=== PATIENT | female | born 1965 | race Caucasian/White ===

== ENCOUNTER → 2016-11-23 | Outpatient (CLI) | payer OTHER ==
[2016-11-23 08:32] LABS: AST 42 U/L (14-36); Cholesterol 133 mg/dL (<200); Creatine Kinase 621 U/L (30-135); HDL Cholesterol 54 mg/dL (40-60); Triglycerides 74 mg/dL (<150)
[2016-11-23 08:46] LABS: ALT 44 U/L (9-52)
== END | disposition home or self-care (01) ==
LOC: LABWHC1 07:36
PROVIDERS: ATTEND Internal Medicine Interventional Cardiology
DX: E78.2 Mixed hyperlipidemia (principal)
CPT/HCPCS: 36415; 80061; 82550; 84450; 84460

== ENCOUNTER 2016-12-15 07:16 | Observation (INO) | payer OTHER ==
[2016-12-15] MEDS ORDERED: ASPIRIN 81 MG CHEW PO STA ×2 (07:52→09:20)
[2016-12-15] MEDS ORDERED: ONDANSETRON 4 MG/2 ML VIAL IVP STA (07:52)
[2016-12-15] MEDS ORDERED: MORPHINE SULFATE 4 MG/ML SYRINGE IV STA (07:52)
[2016-12-15] MEDS ORDERED: SODIUM CHLORIDE 0.9% 1,000 ML IV STA (07:52)
[2016-12-15] MEDS ORDERED: NITROGLYCERIN OINT 1 INCH/GM PACKET TOPICAL STA (07:52)
[2016-12-15 08:08] LABS: Basophils # (A) 0.1 k/uL (0-0.2); Basophils % (A) 1 %; CH 30.9; CHCM 33.4; Eosinophils # (A) 0.2 k/uL (0-0.7); Eosinophils % (A) 2 %; HCT 36.8 % (34.0-46.0); HDW 2.48; HGB 12.5 gm/dL (11.4-16.0); Luc # (Auto) 0.15; Luc % (Auto) 2; Lymphocytes # (A) 1.5 k/uL (1.0-4.8); Lymphocytes % (A) 23 %; MCH 31.5 pg (25.0-35.0); MCHC 33.9 g/dL (31.0-37.0); Mean Platelet Volume 9.5; Monocytes # (A) 0.5 k/uL (0-1.0); Monocytes % (A) 7 %; Neutrophils # (A) 4.1 k/uL (1.3-7.7); Neutrophils % (A) 64 %; RBC 3.96 m/uL (3.80-5.40); RDW 14.1 % (11.5-15.5); WBC 6.4 k/uL (3.8-10.6); WBC (Perox) 6.75
[2016-12-15 08:17] LABS: ALT 40 U/L (9-52); AST 48 U/L (14-36); Alkaline Phosphatase 66 U/L (38-126); Anion Gap 11 mmol/L; Blood Urea Nitrogen 25 mg/dL (7-17); Calcium 9.2 mg/dL (8.4-10.2); Carbon Dioxide 21 mmol/L (22-30); Chloride 109 mmol/L (98-107); Glucose 110 mg/dL (74-99); Magnesium 1.7 mg/dL (1.6-2.3); Non-African American GFR(MDRD) 54 (>60 ml/min/1.73 sqM); Sodium 141 mmol/L (137-145); Total Bilirubin 0.7 mg/dL (0.2-1.3); Total Protein 7.3 g/dL (6.3-8.2)
[2016-12-15 08:24] LABS: Prothrombin Time 9.8 sec (9.0-12.0)
--- NOTE | 2016-12-15 08:38 | XR ---
EXAMINATION TYPE: XR chest 2V DATE OF EXAM: 12/15/2016 COMPARISON: 03/26/2016 TECHNIQUE: PA and lateral views submitted. HISTORY: Chest pain FINDINGS: The lungs are clear and there is no pneumothorax, pleural effusion, or focal pneumonia. Cardiac dev ice noted. IMPRESSION: 1. No acute process.
--- NOTE | 2016-12-15 08:44 | ED ---
Chest Pain HPI - General Chief Complaint: Chest Pain Stated Complaint: Chest Pain Time Seen by Provider: 12/15/16 07:41 Source: patient Mode of arrival: ambulatory Limitations: no limitations - History of Present Illness Initial Comments: 21 years old female has a history of coronary artery disease had AR and she had a pacemaker and defibrillator in place. Chest pain since 9 PM noticed some pressure like there was somebody sitting on her chest she was also short winded off-and-on since 9 PM yesterday been nauseous she ran out and ran out to 4 nitro no vomiting she had some cold sweats planing about chest pain gets worse when she takes deep breaths. Now is 8/10 and walking make is worse no fever no chills she does have family history of heart disease - Related Data Home Medications Medication Instructions Recorded Confirmed Clopidogrel [Plavix] 75 mg PO DAILY 12/09/15 12/15/16 Famotidine [Pepcid] 20 mg PO HS 05/20/16 12/15/16 Nitroglycerin Sl Tabs [Nitrostat] 0.4 mg SUBLINGUAL DIRECTED PRN 05/20/16 Spironolactone [Aldactone] 25 mg PO HS 05/20/16 12/15/16 Acetaminophen Tab [Tylenol] 500 - 1,000 mg PO Q6HR PRN 12/15/16 12/15/16 Penicillin V Potassium [Pen Vee K] 500 mg PO TID 12/15/16 12/15/16 Previous Rx's Medication Instructions Recorded Aspirin EC [Ecotrin] 325 mg PO DAILY #30 tablet. 07/03/15 Atorvastatin [Lipitor] 80 mg PO HS #30 tab 07/03/15 Lisinopril [Zestril] 5 mg PO DAILY #30 tab 07/03/15 Metoprolol Tartrate [Lopressor] 25 mg PO BID #60 tab 07/03/15 Allergies Allergy/AdvReac Type Severity Reaction Status Date / Time hydrocodone bitartrate AdvReac Nausea & Verified 12/15/16 08:03 [From Vicodin] Vomiting propoxyphene napsylate AdvReac Vomiting Verified 12/15/16 08:03 [From Darvocet-N] Review of Systems ROS Statement: Those systems with pertinent positive or pertinent negative responses have been documented in the HPI. ROS Other: All systems not noted in ROS Statement are negative. EKG Findings - EKG Comments: EKG Findings:: He has a normal sinus rhythm ventricular rate is 89 CT interval is 172 QRS duration is 178 QT/QTc is 454/452 review of this EKG in comparison of today's EKG with the old EKG of May [id number] show any significant difference does have a nonspecific interventricular block Past Medical History Past Medical History: Coronary Artery Disease (CAD), Heart Failure, GERD/Reflux , Hyperlipidemia, Hypertension, Myocardial Infarction (AR), Renal Disease Additional Past Medical History / Comment(s): See Dr Perez's H&P,kidney stone,MIGRAINES, CHEONIC BACK PAIN Last Myocardial Infarction Date:: 06-30-15 History of Any Multi-Drug Resistant Organisms: None Reported Past Surgical History: Hernia Repair, Hysterectomy Additional Past Surgical History / Comment(s): Bilateral oophorectomy, LT INGUINAL HERNIA REPAIR, CYSTOCOPY,LITHOTRIPSY,COLONOSCOPY.05-22-16 HEART CATH/ PTCA Past Anesthesia/Blood Transfusion Reactions: Postoperative Nausea & Vomiting ( PONV) Additional Past Anesthesia/Blood Transfusion Reaction / Comment(s): MILD CLAUSTERPHOBIA Past Psychological History: No Psychological Hx Reported Smoking Status: Former smoker Past Alcohol Use History: None Reported Additional Past Alcohol Use History / Comment(s): quit smoking ,smoked 15yrs 1/2-1ppd Past Drug Use History: None Reported - Past Family History Father Family Medical History: Cancer, Myocardial Infarction (AR) Additional Family Medical History / Comment(s): colon cancer, Sister(s) Family Medical History: Cancer, Hypertension Additional Family Medical History / Comment(s): breast General Exam - General Exam Comments Initial Comments: General: The patient is awake and alert, in no distress, and does not appear acutely ill. Skin: Skin is warm and dry and no rashes or lesions are noted. Eye: Pupils are equal, round and reactive to light, extra-ocular movements are intact; there is normal conjunctiva bilaterally. Ears, nose, mouth and throat: There are moist mucous membranes and no oral lesions. Neck: The neck is supple, there is no tenderness or JVD. Cardiovascular: There is a regular rate and rhythm. No murmur, rub or gallop is appreciated. Respiratory: To auscultation bilateral, no wheezing no rhonchi no distress respiratory elias noticed Gastrointestinal: Soft, non-distended, non-tender abdomen without masses or organomegaly noted. There is no rebound or guarding present. Bowel sounds are unremarkable. Back: There is no tenderness to palpation in the midline. There is no obvious deformity. Musculoskeletal: Normal ROM, no tenderness, There is no pedal edema. There is no calf tenderness or swelling. No cords were appreciated. Neurological: CN II-XII intact, Cranial nerves III through XII are intact. There are no obvious motor or sensory deficits. Coordination appears grossly intact. Speech is normal. Psychiatric: Cooperative, appropriate mood & affect, normal judgment. Limitations: no limitations Course Vital Signs 12/15/16 12/15/16 07:20 08:12 Temperature 97.2 F L Pulse Rate 101 H 97 Respiratory 20 20 Rate Blood Pressure 158/78 152/78 O2 Sat by Pulse 100 98 Oximetry Critical Care Time Total Critical Care Time: 30 Critical Care Time: The patient has a very high risk for ischemic heart disease she had coronary artery disease and had a rather young age and she has a pacemaker defibrillator in place as well today and her troponin is negative but CK is quite elevated at 944 by definition she has rhabdomyolysis she be admitted considering that but time will require and heparinize her at this point because her symptoms off-and- on chest pain worse with the exertion and diaphoresis she be heparinized she'll be admitted to Dr. Shore service and cardiology be consulted and she will also get some fluids keeping in consideration that she has rhabdomyolysis Disposition Clinical Impression: Chest pain, Pleuritic chest pain Disposition: ADMITTED IP TO THIS HOSP Condition: Poor Referrals: Tera Villanueva DO [Primary Care Provider] - 1-2 days
[2016-12-15 08:46] LABS: Creatine Kinase MB 6.7 ng/mL (0.0-2.4); Troponin I 0.014 ng/mL (0.000-0.034)
[2016-12-15] MEDS ORDERED: NITROGLYCERIN SL TABS 0.4 MG TAB SUBLINGUAL PRN ×2 (09:20→09:27)
[2016-12-15] MEDS ORDERED: HEPARIN SODIUM,PORCINE 5,000 UNIT/ML 1 ML VIAL IV ONE (09:20)
[2016-12-15] MEDS ORDERED: HYDROmorphone 1 MG/ML 1 ML SYRINGE IVP PRN (09:28)
[2016-12-15] MEDS: HEPARIN SODIUM,PORCINE/D5W PMX 25,000 UNIT in DEXTROSE/WATER 1 500ML.BAG IV SCH (10:00)
[2016-12-15] MEDS ORDERED: METOCLOPRAMIDE 5 MG/ML 2 ML VIAL IVP STA (10:21)
--- NOTE | 2016-12-15 12:24 | P.CRDCN ---
History of Present Illness Consult date: 12/15/16 Consult reason: chest pain Chief complaint: Chest pain History of present illness: This is a pleasant 51-year-old female who follows regularly with Dr. Osullivan in the office. She has known history of hypertension, hyperlipidemia, coronary artery disease with prior LAD stenting, most recently stenting of the diagonal in May 2016 ischemic cardiomyopathy with prior AICD.. She had actually just seen Dr. Osullivan in the office on Wednesday of last week. Patient states that yesterday she had developed a sharp pain in her chest while sleeping , lasted about 10-15 minutes in duration. While at work this morning, she states that she was moving outpatient and developed a sudden onset of pain which she describes as an elephant sitting on her chest, she states that she became short of breath, she was already sweating quite a bit because it was hot. These symptoms lasted approximately 15-20 minutes in duration. Patient did not have any sublingual nitroglycerin. She came to the emergency room for further evaluation. EKG on arrival here showed a normal sinus rhythm with a left bundle branch block pattern. CBC normal. Potassium 4.0, BUN 25, creatinine 1.0. Initial troponin 0.014. Chest x-ray did not reveal any acute process. At the time of my examination, patient is currently chest pain-free. She is on aspirin 325 mg daily, Lipitor 80 mg daily, Plavix 75 mg daily, lisinopril 5 mg daily, metoprolol tartrate 25 mg one tablet by mouth twice a day , Aldactone 25 mg at at bedtime, heparin IV and Nitropaste. Past Medical History Past Medical History: Coronary Artery Disease (CAD), Chest Pain / Angina, Heart Failure, GERD/Reflux, Hyperlipidemia, Hypertension, Myocardial Infarction (DC), Renal Disease Additional Past Medical History / Comment(s): Ischemic cardiomyopathy, nephrolithiasis, migraines, occasional back pain, hypothyroid. Last Myocardial Infarction Date:: 06-30-15 History of Any Multi-Drug Resistant Organisms: None Reported Past Surgical History: AICD, Heart Catheterization With Stent, Hernia Repair, Hysterectomy Additional Past Surgical History / Comment(s): 06/30/15 PCI with stent, PTCA, Bilateral oophorectomy, LT INGUINAL HERNIA REPAIR, CYSTOCOPY, LITHOTRIPSY,COLONOSCOPY Past Anesthesia/Blood Transfusion Reactions: Postoperative Nausea & Vomiting ( PONV) Additional Past Anesthesia/Blood Transfusion Reaction / Comment(s): MILD CLAUSTERPHOBIA Date of Last Stent Placement:: 06/30/15 Type of Cardiac Device: AICD Device Placement Date:: 12/12/15 Past Psychological History: No Psychological Hx Reported Additional Psychological History / Comment(s): Pt resides with her daughter, Blank. She is independent. She works at a nursing home. Smoking Status: Former smoker Past Alcohol Use History: None Reported Additional Past Alcohol Use History / Comment(s): Pt started smoking in 1963 and quit in 1991. She was about a 1/2 ppd smoker. She used to drink alcohol on occasion, but has not had any alcohol in a long time. Past Drug Use History: None Reported - Past Family History Father Family Medical History: Cancer, Myocardial Infarction (DC) Additional Family Medical History / Comment(s): Pt does not recall age that father had his DC. He also had a pacer and colon cancer, Sister(s) Family Medical History: Cancer, Hypertension Additional Family Medical History / Comment(s): breast Medications and Allergies Home Medications Medication Instructions Recorded Confirmed Type Clopidogrel [Plavix] 75 mg PO DAILY 12/09/15 12/15/16 History Famotidine [Pepcid] 20 mg PO HS 05/20/16 12/15/16 History Nitroglycerin Sl Tabs [Nitrostat] 0.4 mg SUBLINGUAL DIRECTED PRN 05/20/16 History Spironolactone [Aldactone] 25 mg PO HS 05/20/16 12/15/16 History Acetaminophen Tab [Tylenol] 500 - 1,000 mg PO Q6HR PRN 12/15/16 12/15/16 History Penicillin V Potassium [Pen Vee K] 500 mg PO TID 12/15/16 12/15/16 History Allergies Allergy/AdvReac Type Severity Reaction Status Date / Time hydrocodone bitartrate AdvReac Nausea & Verified 12/15/16 08:03 [From Vicodin] Vomiting propoxyphene napsylate AdvReac Vomiting Verified 12/15/16 08:03 [From Darvocet-N] Physical Exam Vitals: Vital Signs Temp Pulse Resp BP Pulse Ox 12/15/16 11:55 81 18 151/70 98 12/15/16 10:37 81 20 151/70 97 12/15/16 08:12 97 20 152/78 98 12/15/16 07:20 97.2 F L 101 H 20 158/78 100 Intake and Output 12/14/16 12/15/16 12/15/16 22:59 06:59 14:59 Other: Weight 95.254 kg Patient Weight 12/16/16 06:59 Weight 95.254 kg PHYSICAL EXAMINATION: HEENT: Head is atraumatic, normocephalic. Pupils equal, round. Neck is supple. There is no elevated jugular venous pressure. HEART EXAMINATION: Heart S1, S2 normal. No murmur or gallop heard. CHEST EXAMINATION: Lungs are clear to auscultation and precussion. No chest wall tenderness is noted on palpation or with deep breathing. ABDOMEN: Soft, nontender. Bowel sounds are heard. No organomegaly noted. EXTREMITIES: 2+ peripheral pulses with no evidence of peripheral edema and no calf tenderness noted. NEUROLOGIC patient is awake, alert and oriented -3. . Results 12/15/16 07:35 12/15/16 07:35 Cardiac Enzymes 12/15/16 12/15/16 Range/Units 07:35 07:35 AST 48 H (14-36) U/L CK-MB (CK-2) 6.7 H* (0.0-2.4) ng/mL Troponin I 0.014 (0.000-0.034) ng/mL Coagulation 12/15/16 Range/Units 07:35 PT 9.8 (9.0-12.0) sec APTT 25.0 (22.0-30.0) sec CBC 12/15/16 Range/Units 07:35 WBC 6.4 (3.8-10.6) k/uL RBC 3.96 (3.80-5.40) m/uL Hgb 12.5 (11.4-16.0) gm/dL Hct 36.8 (34.0-46.0) % Plt Count 190 (150-450) k/uL Comprehensive Metabolic Panel 12/15/16 Range/Units 07:35 Sodium 141 (137-145) mmol/L Potassium 4.0 (3.5-5.1) mmol/L Chloride 109 H (98-107) mmol/L Carbon Dioxide 21 L (22-30) mmol/L BUN 25 H (7-17) mg/dL Creatinine 1.06 H (0.52-1.04) mg/dL Glucose 110 H (74-99) mg/dL Calcium 9.2 (8.4-10.2) mg/dL AST 48 H (14-36) U/L ALT 40 (9-52) U/L Alkaline Phosphatase 66 (38-126) U/L Total Protein 7.3 (6.3-8.2) g/dL Albumin 4.2 (3.5-5.0) g/dL Current Medications Generic Name Dose Route Start Last Admin Trade Name Freq PRN Reason Stop Dose Admin Acetaminophen 1,000 mg 12/15/16 09:27 Tylenol Tab PO Q6HR PRN Fever and/ or Pain Aspirin 325 mg 12/16/16 09:00 Aspirin PO DAILY [facility] Atorvastatin Calcium 80 mg 12/15/16 21:00 Lipitor PO HS [facility] Clopidogrel Bisulfate 75 mg 12/16/16 09:00 Plavix PO DAILY [facility] Famotidine 20 mg 12/15/16 21:00 Pepcid PO HS [facility] Hydromorphone HCl 1 mg 12/15/16 09:28 Dilaudid IVP Q4HR PRN Pain Sodium Chloride 1,000 mls @ 100 mls/hr 12/15/16 07:52 12/15/16 08:02 Saline 0.9% IV 12/15/16 17:51 100 mls/hr .Q10H [facility] Administration Heparin Sodium/Dextrose 25,000 500 mls @ 20 mls/hr 12/15/16 09:30 12/15/16 10 :00 unit/ IV Solution IV 10.49 units/kg/hr .Q24H [facility] 20 mls/hr Protocol Administration Sodium Chloride 1,000 mls @ 125 mls/hr 12/15/16 09:30 Saline 0.9% IV .Q8H [facility] Lisinopril 5 mg 12/16/16 09:00 Zestril PO DAILY [facility] Metoprolol Tartrate 25 mg 12/15/16 21:00 Lopressor PO BID [facility] Nitroglycerin 0.4 mg 12/15/16 09:20 Nitrostat SUBLINGUAL Q5M PRN Chest Pain Nitroglycerin 0.4 mg 12/15/16 09:27 Nitrostat SUBLINGUAL DIRECTED PRN Chest Pain Penicillin V Potassium 500 mg 12/15/16 16:00 Pen Vee K PO TID [facility] Spironolactone 25 mg 12/15/16 21:00 Aldactone PO HS [facility] Intake and Output 12/14/16 12/15/16 12/15/16 22:59 06:59 14:59 Other: Weight 95.254 kg Patient Weight 12/16/16 06:59 Weight 95.254 kg 12/15/16 07:35 12/15/16 07:35 EKG Interpretations (text) EKG shows normal sinus rhythm with a left bundle-branch block and nonspecific ST -T wave changes. Assessment and Plan Plan: Assessment and plan #1 symptoms of midsternal chest pressure and heaviness with associated shortness of breath and diaphoresis. Initial troponin 0.014. EKG shows normal sinus rhythm with a left bundle-branch block pattern and nonspecific ST-T wave changes. #2 known history of coronary artery disease with prior LAD and diagonal stenting #3 ischemic cardio myopathy with prior AICD #4 hypertension #5 diabetes #6 hyperlipidemia Plan We will obtain an echocardiogram with Doppler study. We will also obtain 2 more troponin values and repeat the patient's EKG. Further recommendations will be based on these findings and the patient's clinical course. DNP note has been reviewed, I agree with a documented findings and plan of care. Patient was seen and examined.
[2016-12-15] MEDS ORDERED: AMINOPHYLLINE 500 MG/20 ML VIAL IV PRN (13:53)
[2016-12-15] MEDS ORDERED: REGADENOSON 0.4 MG/5 ML SYRINGE IV ONE (13:53)
--- NOTE | 2016-12-15 13:53 | P.PN ---
Progress Note - Text This is an addendum to the dictated cardiology consultation. The patient has a known history of CAD, status post stenting of the diagonal branch who presents with symptoms of chest discomfort. The discomfort is worse with breathing and different from her anginal pain that she had prior to the intervention done by Dr. North last year. Her breathing is been stable, she had mild nausea and dizziness today but not on a regular basis. Her EKG shows a chronic left bundle branch block with no troponin abnormalities on her initial sample. We will obtain serial enzymes and if there is no abnormalities I will proceed with a Lexiscan nuclear imaging to evaluate her status. If she has any further discomfort or abnormalities on her troponins then she would require repeat cardiac catheterization. Thank you for this consult we will follow with you.
[2016-12-15 15:04] LABS: Creatine Kinase 676 U/L (30-135)
[2016-12-15] MEDS: SODIUM CHLORIDE 0.9% 1,000 ML IV SCH ×2 (15:08→17:37)
[2016-12-15 15:15] LABS: Troponin I <0.012 ng/mL (0.000-0.034)
[2016-12-15] MEDS: PENICILLIN V POTASSIUM 250 MG TAB PO SCH ×2 (17:36→20:41)
--- NOTE | 2016-12-15 20:01 | HP ---
DATE OF ADMISSION: 12/15/2016 PRESENTING COMPLAINT: Chest pain. HISTORY OF PRESENTING COMPLAINT: This is a 51-year-old patient of Dr. Villanueva whose chronic stable medical conditions include GERD, hypertension, hyperlipidemia, osteoarthritis, chronic kidney stage II, congestive heart failure, ejection fraction 20%, left bundle branch block, hypothyroid, kidney stones, has an AICD. Patient had couple of stents, the last one being in December of [address] Isauro North. Patient presented with left chest pain yesterday, sharp in the anterior wall and again happened today. This was associated with shortness of breath, dizziness, felt tired. The patient does normally sweat at works so she was not sure, this was of variable duration; hence, admitted with unstable angina. REVIEW OF SYSTEMS: CONSTITUTIONAL: None. HEENT: None. RESPIRATORY: As above. CARDIOVASCULAR: As above. GASTROINTESTINAL: Heartburn. GENITOURINARY: None. MUSCULOSKELETAL: Arthritic pain in the joints. DERMATOLOGIC: None. HEMATOLOGIC: None. LYMPHATICS: None. PSYCHIATRY: None. NEUROLOGICAL: None. PAST HISTORY: Coronary disease with stent, GERD, hyperlipidemia, hypertension, osteoarthritis, chronic kidney stage II, congestive heart failure, ejection fraction 20%, left bundle branch block, kidney stones, hypothyroidism, AICD. PAST SURGICAL HISTORY: AICD, cardiac catheterization with stent, hysterectomy, bilateral oophorectomy, left inguinal hernia repair, lithotripsy. SOCIAL HISTORY: Patient lives with her daughter, Tawanna. Smokes 1/2 pack a day for 28 years; stopped in 1991. Works at a intermediate. FAMILY HISTORY: Myocardial infarction, cancer. HOME MEDICATIONS: 1. Penicillin V 500 mg p.o. t.i.d. 2. Sublingual Nitrostat 0.4 q.6 p.r.n. 3. Tylenol 500 to 1000 mg q.6 p.r.n. 4. Aldactone 25 mg q.h.s. 5. Lopressor 25 mg b.i.d. 6. Zestril 5 mg p.o. daily. 7. Pepcid 20 mg p.o. q.h.s. 8. Plavix 75 mg p.o. daily. 9. Lipitor 80 mg q.h.s. 10. Aspirin 325 p.o. daily. ALLERGIES TO VICODIN AND DARVOCET-N 100. On examination, temperature 97.6, pulse 83, respirations 18, blood pressure 104/65, pulse ox 92% on 2 liters. GENERAL APPEARANCE: Well built, BMI 38.4. Sitting up, not in distress. EYES: Pupils equal. Conjunctivae normal. HEENT: Oral cavity normal. NECK: JVD not raised. Mass not palpable. RESPIRATORY: Effort normal. LUNGS: Fair air entry. CARDIOVASCULAR: First and second sounds. No edema. ABDOMEN: Soft, nontender. Liver and spleen not palpable. LYMPHATIC: No lymph node palpable in neck or axillae. PSYCHIATRY: Alert and oriented x3. Mood and affect normal. NEUROLOGICAL: Pupils equal. Cranial nerves grossly intact. Power and sensation grossly intact. INVESTIGATIONS: White count 6.4, hemoglobin 12.5, potassium 4.0, BUN 25, creatinine 1.06. Troponin 0.014, less than 0.012. ASSESSMENT: 1. Atypical chest pain though could be possible unstable angina in patient with known coronary artery disease. 2. Coronary artery disease with prior stent in December of last year. 3. Gastroesophageal reflux disease. 4. Essential hypertension. 5. Hyperlipidemia. 6. Primary osteoarthritis in multiple joints bilaterally. 7. Obesity, body mass index of 38.4. 8. Chronic kidney disease stage II. 9. Chronic congestive heart failure from systolic dysfunction; ejection fraction 20%, from underlying coronary artery disease. 10. Left bundle branch block. 11. Kidney stones. 12. Hypothyroidism. 13. AICD. PLAN: Serial cardiac enzymes are in place. Home medications are resumed. Per Cardiology if that is negative, patient will have a nuclear stress test. Care was discussed with the patient. Questions were answered.
[2016-12-15 20:13] LABS: Creatine Kinase 546 U/L (30-135)
[2016-12-15 20:25] LABS: Troponin I <0.012 ng/mL (0.000-0.034)
[2016-12-15 20:30] LABS: Creatine Kinase MB 4.7 ng/mL (0.0-2.4)
[2016-12-15] MEDS: ATORVASTATIN 80 MG TAB PO SCH (20:41)
[2016-12-15] MEDS: FAMOTIDINE 20 MG TAB PO SCH (20:41)
[2016-12-15] MEDS: METOPROLOL TARTRATE 25 MG TAB PO SCH (20:41)
[2016-12-15] MEDS: SPIRONOLACTONE 25 MG TAB PO SCH (20:41)
[2016-12-15] MEDS: ACETAMINOPHEN TAB 500 MG TAB PO PRN (20:47)
[2016-12-16] MEDS: SODIUM CHLORIDE 0.9% 1,000 ML IV SCH ×2 (04:30→12:04)
[2016-12-16 06:27] LABS: Basophils # (A) 0.1 k/uL (0-0.2); Basophils % (A) 1 %; CH 30.2; CHCM 31.7; Eosinophils # (A) 0.1 k/uL (0-0.7); Eosinophils % (A) 2 %; HDW 2.52; HGB 11.5 gm/dL (11.4-16.0); Luc # (Auto) 0.16; Luc % (Auto) 3; Lymphocytes # (A) 1.7 k/uL (1.0-4.8); Lymphocytes % (A) 29 %; MCH 31.5 pg (25.0-35.0); MCHC 32.9 g/dL (31.0-37.0); Monocytes # (A) 0.4 k/uL (0-1.0); Monocytes % (A) 6 %; Neutrophils # (A) 3.4 k/uL (1.3-7.7); Neutrophils % (A) 58 %; RBC 3.65 m/uL (3.80-5.40); RDW 13.7 % (11.5-15.5); WBC 5.8 k/uL (3.8-10.6); WBC (Perox) 5.96
[2016-12-16] MEDS: HEPARIN SODIUM,PORCINE/D5W PMX 25,000 UNIT in DEXTROSE/WATER 1 500ML.BAG IV SCH (06:33)
[2016-12-16 06:45] LABS: Anion Gap 8 mmol/L; Blood Urea Nitrogen 18 mg/dL (7-17); Calcium 8.9 mg/dL (8.4-10.2); Carbon Dioxide 22 mmol/L (22-30); Chloride 112 mmol/L (98-107); Cholesterol 105 mg/dL (<200); Glucose 107 mg/dL (74-99); Non-African American GFR(MDRD) >60 (>60 ml/min/1.73 sqM); Potassium 4.4 mmol/L (3.5-5.1); Sodium 142 mmol/L (137-145); Triglycerides 91 mg/dL (<150)
[2016-12-16] MEDS: METOPROLOL TARTRATE 25 MG TAB PO SCH ×2 (08:46→19:57)
[2016-12-16] MEDS: CLOPIDOGREL 75 MG TAB PO SCH (08:47)
[2016-12-16] MEDS: LISINOPRIL 5 MG TAB PO SCH (08:47)
[2016-12-16] MEDS ORDERED: REGADENOSON 0.4 MG/5 ML SYRINGE IV ONE ×2 (09:00)
[2016-12-16] MEDS ORDERED: ASPIRIN 325 MG TAB PO SCH (09:00)
[2016-12-16] MEDS ORDERED: AMINOPHYLLINE 500 MG/20 ML VIAL IV PRN (09:00)
--- NOTE | 2016-12-16 09:02 | P.PN ---
Subjective Principal diagnosis: Chest pain Is a pleasant 51-year-old female who follows regularly with Dr. Osullivan in the office. She has a known history of hypertension, hyperlipidemia, coronary artery disease prior LAD and diagonal stenting, ischemic cardiomyopathy with prior AICD placement. Over the last month she has been complaining of increasing fatigue. Was in to see Dr. Osullivan in the office Wednesday of last week and medications were adjusted. 2 days ago, patient states that she developed a sharp pain in her chest while she was sleeping lasted about 10-15 minutes and then again yesterday while at work she noticed a sudden onset of pain which she described as something sitting on her chest as well as some shortness of breath. At that time she was sure if she was diaphoretic as it was quite warm and she was already sweating. Symptoms lasted approximately 15-20 minutes, did not have sublingual nitroglycerin available. She came to the emergency department for further evaluation. EKG on arrival here showed normal sinus rhythm with a left bundle branch block pattern which is chronic. Troponins were negative 3, chest x-ray did not reveal any acute process. She was originally scheduled to undergo Lexiscan Cardiolite. However she did develop some chest discomfort tonight that subsided prior to receiving nitro and again this morning which was quite intense, felt a heaviness on her chest like something was sitting on it, short of breath and diaphoretic. Pain did increase somewhat with deep inspiration. Blood pressure 160/100. EKG shows sinus tachycardia with left bundle branch block pattern unchanged from previous. Objective - Vital Signs Vital signs: Vital Signs Temp 97.3 F L 12/16/16 04:00 Pulse 71 12/16/16 04:00 Resp 16 12/16/16 04:00 BP 123/78 12/16/16 04:00 Pulse Ox 98 12/16/16 04:00 Intake & Output 12/15/16 12/16/16 12/16/16 18:59 06:59 18:59 Intake Total 750.606 Balance 750.606 Weight 95.254 kg 93.5 kg Intake: Intake, IV Titration 750.606 Amount Heparin Sodium,Porcine/ 450.606 D5w Pmx 25,000 unit In Dextrose/Water 1 500ml. bag @ 20 mls/hr IV .Q24H [facility] Rx#:[id number] Sodium Chloride 0.9% 1, 300 000 ml @ 100 mls/hr IV . Q10H [facility] Rx#:[id number] Other: # Voids 1 - Exam PHYSICAL EXAMINATION: HEENT: Head is atraumatic, normocephalic. Pupils equal, round. Neck is supple. There is no elevated jugular venous pressure. HEART EXAMINATION: Heart sounds regular, S1 and S2 normal. No murmur or gallop heard. CHEST EXAMINATION: Lungs are clear to auscultation and precussion. No chest wall tenderness is noted on palpation or with deep breathing. ABDOMEN: Soft, nontender. Bowel sounds are heard. No organomegaly noted. EXTREMITIES: 2+ peripheral pulses with no evidence of peripheral edema and no calf tenderness noted. NEUROLOGIC patient is awake, alert and oriented x3. . - Labs CBC & Chem 7: 12/16/16 06:02 12/16/16 06:02 Labs: Abnormal Lab Results - Last 24 Hours (Table) 12/15/16 12/15/16 12/15/16 Range/Units 14:05 18:03 19:28 RBC (3.80-5.40) m/uL APTT 43.1 H (22.0-30.0) sec Chloride (98-107) mmol/L BUN (7-17) mg/dL Glucose (74-99) mg/dL Total Creatine Kinase 676 H 546 H (30-135) U/L CK-MB (CK-2) 5.0 H* 4.7 H* (0.0-2.4) ng/mL 12/16/16 12/16/16 12/16/16 Range/Units 02:03 06:02 06:02 RBC 3.65 L (3.80-5.40) m/uL APTT 52.1 H (22.0-30.0) sec Chloride 112 H (98-107) mmol/L BUN 18 H (7-17) mg/dL Glucose 107 H (74-99) mg/dL Total Creatine Kinase (30-135) U/L CK-MB (CK-2) (0.0-2.4) ng/mL 12/16/16 Range/Units 06:09 RBC (3.80-5.40) m/uL APTT 57.0 H (22.0-30.0) sec Chloride (98-107) mmol/L BUN (7-17) mg/dL Glucose (74-99) mg/dL Total Creatine Kinase (30-135) U/L CK-MB (CK-2) (0.0-2.4) ng/mL Assessment and Plan Plan: Assessment and plan #1 symptoms of midsternal chest pressure and heaviness with associated shortness of breath and diaphoresis, recurrent #2 history of coronary artery disease with prior LAD and diagonal stenting #3 ischemic cardiomyopathy with prior AICD placement #4 hypertension #5 diabetes #6 hyperlipidemia From cardiology standpoint, we will cancel the stress test. We will discuss recurrent symptoms with Dr. Osullivan. Patient may require cardiac catheterization. Further recommendations to follow. IC ENGINEER note has been reviewed, I agree with a documented findings and plan of care. Patient was seen and examined.
[2016-12-16] MEDS ORDERED: ALPRAZolam 0.5 MG TAB PO PRN (09:15)
[2016-12-16] MEDS ORDERED: SODIUM CHLORIDE 0.9% 1,000 ML in EMPTY BAG 1 BAG IV ONE (09:15)
[2016-12-16] MEDS ORDERED: ALPRAZolam 0.25 MG TAB PO PRN (09:15)
[2016-12-16 10:51] LABS: HDL Cholesterol 49 mg/dL (40-60)
[2016-12-16] MEDS: PENICILLIN V POTASSIUM 250 MG TAB PO SCH ×3 (12:03→19:57)
--- NOTE | 2016-12-16 12:20 | ECHOF ---
Referral Reason:chest pain MEASUREMENTS -------- HEIGHT: 157.5 cm WEIGHT: 95.3 kg BP: 110/60 IVSd: 1.2 cm (0.6 - 1.1) LVIDd: 5.4 cm (3.9 - 5.3) LVPWd: 1.3 cm (0.6 - 1.1) IVSs: 1.4 cm LVIDs: 4.3 cm LVPWs: 1.6 cm LA Diam: 3.4 cm (2.7 - 3.8) LAESV Index (A-L): 39.74 ml/m Ao Diam: 3.1 cm (2.0 - 3.7) AV Cusp: 1.9 cm (1.5 - 2.6) LA Diam: 4.6 cm (2.7 - 3.8) MV EXCURSION: 20.174 mm (> 18.000) MV EF SLOPE: 101 mm/s (70 - 150) EPSS: 1.2 cm MV E Wale: 0.91 m/s MV DecT: 205 ms MV A Wale: 1.13 m/s MV E/A Ratio: 0.81 RAP: 5.00 mmHg RVSP: 42.89 mmHg FINDINGS -------- Paced rhythm. This was a technically excellent study. There is borderline concentric left ventricular hypertrophy. There is moderate global hypokinesis of LV . Overall left ventricular systolic function is mild-moderately impaired with, an EF between 40 - 45 %. Mitral Doppler inflow pattern suggests diastolic filling abnormality 14.80. Anterseptal Hypokinesis Septal Hypokinesis The right ventricle is normal in size. LA is severely dilated >40 ml/m2 The right atrial size is normal. There is mild aortic valve sclerosis. There is no evidence of aortic regurgitation. Mild mitral annular calcification present. Mild mitral regurgitation is present. Mild tricuspid regurgitation present. There is mild pulmonary hypertension. The right ventricular systolic pressure, as measured by Doppler, is 42.89mmHg. Trace/mild (physiologic) pulmonic regurgitation. The aortic root size is normal. There is no pericardial effusion. CONCLUSIONS -------- 1. There is borderline concentric left ventricular hypertrophy. 2. Mild mitral regurgitation is present. 3. Mild tricuspid regurgitation present. 4. There is mild pulmonary hypertension. 5. The right ventricular systolic pressure, as measured by Doppler, is 42.89mmHg. 6. Trace/mild (physiologic) pulmonic regurgitation. 7. The aortic root size is normal. 8. There is no pericardial effusion. 9. There is moderate global hypokinesis of LV . 10. Overall left ventricular systolic function is mild-moderately impaired with, an EF between 40 - 45 %. 11. Mitral Doppler inflow pattern suggest diastolic filling abnormality 14.80. 12. Anterseptal Hypokinesis 13. Septal Hypokinesis 14. LA is severely dilated >40 ml/m2 15. There is mild aortic valve sclerosis. 16. Mild mitral annular calcification present. CUSTOMER SERVICE ANALYST: Lizet Castillo RDCS
[2016-12-16] MEDS ORDERED: VERAPAMIL 2.5 MG/ML 2 ML AMP ONE (14:32)
[2016-12-16] MEDS ORDERED: LIDOCAINE 2% INJ 20 MG/ML (20 ML MDV) ONE (14:32)
[2016-12-16] MEDS ORDERED: fentaNYL (PF) 50 MCG/ML 2 ML AMP ONE (14:32)
[2016-12-16] MEDS ORDERED: fentaNYL (PF) 50 MCG/ML 2 ML AMP IV ONE (14:45)
[2016-12-16] MEDS ORDERED: HEPARIN SODIUM 1,000 UNIT/ML VIAL ONE (14:46)
[2016-12-16] MEDS ORDERED: VERAPAMIL SYRINGE (5 MG/10 ML) INTRAARTER ONE (14:52)
[2016-12-16] MEDS ORDERED: MIDAZOLAM 2 MG/2 ML VIAL ONE (14:54)
[2016-12-16] MEDS ORDERED: MIDAZOLAM 2 MG/2 ML VIAL IV ONE (14:55)
[2016-12-16] MEDS ORDERED: HEPARIN SODIUM 1,000 UNIT/ML VIAL IV ONE (14:58)
[2016-12-16] MEDS ORDERED: IOHEXOL 350 MG/ML 125ML BOTTLE INTRATHECA ONE (15:02)
[2016-12-16] MEDS ORDERED: SODIUM CHLORIDE 0.9% 1,000 ML IV ONE (15:03)
[2016-12-16] MEDS ORDERED: RX INFO: IV CONTRAST WAS GIVEN 1 EACH MISC MISCELLANE PRN (15:10)
[2016-12-16] MEDS ORDERED: SODIUM CHLORIDE 0.9% 1,000 ML IV SCH (15:15)
[2016-12-16] MEDS: SPIRONOLACTONE 25 MG TAB PO SCH (19:57)
[2016-12-16] MEDS: FAMOTIDINE 20 MG TAB PO SCH (19:57)
[2016-12-16] MEDS: ATORVASTATIN 80 MG TAB PO SCH (19:57)
[2016-12-16 20:58] VITALS: RESP 16
--- NOTE | 2016-12-16 21:56 | CC ---
Mrs. Coley is a 51-year-old female with a known history of coronary artery disease, history of cardiomyopathy who presented with symptoms of chest discomfort. Her enzymes were negative. The plan was to proceed with a myocardial perfusion imaging, but the patient persisted in having chest discomfort and in view of that, recommendation was made regarding cardiac catheterization. The procedure as well as risks and complications were discussed with the patient, who is in full understanding and agreement. PROCEDURE: Patient was brought to the quality assurance qa lab technician in a fasting semi-sedated state after receiving fentanyl and Benadryl and achieving moderate conscious sedated state. Using Xylocaine anesthesia and Seldinger technique, a 6 Macedonian sheath was introduced in the right radial artery. Selective right and left coronary angiography was performed using 5 Macedonian 3-1/2 Bend right and left Abhishek catheter. Multiple views of the coronary arteries, including hemiaxial views, were obtained. Following that, a 5 Macedonian tight pigtail catheter was introduced in the left ventricle and a 30 degree SIMMONS view of the left ventricle was obtained. Following that, catheter and sheaths were removed. Hemostasis was obtained with deployment of a TR band. There were no immediate complications. Patient was returned her room in stable condition. Of note, the patient received 5000 units of intravenous heparin as well as intra-arterial verapamil. FINDINGS: Left main: This is a large-size vessel bifurcating into left circumflex, left anterior descending artery. The left main coronary artery has no evidence of obstructive coronary artery disease. Left anterior descending artery: This is a large-size vessel reaching toward the apex with a wraparound apex segment. The stented segment at the bifurcation of the diagonal branch in the LAD is patent. There is 30% plaque in the LAD following the bifurcation. The rest of the vessel has no high-grade stenosis. Left circumflex: This is a nondominant vessel, giving rise to a large obtuse marginal branch of the left circumflex as well as its branches, has no evidence of obstructive coronary artery disease. Right coronary artery: This is a large dominant vessel bifurcating distally into PDA and posterolateral segment and branches. The right coronary artery has no evidence of high-grade stenosis. Left ventriculogram: Left ventriculogram was performed in 30 degree SIMMONS view and revealed global hypokinesis. Ejection fraction of 30%. There was no significant mitral regurgitation. HEMODYNAMICS: There was no gradient across the aortic valve. The left ventricular end-diastolic pressure was 16 mmHg to 20 mmHg. CONCLUSION: 1. Mild re-stenosis at the site of the stenting of the left anterior descending. 2. Severely impaired left ventricular systolic function. RECOMMENDATIONS: In view of finding anatomy, I have recommended continued medical therapy with aggressive risk factor modification has been initiated. Those findings and recommendations were discussed with the patient and her family, who are in full understanding and agreement. DURATION OF THE PROCEDURE: 18 minutes.
--- NOTE | 2016-12-16 21:59 | LTR ---
December 16, 2016 RE: ViancaSarita Dear Dr. Villanueva: I had the pleasure to perform cardiac catheterization on Mrs. Coley at [facility] on 16 of December. A full copy of the procedure will be forwarded to you. In brief, she was found to have mild re-stenosis at the LAD stent, but no evidence of high-grade stenosis. In view of that, I have recommended continued medical therapy with aggressive risk modification being initiated. Thank you again for allowing me to participate in this pleasant patient's care. Please feel free to call for any questions. Sincerely yours, SUGAR PAULINO MD
[2016-12-17] MEDS: ACETAMINOPHEN TAB 500 MG TAB PO PRN (00:17)
[2016-12-17] MEDS: SODIUM CHLORIDE 0.9% 1,000 ML IV SCH ×3 (00:17→08:31)
[2016-12-17 07:31] LABS: Anion Gap 6 mmol/L; Blood Urea Nitrogen 21 mg/dL (7-17); Calcium 9.3 mg/dL (8.4-10.2); Carbon Dioxide 27 mmol/L (22-30); Chloride 110 mmol/L (98-107); Glucose 112 mg/dL (74-99); Non-African American GFR(MDRD) 52 (>60 ml/min/1.73 sqM); Potassium 4.2 mmol/L (3.5-5.1); Sodium 143 mmol/L (137-145)
[2016-12-17] MEDS: PENICILLIN V POTASSIUM 250 MG TAB PO SCH ×2 (08:12→14:47)
[2016-12-17] MEDS: CLOPIDOGREL 75 MG TAB PO SCH (08:13)
[2016-12-17] MEDS: METOPROLOL TARTRATE 25 MG TAB PO SCH (08:13)
[2016-12-17] MEDS: LISINOPRIL 5 MG TAB PO SCH (08:31)
[2016-12-17] MEDS ORDERED: ASPIRIN 81 MG CHEW PO SCH (09:00)
[2016-12-17 12:19] VITALS: TEMP 97.2
--- NOTE | 2016-12-17 13:00 | PN ---
DATE OF SERVICE: 12/16/2016. PRESENTING COMPLAINT: Chest pain. INTERVAL HISTORY: I saw this patient yesterday evening on 12/16/16. Patient is status post cardiac cath shows mild restenosis in the stent to the LAD. LV function is severely impaired, lying in bed, comfortable. No chest pain or shortness of breath. Review of systems done for constitutional, cardiovascular, GI, pulmonary; relevant findings as above. Current medications are reviewed. On examination, temperature 97.1, pulse 77, respirations 16, blood pressure 120/55, pulse ox 96% on room air. GENERAL APPEARANCE: Lying in bed, comfortable. EYES: Pupils equal. Conjunctivae normal. NECK: JVD not raised. Mass not palpable. RESPIRATORY: Effort normal. L Lungs are clear. CARDIOVASCULAR: First and second sounds normal. No edema. ABDOMEN: Soft, nontender. Liver and spleen not palpable. PSYCHIATRY: Alert and oriented x3. Mood and affect normal. INVESTIGATIONS: Potassium 4.4. BUN 18, creatinine 0.94. ASSESSMENT: 1. Atypical chest pain presentation in a patient with known coronary artery disease, status post cardiac catheterization showing minimal disease with in-stent stenosis. 2. Coronary artery disease with prior stent in December of last year. 3. Gastroesophageal reflux disease. 4. Essential hypertension. 5. Hyperlipidemia. 6. Primary osteoarthritis of multiple joints, bilaterally. 7. Obesity; body mass index 38.4. 8. Chronic kidney disease stage II, probably from nephrosclerosis. 9. Chronic congestive heart failure from systolic dysfunction; ejection fraction 20% from underlying coronary artery disease. 10. Left bundle branch block. 11. Kidney stones. 12. Hypothyroidism. 13. AICD. PLAN: Care was discussed with the patient. Continue current medication and treatment plan. Hopefully, patient can be discharged tomorrow.
--- NOTE | 2016-12-17 14:56 | P.PN ---
Subjective Principal diagnosis: Chest pain This is a pleasant 51-year-old female who follows regularly with Dr. Osullivan in the office. She has known history of hypertension, hyperlipidemia, coronary artery disease with prior LAD stenting, most recently stenting of the diagonal in May 2016 ischemic cardiomyopathy with prior AICD.. She had actually just seen Dr. Osullivan in the office on Wednesday of last week. She was admitted to the hospital with symptoms of chest discomfort. Originally the patient was going to be scheduled to undergo a Lexiscan stress test, however she had subsequent bout of chest discomfort and for this reason was taken to the cardiac catheterization lab by Dr. Aguila. Medical therapy was advised. Patient denies any further chest pain, hemodynamically stable. Objective - Vital Signs Vital signs: Vital Signs Temp 97.2 F L 12/17/16 12:00 Pulse 70 12/17/16 12:00 Resp 16 12/17/16 12:00 BP 131/68 12/17/16 12:00 Pulse Ox 99 12/17/16 12:00 Intake & Output 12/16/16 12/17/16 12/17/16 18:59 06:59 18:59 Intake Total 170 1100 118 Balance 170 1100 118 Weight 92.3 kg Intake: IV 50 Intake, IV Titration 800 Amount Sodium Chloride 0.9% 1, 800 000 ml @ 100 mls/hr IV . Q10H LEO Rx#:[id number] Oral 120 300 118 Other: # Voids 0 2 1 # Bowel Movements 0 - Exam PHYSICAL EXAMINATION: HEENT: Head is atraumatic, normocephalic. Pupils equal, round. Neck is supple. There is no elevated jugular venous pressure. HEART EXAMINATION: Heart S1, S2 normal. No murmur or gallop heard. CHEST EXAMINATION: Lungs are clear to auscultation and precussion. No chest wall tenderness is noted on palpation or with deep breathing. ABDOMEN: Soft, nontender. Bowel sounds are heard. No organomegaly noted. Right radial site clean and dry, good distal pulse. EXTREMITIES: 2+ peripheral pulses with no evidence of peripheral edema and no calf tenderness noted. NEUROLOGIC patient is awake, alert and oriented -3. . - Labs CBC & Chem 7: 12/16/16 06:02 12/17/16 06:47 Labs: Abnormal Lab Results - Last 24 Hours (Table) 06/15/17 Range/Units 06:47 Chloride 110 H (98-107) mmol/L BUN 21 H (7-17) mg/dL Creatinine 1.11 H (0.52-1.04) mg/dL Glucose 112 H (74-99) mg/dL Assessment and Plan Plan: Assessment and plan #1 symptoms of midsternal chest pressure and heaviness with associated shortness of breath and diaphoresis. Status post cardiac catheterization, medical therapy advised. #2 known history of coronary artery disease with prior LAD and diagonal stenting #3 ischemic cardio myopathy with prior AICD #4 hypertension #5 diabetes #6 hyperlipidemia Plan Patient may be able to be discharged home from cardiology's perspective, we'll make her a follow-up appointment to see Dr. Osullivan in the office post discharge. DNP note has been reviewed, I agree with a documented findings and plan of care. Patient was seen and examined.
[2016-12-17 15:00] VITALS: BP 157/54; PULSE 71
--- NOTE | 2016-12-18 19:09 | DS ---
DATE OF ADMISSION: 12/15/2016 DATE OF DISCHARGE: 12/17/2016 FINAL DIAGNOSES: 1. Anterior chest wall pain could be musculoskeletal. 2. Coronary artery disease with prior history of stent in December of last year. 3. Gastroesophageal reflux disease. 4. Essential hypertension. 5. Hyperlipidemia. 6. Primary osteoarthritis of multiple joints, bilaterally. 7. Obesity, body mass index of 38.4. 8. Chronic kidney disease stage II from nephrosclerosis. 9. Chronic congestive heart failure from systolic dysfunction; ejection fraction 20%, underlying coronary artery disease. 10. Left bundle block. 11. Kidney stones, asymptomatic. 12. Hypothyroidism. 13. AICD. HOSPITAL COURSE: This patient presented with some chest pain. Troponin was negative. Taken to the cardiac catheterization by Dr. Aguila for very minimal in stenosis in the LAD stent. EF is low. The patient asymptomatic. Doing much better at the time of discharge. Care was discussed with the patient. On exam, lungs are clear. CARDIOVASCULAR: First and second sounds normal. DISCHARGE MEDICATIONS: 1. Lipitor 80 mg q.h.s. 2. Zestril 5 mg p.o. daily. 3. Lopressor 25 mg p.o. b.i.d. 4. Plavix 75 mg p.o. daily. 5. Pepcid 20 mg q.h.s. 6. Nitrostat 0.4 sublingual q.5 p.r.n. 7. Aldactone 25 mg q.h.s. 8. Tylenol p.r.n. 9. ( ) complete course of ( ). 10. Aspirin 81 mg a day. Follow up with Dr. Osullivan in one week, Dr. Tera Villanueva in 2 days. Cardiac catheterization postop orders per Dr. Aguila.
== END 2016-12-17 16:05 | disposition home or self-care (01) ==
LOC: EC 07:16 → 6SEL 09:27 → INTOOBSV 09:27 → 6SEL 14:42
PROVIDERS: ADMIT Hospitalist; ATTEND Hospitalist
DX: I25.10 Atherosclerotic heart disease of native coronary artery without angina pectoris (principal); K21.9 Gastro-esophageal reflux disease without esophagitis; E78.5 Hyperlipidemia, unspecified; E66.9 Obesity, unspecified; E03.9 Hypothyroidism, unspecified; I50.22 Chronic systolic (congestive) heart failure; I25.2 Old myocardial infarction; G89.29 Other chronic pain; Z95.810 Presence of automatic (implantable) cardiac defibrillator; Z79.899 Other long term (current) drug therapy; Z79.02 Long term (current) use of antithrombotics/antiplatelets; Z79.82 Long term (current) use of aspirin; Z88.5 Allergy status to narcotic agent; Z68.38 Body mass index [BMI] 38.0-38.9, adult; Z87.891 Personal history of nicotine dependence; Z95.5 Presence of coronary angioplasty implant and graft; E11.22 Type 2 diabetes mellitus with diabetic chronic kidney disease; I13.0 Hypertensive heart and chronic kidney disease with heart failure and stage 1 through stage 4 chronic kidney disease, or unspecified chronic kidney disease; N18.2 Chronic kidney disease, stage 2 (mild); M19.91 Primary osteoarthritis, unspecified site; I44.7 Left bundle-branch block, unspecified; N20.0 Calculus of kidney
CPT/HCPCS: 96366 ×3; 96376; 96365; 96375; 99291; 36415; 93005; 93306; 93458; 85379; 80061; 80053; 80048 ×2; 82550; 82553; 83735; 84484; 85025 ×2; 85610; 85730 ×2; 71020; G0378 ×3; C1894; C1769; J2250; J2270; J1644 ×4; J2765; J2405; J3010; J2785; Q9967

== ENCOUNTER → 2017-02-10 | Outpatient (CLI) | payer OTHER ==
--- NOTE | 2017-02-11 10:17 | MM ---
Reason for exam: screening (asymptomatic). Last mammogram was performed 1 year and 6 months ago. History: Patient is postmenopausal. Family history of premenopausal breast cancer in sister at age 45. Physical Findings: A clinical breast exam by your physician is recommended on an annual basis and results should be correlated with mammographic findings. MG 3D Screening Mammo W/Cad Bilateral CC and MLO view(s) were taken. Prior study comparison: August 22, 2015, bilateral MG screening mammo w CAD. August 04, 2013, bilateral digital screening mammo w/CAD. There are scattered fibroglandular densities. No significant changes when compared with prior studies. ASSESSMENT: Benign, BI-RAD 2 RECOMMENDATION: Routine screening mammogram of both breasts in 1 year.
== END | disposition home or self-care (01) ==
LOC: RADMAMWWP 15:53
PROVIDERS: ATTEND Family Medicine
DX: Z12.31 Encounter for screening mammogram for malignant neoplasm of breast (principal)
CPT/HCPCS: 77063; G0202

== ENCOUNTER 2017-04-14 11:56 | Emergency (ER) | payer OTHER, BC ==
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
[2017-04-14] MEDS ORDERED: IBUPROFEN 600 MG TAB PO STA (13:50)
[2017-04-14 13:52] VITALS: BP 145/79; PULSE 90; RESP 16; TEMP 97.5
== END 2017-04-14 13:54 | disposition home or self-care (01) ==
LOC: EC 11:56
DX: S13.4XXA Sprain of ligaments of cervical spine, initial encounter (principal); R51 Headache; I11.0 Hypertensive heart disease with heart failure; I50.9 Heart failure, unspecified; K21.9 Gastro-esophageal reflux disease without esophagitis; I25.2 Old myocardial infarction; Z87.891 Personal history of nicotine dependence; Z79.02 Long term (current) use of antithrombotics/antiplatelets; Z79.899 Other long term (current) drug therapy; Z88.5 Allergy status to narcotic agent; V29.40XA Motorcycle driver injured in collision with unspecified motor vehicles in traffic accident, initial encounter; Y92.410 Unspecified street and highway as the place of occurrence of the external cause
CPT/HCPCS: 70450; 71010; 72125; 99284

== ENCOUNTER 2017-07-08 10:46 | Inpatient (IN) | payer BC, OTHER ==
[2017-07-08 11:39] LABS: Basophils # (A) 0.1 k/uL (0-0.2); Basophils % (A) 2 %; Eosinophils # (A) 0.1 k/uL (0-0.7); Eosinophils % (A) 2 %; HCT 41.6 % (34.0-46.0); HGB 13.4 gm/dL (11.4-16.0); Lymphocytes # (A) 2.2 k/uL (1.0-4.8); Lymphocytes % (A) 25 %; MCH 29.6 pg (25.0-35.0); MCHC 32.2 g/dL (31.0-37.0); Mean Platelet Volume 10.1; Monocytes # (A) 0.5 k/uL (0-1.0); Monocytes % (A) 6 %; Neutrophils # (A) 5.7 k/uL (1.3-7.7); Neutrophils % (A) 64 %; Platelet Count 212 k/uL (150-450); RBC 4.52 m/uL (3.80-5.40); RDW 15.9 % (11.5-15.5); WBC 8.9 k/uL (3.8-10.6)
--- NOTE | 2017-07-08 11:45 | ED ---
General Adult HPI - General Chief complaint: Chest Pain Stated complaint: Chest pain Time Seen by Provider: 07/08/17 10:54 Source: patient, RN notes reviewed, old records reviewed Mode of arrival: wheelchair Limitations: no limitations - History of Present Illness Initial comments: 52-year-old female history of hypertension, and CAD presents for evaluation of chest pain. Patient has had ongoing chest pain for over 2 weeks. Describes this as substernal, chest pressure. She attributes this to anxiety over the past 2 weeks, yesterday evening this pain significantly worsened and was associated with shortness of breath. She reports that she had cough cold symptoms approximately 10 days ago these are improving. She still has a mild cough. No fever. Patient also reports an episode of nausea with severe pain as well as lightheadedness. Her pain is significantly improved today she still has mild chest pain. Patient also reports an episode of visual loss and change in vision in her left eye only. She reports seeing lights as her vision improved. She has never had an episode like this before. Denies any visual complaints time my evaluation. She does report a mild headache which is frontal in nature. - Related Data Home Medications Medication Instructions Recorded Confirmed Clopidogrel [Plavix] 75 mg PO DAILY 12/09/15 07/08/17 Famotidine [Pepcid] 20 mg PO HS 05/20/16 07/08/17 Nitroglycerin Sl Tabs [Nitrostat] 0.4 mg SUBLINGUAL Q5M PRN 05/20/16 07/08/17 Spironolactone [Aldactone] 25 mg PO HS 05/20/16 07/08/17 Atorvastatin Calcium [Lipitor] 20 mg PO HS 07/08/17 07/08/17 Previous Rx's Medication Instructions Recorded Lisinopril [Zestril] 5 mg PO DAILY #30 tab 07/03/15 Metoprolol Tartrate [Lopressor] 25 mg PO BID #60 tab 07/03/15 Aspirin 81 mg PO DAILY 12/17/16 Allergies Allergy/AdvReac Type Severity Reaction Status Date / Time hydrocodone bitartrate AdvReac Nausea & Verified 07/08/17 11:56 [From Vicodin] Vomiting propoxyphene napsylate AdvReac Vomiting Verified 07/08/17 11:56 [From Darvocet-N] Review of Systems ROS Statement: Those systems with pertinent positive or pertinent negative responses have been documented in the HPI. ROS Other: All systems not noted in ROS Statement are negative. Past Medical History Past Medical History: Coronary Artery Disease (CAD), Chest Pain / Angina, Heart Failure, GERD/Reflux, Hyperlipidemia, Hypertension, Myocardial Infarction (ND), Renal Disease Additional Past Medical History / Comment(s): Ischemic cardiomyopathy, nephrolithiasis, migraines, occasional back pain, hypothyroid. Last Myocardial Infarction Date:: 06-30-15 History of Any Multi-Drug Resistant Organisms: None Reported Past Surgical History: AICD, Heart Catheterization With Stent, Hernia Repair, Hysterectomy Additional Past Surgical History / Comment(s): 06/30/15 PCI with stent, PTCA, Bilateral oophorectomy, LT INGUINAL HERNIA REPAIR, CYSTOCOPY, LITHOTRIPSY,COLONOSCOPY Past Anesthesia/Blood Transfusion Reactions: Postoperative Nausea & Vomiting ( PONV) Additional Past Anesthesia/Blood Transfusion Reaction / Comment(s): MILD CLAUSTERPHOBIA Date of Last Stent Placement:: 06/30/15 Type of Cardiac Device: AICD Device Placement Date:: 12/12/15 Past Psychological History: No Psychological Hx Reported Smoking Status: Former smoker Past Alcohol Use History: None Reported Past Drug Use History: None Reported - Past Family History Father Family Medical History: Cancer, Myocardial Infarction (ND) Additional Family Medical History / Comment(s): Pt does not recall age that father had his ND. He also had a pacer and colon cancer, Sister(s) Family Medical History: Cancer, Hypertension Additional Family Medical History / Comment(s): breast General Exam Limitations: no limitations General appearance: alert, in no apparent distress Head exam: Present: atraumatic, normocephalic Eye exam: Present: normal appearance, PERRL, EOMI, other (Globes are soft bilaterally, funduscopic examination of the left eye reveals normal vasculature , although this is in nondilated exam.) ENT exam: Present: normal exam Neck exam: Present: normal inspection. Absent: tenderness, meningismus Respiratory exam: Present: normal lung sounds bilaterally. Absent: respiratory distress, wheezes, rales Cardiovascular Exam: Present: regular rate, normal rhythm GI/Abdominal exam: Present: soft. Absent: distended, tenderness, guarding Extremities exam: Present: normal inspection, normal capillary refill. Absent: pedal edema Back exam: Present: normal inspection, full ROM. Absent: tenderness Neurological exam: Present: alert, oriented X3, CN II-XII intact. Absent: motor sensory deficit Psychiatric exam: Present: normal affect, normal mood Skin exam: Present: warm, dry, intact. Absent: cyanosis, diaphoretic Course Vital Signs 07/08/17 07/08/17 07/08/17 10:47 13:26 14:33 Temperature 97.1 F L 97.4 F L Pulse Rate 90 75 62 Respiratory 18 20 18 Rate Blood Pressure 162/73 136/61 140/67 O2 Sat by Pulse 99 99 95 Oximetry EKG Findings - EKG Comments: EKG Findings:: EKG shows normal sinus rhythm, left bundle branch block, rate of 75, [place] interval 172, QRS duration 182, QTC 540 no significant change compared to previous EKG Medical Decision Making - Medical Decision Making 52-year-old female with history of CAD presenting for evaluation of chest pain and dyspnea. Patient's pain has been ongoing for weeks, worse over the past 24 hours. She also had an episode of vision loss in her left eye which is completely resolved. On further history, patient does admit to missing doses of her medication including Plavix. She states she missed approximately 2 doses over the past one week. She is currently on Plavix, metoprolol, lisinopril, aspirin and Lipitor. EKG is unchanged from previous in December 2016. At that time patient had a heart catheterization which showed an ejection fraction of 30%, and mild restenosis of her LAD which was previously stented. Laboratory studies reveal white blood cell count 8.9, hemoglobin 13.4, creatinine 1.1, CK-MB 4.3 and troponin 0.016. Chest x-ray shows no acute findings. Some head CT negative for any acute intracranial process. Patient's vision loss is suggestive of amaurosis fugax. Patient does not have ongoing pain while emergency department. She will be admitted for evaluation of chest pain. Visual acuity 20/30 on the left, 20/40 on the right. Case discussed with Dr. Squires, regarding patient's painless vision loss which is resolved. He will be placed on consult. - Lab Data Result diagrams: 07/08/17 11:15 07/08/17 11:15 Lab Results 07/08/17 07/08/17 07/08/17 Range/Units 11:15 11:15 11:15 WBC 8.9 (3.8-10.6) k/uL RBC 4.52 (3.80-5.40) m/uL Hgb 13.4 (11.4-16.0) gm/dL Hct 41.6 (34.0-46.0) % MCV 92.0 (80.0-100.0) fL MCH 29.6 (25.0-35.0) pg MCHC 32.2 (31.0-37.0) g/dL RDW 15.9 H (11.5-15.5) % Plt Count 212 (150-450) k/uL Neutrophils % 64 % Lymphocytes % 25 % Monocytes % 6 % Eosinophils % 2 % Basophils % 2 % Neutrophils # 5.7 (1.3-7.7) k/uL Lymphocytes # 2.2 (1.0-4.8) k/uL Monocytes # 0.5 (0-1.0) k/uL Eosinophils # 0.1 (0-0.7) k/uL Basophils # 0.1 (0-0.2) k/uL PT (9.0-12.0) sec INR (<1.2) APTT (22.0-30.0) sec Sodium 140 (137-145) mmol/L Potassium 5.0 (3.5-5.1) mmol/L Chloride 106 (98-107) mmol/L Carbon Dioxide 22 (22-30) mmol/L Anion Gap 12 mmol/L BUN 22 H (7-17) mg/dL Creatinine 1.10 H (0.52-1.04) mg/dL Est GFR (MDRD) Af Amer >60 (>60 ml/min/1.73 sqM) Est GFR (MDRD) Non-Af 52 (>60 ml/min/1.73 sqM) Glucose 112 H (74-99) mg/dL Calcium 10.1 (8.4-10.2) mg/dL Magnesium 1.7 (1.6-2.3) mg/dL Total Bilirubin 0.9 (0.2-1.3) mg/dL AST 55 H (14-36) U/L ALT 99 H (9-52) U/L Alkaline Phosphatase 118 (38-126) U/L Total Creatine Kinase 463 H (30-135) U/L CK-MB (CK-2) 4.3 H* (0.0-2.4) ng/mL CK-MB (CK-2) Rel Index 0.9 Troponin I 0.016 (0.000-0.034) ng/mL NT-Pro-B Natriuret Pep pg/mL Total Protein 7.7 (6.3-8.2) g/dL Albumin 4.5 (3.5-5.0) g/dL 07/08/17 07/08/17 Range/Units 11:15 11:15 WBC (3.8-10.6) k/uL RBC (3.80-5.40) m/uL Hgb (11.4-16.0) gm/dL Hct (34.0-46.0) % MCV (80.0-100.0) fL MCH (25.0-35.0) pg MCHC (31.0-37.0) g/dL RDW (11.5-15.5) % Plt Count (150-450) k/uL Neutrophils % % Lymphocytes % % Monocytes % % Eosinophils % % Basophils % % Neutrophils # (1.3-7.7) k/uL Lymphocytes # (1.0-4.8) k/uL Monocytes # (0-1.0) k/uL Eosinophils # (0-0.7) k/uL Basophils # (0-0.2) k/uL PT 9.6 (9.0-12.0) sec INR 1.0 (<1.2) APTT 24.1 (22.0-30.0) sec Sodium (137-145) mmol/L Potassium (3.5-5.1) mmol/L Chloride (98-107) mmol/L Carbon Dioxide (22-30) mmol/L Anion Gap mmol/L BUN (7-17) mg/dL Creatinine (0.52-1.04) mg/dL Est GFR (MDRD) Af Amer (>60 ml/min/1.73 sqM) Est GFR (MDRD) Non-Af (>60 ml/min/1.73 sqM) Glucose (74-99) mg/dL Calcium (8.4-10.2) mg/dL Magnesium (1.6-2.3) mg/dL Total Bilirubin (0.2-1.3) mg/dL AST (14-36) U/L ALT (9-52) U/L Alkaline Phosphatase (38-126) U/L Total Creatine Kinase (30-135) U/L CK-MB (CK-2) (0.0-2.4) ng/mL CK-MB (CK-2) Rel Index Troponin I (0.000-0.034) ng/mL NT-Pro-B Natriuret Pep 160 pg/mL Total Protein (6.3-8.2) g/dL Albumin (3.5-5.0) g/dL Disposition Clinical Impression: Unstable angina pectoris, Chest pain, Amaurosis fugax of left eye Disposition: ADMITTED IP TO THIS [facility] Condition: Stable Referrals: Tera Villanueva DO [Primary Care Provider] - 1-2 days Decision to Admit Reason: Admit from EC Decision Date: 07/08/17 Decision Time: 14:28
[2017-07-08 11:52] LABS: Partial Thromboplastin Time 24.1 sec (22.0-30.0); Prothrombin Time 9.6 sec (9.0-12.0)
--- NOTE | 2017-07-08 11:57 | XR ---
EXAMINATION TYPE: XR chest 2V DATE OF EXAM: 07/08/2017 COMPARISON: 04/14/2017 TECHNIQUE: PA and lateral views submitted. HISTORY: Chest pain FINDINGS: The lungs are clear and there is no pneumothorax, pleural effusion, or focal pneumonia. The heart i s mildly prominent there is a cardiac device. No overt failure or pleural effusion. No pneumothorax. IMPRESSION: 1. No acute process.
[2017-07-08 12:02] LABS: Albumin 4.5 g/dL (3.5-5.0); Anion Gap 12 mmol/L; Calcium 10.1 mg/dL (8.4-10.2); Carbon Dioxide 22 mmol/L (22-30); Chloride 106 mmol/L (98-107); Glucose 112 mg/dL (74-99); Sodium 140 mmol/L (137-145); Total Bilirubin 0.9 mg/dL (0.2-1.3); Total Protein 7.7 g/dL (6.3-8.2)
[2017-07-08 12:13] LABS: ALT 99 U/L (9-52); AST 55 U/L (14-36); Blood Urea Nitrogen 22 mg/dL (7-17); Magnesium 1.7 mg/dL (1.6-2.3)
[2017-07-08 12:14] LABS: Alkaline Phosphatase 118 U/L (38-126)
[2017-07-08 12:26] LABS: Creatine Kinase MB 4.3 ng/mL (0.0-2.4)
--- NOTE | 2017-07-08 12:26 | CT ---
EXAMINATION TYPE: CT brain wo con DATE OF EXAM: 07/08/2017 COMPARISON: 04/14/2017 HISTORY: Chest pain with an episode of blurred vision CT DLP: 1121 mGycm. Automated Exposure Control for Dose Reduction was Utilized. TECHNIQUE: CT scan of the head is performed without contrast. FINDINGS: There is no acute intracranial hemorrhage, mass effect, or midline shift identified. The ventricles and sulci are within normal limits in size. The globes are intact and the visualized sin uses are clear other than a 5 mm right maxillary mucosal retention cyst. Small left ale bullosa is identified. IMPRESSION: No acute intracranial hemorrhage, mass effect, or midline shift is seen. MRI could be pe rformed for further clinical indication or continued blurred vision.
[2017-07-08 12:27] LABS: Troponin I 0.016 ng/mL (0.000-0.034)
[2017-07-08] MEDS ORDERED: HEPARIN SODIUM,PORCINE 5,000 UNIT/ML 1 ML VIAL IV ONE (14:54)
[2017-07-08] MEDS ORDERED: HEPARIN SODIUM,PORCINE 5,000 UNIT/ML 1 ML VIAL IV PRN (14:54)
[2017-07-08] MEDS ORDERED: ACETAMINOPHEN TAB 325 MG TAB PO PRN (14:59)
[2017-07-08] MEDS ORDERED: NALOXONE 0.4 MG/ML 1 ML VIAL IV PRN (14:59)
[2017-07-08] MEDS ORDERED: SODIUM CHLORIDE 0.9% 1,000 ML IV SCH (15:00)
[2017-07-08] MEDS ORDERED: NITROGLYCERIN SL TABS 0.4 MG TAB SUBLINGUAL PRN (15:03)
[2017-07-08] MEDS: HEPARIN SOD,PORK IN 0.45% NACL 25,000 UNIT in 0.45% NACL 1 500ML.BAG IV SCH (15:14)
[2017-07-08] MEDS ORDERED: TROPICAMIDE 1% OPHTH DROPS 2 ML BTL LEFT EYE STA (16:20)
--- NOTE | 2017-07-08 16:48 | CONS ---
CONSULTATION CHIEF COMPLAINT: The patient noticed like a zigzag line with crystals during the vision. The left eye lasted 10 minutes. This happened a few hours ago. This was followed with a headache on the left side of her head. This is the first time she had the same ocular phenomenon. The patient is admitted for chest pain. PAST OCULAR HISTORY: Patient denies any history of injury or eye surgery or previous blurry vision. Eye examination: Vision 20/20 right eye, 20/25 left eye reading chart. Extraocular motility is full. Pupils equal and reactive in both eyes. Lids normal. Confrontation was normal. The lens is 1+ nuclear sclerosis of both eyes. Vitreous normal. Retina shows no cupping and no detachment and no hemorrhages. Tension applanation 90 mmHg right eye and 20 mmHg left eye. ASSESSMENT: 1. Left ocular migraine. 2. Chest pain. PLAN: I explained to the patient that if she develops any flashes of light or bad vision to call us and to be re-evaluated. I will examine the patient in 10 days in the office. The patient has to call to schedule appointment at [phone] Squires. MMODL / IJN: [id number] /
[2017-07-08 19:36] LABS: Creatine Kinase 353 U/L (30-135)
[2017-07-08 19:49] LABS: Troponin I <0.012 ng/mL (0.000-0.034)
[2017-07-08 20:00] LABS: Creatine Kinase MB 3.2 ng/mL (0.0-2.4)
[2017-07-08] MEDS: METOPROLOL TARTRATE 25 MG TAB PO SCH (20:10)
[2017-07-08] MEDS: SPIRONOLACTONE 25 MG TAB PO SCH (20:11)
[2017-07-08] MEDS: FAMOTIDINE 20 MG TAB PO SCH (20:20)
[2017-07-08] MEDS ORDERED: ATORVASTATIN 20 MG TAB PO SCH (21:00)
--- NOTE | 2017-07-08 23:06 | HP ---
HISTORY AND PHYSICAL DATE OF ADMISSION: July 08, 2017. PRESENT COMPLAINT: Chest pain. HISTORY OF PRESENTING COMPLAINT: This is a 52-year-old patient of Dr. Villanueva whose chronic stable medical conditions include GERD, hypertension, hyperlipidemia osteoarthritis, CHF with EF of 20%. Left bundle branch block, AICD, kidney stones, hypothyroid. The patient had a stent placed in May of 2016. Follows with Dr. Perez. The patient has been having some chest pain on and off for some time, but yesterday she felt as if something was sitting on the chest all day. The patient was short of breath, lightheaded, nausea, did break out in a sweat. At the same time, patient had an episode where she has some loss of vision to the left eye and then she felt as peter she is looking through snow flakes. Also some headaches. 1st on the left side and then on the right side and then resolved. Earlier today patient was seen by information technology associate, Dr. Hamilton and thought the patient probably had a migraine attack too. The patient is admitted further workup of her cardiac problem. REVIEW OF SYSTEMS: Constitutional: Tired. HEENT as above. Respiratory as above. Cardiovascular as above. Gastrointestinal: Heartburn. Genitourinary none. Musculoskeletal: Some pain in different joints. Dermatological and hematologic, lymphatic none. Psychiatry none. Neurological none. PAST HISTORY: Coronary artery with stent in May 2016. GERD, hypertension hyperlipidemia, osteoarthritis, CHF EF 20%. Left bundle branch block, kidney stones, hypothyroid, AICD. PAST SURGICAL HISTORY: AICD cardiac cath with stent, hernia repair, hysterectomy, stent to the LAD, diagonal and bilateral oophorectomy, left inguinal hernia repair, cystoscopy. SOCIAL HISTORY: Patient lives with daughter Blank. Works at a [employer]. The patient smoked half a pack a day for 28 years, stopped in 1991. Alcohol occasionally. Has not drank for a long time. FAMILY HISTORY: Father had pacemaker and colon cancer. Also family history of heart attack. HOME MEDICATIONS: 1. Aldactone 25 mg q.h.s. 2. Nitrostat 0.4 sublingual q.5 p.r.n. 3. Lopressor 25 p.o. b.i.d. 4. Zestril 5 mg p.o. daily. 5. Pepcid 10 mg p.o. q.h.s. 6. Plavix 75 mg p.o. daily. 7. Lipitor 20 mg q.h.s. 8. Aspirin 81 mg p.o. daily. ALLERGIES: VICODIN causing nausea and vomiting. PHYSICAL EXAMINATION: Temperature vital signs on presentation: Temp 97.1, pulse 90, respirations 16, blood pressure 152/73, pulse ox 99% on room air. GENERAL APPEARANCE: Is well built BMI 36.6, sitting up, not in distress. HEENT: Conjunctivae normal HEENT: Oral cavity moist. Neck: JVD not raised. Mass not palpable. Respiratory effort normal. Lungs are clear. Cardiovascular: 1st 2nd sounds normal. No edema. ABDOMEN: Soft, nontender. Liver and spleen not palpable. Lymphatics: No lymph nodes palpable in the neck and axillae. PSYCHIATRY: Alert and oriented times three. Mood and affect normal. Neurological: Pupils equal. Cranial nerves grossly intact. Pulses intact. Vision to the left eye is looking good. INVESTIGATIONS: White count 8.9, hemoglobin 13.4, potassium 5.0, BUN 22, creatinine 1.0, troponin 0.016, less than 0.012. EKG left bundle branch block pattern. ASSESSMENT: 1. Cardiac sounding presentation with known coronary artery disease with stent in May of 2016. 2. Coronary artery disease prior history of stent in May 2016. 3. Gastroesophageal reflux disease. 4. Essential hypertension. 5. Hyperlipidemia. 6. Primary osteoarthritis. 7. Chronic congestive heart failure from systolic dysfunction, ejection fraction 20% from underlying coronary artery disease. 8. Chronic left bundle branch block. 9. Hypothyroidism. 10.AICD in place. The patient is already on aspirin, Lipitor, Plavix, IV heparin. Home medications resumed. Care was discussed with the patient. Currently, the troponins are negative. The patient will probably need a stress test or cardiac catheterization. Care was discussed with the patient. Copy to Dr. Villanueva. MMODL / IJN: [id number] /
[2017-07-08 23:22] LABS: Creatine Kinase 321 U/L (30-135)
[2017-07-08 23:36] LABS: Troponin I <0.012 ng/mL (0.000-0.034)
[2017-07-08 23:45] LABS: Creatine Kinase MB 3.3 ng/mL (0.0-2.4)
[2017-07-09 04:27] LABS: Basophils # (A) 0.1 k/uL (0-0.2); Basophils % (A) 1 %; Eosinophils # (A) 0.2 k/uL (0-0.7); Eosinophils % (A) 3 %; HCT 40.9 % (34.0-46.0); Lymphocytes # (A) 2.3 k/uL (1.0-4.8); Lymphocytes % (A) 33 %; MCH 29.7 pg (25.0-35.0); MCHC 31.6 g/dL (31.0-37.0); MCV 93.8 fL (80.0-100.0); Monocytes # (A) 0.6 k/uL (0-1.0); Monocytes % (A) 8 %; Neutrophils # (A) 3.6 k/uL (1.3-7.7); Neutrophils % (A) 52 %; Platelet Count 196 k/uL (150-450); RBC 4.36 m/uL (3.80-5.40); RDW 15.7 % (11.5-15.5)
[2017-07-09 04:33] LABS: Partial Thromboplastin Time 68.1 sec (22.0-30.0)
[2017-07-09 04:52] LABS: Albumin 3.8 g/dL (3.5-5.0); Calcium 9.9 mg/dL (8.4-10.2); Potassium 4.4 mmol/L (3.5-5.1); Total Bilirubin 0.6 mg/dL (0.2-1.3); Total Protein 6.9 g/dL (6.3-8.2)
--- NOTE | 2017-07-09 08:26 | P.CRDCN ---
History of Present Illness Consult date: 07/09/17 Requesting physician: Rasheed Nayak Consult reason: chest pain Chief complaint: Chest pain, left eye visual disturbance History of present illness: This is a pleasant 52-year-old female who follows with Dr. Perez in the office, she was a prior patient of Dr. Osullivan. She has a known history of coronary artery disease with prior LAD stenting, in May 2016 she also underwent stenting of the diagonal. Ischemic cardiomyopathy with prior AICD, hypertension, hyperlipidemia, most recently patient underwent a cardiac catheterization in December [address] Aguila which revealed mild restenosis at the site of prior stenting of the LAD with severely impaired left ventricular systolic function, medical therapy was advised at that time. Patient presents to the hospital on this occasion with symptoms of chest pressure, as well as visual disturbance in her left eye with associated headache. She states that she went over to cardiology's office hoping to see Dr. Perez, she was told that he was away until Wednesday and was recommended to come to the emergency room for further evaluation. Patient also states that over the past week or so she has had intermittent chest pressure, lasting a few minutes at a time and subsiding. She has been attributing this to excessive stress at work recently. states that when the left thigh visual disturbance and headache subsided she continued to have chest pressure. At the time of my examination this morning she is currently chest pain-free. EKG on arrival here showed a normal sinus rhythm with left bundle branch block pattern , nonspecific ST-T wave changes are chest x-ray did not reveal any acute process. CAT scan of the brain did not reveal any acute intracranial hemorrhage , mass effect, or midline shift. At pressure on arrival 162/72, heart rate 90, 99% on room air, temperature 97.1. Pressure this morning 140/70 heart rate 80, 100% on room air, afebrile. Laboratory data reviewed, CBC normal, sodium 140, potassium 4.4, BUN 24, creatinine 1.3,On admission 1.1. AST 37, ALT 86. Troponin 0.016, 0.012, 0.012. Patient is currently on aspirin 81 mg, Lipitor 20 mg, Plavix 75 mg, IV heparin drip, lisinopril 5 mg daily, metoprolol 25 mg twice a day, Aldactone 25 mg daily. Past Medical History Past Medical History: Coronary Artery Disease (CAD), Chest Pain / Angina, Heart Failure, GERD/Reflux, Hyperlipidemia, Hypertension, Myocardial Infarction (UT), Renal Disease Additional Past Medical History / Comment(s): Ischemic cardiomyopathy, nephrolithiasis, migraines, occasional back pain, hypothyroid. Last Myocardial Infarction Date:: 06-30-15 History of Any Multi-Drug Resistant Organisms: None Reported Past Surgical History: AICD, Heart Catheterization With Stent, Hernia Repair, Hysterectomy Additional Past Surgical History / Comment(s): stents to lad,diag, 05/22/16 PTCA , Bilateral oophorectomy, LT INGUINAL HERNIA REPAIR, CYSTOCOPY, LITHOTRIPSY, COLONOSCOPY Past Anesthesia/Blood Transfusion Reactions: Postoperative Nausea & Vomiting ( PONV) Additional Past Anesthesia/Blood Transfusion Reaction / Comment(s): MILD CLAUSTERPHOBIA Date of Last Stent Placement:: 06/30/15 Type of Cardiac Device: AICD Device Placement Date:: 12/12/15 Smoking Status: Former smoker - Past Family History Father Family Medical History: Cancer, Myocardial Infarction (UT) Additional Family Medical History / Comment(s): Pt does not recall age that father had his UT. He also had a pacer and colon cancer, Sister(s) Family Medical History: Cancer, Hypertension Additional Family Medical History / Comment(s): breast Medications and Allergies Home Medications Medication Instructions Recorded Confirmed Type Lisinopril [Zestril] 5 mg PO DAILY #30 tab 07/03/15 07/08/17 Rx Metoprolol Tartrate [Lopressor] 25 mg PO BID #60 tab 07/03/15 07/08/17 Rx Clopidogrel [Plavix] 75 mg PO DAILY 12/09/15 07/08/17 History Famotidine [Pepcid] 20 mg PO HS 05/20/16 07/08/17 History Nitroglycerin Sl Tabs [Nitrostat] 0.4 mg SUBLINGUAL Q5M PRN 05/20/16 07/08/17 History Spironolactone [Aldactone] 25 mg PO HS 05/20/16 07/08/17 History Aspirin 81 mg PO DAILY 12/17/16 07/08/17 Rx Atorvastatin Calcium [Lipitor] 20 mg PO HS 07/08/17 07/08/17 History Allergies Allergy/AdvReac Type Severity Reaction Status Date / Time hydrocodone bitartrate AdvReac Nausea & Verified 07/08/17 11:56 [From Vicodin] Vomiting propoxyphene napsylate AdvReac Vomiting Verified 07/08/17 11:56 [From Darvocet-N] Physical Exam Vitals: Vital Signs Temp Pulse Pulse Resp BP BP Pulse Ox 07/09/17 03:41 96.9 F L 80 18 140/72 100 07/09/17 00:00 96.2 F L 79 18 119/74 97 07/08/17 20:00 96.0 F L 81 18 131/69 100 07/08/17 18:29 98.1 F 95 18 118/73 96 07/08/17 17:00 81 18 120/74 98 07/08/17 15:36 79 18 135/85 98 07/08/17 15:20 81 18 138/75 96 07/08/17 14:33 62 18 140/67 95 07/08/17 13:26 97.4 F L 75 20 136/61 99 07/08/17 10:47 97.1 F L 90 18 162/73 99 Intake and Output 07/08/17 07/09/17 07/09/17 22:59 06:59 14:59 Intake Total 142 0 Output Total 0 Balance 142 0 Intake: Intake, IV Titration 142 Amount Heparin Sod,Pork in 0.45% 142 NaCl 25,000 unit In 0.45 % NaCl 1 500ml.bag @ 11. 024 UNITS/KG/HR 20 mls/hr IV .Q24H [facility] Rx#: [id number] Oral 0 Output: Urine 0 Other: # Voids 1 2 Weight 93.6 kg PHYSICAL EXAMINATION: HEENT: Head is atraumatic, normocephalic. Pupils equal, round. Neck is supple. There is no elevated jugular venous pressure. HEART EXAMINATION: Heart S1, S2 normal. No murmur or gallop heard. CHEST EXAMINATION: Lungs are clear to auscultation and precussion. No chest wall tenderness is noted on palpation or with deep breathing. ABDOMEN: Soft, nontender. Bowel sounds are heard. No organomegaly noted. EXTREMITIES: 2+ peripheral pulses with no evidence of peripheral edema and no calf tenderness noted. NEUROLOGIC patient is awake, alert and oriented -3. . Results 07/09/17 04:12 07/09/17 04:12 Cardiac Enzymes 07/08/17 07/08/17 07/08/17 Range/Units 11:15 11:15 18:47 AST 55 H (14-36) U/L CK-MB (CK-2) 4.3 H* 3.2 H* (0.0-2.4) ng/mL Troponin I 0.016 <0.012 (0.000-0.034) ng/mL 07/08/17 07/09/17 Range/Units 22:33 04:12 AST 37 H (14-36) U/L CK-MB (CK-2) 3.3 H* (0.0-2.4) ng/mL Troponin I <0.012 (0.000-0.034) ng/mL Coagulation 07/08/17 07/08/17 07/09/17 Range/Units 11:15 20:58 04:12 PT 9.6 10.0 (9.0-12.0) sec APTT 24.1 43.0 H 68.1 H (22.0-30.0) sec CBC 07/08/17 07/09/17 Range/Units 11:15 04:12 WBC 8.9 7.0 (3.8-10.6) k/uL RBC 4.52 4.36 (3.80-5.40) m/uL Hgb 13.4 13.0 (11.4-16.0) gm/dL Hct 41.6 40.9 (34.0-46.0) % Plt Count 212 196 (150-450) k/uL Comprehensive Metabolic Panel 07/08/17 07/09/17 Range/Units 11:15 04:12 Sodium 140 140 (137-145) mmol/L Potassium 5.0 4.4 (3.5-5.1) mmol/L Chloride 106 103 (98-107) mmol/L Carbon Dioxide 22 30 (22-30) mmol/L BUN 22 H 24 H (7-17) mg/dL Creatinine 1.10 H 1.30 H (0.52-1.04) mg/dL Glucose 112 H 134 H (74-99) mg/dL Calcium 10.1 9.9 (8.4-10.2) mg/dL AST 55 H 37 H (14-36) U/L ALT 99 H 86 H (9-52) U/L Alkaline Phosphatase 118 103 (38-126) U/L Total Protein 7.7 6.9 (6.3-8.2) g/dL Albumin 4.5 3.8 (3.5-5.0) g/dL Current Medications Generic Name Dose Route Start Last Admin Trade Name Freq PRN Reason Stop Dose Admin Acetaminophen 650 mg 07/08/17 14:59 Tylenol Tab PO Q6HR PRN Mild Pain or Fever > 100.5 Aspirin 81 mg 07/09/17 09:00 Aspirin PO DAILY [facility] Atorvastatin Calcium 20 mg 07/08/17 21:00 07/08/17 20:11 Lipitor PO 20 mg HS [facility] Administration Clopidogrel Bisulfate 75 mg 07/09/17 09:00 Plavix PO DAILY [facility] Famotidine 20 mg 07/08/17 21:00 07/08/17 20:20 Pepcid PO 20 mg HS [facility] Administration Heparin Sodium (Porcine) 0 unit 07/08/17 14:54 07/08/17 22:19 Heparin IV 2,270 unit PER PROTOCOL PRN Administration Low PTT Protocol Heparin Sodium/Sodium Chloride 500 mls @ 20 mls/hr 07/08/17 15:00 07/08/17 22 :20 25,000 unit/ Sodium Chloride IV 13 units/kg/hr .Q24H [facility] 23.58 mls/hr Protocol Titration 11.024 UNITS/KG/HR Lisinopril 5 mg 07/09/17 09:00 Zestril PO DAILY [facility] Metoprolol Tartrate 25 mg 07/08/17 21:00 07/08/17 20:10 Lopressor PO 25 mg BID [facility] Administration Naloxone HCl 0.2 mg 07/08/17 14:59 Narcan IV Q2M PRN Opioid Reversal Nitroglycerin 0.4 mg 07/08/17 15:03 Nitrostat SUBLINGUAL Q5M PRN Chest Pain Sodium Chloride 10 ml 07/08/17 21:00 07/08/17 20:21 Saline Flush IV Not Given Q12HR [facility] Spironolactone 25 mg 07/08/17 21:00 07/08/17 20:11 Aldactone PO 25 mg HS [facility] Administration Intake and Output 07/08/17 07/09/17 07/09/17 22:59 06:59 14:59 Intake Total 142 0 Output Total 0 Balance 142 0 Intake: Intake, IV Titration 142 Amount Heparin Sod,Pork in 0.45% 142 NaCl 25,000 unit In 0.45 % NaCl 1 500ml.bag @ 11. 024 UNITS/KG/HR 20 mls/hr IV .Q24H [facility] Rx#: [id number] Oral 0 Output: Urine 0 Other: # Voids 1 2 Weight 93.6 kg 07/09/17 04:12 07/09/17 04:12 EKG Interpretations (text) EKG shows normal sinus rhythm with left bundle branch block pattern and nonspecific ST-T wave changes Assessment and Plan Plan: Assessment and plan #1 symptoms of intermittent chest heaviness in a patient with known coronary artery disease. Initial troponin 0.016, subsequent troponin 0.012, 0.012. Ekg shows normal sinus rhythm with left bundle branch block pattern and nonspecific ST-T wave changes. #2 left eye visual disturbance with associated headache, Neurology was consulted , felt that the patient had possible left ocular migraine, symptoms resolved. #3 known history of coronary artery disease with prior LAD stenting, in May 2016 patient underwent stenting of the diagonal, most recently patient underwent a cardiac catheterization in December of last year which revealed mild restenosis at the site of stenting of the LAD medical therapy was advised. #4 hypertension #5 hyperlipidemia #6 ischemic cardiomyopathy with prior AICD #7 hypothyroidism Plan Continue IV heparin, obtain echocardiogram with Doppler study. Patient has been advised to undergo further cardiac testing in the form of nuclear stress test. Further recommendations will be based on these results. DNP note has been reviewed, I agree with a documented findings and plan of care. Patient was seen and examined.
[2017-07-09] MEDS ORDERED: ASPIRIN 81 MG PO SCH (09:00)
[2017-07-09] MEDS ORDERED: AMINOPHYLLINE 500 MG/20 ML VIAL IV PRN (09:12)
[2017-07-09] MEDS ORDERED: REGADENOSON 0.4 MG/5 ML SYRINGE IV ONE (09:12)
--- NOTE | 2017-07-09 11:43 | NM ---
EXAMINATION TYPE: NM stress lexiscan cardiolite DATE OF EXAM: 07/09/2017 COMPARISON: NONE HISTORY: Chest pain TECHNIQUE: After the intravenous administration of 9.74 mCi Tc 99m Sestamibi - Cardiolite resting SP ECT images acquired 45 minutes post injection. The patient received 0.4mg Lexiscan, 24.7 mCi Tc 99m Sestamibi - Stress images obtained [address] injection FINDINGS: Review of stress and rest SPECT images demonstrates there is a area of stress-induced reversible isch emia involving the anterior wall the myocardium. Fixed area of defect involving the apex noted.. Gat ed analysis shows reduced wall motion with an estimated left ventricular ejection fraction of 30 %. IMPRESSION: 1. Abnormal ejection fraction of only 30% with abnormal wall motion activity. 2. Findings are suggestive of a area of stress-induced reversible ischemia involving the anterior wal l the myocardium.
--- NOTE | 2017-07-09 12:21 | ECHOF ---
Referral Reason:chest pain MEASUREMENTS -------- HEIGHT: 157.5 cm WEIGHT: 93.4 kg BP: RVIDd: 2.3 cm (< 3.3) IVSd: 1.2 cm (0.6 - 1.1) LVIDd: 5.7 cm (3.9 - 5.3) LVPWd: 1.2 cm (0.6 - 1.1) IVSs: 1.5 cm LVIDs: 4.6 cm LVPWs: 1.6 cm LA Diam: 3.1 cm (2.7 - 3.8) LAESV Index (A-L): 25.13 ml/m Ao Diam: 3.0 cm (2.0 - 3.7) AV Cusp: 1.8 cm (1.5 - 2.6) LA Diam: 3.3 cm (2.7 - 3.8) MV EXCURSION: 17.245 mm (> 18.000) MV EF SLOPE: 93 mm/s (70 - 150) EPSS: 0.8 cm MV E Wale: 0.54 m/s MV DecT: 236 ms MV A Wale: 0.75 m/s MV E/A Ratio: 0.72 RAP: 5.00 mmHg RVSP: 33.06 mmHg FINDINGS -------- Paced rhythm. This was a technically adequate study. The left ventricular size is normal. There is mild concentric left ventricular hypertrophy. Overa ll left ventricular systolic function is moderate-severely impaired with, an EF between 30 - 35 %. Anterseptal Hypokinesis Septal Hypokinesis [place] Hypokinesis. Septal is Dyskinetic. The aortic root size is normal. There is no pericardial effusion. CONCLUSIONS -------- 1. Paced rhythm. 2. The left ventricular size is normal. 3. There is mild concentric left ventricular hypertrophy. 4. Overall left ventricular systolic function is moderate-severely impaired with, an EF between 30 - 35 %. 5. Anterseptal Hypokinesis 6. Septal Hypokinesis 7. [place] Hypokinesis. 8. Septal is Dyskinetic. 9. The aortic root size is normal. 10. There is no pericardial effusion. FINAL FINISHER FORGING DIES: Lizet Castillo RDCS
[2017-07-09] MEDS: LISINOPRIL 5 MG TAB PO SCH (12:23)
[2017-07-09] MEDS: METOPROLOL TARTRATE 25 MG TAB PO SCH ×2 (12:23→22:05)
[2017-07-09] MEDS: CLOPIDOGREL 75 MG TAB PO SCH (12:23)
[2017-07-09] MEDS: HEPARIN SOD,PORK IN 0.45% NACL 25,000 UNIT in 0.45% NACL 1 500ML.BAG IV SCH (12:38)
--- NOTE | 2017-07-09 13:51 | EST ---
EXERCISE STRESS AGE: 52 SEX: F HT: 62" WT: 206 PROTOCOL: Lexiscan Cardiolite Stress Test HEART RATE REST: 86 BLOOD PRESSURE REST: 131/74 MAXIMUM HEART RATE ACHIEVED: 119 MAXIMUM BLOOD PRESSURE: 156/101 85% MPHR: 142 100% MPHR: 167 INDICATIONS: Chest pain. CLINICAL INFORMATION: Sarita Coley is a 52-year-old female referred for a Lexiscan Cardiolite stress test. This is the ECG portion of the report. Baseline heart rate 86 beats per minute. Baseline blood pressure 131/74 mmHg. Baseline 12-lead ECG shows sinus mechanism with a left bundle branch block pattern. Patient received Lexiscan infusion per protocol. There was no ECG evidence for ischemia. No arrhythmias were noted. No ST-segment abnormalities noted. Patient complained of nausea. Nuclear portion of stress test will be reported separately. MMODL / IJN: [id number] /
--- NOTE | 2017-07-09 14:18 | P.PN ---
Progress Note - Text Progress Note Date: 07/09/17 DATE OF SERVICE: 07/09/2017 PRESENTING COMPLAINT: Chest pain HISTORY OF PRESENT ILLNESS: 51-year-old female with a known cardiac history with stents placed back in May 2016 presented to the emergency department with complaints of chest pain as well as left visual field difficulties, which have resolved. Patient admitted for evaluation of chest pain INTERVAL HISTORY: 07/09/2017: Patient lying in bed this had no further episodes of chest pain, cardiology has seen the patient patient will receive a Lexiscan stress test later today. Currently nothing by mouth, ambulatory to and from the bathroom without difficulty. Last BM this morning. REVIEW OF SYSTEMS: Done for constitutional ,cardiovascular, GI, pulmonary with relevant findings as above. CURRENT MEDICATIONS Tylenol, Aminophyllin, aspirin, Lipitor, Plavix, Pepcid, heparin, Lopressor, Aldactone. PHYSICAL EXAM VITAL SIGNS: Temperature 97.4, pulse 84, respiratory rate 18, blood pressure 126/75, oxygen saturation 99% on room air. GENERAL APPEARANCE: Lying in bed, not in distress. EYES: Pupils equal. Conjunctiva normal. NECK: JVD not raised. Mass not palpable. RESPIRATORY: Respiratory effort normal. Lungs diminished to auscultation. CARDIOVASCULAR: First and second sounds normal. No edema. ABDOMEN: Soft. Liver and spleen not palpable. No tenderness. No mass palpable. PSYCHIATRY: Alert and oriented x3. Mood and affect normal. INVESTIGATIONS: CBC unremarkable, BUN 24, creatinine 1.30, Lexiscan stress test: Abnormal ejection fraction of only 30% with abnormal wall motion activity., Findings are suggestive of an area stress induced reversible ischemia involving the anterior wall of the myocardium. ASSESSMENT: -Unstable angina with known coronary artery disease in with stent in May 2016 -Coronary artery disease prior history of stent May 2016. -Gastroesophageal reflux disease. -Essential hypertension. -Hyperlipidemia. -Primary osteoarthritis. -Chronic congestive heart failure from systolic dysfunction ejection fraction 30 % from underlying coronary artery disease. -Chronic left bundle branch block. -Hypothyroidism. -AICD in place. PLAN: Stress test positive for reversible ischemia, will Await additional input from cardiology, continue current medication and treatment plan, plan of care discussed with the patient the bedside she is in agreement. We will follow closely. CARDIOVASCULAR PHYSICIAN ASSISTANT statement: Patient was seen and examined by nurse practitioner Veronica Vaughan and all elements of the case discussed with attending Dr. Nayak
--- NOTE | 2017-07-09 16:11 | PN ---
PROGRESS NOTE DATE OF SERVICE: 07/09/17 ATTENDING NOTE: Patient seen and examined by me. I discussed with nurse practitioner, Isabel Clement. This patient admitted by me with unstable angina with rather cardiac sounding, had some more evidence of chest pain. When I saw the patient earlier today patient was just coming back from a stress test. PHYSICAL EXAMINATION: Temperature 97.4, pulse 74, respiratory 18, blood pressure 120/75 pulse ox 99% on room air. GENERAL APPEARANCE: Sitting up on bed, comfortable. HEENT: Eyes are equal pupils. Conjunctivae normal. NECK: JVD not raised. Mass not palpable. RESPIRATORY: Effort normal, lungs fair entry. CARDIOVASCULAR: First and second sounds, no edema. ABDOMEN: Soft, nontender. Liver and spleen not palpable. PSYCHIATRY: Alert and oriented x3. Mood and affect normal. INVESTIGATIONS: Troponins are negative. The patient's stress test has come back in the meantime showing anterior wall motion abnormality with EF of 35%. ASSESSMENT: 1. Unstable angina in a patient known coronary artery disease with positive stress test. 2. Chronic congestive heart failure, ejection fraction 30%, underlying coronary artery disease. PLAN: The patient will rule out of getting an cardiac catheterization. Patient is on IV heparin. Follow with Cardiology. MMODL / IJN: [id number] /
[2017-07-09] MEDS ORDERED: ALPRAZolam 0.25 MG TAB PO PRN (19:45)
[2017-07-09] MEDS ORDERED: ATORVASTATIN 80 MG TAB PO STA (19:45)
[2017-07-09] MEDS ORDERED: SODIUM CHLORIDE 0.9% 1,000 ML in EMPTY BAG 1 BAG IV ONE (19:45)
[2017-07-09] MEDS ORDERED: NITROGLYCERIN SL TABS 0.4 MG TAB SUBLINGUAL PRN (19:45)
[2017-07-09] MEDS ORDERED: ALPRAZolam 0.5 MG TAB PO PRN (19:45)
[2017-07-09] MEDS ORDERED: ASPIRIN 325 MG TAB PO STA (19:45)
[2017-07-09] MEDS: FAMOTIDINE 20 MG TAB PO SCH (22:05)
[2017-07-09] MEDS: SPIRONOLACTONE 25 MG TAB PO SCH (22:06)
[2017-07-10 05:26] LABS: Basophils # (A) 0.1 k/uL (0-0.2); Basophils % (A) 2 %; Eosinophils # (A) 0.2 k/uL (0-0.7); Eosinophils % (A) 3 %; HCT 43.1 % (34.0-46.0); HGB 13.6 gm/dL (11.4-16.0); Lymphocytes # (A) 2.2 k/uL (1.0-4.8); Lymphocytes % (A) 30 %; MCH 29.6 pg (25.0-35.0); MCHC 31.5 g/dL (31.0-37.0); MCV 93.9 fL (80.0-100.0); Monocytes # (A) 0.6 k/uL (0-1.0); Monocytes % (A) 8 %; Neutrophils % (A) 55 %; Platelet Count 221 k/uL (150-450); RBC 4.59 m/uL (3.80-5.40); RDW 15.8 % (11.5-15.5); WBC 7.3 k/uL (3.8-10.6)
[2017-07-10] MEDS: METOPROLOL TARTRATE 25 MG TAB PO SCH ×2 (06:50→21:44)
[2017-07-10] MEDS: LISINOPRIL 5 MG TAB PO SCH (06:50)
[2017-07-10] MEDS: CLOPIDOGREL 75 MG TAB PO SCH (06:50)
[2017-07-10] MEDS ORDERED: IV FLUID CONTINUATION 1,000 ML IV ONE (07:18)
[2017-07-10] MEDS ORDERED: VERAPAMIL 2.5 MG/ML 2 ML AMP ONE (07:24)
[2017-07-10] MEDS ORDERED: LIDOCAINE 2% INJ 20 MG/ML (20 ML MDV) ONE (07:24)
[2017-07-10] MEDS ORDERED: MIDAZOLAM 2 MG/2 ML VIAL ONE ×3 (07:24→17:34)
[2017-07-10] MEDS ORDERED: MIDAZOLAM 2 MG/2 ML VIAL IV ONE (07:41)
[2017-07-10] MEDS ORDERED: LIDOCAINE 2% INJ 20 MG/ML SQ ONE (07:43)
[2017-07-10] MEDS: VERAPAMIL SYRINGE (5 MG/10 ML) INTRAARTER ONE ×2 (07:45→07:55)
[2017-07-10] MEDS ORDERED: HYDROmorphone 2 MG/ML 1 ML SYRINGE ONE (07:45)
[2017-07-10] MEDS ORDERED: HYDROmorphone 2 MG/ML 1 ML SYRINGE IV ONE (07:46)
[2017-07-10] MEDS ORDERED: fentaNYL (PF) 50 MCG/ML 2 ML AMP ONE (07:49)
[2017-07-10] MEDS ORDERED: fentaNYL (PF) 50 MCG/ML 2 ML AMP IV ONE (07:50)
[2017-07-10] MEDS ORDERED: HEPARIN SODIUM 1,000 UN/ML (10ML VL) ONE (07:52)
[2017-07-10] MEDS ORDERED: HEPARIN SODIUM 1,000 UN/ML (10ML VL) IV ONE (07:54)
[2017-07-10] MEDS ORDERED: IODIXANOL 320 MG/ML 100 ML INTRAARTER ONE (07:56)
[2017-07-10] MEDS ORDERED: ONDANSETRON 4 MG/2 ML VIAL ONE ×2 (08:01→08:14)
[2017-07-10] MEDS ORDERED: RX INFO: IV CONTRAST WAS GIVEN 1 EACH MISC MISCELLANE PRN (08:01)
[2017-07-10] MEDS ORDERED: ONDANSETRON 4 MG/2 ML VIAL IVP ONE ×2 (08:04→08:08)
[2017-07-10] MEDS ORDERED: SODIUM CHLORIDE 0.9% 1,000 ML IV SCH (08:15)
[2017-07-10 08:50] LABS: Anion Gap 10 mmol/L; Blood Urea Nitrogen 23 mg/dL (7-17); Calcium 10.2 mg/dL (8.4-10.2); Carbon Dioxide 26 mmol/L (22-30); Chloride 103 mmol/L (98-107); Glucose 156 mg/dL (74-99); Potassium 4.5 mmol/L (3.5-5.1); Sodium 139 mmol/L (137-145)
[2017-07-10] MEDS: METOCLOPRAMIDE 5 MG/ML 2 ML VIAL IVP SCH ×4 (09:34→21:44)
--- NOTE | 2017-07-10 09:59 | LTR ---
July 10, [address] Villanueva: Ms. Sarita Coley presented to [facility] with chest discomfort and underwent myocardial perfusion imaging stress test and that revealed anterior ischemia. As you know, she does have history of coronary artery disease and she underwent stenting of the LAD and a diagonal branch back in 2016. This time, she underwent a heart catheterization and that revealed patent stents in both the LAD and the diagonal. Maximize medical treatment is recommended at this point of time. I want to thank you for allowing me to participate in her care. MMODL / IJN: [id number] /
--- NOTE | 2017-07-10 09:59 | CC ---
CARDIAC CATHETERIZATION REPORT DATE OF SERVICE: July 10, 2017. PERFORMING PHYSICIAN: Jermain Mooney MD, shade cloth finisher. PROCEDURE PERFORMED: 1. Selective right and left coronary angiogram. 2. Left heart catheterization. INDICATION: This is a pleasant 52-year-old female patient who is known to have coronary artery disease and prior stenting of the LAD and diagonal in 2016, presented to the hospital with chest discomfort and she underwent a myocardial perfusion imaging stress test and that revealed anterior ischemia. In view of that, heart catheterization was recommended. The patient follows normally with Dr. Perez but he was unavailable yesterday. APPROACH: Right radial artery. COMPLICATION: None. LEVEL OF SEDATION: Moderate with sedation length of 15 minutes. PROCEDURE DESCRIPTION: After obtaining informed consent, the patient was brought to cardiac public works laborer. The right radial artery was cannulated using micropuncture technique, the micropuncture wire passed easily then I placed a 6-[place] sheath in the right radial artery. Then I did give the patient 2 mg of verapamil IA and 10,000 units of heparin IV. After that, I did selective right and left coronary angiogram using JR4 and JL3.5 catheters. After that, I did the left heart catheterization using 6-[place] pigtail catheter. The procedure was completed without any complication. SELECTIVE CORONARY ANGIOGRAM: 1. The right coronary artery is a large caliber vessel and it is a dominant vessel. The proximal and mid RCA are angiographically normal. The distal RCA is angiographically normal and bifurcates into PDA and PLV branches both are angiographically normal. 2. The left main is angiographically normal it bifurcates into the left circumflex and left anterior descending artery. 3. The left circumflex is a large caliber vessel and it is a nondominant vessel. The proximal left circumflex is angiographically normal and gives rise into 2 obtuse marginal branches both are angiographically normal. The mid left circumflex is normal and the circumflex distally is normal and gives rise into a large OM branch which works as a PDA branch and seems to be angiographically normal as well. 4. The LAD: The proximal LAD is angiographically normal and gives rise into the first diagonal branch which seems to be angiographically normal. The mid LAD is stented and the stent is patent. The mid LAD gives rise into a second large diagonal branch which seems to be stented and the stent is patent as well. The LAD distally is angiographically normal. CONCLUSION: 1. Patent stent in both the mid LAD and proximal second diagonal branch. 2. Elevated left ventricular end-diastolic pressure. POSTPROCEDURE MANAGEMENT: 1. Maximize medical treatment. 2. Follow up with the patient. MMGAMA / IJN: [id number] /
[2017-07-10 10:41] VITALS: RESP 18
--- NOTE | 2017-07-10 12:21 | P.PN ---
Progress Note - Text Progress Note Date: 07/10/17 DATE OF SERVICE: 07/10/2017 PRESENTING COMPLAINT: Chest pain HISTORY OF PRESENT ILLNESS: 51-year-old female with a known cardiac history with stents placed back in May 2016 presented to the emergency department with complaints of chest pain as well as left visual field difficulties, which have resolved. Patient admitted for evaluation of chest pain INTERVAL HISTORY: 07/10/2017: Patient lying in bed appears uncomfortable. Has had an episode of nausea, Zofran and Reglan provided. had her cardiac catheterization this morning with a right radial approach.no intervention. Ambulatory in the room with assistance. currently not able to tolerate any food. Last BM 07/10/2017. 07/09/2017: Patient lying in bed this had no further episodes of chest pain, cardiology has seen the patient patient will receive a Lexiscan stress test later today. Currently nothing by mouth, ambulatory to and from the bathroom without difficulty. Last BM this morning. REVIEW OF SYSTEMS: Done for constitutional ,cardiovascular, GI, pulmonary with relevant findings as above. CURRENT MEDICATIONS Tylenol, Aminophyllin, aspirin, Lipitor, Plavix, Pepcid, heparin, Lopressor, Aldactone. PHYSICAL EXAM VITAL SIGNS: Temperature 97.4, pulse 84, respiratory rate 18, blood pressure 126/75, oxygen saturation 99% on room air. GENERAL APPEARANCE: Lying in bed, ill-appearing. EYES: Pupils equal. Conjunctiva normal. NECK: JVD not raised. Mass not palpable. RESPIRATORY: Respiratory effort normal. Lungs diminished to auscultation. CARDIOVASCULAR: First and second sounds normal. No edema. ABDOMEN: Soft. Liver and spleen not palpable. No tenderness. No mass palpable. PSYCHIATRY: Alert and oriented x3. Mood and affect normal. MUSCULOSKELETAL: Right wrist with compression device in place, no bleeding or hematoma noted INVESTIGATIONS: LABS: CBC unremarkable, BUN 23, creatinine 1.12, cardiac catheterization: Patent stents in both the mid LAD and proximal second diagonal branch, elevated left ventricular end-diastolic pressure. ASSESSMENT: -Unstable angina with known coronary artery disease in with stent placed May 2016, which are patent. -Coronary artery disease prior history of stent May 2016. -Gastroesophageal reflux disease. -Essential hypertension. -Hyperlipidemia. -Primary osteoarthritis. -Chronic congestive heart failure from systolic dysfunction ejection fraction 30 % from underlying coronary artery disease. -Chronic left bundle branch block. -Hypothyroidism. -AICD in place. PLAN: patent stents to both the mid LAD and proximal second diagonal branch, maximal medical management per cardiology. Discharge planning for the next 24-48 hours. Plan of care discussed with patient at bedside she is in agreement. We will follow closely. CONSTRUCTION SUPERVISOR/CARPENTER statement: Patient was seen and examined by nurse practitioner Veronica Vaughan and all elements of the case discussed with attending Dr. Nayak
[2017-07-10] MEDS ORDERED: ONDANSETRON 4 MG/2 ML VIAL IVP PRN (13:14)
[2017-07-10] MEDS ORDERED: PRASUGREL 10 MG TAB ONE (16:31)
[2017-07-10] MEDS ORDERED: FUROSEMIDE 10 MG/ML 4 ML VIAL ONE (17:42)
[2017-07-10] MEDS: SPIRONOLACTONE 25 MG TAB PO SCH (21:44)
[2017-07-10] MEDS: FAMOTIDINE 20 MG TAB PO SCH (21:44)
--- NOTE | 2017-07-10 21:56 | PN ---
PROGRESS NOTE DATE OF SERVICE: 07/10/2017. ATTENDING NOTE: Patient was seen and examined by me. I discussed with my nurse practitioner, Ms. Vaughan. Patient admitted with cardiac-sounding chest pain, has a positive stress test. Cardiac cath showed did not show any new blockages. Patient having some nausea, vomiting; hence, discharge being held. EXAMINATION: Lungs are clear. CARDIOVASCULAR: First and second heart sounds normal. ABDOMEN: Soft, nontender. Potassium 4.5. MEDICATIONS: Include: 1. Pepcid. 2. Plavix. 3. Lopressor. ASSESSMENT: 1. Persistent nausea, could be medication-induced. Keep a close eye. 2. Coronary artery disease, stable. Will watch the patient, see how she does today. No other intervention. MMODL / IJN: [id number] /
[2017-07-11] MEDS: METOCLOPRAMIDE 5 MG/ML 2 ML VIAL IVP SCH ×2 (04:31→11:28)
[2017-07-11 07:15] LABS: Basophils # (A) 0.1 k/uL (0-0.2); Basophils % (A) 1 %; Eosinophils # (A) 0.1 k/uL (0-0.7); Eosinophils % (A) 1 %; HCT 39.5 % (34.0-46.0); HGB 12.3 gm/dL (11.4-16.0); Lymphocytes # (A) 1.8 k/uL (1.0-4.8); Lymphocytes % (A) 20 %; MCH 29.7 pg (25.0-35.0); MCHC 31.2 g/dL (31.0-37.0); MCV 95.2 fL (80.0-100.0); Mean Platelet Volume 10.2; Monocytes # (A) 0.6 k/uL (0-1.0); Monocytes % (A) 7 %; Neutrophils # (A) 6.2 k/uL (1.3-7.7); Neutrophils % (A) 69 %; Platelet Count 186 k/uL (150-450); RBC 4.16 m/uL (3.80-5.40); RDW 15.4 % (11.5-15.5)
[2017-07-11 07:23] LABS: Anion Gap 9 mmol/L; Blood Urea Nitrogen 21 mg/dL (7-17); Calcium 9.9 mg/dL (8.4-10.2); Carbon Dioxide 27 mmol/L (22-30); Chloride 105 mmol/L (98-107); Glucose 112 mg/dL (74-99); Potassium 4.7 mmol/L (3.5-5.1); Sodium 141 mmol/L (137-145)
[2017-07-11] MEDS: METOPROLOL TARTRATE 25 MG TAB PO SCH (09:16)
[2017-07-11] MEDS: CLOPIDOGREL 75 MG TAB PO SCH (09:16)
[2017-07-11] MEDS: LISINOPRIL 5 MG TAB PO SCH (09:16)
[2017-07-11 11:06] VITALS: PULSE 76; TEMP 98.2
[2017-07-11 11:07] VITALS: BP 118/60
--- NOTE | 2017-07-11 13:21 | PN ---
PROGRESS NOTE Mrs. Coley is a 52-year-old female with a known history of heart disease, who presented with symptoms of chest discomfort, underwent cardiac catheterization yesterday by Dr. Mooney and found to have no evidence of progression of disease. She is feeling well this morning. Denies any chest pain. No palpitation. No dizziness. She has no nausea. She continues to be on Plavix 75 mg daily, lisinopril 5 mg daily, metoprolol tartrate 25 mg twice a day, spironolactone 25 mg daily. PHYSICAL EXAMINATION: Blood pressure 118/60 with a heart in the 70s. LUNGS: Clear. HEART: Regular rhythm S1, S2. No S3. No rub. ABDOMEN: Soft, nontender. EXTREMITIES: No edema. IMPRESSION: 1. Symptoms of chest pain with no evidence of significant progression of disease. 2. Hypertension. 3. Hyperlipidemia. RECOMMENDATION: Patient should be able to be discharged home today and followed as an outpatient with Dr. Perez. MMODL / IJN: [id number] /
--- NOTE | 2017-07-11 13:51 | P.DS ---
Providers Date of admission: 07/09/17 14:54 Expected date of discharge: 07/11/17 Attending physician: Rasheed Nayak Consults: 07/08/17 15:00 Consult Physician Urgent Consulting Provider: Jermain Mooney Consult Reason/Comments: Chest pain Do you want consulting provider notified?: Yes 07/08/17 15:04 Consult Physician Routine Consulting Provider: Joy Squires Consult Reason/Comments: Left thigh painless vision loss, resolved Do you want consulting provider notified?: Yes Primary care physician: [facility] Course: FINAL DIAGNOSES: -Unstable angina with known coronary artery disease in with stent placed May 2016, which are patent. -Coronary artery disease prior history of stent May 2016. -Gastroesophageal reflux disease. -Essential hypertension. -Hyperlipidemia. -Primary osteoarthritis. -Chronic congestive heart failure from systolic dysfunction ejection fraction 30 % from underlying coronary artery disease. -Chronic left bundle branch block. -Hypothyroidism. -AICD in place. HOSPTIAL COURSE: 51-year-old female with known cardiac history and stents in place back in May 2016 presented to the emergency department with complaints of chest pain and was admitted with unstable angina. Home medications reordered, Cardiology was consulted, labs drawn, troponin negative, EKG performed. Lexiscan stress test revealed areas of reversible ischemia, patient placed on the schedule for cardiac catheterization. Cardiac catheterization completed both prior stents placed back in May or patent no new lesions found. No intervention required. Postprocedure patient had an extensive episode of nausea and vomiting likely related to pain medications/anesthetic agents used during catheterization. IV fluids provided anti-emetics provided. Nausea and vomiting improved. Today patient is up ambulating about the room, has taken a shower, no further episodes of chest pain, tolerating her diet with no nausea or vomiting, moved her bowels yesterday, anxious to go home. Consultants agree patient's condition overall is stable and patient is appropriate for discharge to home. PHYSICAL EXAM: CARDIOVASCULAR: First and second sounds noted no edema no chest pain RESPIRATORY: Respiratory effort normal lung sounds clear to auscultation bilaterally GI: Abdomen soft nontender liver and spleen not palpable no further episodes of nausea PSYCHIATRY: Alert and oriented 3 and affect normal: Patient was seen and examined by nurse practitioner Veronica Vaughan in all elements of the case discussed with attending Dr. Nayak DISPOSITION: Home to the care of her family Plan - Discharge Summary Discharge Rx Participant: No New Discharge Prescriptions: New Isosorbide Mononitrate ER [Imdur] 30 mg PO DAILY #30 tab Continue Metoprolol Tartrate [Lopressor] 25 mg PO BID #60 tab Clopidogrel [Plavix] 75 mg PO DAILY Nitroglycerin Sl Tabs [Nitrostat] 0.4 mg SUBLINGUAL Q5M PRN PRN Reason: Chest Pain Famotidine [Pepcid] 20 mg PO HS Aspirin 81 mg PO DAILY Atorvastatin Calcium [Lipitor] 20 mg PO HS Changed Lisinopril [Zestril] 5 mg PO HS #30 tab Spironolactone [Aldactone] 25 mg PO DAILY #0 Discharge Medication List Metoprolol Tartrate [Lopressor] 25 mg PO BID #60 tab 07/03/15 [Rx] Clopidogrel [Plavix] 75 mg PO DAILY 12/09/15 [History] Famotidine [Pepcid] 20 mg PO HS 05/20/16 [History] Nitroglycerin Sl Tabs [Nitrostat] 0.4 mg SUBLINGUAL Q5M PRN 05/20/16 [History] Aspirin 81 mg PO DAILY 12/17/16 [Rx] Atorvastatin Calcium [Lipitor] 20 mg PO HS 07/08/17 [History] Isosorbide Mononitrate ER [Imdur] 30 mg PO DAILY #30 tab 07/11/17 [Rx] Lisinopril [Zestril] 5 mg PO HS #30 tab 07/11/17 [Rx] Spironolactone [Aldactone] 25 mg PO DAILY #0 07/11/17 [Rx] Follow up Appointment(s)/Referral(s): Tera Villanueva DO [Primary Care Provider] - 3 Days Mary Perez MD [STAFF PHYSICIAN] - 1 Week Ambulatory/Diagnostic Orders: Basic Metabolic Panel [LAB.AMB] Location: Determined By Patient Activity/Diet/Wound Care/Special Instructions: Heart healthy diet Discharge Disposition: HOME SELF-CARE
[2017-07-12] MEDS ORDERED: ATORVASTATIN 40 MG TAB PO SCH (09:00)
[2017-07-12] MEDS ORDERED: ASPIRIN 81 MG PO SCH (09:00)
--- NOTE | 2017-07-12 12:25 | DS ---
DISCHARGE SUMMARY DATE OF SERVICE: 07/11/2017. ATTENDING NOTE: The patient was seen and examined by me. Discussed with nurse practitioner, Ms. Vaughan. The patient is status post cardiac cath, did not show any critical stenosis. The patient did present with cardiac sounding presentation, also had a positive stress test. Cardiac catheterization was carried out by Dr. Mooney, that showed a patent stent in both the mid LAD and the proximal second diagonal branch. The patient was doing much better by the time of discharge. Imdur is being added. Follow up with Dr. Perez and Dr. Villanueva. Care was discussed with the patient. EXAM: Lungs are clear. Cardiovascular, 1st and 2nd sounds normal. Normal BUN of 21 and creatinine of 1.03. MMODL / IJN: [id number] /
== END 2017-07-11 14:50 | disposition home or self-care (01) | DRG 287 ==
LOC: EC 10:46 → UNDOADMOB 15:03 → 6SEL 15:03 → INTOOBSV 07-09 14:54 → OBSVTOIN 07-09 14:54 → UNDODISIN 07-11 14:50
PROVIDERS: ADMIT Hospitalist; ATTEND Hospitalist
PROC: B2111ZZ Fluoroscopy of Multiple Coronary Arteries using Low Osmolar Contrast (ICD-10-PCS; 2017-07-10)
PROC: 4A023N7 Measurement of Cardiac Sampling and Pressure, Left Heart, Percutaneous Approach (ICD-10-PCS; principal; 2017-07-10 07:18)
DX: I25.110 Atherosclerotic heart disease of native coronary artery with unstable angina pectoris (principal); I11.0 Hypertensive heart disease with heart failure; I50.22 Chronic systolic (congestive) heart failure; K21.9 Gastro-esophageal reflux disease without esophagitis; E78.5 Hyperlipidemia, unspecified; M19.91 Primary osteoarthritis, unspecified site; I44.7 Left bundle-branch block, unspecified; G43.109 Migraine with aura, not intractable, without status migrainosus; H54.62 Unqualified visual loss, left eye, normal vision right eye; H53.9 Unspecified visual disturbance; I25.5 Ischemic cardiomyopathy; E03.9 Hypothyroidism, unspecified; Z95.810 Presence of automatic (implantable) cardiac defibrillator; Z79.899 Other long term (current) drug therapy; Z79.82 Long term (current) use of aspirin; Z79.02 Long term (current) use of antithrombotics/antiplatelets; Z88.6 Allergy status to analgesic agent; Z80.0 Family history of malignant neoplasm of digestive organs; Z82.49 Family history of ischemic heart disease and other diseases of the circulatory system; Z87.891 Personal history of nicotine dependence; Z87.19 Personal history of other diseases of the digestive system; Z90.710 Acquired absence of both cervix and uterus; Z95.5 Presence of coronary angioplasty implant and graft; Z87.442 Personal history of urinary calculi; I25.2 Old myocardial infarction; Z80.3 Family history of malignant neoplasm of breast
CPT/HCPCS: 36415; 70450; 71046; 78452; 80048; 80053; 82550; 82553; 83735; 83880; 84484; 85025; 85610; 85730; 93005; 93017; 93306; 93458; 96365; 96366; 96376; 99285

== ENCOUNTER 2017-09-19 07:19 | Emergency (ER) | payer BC ==
[2017-09-19 08:03] LABS: Basophils # (A) 0.1 k/uL (0-0.2); Basophils % (A) 1 %; Eosinophils % (A) 0 %; HCT 41.9 % (34.0-46.0); HGB 13.8 gm/dL (11.4-16.0); Lymphocytes # (A) 0.8 k/uL (1.0-4.8); Lymphocytes % (A) 12 %; MCH 29.5 pg (25.0-35.0); MCV 89.5 fL (80.0-100.0); Mean Platelet Volume 9.6; Monocytes # (A) 0.6 k/uL (0-1.0); Monocytes % (A) 9 %; Neutrophils % (A) 75 %; Platelet Count 190 k/uL (150-450); RBC 4.69 m/uL (3.80-5.40); RDW 13.6 % (11.5-15.5); WBC 6.7 k/uL (3.8-10.6)
[2017-09-19 08:11] LABS: Albumin 4.4 g/dL (3.5-5.0); Calcium 9.9 mg/dL (8.4-10.2); Potassium 4.2 mmol/L (3.5-5.1); Total Bilirubin 0.6 mg/dL (0.2-1.3); Total Protein 7.7 g/dL (6.3-8.2)
[2017-09-19 08:14] LABS: Appearance,Urine Cloudy (Clear); Bacteria,Urine Rare /hpf; Bilirubin,Urine Negative (Negative); Blood,Urine Moderate (Negative); Color,Urine Yellow; Glucose,Urine (UA) Negative (Negative); Ketones,Urine Trace (Negative); Leukocyte Esterase,Urine Negative (Negative); Mucus,Urine Occasional /hpf; Nitrite,Urine Negative (Negative); PH, Urine 5.5 (5.0-8.0); Protein,Urine 2+ (Negative); RBC,Urine 4 /hpf (0-5); Specific Gravity,Urine 1.024 (1.001-1.035); Squamous Epithelial Cell,Urine 6 /hpf (0-4); Urobilinogen,Urine <2.0 mg/dL (<2.0); WBC,Urine 9 /hpf (0-5)
--- NOTE | 2017-09-19 08:16 | XR ---
EXAMINATION TYPE: XR KUB , 2 VIEWS DATE OF EXAM ORDERED: 09/19/2017 HISTORY: pain. COMPARISON: Previous study dated 01/11/2014. FINDINGS: The lung bases are clear. There is been a previous cholecystectomy. The abdominal gas pattern is normal. There is no evidence o f obstruction or free air. No unusual calcifications are seen. IMPRESSION: NO ACUTE ABDOMINAL ABNORMALITY.
[2017-09-19] MEDS ORDERED: ONDANSETRON 4 MG/2 ML VIAL IVP STA (08:26)
[2017-09-19] MEDS ORDERED: SODIUM CHLORIDE 0.9% 1,000 ML IV STA (08:26)
--- NOTE | 2017-09-19 08:50 | ED ---
General Adult HPI - General Chief complaint: Nausea/Vomiting/Diarrhea Stated complaint: poss flu Time Seen by Provider: 09/19/17 08:17 Source: patient, RN notes reviewed Mode of arrival: ambulatory Limitations: no limitations - History of Present Illness Initial comments: Patient 52-year-old female who presents emergency room today with multiple complaints. She does not that she's had some symptoms of nausea vomiting diarrhea over the last 10 days. States that symptoms seem to be improving and then she caught a upper respiratory infection. States that she's had some cough congestion. She states that the symptoms seem to be improving but the symptoms of nausea vomiting diarrhea have returned. Patient denies any specific abdominal pain. She denies any other associated symptoms. Denies any limited better or worse. Patient denies any recent fever, chills, shortness of breath, chest pain, back pain, numbness or tingling, dysuria or hematuria, constipation, headaches or visual changes, or any other complaints. - Related Data Home Medications Medication Instructions Recorded Confirmed Clopidogrel [Plavix] 75 mg PO DAILY 12/09/15 09/19/17 Famotidine [Pepcid] 20 mg PO HS 05/20/16 09/19/17 Nitroglycerin Sl Tabs [Nitrostat] 0.4 mg SUBLINGUAL Q5M PRN 05/20/16 09/19/17 Atorvastatin Calcium [Lipitor] 20 mg PO HS 07/08/17 09/19/17 Previous Rx's Medication Instructions Recorded Metoprolol Tartrate [Lopressor] 25 mg PO BID #60 tab 07/03/15 Aspirin 81 mg PO DAILY 12/17/16 Isosorbide Mononitrate ER [Imdur] 30 mg PO DAILY #30 tab 07/11/17 Lisinopril [Zestril] 5 mg PO HS #30 tab 07/11/17 Spironolactone [Aldactone] 25 mg PO DAILY #0 07/11/17 Ondansetron Odt [Zofran ODT] 4 mg PO Q8HR PRN #20 tab 09/19/17 Allergies Allergy/AdvReac Type Severity Reaction Status Date / Time hydrocodone bitartrate AdvReac Nausea & Verified 09/19/17 08:40 [From Vicodin] Vomiting propoxyphene napsylate AdvReac Vomiting Verified 09/19/17 08:40 [From Darvocet-N] Review of Systems ROS Statement: Those systems with pertinent positive or pertinent negative responses have been documented in the HPI. ROS Other: All systems not noted in ROS Statement are negative. Past Medical History Past Medical History: Coronary Artery Disease (CAD), Chest Pain / Angina, Heart Failure, GERD/Reflux, Hyperlipidemia, Hypertension, Myocardial Infarction (MT), Renal Disease, Thyroid Disorder Additional Past Medical History / Comment(s): Ischemic cardiomyopathy, nephrolithiasis, migraines, occasional back pain, hypothyroid. Last Myocardial Infarction Date:: 06-30-15 History of Any Multi-Drug Resistant Organisms: None Reported Past Surgical History: AICD, Heart Catheterization With Stent, Hernia Repair, Hysterectomy Additional Past Surgical History / Comment(s): stents to lad,diag, 05/22/16 PTCA , Bilateral oophorectomy, LT INGUINAL HERNIA REPAIR, CYSTOCOPY, LITHOTRIPSY, COLONOSCOPY Past Anesthesia/Blood Transfusion Reactions: Postoperative Nausea & Vomiting ( PONV) Additional Past Anesthesia/Blood Transfusion Reaction / Comment(s): MILD CLAUSTERPHOBIA Date of Last Stent Placement:: 06/30/15 Type of Cardiac Device: AICD Device Placement Date:: 12/12/15 Past Psychological History: No Psychological Hx Reported Smoking Status: Former smoker Past Alcohol Use History: None Reported Past Drug Use History: None Reported - Past Family History Father Family Medical History: Cancer, Myocardial Infarction (MT) Additional Family Medical History / Comment(s): Pt does not recall age that father had his MT. He also had a pacer and colon cancer, Sister(s) Family Medical History: Cancer, Hypertension Additional Family Medical History / Comment(s): breast General Exam - General Exam Comments Initial Comments: General: The patient is awake and alert, in no distress, and does not appear acutely ill. Eye: Pupils are equal, round and reactive to light, extra-ocular movements are intact. No nystagmus. There is normal conjunctiva bilaterally. No signs of icterus. Ears, nose, mouth and throat: There are moist mucous membranes and no oral lesions. Neck: The neck is supple, there is no tenderness or JVD. Cardiovascular: There is a regular rate and rhythm. No murmur, rub or gallop is appreciated. Respiratory: Lungs are clear to auscultation, respirations are non-labored, breath sounds are equal. No wheezes, stridor, rales, or rhonchi. Gastrointestinal: Soft, non-distended, non-tender abdomen without masses or organomegaly noted. There is no rebound or guarding present. No CVA tenderness. Bowel sounds are unremarkable. Musculoskeletal: Normal ROM, no tenderness. Strength 5/5. Sensation intact. Pulses equal bilaterally 2+. Neurological: A&O x 3. CN II-XII intact, There are no obvious motor or sensory deficits. Coordination appears grossly intact. Speech is normal. Skin: Skin is warm and dry and no rashes or lesions are noted. Psychiatric: Cooperative, appropriate mood & affect, normal judgment. Limitations: no limitations Course Vital Signs 09/19/17 09/19/17 07:21 09:26 Temperature 97.1 F L Pulse Rate 100 83 Respiratory 18 17 Rate Blood Pressure 157/85 147/78 O2 Sat by Pulse 98 98 Oximetry Medical Decision Making - Medical Decision Making Patient reexamined at this time shows no signs of distress. She is resting comfortable. Does not that she's feeling better. Patient's influenza negative. Chest x-ray is negative for any sign of pneumonia. No other abnormality. Patient's labs been reviewed mildly elevated BUN/creatinine showing similar on previous labs. Patient does feel better after nausea medication. Abdomen soft nontender. Will be discharged home to continue oral hydration after liter bolus here in the emergency room. Will be given nausea medication to go home with. Advised following up with family doctor the next 2 days return here to the emergency room if any symptoms increase worsen. - Lab Data Result diagrams: 09/19/17 07:40 09/19/17 07:40 Lab Results 09/19/17 09/19/17 09/19/17 Range/Units 07:40 07:40 07:54 WBC 6.7 (3.8-10.6) k/uL RBC 4.69 (3.80-5.40) m/uL Hgb 13.8 (11.4-16.0) gm/dL Hct 41.9 (34.0-46.0) % MCV 89.5 (80.0-100.0) fL MCH 29.5 (25.0-35.0) pg MCHC 33.0 (31.0-37.0) g/dL RDW 13.6 (11.5-15.5) % Plt Count 190 (150-450) k/uL Neutrophils % 75 % Lymphocytes % 12 % Monocytes % 9 % Eosinophils % 0 % Basophils % 1 % Neutrophils # 5.0 (1.3-7.7) k/uL Lymphocytes # 0.8 L (1.0-4.8) k/uL Monocytes # 0.6 (0-1.0) k/uL Eosinophils # 0.0 (0-0.7) k/uL Basophils # 0.1 (0-0.2) k/uL Sodium 141 (137-145) mmol/L Potassium 4.2 (3.5-5.1) mmol/L Chloride 105 (98-107) mmol/L Carbon Dioxide 22 (22-30) mmol/L Anion Gap 14 mmol/L BUN 28 H (7-17) mg/dL Creatinine 1.35 H (0.52-1.04) mg/dL Est GFR (CKD-EPI)AfAm 52 (>60 ml/min/1.73 sqM) Est GFR (CKD-EPI)NonAf 45 (>60 ml/min/1.73 sqM) Glucose 133 H (74-99) mg/dL Calcium 9.9 (8.4-10.2) mg/dL Total Bilirubin 0.6 (0.2-1.3) mg/dL AST 54 H (14-36) U/L ALT 46 (9-52) U/L Alkaline Phosphatase 79 (38-126) U/L Total Protein 7.7 (6.3-8.2) g/dL Albumin 4.4 (3.5-5.0) g/dL Amylase 43 (30-110) U/L Lipase 126 (23-300) U/L Urine Color Urine Appearance (Clear) Urine pH (5.0-8.0) Ur Specific [place] (1.001-1.035) Urine Protein (Negative) Urine Glucose (UA) (Negative) Urine Ketones (Negative) Urine Blood (Negative) Urine Nitrite (Negative) Urine Bilirubin (Negative) Urine Urobilinogen (<2.0) mg/dL Ur Leukocyte Esterase (Negative) Urine RBC (0-5) /hpf Urine WBC (0-5) /hpf Ur Squamous Epith Cells (0-4) /hpf Urine Bacteria (None) /hpf Urine Mucus (None) /hpf Influenza Type A RNA Not Detected (Not Detectd) Influenza Type B (PCR) Not Detected (Not Detectd) 09/19/17 Range/Units 07:54 WBC (3.8-10.6) k/uL RBC (3.80-5.40) m/uL Hgb (11.4-16.0) gm/dL Hct (34.0-46.0) % MCV (80.0-100.0) fL MCH (25.0-35.0) pg MCHC (31.0-37.0) g/dL RDW (11.5-15.5) % Plt Count (150-450) k/uL Neutrophils % % Lymphocytes % % Monocytes % % Eosinophils % % Basophils % % Neutrophils # (1.3-7.7) k/uL Lymphocytes # (1.0-4.8) k/uL Monocytes # (0-1.0) k/uL Eosinophils # (0-0.7) k/uL Basophils # (0-0.2) k/uL Sodium (137-145) mmol/L Potassium (3.5-5.1) mmol/L Chloride (98-107) mmol/L Carbon Dioxide (22-30) mmol/L Anion Gap mmol/L BUN (7-17) mg/dL Creatinine (0.52-1.04) mg/dL Est GFR (CKD-EPI)AfAm (>60 ml/min/1.73 sqM) Est GFR (CKD-EPI)NonAf (>60 ml/min/1.73 sqM) Glucose (74-99) mg/dL Calcium (8.4-10.2) mg/dL Total Bilirubin (0.2-1.3) mg/dL AST (14-36) U/L ALT (9-52) U/L Alkaline Phosphatase (38-126) U/L Total Protein (6.3-8.2) g/dL Albumin (3.5-5.0) g/dL Amylase (30-110) U/L Lipase (23-300) U/L Urine Color Yellow Urine Appearance Cloudy H (Clear) Urine pH 5.5 (5.0-8.0) Ur Specific [place] 1.024 (1.001-1.035) Urine Protein 2+ H (Negative) Urine Glucose (UA) Negative (Negative) Urine Ketones Trace H (Negative) Urine Blood Moderate H (Negative) Urine Nitrite Negative (Negative) Urine Bilirubin Negative (Negative) Urine Urobilinogen <2.0 (<2.0) mg/dL Ur Leukocyte Esterase Negative (Negative) Urine RBC 4 (0-5) /hpf Urine WBC 9 H (0-5) /hpf Ur Squamous Epith Cells 6 H (0-4) /hpf Urine Bacteria Rare H (None) /hpf Urine Mucus Occasional H (None) /hpf Influenza Type A RNA (Not Detectd) Influenza Type B (PCR) (Not Detectd) Disposition Clinical Impression: Nausea vomiting and diarrhea, Upper respiratory infection Disposition: HOME SELF-CARE Condition: Good Instructions: Acute Nausea and Vomiting (ED) Additional Instructions: Please use medication as discussed. Please follow-up with family doctor in the next 2 days of symptoms have not improved. Please return to emergency room if the symptoms increase or worsen or for any other concerns. Prescriptions: Ondansetron Odt [Zofran ODT] 4 mg PO Q8HR PRN #20 tab PRN Reason: Nausea Referrals: Tera Villanueva DO [Primary Care Provider] - 1-2 days Time of Disposition: 11:27
[2017-09-19 09:27] VITALS: PULSE 83
--- NOTE | 2017-09-19 09:39 | XR ---
EXAMINATION TYPE: XR chest 2V DATE OF EXAM: 09/19/2017 HISTORY: cough. REFERENCE: Previous study dated 07/08/2017. FINDINGS: There is a unipolar pacemaker place on the left. Heart size upper limits of normal. The lungs are clear. Pleural spaces are clear. IMPRESSION: BORDERLINE CARDIOMEGALY.
[2017-09-19 11:42] VITALS: BP 115/78; RESP 18; TEMP 97.2
== END 2017-09-19 11:42 | disposition home or self-care (01) ==
LOC: EC 07:19
DX: J06.9 Acute upper respiratory infection, unspecified (principal); R11.2 Nausea with vomiting, unspecified; R19.7 Diarrhea, unspecified; R79.89 Other specified abnormal findings of blood chemistry; E78.5 Hyperlipidemia, unspecified; I11.0 Hypertensive heart disease with heart failure; I50.9 Heart failure, unspecified; I25.10 Atherosclerotic heart disease of native coronary artery without angina pectoris; K21.9 Gastro-esophageal reflux disease without esophagitis; I25.2 Old myocardial infarction; Z87.891 Personal history of nicotine dependence; Z79.02 Long term (current) use of antithrombotics/antiplatelets; Z79.899 Other long term (current) drug therapy; Z88.5 Allergy status to narcotic agent
CPT/HCPCS: 36415; 80053; 82150; 83690; 85025; 81001; 87502; 71046; 74018; 99284; 96374; 96361 ×3; J2405

== ENCOUNTER 2018-02-05 20:48 | Inpatient (IN) | payer BC, OTHER ==
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
--- NOTE | 2018-02-05 23:13 | CT ---
EXAMINATION TYPE: CT brain florian wo con DATE OF EXAM: 02/05/2018 COMPARISON: 04/14/2017 HISTORY: fall headache. Neck pain. CT DLP: 1578.90 mGycm Automated exposure control for dose reduction was used. TECHNIQUE: CT scan of the head and cervical spine are performed without contrast. FINDINGS: Ventricles and sulci appear normal. There is no mass effect nor midline shift. There is n o sign of intracranial hemorrhage. The calvarium is intact. The cervical vertebra show some straightening. There is mild disc space narrowing at C5-6 C6-7 with s purring of the endplates. There is mild hypertrophic multilevel facet arthropathy. The skull base is intact. IMPRESSION: Negative CT scan of the brain. Negative CT scan of the cervical spine. Mild spondylotic changes. No significant change compared to old exam.
[2018-02-06 00:02] LABS: Basophils # (A) 0.1 k/uL (0-0.2); Basophils % (A) 1 %; Eosinophils # (A) 0.1 k/uL (0-0.7); Eosinophils % (A) 1 %; HCT 41.3 % (34.0-46.0); HGB 13.1 gm/dL (11.4-16.0); Lymphocytes % (A) 19 %; MCHC 31.8 g/dL (31.0-37.0); MCV 91.2 fL (80.0-100.0); Mean Platelet Volume 9.8; Monocytes # (A) 0.6 k/uL (0-1.0); Monocytes % (A) 5 %; Neutrophils % (A) 73 %; Platelet Count 195 k/uL (150-450); RBC 4.53 m/uL (3.80-5.40); RDW 13.7 % (11.5-15.5); WBC 10.9 k/uL (3.8-10.6)
[2018-02-06 00:12] LABS: Albumin 4.4 g/dL (3.5-5.0); Calcium 9.9 mg/dL (8.4-10.2); Potassium 4.2 mmol/L (3.5-5.1); Total Bilirubin 0.4 mg/dL (0.2-1.3); Total Protein 7.2 g/dL (6.3-8.2)
[2018-02-06 00:36] LABS: Creatine Kinase MB 2.9 ng/mL (0.0-2.4); Troponin I 0.101 ng/mL (0.000-0.034)
[2018-02-06] MEDS ORDERED: HEPARIN SODIUM,PORCINE 5,000 UNIT/ML 1 ML VIAL IV ONE (01:16)
[2018-02-06] MEDS ORDERED: NALOXONE 0.4 MG/ML 1 ML VIAL IV PRN (01:19)
[2018-02-06] MEDS ORDERED: NITROGLYCERIN SL TABS 0.4 MG TAB SUBLINGUAL PRN (01:24)
[2018-02-06] MEDS: SODIUM CHLORIDE 0.9% 1,000 ML IV SCH ×2 (01:44→17:58)
[2018-02-06] MEDS: HEPARIN SOD,PORK IN 0.45% NACL 25,000 UNIT in 0.45% NACL 1 500ML.BAG IV SCH (01:45)
[2018-02-06 02:37] VITALS: BMI 37.2
[2018-02-06] MEDS: ACETAMINOPHEN TAB 325 MG TAB PO PRN (02:45)
[2018-02-06 08:12] LABS: Creatine Kinase MB 2.8 ng/mL (0.0-2.4)
[2018-02-06 08:13] LABS: Troponin I 0.073 ng/mL (0.000-0.034)
[2018-02-06] MEDS ORDERED: METOPROLOL TARTRATE 25 MG TAB PO SCH (09:00)
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
[2018-02-06 12:25] LABS: Creatine Kinase MB 2.8 ng/mL (0.0-2.4); Troponin I 0.045 ng/mL (0.000-0.034)
[2018-02-06] MEDS: ISOSORBIDE MONONITRATE ER 30 MG TAB.ER.24H PO SCH (12:27)
[2018-02-06] MEDS: CLOPIDOGREL 75 MG TAB PO SCH (12:27)
[2018-02-06] MEDS: ASPIRIN 81 MG PO SCH (12:27)
[2018-02-06] MEDS: PANTOPRAZOLE 40 MG/10 ML VIAL IV SCH (12:28)
[2018-02-06] MEDS: SPIRONOLACTONE 25 MG TAB PO SCH (12:28)
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
[2018-02-06] MEDS: METOPROLOL TARTRATE 50 MG TAB PO SCH (20:50)
[2018-02-06] MEDS: ATORVASTATIN 80 MG TAB PO SCH (20:51)
[2018-02-06] MEDS ORDERED: LISINOPRIL 5 MG TAB PO SCH (21:00)
[2018-02-06] MEDS ORDERED: ATORVASTATIN 20 MG TAB PO SCH (21:00)
[2018-02-06] MEDS ORDERED: FAMOTIDINE 20 MG TAB PO SCH (21:00)
[2018-02-07] MEDS: SODIUM CHLORIDE 0.9% 1,000 ML IV SCH ×2 (01:00→16:19)
[2018-02-07] MEDS: HEPARIN SOD,PORK IN 0.45% NACL 25,000 UNIT in 0.45% NACL 1 500ML.BAG IV SCH ×2 (01:00→10:41)
[2018-02-07] MEDS ORDERED: AMINOPHYLLINE 500 MG/20 ML VIAL IV PRN (06:00)
[2018-02-07] MEDS ORDERED: REGADENOSON 0.4 MG/5 ML SYRINGE IV ONE (06:00)
[2018-02-07] MEDS: ASPIRIN 81 MG PO SCH (10:44)
[2018-02-07] MEDS: ISOSORBIDE MONONITRATE ER 30 MG TAB.ER.24H PO SCH (10:45)
[2018-02-07] MEDS: PANTOPRAZOLE 40 MG/10 ML VIAL IV SCH (10:45)
[2018-02-07] MEDS: METOPROLOL TARTRATE 50 MG TAB PO SCH ×2 (10:45→20:16)
[2018-02-07] MEDS: CLOPIDOGREL 75 MG TAB PO SCH (10:45)
[2018-02-07] MEDS: SPIRONOLACTONE 25 MG TAB PO SCH (10:45)
--- NOTE | 2018-02-07 11:14 | NM ---
EXAMINATION TYPE: NM stress lexiscan cardiolite DATE OF EXAM: 02/07/2018 COMPARISON: Prior exam 07/09/2017 HISTORY: Chest pain TECHNIQUE: After the intravenous administration of 9.9 mCi Tc 99m Sestamibi - Cardiolite resting SPE CT images acquired 45 minutes post injection. The patient received 0.4mg Lexiscan, 25.1 mCi Tc 99m Sestamibi - Stress images obtained [address] injection FINDINGS: Review of stress and rest SPECT images demonstrates decreased apical uptake on stress and rest images . Some decreased uptake along the inferoapical left ventricle on stress images as compared to rest im ages is noted. IMPRESSION: Findings suggest prior infarct, pharmacologically induced wero-infarct left ventricular myocardial is chemia.
[2018-02-07] MEDS: ACETAMINOPHEN TAB 325 MG TAB PO PRN (12:05)
--- NOTE | 2018-02-07 12:44 | ECHOF ---
Referral Reason:syncope MEASUREMENTS -------- HEIGHT: 157.5 cm WEIGHT: 93.4 kg BP: 147/70 RVIDd: 2.5 cm (< 3.3) IVSd: 1.1 cm (0.6 - 1.1) LVIDd: 5.5 cm (3.9 - 5.3) LVPWd: 1.2 cm (0.6 - 1.1) IVSs: 1.6 cm LVIDs: 4.3 cm LVPWs: 1.3 cm LA Diam: 3.2 cm (2.7 - 3.8) LAESV Index (A-L): 22.85 ml/m Ao Diam: 3.0 cm (2.0 - 3.7) AV Cusp: 1.9 cm (1.5 - 2.6) MV EXCURSION: 18.221 mm (> 18.000) MV EF SLOPE: 94 mm/s (70 - 150) EPSS: 1.2 cm MV E Wale: 0.65 m/s MV DecT: 176 ms MV A Wale: 0.73 m/s MV E/A Ratio: 0.88 RAP: 5.00 mmHg RVSP: 25.62 mmHg FINDINGS -------- Sinus rhythm. This was a technically adequate study. The left ventricular size is normal. There is borderline concentric left ventricular hypertrophy. Overall left ventricular systolic function is moderate-severely impaired with, an EF between 30 - 35 %. The right ventricle is normal in size. Normal LA size by volume 22+/-6 ml/m2. The right atrium is normal in size. There is mild aortic valve sclerosis. The mitral valve leaflets are mildly thickened. Mild mitral annular calcification present. Mild m itral regurgitation is present. Mild tricuspid regurgitation present. Right ventricular systolic pressure is normal at < 35 mmHg. Trace/mild (physiologic) pulmonic regurgitation. The aortic root size is normal. Normal inferior vena cava with normal inspiratory collapse consistent with estimated right atrial pre ssure of 5 mmHg. There is no pericardial effusion. CONCLUSIONS -------- 1. Sinus rhythm. 2. This was a technically adequate study. 3. The left ventricular size is normal. 4. There is borderline concentric left ventricular hypertrophy. 5. Overall left ventricular systolic function is moderate-severely impaired with, an EF between 30 - 35 %. 6. The right ventricle is normal in size. 7. Normal LA size by volume 22+/-6 ml/m2. 8. The right atrium is normal in size. 9. There is mild aortic valve sclerosis. 10. The mitral valve leaflets are mildly thickened. 11. Mild mitral annular calcification present. 12. Mild mitral regurgitation is present. 13. Mild tricuspid regurgitation present. 14. Right ventricular systolic pressure is normal at < 35 mmHg. 15. Trace/mild (physiologic) pulmonic regurgitation. 16. The aortic root size is normal. 17. Normal inferior vena cava with normal inspiratory collapse consistent with estimated right atrial pressure of 5 mmHg. 18. There is no pericardial effusion. FUR NAILER: Jessi Marinelli RDCS
--- NOTE | 2018-02-07 13:35 | EST ---
EXERCISE STRESS DATE OF SERVICE: February 07, 2018. INDICATION: Chest pain. AGE: 52 SEX: F HT: 62 WT: 203 PROTOCOL: Lexiscan HEART RATE REST: 69 BLOOD PRESSURE REST: 136/81 MAXIMUM HEART RATE ACHIEVED: 97 MAXIMUM BLOOD PRESSURE: 169/77 85% MPHR: 147 100% MPHR: 167 CLINICAL INFORMATION: STRESS DATA: Pretesting physical examination showed a heart rate of 69, pressure is 136/81 mmHg. Baseline EKG showed sinus mechanism with LBBB. 0.4 mg of Lexiscan was given to the patient over 15 seconds per protocol with max heart rate was 88 beats per minute and maximum pressure was 169/77 mmHg. Clinically the patient did not have any symptoms and the EKG did not show any significant ST or T-wave abnormalities concerning for ischemia. CONCLUSION: 1. Nondiagnostic electrocardiogram stress testing in response to Lexiscan. 2. Please follow up on the Cardiolite portion on separate report from the Radiology Department. MMODL / IJN: [id number] /
[2018-02-07] MEDS ORDERED: ALPRAZolam 0.25 MG TAB PO PRN (14:58)
[2018-02-07] MEDS ORDERED: ASPIRIN 325 MG TAB PO STA (14:58)
[2018-02-07] MEDS ORDERED: NITROGLYCERIN SL TABS 0.4 MG TAB SUBLINGUAL PRN (14:58)
[2018-02-07] MEDS ORDERED: ALPRAZolam 0.5 MG TAB PO PRN (14:58)
[2018-02-07] MEDS ORDERED: ATORVASTATIN 80 MG TAB PO STA (14:58)
[2018-02-07] MEDS ORDERED: SODIUM CHLORIDE 0.9% 1,000 ML in EMPTY BAG 1 BAG IV ONE (14:58)
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
[2018-02-07] MEDS: ATORVASTATIN 80 MG TAB PO SCH (20:16)
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
[2018-02-08] MEDS: SODIUM CHLORIDE 0.9% 1,000 ML IV SCH ×3 (03:07→23:03)
[2018-02-08] MEDS: METOPROLOL TARTRATE 50 MG TAB PO SCH ×2 (06:04→20:19)
[2018-02-08] MEDS: ISOSORBIDE MONONITRATE ER 30 MG TAB.ER.24H PO SCH (06:04)
[2018-02-08] MEDS: CLOPIDOGREL 75 MG TAB PO SCH (06:05)
[2018-02-08] MEDS: PANTOPRAZOLE 40 MG TABLET PO SCH (06:05)
[2018-02-08] MEDS: ASPIRIN 81 MG PO SCH (06:06)
[2018-02-08 06:37] LABS: Calcium 9.7 mg/dL (8.4-10.2); Potassium 4.5 mmol/L (3.5-5.1)
[2018-02-08] MEDS ORDERED: MIDAZOLAM 2 MG/2 ML VIAL ONE (10:38)
[2018-02-08] MEDS ORDERED: fentaNYL (PF) 50 MCG/ML 2 ML AMP ONE (10:38)
[2018-02-08] MEDS ORDERED: IV FLUID CONTINUATION 350 ML IV ONE (10:49)
[2018-02-08] MEDS ORDERED: MIDAZOLAM 2 MG/2 ML VIAL IVP ONE (10:50)
[2018-02-08] MEDS ORDERED: fentaNYL (PF) 50 MCG/ML 2 ML AMP IVP ONE (10:50)
[2018-02-08] MEDS ORDERED: LIDOCAINE 1% (PF) 10MG/ML VIAL SQ ONE (10:54)
[2018-02-08] MEDS ORDERED: LIDOCAINE 1% INJ 10MG/ML (20 ML MDV) SQ ONE (10:54)
[2018-02-08] MEDS ORDERED: IOPAMIDOL-370 100ML BTL INJ ONE (11:10)
[2018-02-08] MEDS ORDERED: RX INFO: IV CONTRAST WAS GIVEN 1 EACH MISC MISCELLANE PRN (11:17)
--- NOTE | 2018-02-08 11:23 | P.CARDCATH ---
Date of Procedure: 02/08/18 Preoperative Diagnosis: Positive troponin and positive stress test, syncope with ventricular fibrillation Postoperative Diagnosis: No evidence of obstructive disease with patent stents in LAD and diagonal Description of Procedure: HISTORY: This is a 52-year-old female with history of ischemic heart disease with a previous stent placement the left anterior descending and the diagonal. Patient also had previous AICD. Patient is admitted to the hospital following a syncopal episode and evidence of a ventricular fibrillation. Troponins were borderline positive and stress test showed possible ischemia with apical region. CONSENT:I have discussed the risks, benefits and alternative therapies for the above-mentioned procedure and for both sedation/analgesia as well as necessary blood product administration, if indicated, as they pertain to this patient. The patient has indicated understanding and acceptance of the risks and procedures discussed. PROCEDURE: Patient was brought to the lab in a fasting state. Patient was given some IV sedation. The right groin is infiltrated with lidocaine and right femoral artery was entered using Seldinger technique. A 6-[place] catheter was left in place and selective coronary arteriography was performed. Patient tolerated the procedure well. Manual compression was applied for hemostasis. No immediate complications were noted and patient was transferred to acute care in a stable condition Conscious Sedation: Versed 1mg Fentanyl 50 g Duration 23minutes HEMODYNAMICS: The aortic pressure is about 124/65. Left ankle end-diastolic pressure is about 8-10. There was no gradient across the aortic valve SELECTIVE CORONARY ARTERIOGRAPHY: LEFT MAIN: Long and patent without any obstructive disease THE LEFT ANTERIOR DESCENDING CORONARY ARTERY:. This is a good caliber vessel giving rise good-sized diagonal branch. The stents in the LAD and diagonal are patent. No other obstructive disease noted THE LEFT CIRCUMFLEX AND IS CORONARY ARTERY:. This is a good caliber vessel, probably nondominant in distribution. No obstructive disease noted THE RIGHT CORONARY ARTERY:. This is a dominant vessel and good in caliber. No evidence of obstructive disease LEFT VENTRICULOGRAPHY:. Not performed FINAL IMPRESSION:. Patient stents in the LAD and the diagonal. No other obstructive disease of significance PLAN: Medical therapy and this factor modification PROGNOSIS: Fair
[2018-02-08] MEDS: SACUBITRIL/VALSARTAN 24 MG-26 MG TABLET PO SCH ×2 (17:14→20:19)
[2018-02-08] MEDS: ACETAMINOPHEN TAB 325 MG TAB PO PRN (17:15)
[2018-02-08] MEDS: SPIRONOLACTONE 25 MG TAB PO SCH (17:15)
[2018-02-08] MEDS: ATORVASTATIN 80 MG TAB PO SCH (20:18)
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
[2018-02-09] MEDS: PANTOPRAZOLE 40 MG TABLET PO SCH (06:11)
[2018-02-09 07:03] LABS: Potassium 4.5 mmol/L (3.5-5.1)
[2018-02-09] MEDS: ASPIRIN 81 MG PO SCH (08:01)
[2018-02-09] MEDS: CLOPIDOGREL 75 MG TAB PO SCH (08:01)
[2018-02-09] MEDS: SACUBITRIL/VALSARTAN 24 MG-26 MG TABLET PO SCH (08:01)
[2018-02-09] MEDS: ISOSORBIDE MONONITRATE ER 30 MG TAB.ER.24H PO SCH (08:02)
[2018-02-09] MEDS: SPIRONOLACTONE 25 MG TAB PO SCH (08:02)
[2018-02-09] MEDS: METOPROLOL TARTRATE 50 MG TAB PO SCH (08:02)
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
[2018-02-09 15:56] VITALS: BP 116/74; RESP 16; TEMP 97.6
[2018-02-09 15:59] VITALS: PULSE 77
[2018-02-09] MEDS: SODIUM CHLORIDE 0.9% 1,000 ML IV SCH (16:49)
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
== END 2018-02-09 17:25 | disposition home or self-care (01) | DRG 287 ==
LOC: EC 20:48 → 6SEL 02-06 01:24
PROVIDERS: ADMIT Hospitalist; ATTEND Hospitalist
PROC: 4B02XTZ Measurement of Cardiac Defibrillator, External Approach (ICD-10-PCS; 2018-02-06)
PROC: B211YZZ Fluoroscopy of Multiple Coronary Arteries using Other Contrast (ICD-10-PCS; 2018-02-08)
PROC: 4A023N7 Measurement of Cardiac Sampling and Pressure, Left Heart, Percutaneous Approach (ICD-10-PCS; principal; 2018-02-08 10:22)
DX: I49.01 Ventricular fibrillation (principal); S06.0X9A Concussion with loss of consciousness of unspecified duration, initial encounter; I13.0 Hypertensive heart and chronic kidney disease with heart failure and stage 1 through stage 4 chronic kidney disease, or unspecified chronic kidney disease; I50.22 Chronic systolic (congestive) heart failure; N18.3 Chronic kidney disease, stage 3 (moderate); I44.7 Left bundle-branch block, unspecified; E03.9 Hypothyroidism, unspecified; I25.5 Ischemic cardiomyopathy; I25.2 Old myocardial infarction; K21.9 Gastro-esophageal reflux disease without esophagitis; I25.10 Atherosclerotic heart disease of native coronary artery without angina pectoris; E78.5 Hyperlipidemia, unspecified; M19.042 Primary osteoarthritis, left hand; M19.041 Primary osteoarthritis, right hand; F41.9 Anxiety disorder, unspecified; G43.909 Migraine, unspecified, not intractable, without status migrainosus; M54.9 Dorsalgia, unspecified; F40.240 Claustrophobia; Z90.49 Acquired absence of other specified parts of digestive tract; Z95.810 Presence of automatic (implantable) cardiac defibrillator; Z95.5 Presence of coronary angioplasty implant and graft; Z87.442 Personal history of urinary calculi; Z79.82 Long term (current) use of aspirin; Z79.02 Long term (current) use of antithrombotics/antiplatelets; Z79.899 Other long term (current) drug therapy; Z87.891 Personal history of nicotine dependence; Z90.710 Acquired absence of both cervix and uterus; Z88.5 Allergy status to narcotic agent; Z80.42 Family history of malignant neoplasm of prostate; Z80.3 Family history of malignant neoplasm of breast; Z82.49 Family history of ischemic heart disease and other diseases of the circulatory system; Z80.0 Family history of malignant neoplasm of digestive organs; W03.XXXA Other fall on same level due to collision with another person, initial encounter; Y99.0 Civilian activity done for income or pay
CPT/HCPCS: 36415; 70450; 72125; 78452; 80048; 80053; 82550; 82553; 84484; 85025; 85730; 93005; 93017; 93306; 93458; 94760; 96365; 96376; 99285

== ENCOUNTER → 2018-04-15 | Outpatient (CLI) | payer OTHER ==
--- NOTE | 2018-04-15 15:46 | XR ---
EXAMINATION TYPE: XR hand complete LT DATE OF EXAM: 04/15/2018 CLINICAL HISTORY: Left hand pain after fall injury one month ago. TECHNIQUE: Frontal, lateral and oblique images of the left hand are obtained. COMPARISON: None. FINDINGS: There is no acute fracture/dislocation evident in the left hand. There is mild spurring at first metacarpal phalangeal joint. There is mild narrowing first interphalangeal and mild to moderat e narrowing fifth PIP joint. The overlying soft tissue appears unremarkable. IMPRESSION: There is no acute fracture or dislocation in the left hand.
--- NOTE | 2018-04-15 15:47 | XR ---
EXAMINATION TYPE: XR knee complete RT DATE OF EXAM: 04/15/2018 CLINICAL HISTORY: Pain after fall injury. TECHNIQUE: Three views of the right knee are obtained. COMPARISON: None. FINDINGS: There is no acute fracture/dislocation evident in right knee. There is moderate joint spac e loss with mild spurring medial tibiofemoral compartment. There is prominent spurring from anterior superior patellar distal quadriceps tendon attachment. The overlying soft tissue appears unremarkable . IMPRESSION: There is no acute fracture or dislocation in the right knee.
== END ==
LOC: RADXRMAIN 14:47
PROVIDERS: ATTEND Emergency Medicine
DX: S80.01XA Contusion of right knee, initial encounter (principal); S60.222A Contusion of left hand, initial encounter

== ENCOUNTER 2018-07-02 20:07 | Observation (INO) | payer BC, OTHER ==
[2018-07-02] MEDS ORDERED: ASPIRIN 81 MG PO STA (20:39)
[2018-07-02] MEDS ORDERED: NITROGLYCERIN SL TABS 0.4 MG TAB SUBLINGUAL STA (20:39)
--- NOTE | 2018-07-02 20:42 | ED ---
General Adult HPI - General Chief complaint: Chest Pain Stated complaint: Chest pain Time Seen by Provider: 07/02/18 20:27 Source: patient, RN notes reviewed Mode of arrival: wheelchair Limitations: no limitations - History of Present Illness Initial comments: Patient is a pleasant 53-year-old female presenting to emergency Department with complaints of chest discomfort. Symptoms have been waxing and waning over the past couple of days. Discomfort is somewhat severe at this point. Discomfort feels like pressure in the upper chest with some radiation towards the neck. No associated dyspnea. No diaphoresis. Patient does have some mild nausea. Patient does have a history of similar symptoms previously associated with previous heart problems. Patient believes she may have had a heart attack. Patient knows she has had previous stent placement. No leg pain or leg swelling. No cough or fever. - Related Data Home Medications Medication Instructions Recorded Confirmed Clopidogrel [Plavix] 75 mg PO DAILY 12/09/15 07/02/18 Famotidine [Pepcid] 20 mg PO HS 05/20/16 07/02/18 Nitroglycerin Sl Tabs [Nitrostat] 0.4 mg SUBLINGUAL Q5M PRN 05/20/16 07/02/18 Metoprolol Tartrate [Lopressor] 25 mg PO BID 07/02/18 07/02/18 Previous Rx's Medication Instructions Recorded Aspirin 81 mg PO DAILY 12/17/16 Isosorbide Mononitrate ER [Imdur] 30 mg PO DAILY #30 tab 07/11/17 Spironolactone [Aldactone] 25 mg PO DAILY #0 07/11/17 Atorvastatin [Lipitor] 80 mg PO HS #30 tab 02/09/18 Sacubitril/Valsartan [Entresto 24 1 each PO BID #60 tablet 02/09/18 mg-26 mg Tablet] Allergies Allergy/AdvReac Type Severity Reaction Status Date / Time hydrocodone bitartrate AdvReac Nausea & Verified 07/02/18 20:57 [From Vicodin] Vomiting propoxyphene napsylate AdvReac Vomiting Verified 07/02/18 20:57 [From Darvocet-N] Review of Systems ROS Statement: Those systems with pertinent positive or pertinent negative responses have been documented in the HPI. ROS Other: All systems not noted in ROS Statement are negative. Constitutional: Denies: fever Eyes: Denies: eye pain ENT: Denies: ear pain Respiratory: Denies: cough, dyspnea Cardiovascular: Reports: as per HPI, chest pain Endocrine: Denies: fatigue Gastrointestinal: Reports: nausea. Denies: abdominal pain, vomiting Genitourinary: Denies: dysuria Musculoskeletal: Denies: back pain Skin: Denies: rash Neurological: Denies: weakness Past Medical History Past Medical History: Coronary Artery Disease (CAD), Chest Pain / Angina, Heart Failure, GERD/Reflux, Hyperlipidemia, Hypertension, Myocardial Infarction ([place]), Renal Disease, Thyroid Disorder Additional Past Medical History / Comment(s): Ischemic cardiomyopathy, nephrolithiasis, migraines, occasional back pain, hypothyroid. Last Myocardial Infarction Date:: 06-30-15 History of Any Multi-Drug Resistant Organisms: None Reported Past Surgical History: AICD, Heart Catheterization With Stent, Hernia Repair, Hysterectomy Additional Past Surgical History / Comment(s): stents to lad,diag, 05/22/16 PTCA , Bilateral oophorectomy, LT INGUINAL HERNIA REPAIR, CYSTOCOPY, LITHOTRIPSY, COLONOSCOPY, internal defib Past Anesthesia/Blood Transfusion Reactions: Postoperative Nausea & Vomiting ( PONV) Additional Past Anesthesia/Blood Transfusion Reaction / Comment(s): MILD CLAUSTERPHOBIA Date of Last Stent Placement:: 06/30/15 Type of Cardiac Device: AICD Device Placement Date:: 12/12/15 Past Psychological History: Anxiety Smoking Status: Former smoker Past Alcohol Use History: Rare Past Drug Use History: None Reported - Past Family History Father Family Medical History: Cancer, Myocardial Infarction ([place]) Additional Family Medical History / Comment(s): Pt does not recall age that father had his [place]. He also had a pacer and colon cancer, Sister(s) Family Medical History: Cancer, Hypertension Additional Family Medical History / Comment(s): breast/ colon cancer General Exam Limitations: no limitations General appearance: alert, in no apparent distress Head exam: Present: atraumatic Eye exam: Present: normal appearance, PERRL ENT exam: Present: normal oropharynx Neck exam: Present: normal inspection Respiratory exam: Present: normal lung sounds bilaterally. Absent: chest wall tenderness Cardiovascular Exam: Present: normal rhythm, tachycardia GI/Abdominal exam: Present: soft. Absent: tenderness Extremities exam: Present: normal inspection. Absent: pedal edema Neurological exam: Present: alert Psychiatric exam: Present: normal affect, normal mood Skin exam: Present: normal color Course Vital Signs 07/02/18 07/02/18 20:10 20:49 Temperature 98.1 F Pulse Rate 122 H 107 H Respiratory 19 18 Rate Blood Pressure 130/73 129/74 O2 Sat by Pulse 98 100 Oximetry EKG Findings - EKG Comments: EKG Findings:: Sinus tachycardia 114. MS 176. QRS 178. QT 375. QTC 515. Left axis. Left bundle branch block. Nonspecific ST-T. Medical Decision Making - Medical Decision Making Patient reevaluated and resting comfortably in bed. Patient states symptoms have significantly improved following nitroglycerin. Heart rate 102. Patient is updated on results and plan. Case discussed in detail with practitioner Lynne, covering for Dr. Jarrett, covering for Dr. Nayak, who admits for Dr. Villanueva. - Lab Data Result diagrams: 07/02/18 20:23 07/02/18 20:23 Lab Results 07/02/18 07/02/18 07/02/18 Range/Units 20:23 20:23 20:23 WBC 7.8 (3.8-10.6) k/uL RBC 4.37 (3.80-5.40) m/uL Hgb 13.5 (11.4-16.0) gm/dL Hct 40.2 (34.0-46.0) % MCV 91.9 (80.0-100.0) fL MCH 30.9 (25.0-35.0) pg MCHC 33.6 (31.0-37.0) g/dL RDW 13.5 (11.5-15.5) % Plt Count 164 (150-450) k/uL Neutrophils % 69 % Lymphocytes % 20 % Monocytes % 8 % Eosinophils % 1 % Basophils % 1 % Neutrophils # 5.4 (1.3-7.7) k/uL Lymphocytes # 1.6 (1.0-4.8) k/uL Monocytes # 0.6 (0-1.0) k/uL Eosinophils # 0.1 (0-0.7) k/uL Basophils # 0.1 (0-0.2) k/uL PT (9.0-12.0) sec INR (<1.2) APTT (22.0-30.0) sec D-Dimer (<0.60) mg/L FEU Sodium 138 (137-145) mmol/L Potassium 4.3 (3.5-5.1) mmol/L Chloride 107 (98-107) mmol/L Carbon Dioxide 23 (22-30) mmol/L Anion Gap 8 mmol/L BUN 18 H (7-17) mg/dL Creatinine 1.10 H (0.52-1.04) mg/dL Est GFR (CKD-EPI)AfAm 66 (>60 ml/min/1.73 sqM) Est GFR (CKD-EPI)NonAf 57 (>60 ml/min/1.73 sqM) Glucose 152 H (74-99) mg/dL Calcium 9.6 (8.4-10.2) mg/dL Magnesium 1.7 (1.6-2.3) mg/dL Total Bilirubin 1.0 (0.2-1.3) mg/dL AST 35 (14-36) U/L ALT 30 (9-52) U/L Alkaline Phosphatase 73 (38-126) U/L Total Creatine Kinase 340 H (30-135) U/L CK-MB (CK-2) 1.2 (0.0-2.4) ng/mL CK-MB (CK-2) Rel Index 0.4 Troponin I <0.012 (0.000-0.034) ng/mL NT-Pro-B Natriuret Pep pg/mL Total Protein 7.5 (6.3-8.2) g/dL Albumin 4.2 (3.5-5.0) g/dL 07/02/18 07/02/18 Range/Units 20:23 20:23 WBC (3.8-10.6) k/uL RBC (3.80-5.40) m/uL Hgb (11.4-16.0) gm/dL Hct (34.0-46.0) % MCV (80.0-100.0) fL MCH (25.0-35.0) pg MCHC (31.0-37.0) g/dL RDW (11.5-15.5) % Plt Count (150-450) k/uL Neutrophils % % Lymphocytes % % Monocytes % % Eosinophils % % Basophils % % Neutrophils # (1.3-7.7) k/uL Lymphocytes # (1.0-4.8) k/uL Monocytes # (0-1.0) k/uL Eosinophils # (0-0.7) k/uL Basophils # (0-0.2) k/uL PT 10.4 (9.0-12.0) sec INR 1.0 (<1.2) APTT 26.4 (22.0-30.0) sec D-Dimer 0.59 (<0.60) mg/L FEU Sodium (137-145) mmol/L Potassium (3.5-5.1) mmol/L Chloride (98-107) mmol/L Carbon Dioxide (22-30) mmol/L Anion Gap mmol/L BUN (7-17) mg/dL Creatinine (0.52-1.04) mg/dL Est GFR (CKD-EPI)AfAm (>60 ml/min/1.73 sqM) Est GFR (CKD-EPI)NonAf (>60 ml/min/1.73 sqM) Glucose (74-99) mg/dL Calcium (8.4-10.2) mg/dL Magnesium (1.6-2.3) mg/dL Total Bilirubin (0.2-1.3) mg/dL AST (14-36) U/L ALT (9-52) U/L Alkaline Phosphatase (38-126) U/L Total Creatine Kinase (30-135) U/L CK-MB (CK-2) (0.0-2.4) ng/mL CK-MB (CK-2) Rel Index Troponin I (0.000-0.034) ng/mL NT-Pro-B Natriuret Pep 169 pg/mL Total Protein (6.3-8.2) g/dL Albumin (3.5-5.0) g/dL - Radiology Data Radiology results: image reviewed (Chest x-ray shows no acute process) Disposition Clinical Impression: Chest pain Disposition: ADMITTED IP TO THIS HOSP Is patient prescribed a controlled substance at d/c from ED?: No Referrals: Tera Villanueva DO [Primary Care Provider] - 1-2 days Decision Time: 21:51
[2018-07-02 20:44] LABS: Basophils # (A) 0.1 k/uL (0-0.2); Basophils % (A) 1 %; Eosinophils # (A) 0.1 k/uL (0-0.7); Eosinophils % (A) 1 %; HCT 40.2 % (34.0-46.0); HGB 13.5 gm/dL (11.4-16.0); Lymphocytes # (A) 1.6 k/uL (1.0-4.8); Lymphocytes % (A) 20 %; MCH 30.9 pg (25.0-35.0); MCHC 33.6 g/dL (31.0-37.0); MCV 91.9 fL (80.0-100.0); Mean Platelet Volume 9.3; Monocytes # (A) 0.6 k/uL (0-1.0); Monocytes % (A) 8 %; Neutrophils # (A) 5.4 k/uL (1.3-7.7); Neutrophils % (A) 69 %; Platelet Count 164 k/uL (150-450); RBC 4.37 m/uL (3.80-5.40); RDW 13.5 % (11.5-15.5); WBC 7.8 k/uL (3.8-10.6)
--- NOTE | 2018-07-02 20:44 | XR ---
EXAMINATION TYPE: XR chest 2V DATE OF EXAM: 07/02/2018 COMPARISON: 09/19/2017 HISTORY: Cough TECHNIQUE: Frontal and lateral views of the chest are obtained. FINDINGS: Heart and mediastinum are normal. Lungs are clear. Diaphragm is normal. There is left axil brent pacemaker with the lead tip in the right ventricle. There are chest leads. Bony thorax is intact . IMPRESSION: No active cardiopulmonary disease. Normal heart.
[2018-07-02 21:04] LABS: Albumin 4.2 g/dL (3.5-5.0); Calcium 9.6 mg/dL (8.4-10.2); Magnesium 1.7 mg/dL (1.6-2.3); Total Protein 7.5 g/dL (6.3-8.2)
[2018-07-02 21:09] LABS: D-Dimer 0.59 mg/L FEU (<0.60); Partial Thromboplastin Time 26.4 sec (22.0-30.0); Prothrombin Time 10.4 sec (9.0-12.0)
[2018-07-02 21:14] LABS: Creatine Kinase 340 U/L (30-135)
[2018-07-02 21:24] LABS: Potassium 4.3 mmol/L (3.5-5.1)
[2018-07-02 21:25] LABS: Creatine Kinase MB 1.2 ng/mL (0.0-2.4); Troponin I <0.012 ng/mL (0.000-0.034)
[2018-07-02] MEDS ORDERED: NITROGLYCERIN SL TABS 0.4 MG TAB SUBLINGUAL PRN (22:04)
[2018-07-02 23:42] VITALS: BMI 39.3
[2018-07-03] MEDS: NITROGLYCERIN OINT 1 INCH/GM PACKET TOPICAL SCH ×2 (00:16→04:52)
[2018-07-03] MEDS ORDERED: ACETAMINOPHEN TAB 500 MG TAB PO PRN (01:47)
[2018-07-03] MEDS ORDERED: ALPRAZolam 0.25 MG TAB PO PRN (02:30)
[2018-07-03] MEDS ORDERED: TEMAZEPAM 15 MG CAP PO PRN (02:30)
[2018-07-03 03:14] LABS: Cholesterol 126 mg/dL (<200); HDL Cholesterol 46 mg/dL (40-60); LDL Cholesterol,Calculated 57 mg/dL (0-99); Triglycerides 117 mg/dL (<150)
[2018-07-03 03:42] LABS: Creatine Kinase 317 U/L (30-135)
[2018-07-03 03:54] LABS: Creatine Kinase MB 1.4 ng/mL (0.0-2.4); Troponin I <0.012 ng/mL (0.000-0.034)
[2018-07-03 07:39] VITALS: RESP 18
[2018-07-03 07:48] LABS: Creatine Kinase 283 U/L (30-135)
[2018-07-03 08:02] LABS: Creatine Kinase MB 1.3 ng/mL (0.0-2.4); Troponin I <0.012 ng/mL (0.000-0.034)
[2018-07-03] MEDS ORDERED: SACUBITRIL/VALSARTAN 24 MG-26 MG TABLET PO SCH (09:00)
[2018-07-03] MEDS ORDERED: SPIRONOLACTONE 25 MG TAB PO SCH (09:00)
[2018-07-03] MEDS ORDERED: ASPIRIN 325 MG TAB PO SCH (09:00)
[2018-07-03] MEDS ORDERED: METOPROLOL TARTRATE 25 MG TAB PO SCH (09:00)
[2018-07-03] MEDS ORDERED: CLOPIDOGREL 75 MG TAB PO SCH (09:00)
--- NOTE | 2018-07-03 09:36 | HP ---
HISTORY AND PHYSICAL DATE OF SERVICE: 07/02/2018. CHIEF COMPLAINT: Chest pain. HISTORY OF PRESENT ILLNESS: This 53-year-old woman with a past medical history of multiple medical problems including history of CAD, history of CHF, GERD, hypertension, history of myocardial infarction being followed by Dr. Luiza Villanueva in the outpatient setting, was complaining of chest pain. The pain is reported in the anterior part of the chest which is waxing and waning for the last couple of days and the patient came to [facility] and admitted for further evaluation and treatment. There is no history of fever, rigors. No history of headache, loss of consciousness, seizures. PAST MEDICAL HISTORY: History of CAD, history of CHF, GERD, history of hypertension, history of myocardial infarction, ischemic cardiomyopathy, nephrolithiasis, CAD and stent. MEDICATIONS: Prior to admission include home medications are: 1. Aldactone 25 mg daily. 2. Entresto 24/26 p.o. b.i.d. 3. Nitrostat 0.4 sublingual p.r.n. 4. Lopressor 25 mg b.i.d. 5. Imdur 30 mg daily. 6. Pepcid 20 mg q.h.s. 7. Plavix 75 mg p.o. daily. 8. Lipitor 80 mg q.h.s. 9. Aspirin 81 mg p.o. daily. ALLERGIES: VICODIN, DARVOCET-N 100. FAMILY HISTORY: History of cancer and myocardial infarction in the family. SOCIAL HISTORY: Remote history of smoking. No history of alcohol intake. REVIEW OF SYSTEMS: ENT: No diminished hearing or vision. CARDIOVASCULAR: As mentioned. RESPIRATORY: As mentioned earlier. GI: No nausea. : No dysuria. NERVOUS SYSTEM: No numbness or weakness. ALLERGY/IMMUNOLOGY: No history of asthma. MUSCULOSKELETAL: As mentioned earlier. HEMATOLOGY: No history of anemia. ENDOCRINE: No history of diabetes or hypothyroid. CONSTITUTIONAL: As mentioned earlier. DERMATOLOGY: Negative. RHEUMATOLOGY: Negative. PSYCHIATRY: As mentioned earlier. PHYSICAL EXAMINATION: Alert and oriented x3. Pulse 103, blood pressure 114/78, respiration 16, temperature 98.8, pulse ox 98% on room air. HEENT: Conjunctivae normal. Oral mucosa moist. Neck is no jugular venous distention. No carotid bruit. No lymph node enlargement. CARDIOVASCULAR: S1, S2. RESPIRATORY: Breath sounds diminished in the bases. No rhonchi, no crackles. ABDOMEN: Soft, nontender. No mass palpable. LEGS: No edema, no swelling. NERVOUS SYSTEM: Higher functions as mentioned earlier. Moves all 4 limbs. No focal motor or sensory deficits. LYMPHATICS: No lymphadenopathy in the neck, axillae, groin. SKIN: No ulcer, rash, bleeding. LAB INVESTIGATIONS: Lab investigations at this time shows CBC within normal seconds. Creatinine is 1.10. Troponin is less than 0.012. Creatine kinase noted. EKG reviewed and showed wide- complex QRS complexes. ASSESSMENT: 1. Chest pain, possible unstable angina. 2. History of coronary artery disease. 3. History of congestive heart failure. 4. History of hypertension. 5. Hyperlipidemia. 6. Gastroesophageal reflux disease. 7. History of ischemic cardiomyopathy. 8. History of nephrolithiasis. 9. History of AICD. 10.History of coronary artery disease, stent. 11.History of anxiety. RECOMMENDATIONS AND DISCUSSION: This 53-year-old woman who presented with multiple complex medical issues, we will monitor the patient closely. Continue the current management and symptomatic treatment. Otherwise resume the home medication. Unstable angina protocol. Otherwise guarded prognosis because of multiple complex medical issues. Further recommendations to follow. Copy of dictation forwarded to Dr. Tera Villanueva who is the primary physician. YAMEL / STEVEN: [id number] /
--- NOTE | 2018-07-03 10:08 | P.HPIM ---
History of Present Illness This is a pleasant 53 years old female with past medical history of coronary artery disease, congestive heart failure with ischemic cardiomyopathy and ejection fraction 30-35%, GERD, hyperlipidemia, hypertension, hypothyroidism, history of cardiac cath showing patent stents. Chronic kidney disease stage III , She follows up with Dr. Villanueva in the outpatient setting. Patient presents because of chest pain, patient states that she has chest pain now uneventful last few days was really severe, central nonradiating 10/10 in severity, felt like something sitting on her chest, associated with some difficulty breathing but no nausea vomiting or sweating. However this morning her chest pain is completely resolved at is 0/10 as per patient. Also she developed some nonspecific symptoms that get her words and decided to come to emergency room like she felt numbness disease and post extremity equally the same, with no blurred vision and difficulty talking or weakness in extremities. No headache. Also patient says she has some coughing with yellow phlegm Vitas looks stable. Labs reviewed which show an unremarkable CBC, INR, BMP. Serial troponins are negative. EKG showing sinus tachycardia at 114 with left bundle branch block. Chest x-ray: No active cardiopulmonary disease Review of Systems CONSTITUTIONAL: No fever, no malaise, no fatigue. HEENT: No recent visual problems or hearing problems. Denied any sore throat. CARDIOVASCULAR: No orthopnea, PND, no palpitations, no syncope. PULMONARY: No shortness of breath, no cough, no hemoptysis. GASTROINTESTINAL: No diarrhea, no nausea, no vomiting, no abdominal pain. Normoactive bowel sounds. NEUROLOGICAL: No headaches, no weakness, no numbness. HEMATOLOGICAL: Denies any bleeding or petechiae. GENITOURINARY: Denies any burning micturition, frequency, or urgency. MUSCULOSKELETAL/RHEUMATOLOGICAL: Denies any joint pain, swelling, or any muscle pain. ENDOCRINE: Denies any polyuria or polydipsia. Past Medical History Past Medical History: Coronary Artery Disease (CAD), Chest Pain / Angina, Heart Failure, GERD/Reflux, Hyperlipidemia, Hypertension, Myocardial Infarction ([place]), Renal Disease, Thyroid Disorder Additional Past Medical History / Comment(s): Ischemic cardiomyopathy, nephrolithiasis, migraines, occasional back pain, hypothyroid. Last Myocardial Infarction Date:: 06-30-15 History of Any Multi-Drug Resistant Organisms: None Reported Past Surgical History: AICD, Heart Catheterization With Stent, Hernia Repair, Hysterectomy Additional Past Surgical History / Comment(s): stents to lad,diag, 05/22/16 PTCA , Bilateral oophorectomy, LT INGUINAL HERNIA REPAIR, CYSTOCOPY, LITHOTRIPSY, COLONOSCOPY, internal defib Past Anesthesia/Blood Transfusion Reactions: Postoperative Nausea & Vomiting ( PONV) Additional Past Anesthesia/Blood Transfusion Reaction / Comment(s): MILD CLAUSTERPHOBIA Date of Last Stent Placement:: 06/30/15 Type of Cardiac Device: AICD Device Placement Date:: 12/12/15 Past Psychological History: Anxiety Additional Psychological History / Comment(s): Pt resides with her daughter, Blank. She is independent. She works at a senior living. Smoking Status: Former smoker Past Alcohol Use History: Rare Additional Past Alcohol Use History / Comment(s): Pt started smoking in 1976 and quit in 1991. She was about a 1/2 ppd smoker. She used to drink alcohol on occasion, but has not had any alcohol in a long time. Past Drug Use History: None Reported - Past Family History Father Family Medical History: Cancer, Myocardial Infarction ([place]) Additional Family Medical History / Comment(s): Pt does not recall age that father had his [place]. He also had a pacer and colon cancer, Sister(s) Family Medical History: Cancer, Hypertension Additional Family Medical History / Comment(s): breast/ colon cancer Medications and Allergies Home Medications Medication Instructions Recorded Confirmed Type Clopidogrel [Plavix] 75 mg PO DAILY 12/09/15 07/02/18 History Famotidine [Pepcid] 20 mg PO HS 05/20/16 07/02/18 History Nitroglycerin Sl Tabs [Nitrostat] 0.4 mg SUBLINGUAL Q5M PRN 05/20/16 07/02/18 History Aspirin 81 mg PO DAILY 12/17/16 07/02/18 Rx Isosorbide Mononitrate ER [Imdur] 30 mg PO DAILY #30 tab 07/11/17 07/02/18 Rx Spironolactone [Aldactone] 25 mg PO DAILY #0 07/11/17 07/02/18 Rx Atorvastatin [Lipitor] 80 mg PO HS #30 tab 02/09/18 07/02/18 Rx Sacubitril/Valsartan [Entresto 24 1 each PO BID #60 tablet 02/09/18 07/02/18 Rx mg-26 mg Tablet] Metoprolol Tartrate [Lopressor] 25 mg PO BID 07/02/18 07/02/18 History Allergies Allergy/AdvReac Type Severity Reaction Status Date / Time hydrocodone bitartrate AdvReac Nausea & Verified 07/02/18 20:57 [From Vicodin] Vomiting propoxyphene napsylate AdvReac Vomiting Verified 07/02/18 20:57 [From Darvocet-N] Physical Exam Vitals: Vital Signs Temp Pulse Pulse Pulse Resp BP BP 07/03/18 07:38 98.7 F 78 18 07/03/18 04:08 98.6 F 72 15 112/68 07/03/18 04:00 15 07/03/18 00:00 15 07/02/18 22:39 98.8 F 103 H 15 114/78 07/02/18 22:04 98.9 F 100 18 137/81 07/02/18 20:49 107 H 18 129/74 07/02/18 20:10 98.1 F 122 H 19 130/73 BP Pulse Ox 07/03/18 07:38 118/75 96 07/03/18 04:08 98 07/03/18 04:00 07/03/18 00:00 07/02/18 22:39 98 07/02/18 22:04 97 07/02/18 20:49 100 07/02/18 20:10 98 Intake and Output 07/02/18 07/03/18 07/03/18 22:59 06:59 14:59 Other: # Voids 1 2 Weight 97.522 kg GENERAL: The patient is alert and oriented x3, not in any acute distress. Well developed, well nourished. HEENT: Pupils are round and equally reacting to light. EOMI. No scleral icterus. No conjunctival pallor. Normocephalic, atraumatic. No pharyngeal erythema. No thyromegaly. CARDIOVASCULAR: S1 and S2 present. No murmurs, rubs, or gallops. PULMONARY: Chest is clear to auscultation, no wheezing or crackles. ABDOMEN: Soft, nontender, nondistended, normoactive bowel sounds. No palpable organomegaly. MUSCULOSKELETAL: No joint swelling or deformity. EXTREMITIES: No cyanosis, clubbing, or pedal edema. NEUROLOGICAL: Gross neurological examination did not reveal any focal deficits. SKIN: No rashes. Results CBC & Chem 7: 07/02/18 20:23 07/02/18 20:23 Labs: Abnormal Lab Results - Last 24 Hours (Table) 07/02/18 07/02/18 07/03/18 Range/Units 20:23 20:23 02:44 BUN 18 H (7-17) mg/dL Creatinine 1.10 H (0.52-1.04) mg/dL Glucose 152 H (74-99) mg/dL Total Creatine Kinase 340 H 317 H (30-135) U/L 07/03/18 Range/Units 07:02 BUN (7-17) mg/dL Creatinine (0.52-1.04) mg/dL Glucose (74-99) mg/dL Total Creatine Kinase 283 H (30-135) U/L Thrombosis Risk Factor Assmnt - Choose All That Apply Each Factor Represents 1 point: Age 41-60 years, Obesity (BMI >25) Thrombosis Risk Factor Assessment Total Risk Factor Score: 2 Thrombosis Risk Factor Assessment Level: Low Risk Assessment and Plan Assessment: history of coronary artery disease History of congestive heart failure with ischemic cardiomyopathy and ejection fraction 30-35%. Recent History of cardiac cath showing patent stents History of gastroesophageal reflux disease and Hyperlipidemia Hypothyroidism Essential hypertension Chronic kidney disease stage III Plan: This is a pleasant 53 years old female presents with chest pain and other nonspecific symptoms like numbness in both arms and face. Normal her symptoms are resolved and she is back to her baseline. Cardiology is going to evaluated the patient. Labs and medication were reviewed.. Continue same treatment. Continue with symptomatic treatment. Resume home medication. Monitor lytes and vitals. DVT and GI prophylaxis. Further recommendations of the clinical course of the patient DVT prophylaxis: Subcutaneous heparin GI Prophylaxis: Pepcid Prognosis is guarded
[2018-07-03 11:57] VITALS: BP 136/96; PULSE 101; TEMP 98.6
[2018-07-03] MEDS ORDERED: FAMOTIDINE 20 MG TAB PO SCH (21:00)
[2018-07-03] MEDS ORDERED: HEPARIN SODIUM,PORCINE 5,000 UNIT/ML 1 ML VIAL SQ SCH (21:00)
[2018-07-03] MEDS ORDERED: ATORVASTATIN 80 MG TAB PO SCH (21:00)
== END 2018-07-03 13:49 | disposition home or self-care (01) ==
LOC: EC 20:07 → 1SOBS 22:04
PROVIDERS: ADMIT Hospitalist; ATTEND Hospitalist
DX: R07.89 Other chest pain (principal); I44.7 Left bundle-branch block, unspecified; R11.0 Nausea; I25.5 Ischemic cardiomyopathy; E78.5 Hyperlipidemia, unspecified; E03.9 Hypothyroidism, unspecified; I13.0 Hypertensive heart and chronic kidney disease with heart failure and stage 1 through stage 4 chronic kidney disease, or unspecified chronic kidney disease; N18.3 Chronic kidney disease, stage 3 (moderate); I50.9 Heart failure, unspecified; F41.9 Anxiety disorder, unspecified; R00.0 Tachycardia, unspecified; K21.9 Gastro-esophageal reflux disease without esophagitis; F40.240 Claustrophobia; Z87.891 Personal history of nicotine dependence; Z95.810 Presence of automatic (implantable) cardiac defibrillator; Z95.5 Presence of coronary angioplasty implant and graft; Z90.710 Acquired absence of both cervix and uterus; Z87.442 Personal history of urinary calculi; Z88.5 Allergy status to narcotic agent; Z79.82 Long term (current) use of aspirin; Z79.899 Other long term (current) drug therapy; Z79.02 Long term (current) use of antithrombotics/antiplatelets; Z90.722 Acquired absence of ovaries, bilateral; I25.2 Old myocardial infarction; Z82.49 Family history of ischemic heart disease and other diseases of the circulatory system; Z80.3 Family history of malignant neoplasm of breast; Z80.0 Family history of malignant neoplasm of digestive organs
CPT/HCPCS: 99285; 36415; 93005; 85379; 83880; 80061; 80053; 82550 ×2; 82553 ×2; 83735; 84484 ×2; 85025; 85610; 85730; 71046; G0378 ×2

== ENCOUNTER 2018-11-16 10:12 | Observation (INO) | payer BC ==
[2018-11-16] MEDS ORDERED: NITROGLYCERIN OINT 1 INCH/GM PACKET TOPICAL STA (10:40)
[2018-11-16] MEDS ORDERED: ASPIRIN 81 MG PO STA (10:40)
[2018-11-16] MEDS ORDERED: ACETAMINOPHEN TAB 500 MG TAB PO STA (10:43)
--- NOTE | 2018-11-16 10:44 | ED ---
General Adult HPI - General Chief complaint: Chest Pain Stated complaint: chest pain Time Seen by Provider: 11/16/18 10:15 Source: patient, RN notes reviewed Mode of arrival: wheelchair Limitations: no limitations - History of Present Illness Initial comments: This is a 53-year-old female who has a past medical history significant for an ID with 2 cardiac stents as well as a defibrillator. Patient states last night while at work she was scared and started having chest pressure at that time. Patient states it lasts about 15 minutes. Patient states it went away with nitroglycerin. Patient states happened 2 more times since then. Patient states that it radiated to her fingers and her left arm. Patient states it did not go to work back or neck. Patient denies shortness of breath diaphoresis. Patient denies any nausea vomiting. Patient denies any abdominal pain. Patient denies headache patient denies numbness weakness. Patient denies any lightheadedness or dizziness. Patient denies any swelling to the legs or calf tenderness - Related Data Home Medications Medication Instructions Recorded Confirmed Clopidogrel [Plavix] 75 mg PO DAILY 12/09/15 11/16/18 Famotidine [Pepcid] 20 mg PO HS 05/20/16 11/16/18 Nitroglycerin Sl Tabs [Nitrostat] 0.4 mg SUBLINGUAL Q5M PRN 05/20/16 11/16/18 Metoprolol Tartrate [Lopressor] 25 mg PO BID 07/02/18 11/16/18 Ergocalciferol (Vitamin D2) 50,000 unit PO Q30D 11/16/18 11/16/18 [Drisdol] Previous Rx's Medication Instructions Recorded Aspirin 81 mg PO DAILY 12/17/16 Spironolactone [Aldactone] 25 mg PO DAILY #0 07/11/17 Atorvastatin [Lipitor] 80 mg PO HS #30 tab 02/09/18 Sacubitril/Valsartan [Entresto 24 1 each PO BID #60 tablet 02/09/18 mg-26 mg Tablet] Allergies Allergy/AdvReac Type Severity Reaction Status Date / Time hydrocodone bitartrate AdvReac Nausea & Verified 11/16/18 10:39 [From Vicodin] Vomiting propoxyphene napsylate AdvReac Vomiting Verified 11/16/18 10:39 [From Darvocet-N] Review of Systems ROS Statement: Those systems with pertinent positive or pertinent negative responses have been documented in the HPI. ROS Other: All systems not noted in ROS Statement are negative. Past Medical History Past Medical History: Coronary Artery Disease (CAD), Chest Pain / Angina, Heart Failure, GERD/Reflux, Hyperlipidemia, Hypertension, Myocardial Infarction (ID), Renal Disease, Thyroid Disorder Additional Past Medical History / Comment(s): Ischemic cardiomyopathy, nephrolithiasis, migraines, occasional back pain, hypothyroid. Last Myocardial Infarction Date:: 06-30-15 History of Any Multi-Drug Resistant Organisms: None Reported Past Surgical History: AICD, Heart Catheterization With Stent, Hernia Repair, Hysterectomy Additional Past Surgical History / Comment(s): stents to lad,diag, 05/22/16 PTCA, Bilateral oophorectomy, LT INGUINAL HERNIA REPAIR, CYSTOCOPY, LITHOTRIPSY,COLONOSCOPY, internal defib Past Anesthesia/Blood Transfusion Reactions: Postoperative Nausea & Vomiting (PONV) Additional Past Anesthesia/Blood Transfusion Reaction / Comment(s): MILD CLAUSTERPHOBIA Date of Last Stent Placement:: 06/30/15 Type of Cardiac Device: AICD Device Placement Date:: 12/12/15 Past Psychological History: Anxiety Smoking Status: Former smoker Past Alcohol Use History: Rare Past Drug Use History: None Reported - Past Family History Father Family Medical History: Cancer, Myocardial Infarction (ID) Additional Family Medical History / Comment(s): Pt does not recall age that father had his ID. He also had a pacer and colon cancer, Sister(s) Family Medical History: Cancer, Hypertension Additional Family Medical History / Comment(s): breast/ colon cancer General Exam - General Exam Comments Initial Comments: GENERAL: Patient is well-developed and well-nourished. Patient is nontoxic and well- hydrated and is in mild distress. ENT: Neck is soft and supple. No significant lymphadenopathy is noted. Oropharynx is clear. Moist mucous membranes. Neck has full range of motion without eliciting any pain. EYES: The sclera were anicteric and conjunctiva were pink and moist. Extraocular movements were intact and pupils were equal round and reactive to light. Eyelid s were unremarkable. PULMONARY: Unlabored respirations. Good breath sounds bilaterally. No audible rales rhonchi or wheezing was noted. CARDIOVASCULAR: There is a regular rate and rhythm without any murmurs gallops or rubs. ABDOMEN: Soft and nontender with normal bowel sounds. SKIN: Skin is clear with no lesions or rashes and otherwise unremarkable. NEUROLOGIC: Patient is alert and oriented x3. Cranial nerves II through XII are grossly intact. Motor and sensory are also intact. Normal speech, volume and content. Symmetrical smile. MUSCULOSKELETAL: Normal extremities with adequate strength and full range of motion. No edema or tenderness LYMPHATICS: No significant lymphadenopathy is noted PSYCHIATRIC: Normal psychiatric evaluation. Limitations: no limitations Course Vital Signs 11/16/18 11/16/18 11/16/18 10:13 10:31 11:51 Temperature 97.9 F Pulse Rate 70 66 Pulse Rate [ 68 Bilateral Multi Skilled Operator ] Respiratory 20 18 Rate Blood Pressure 150/84 121/72 O2 Sat by Pulse 98 100 Oximetry Medical Decision Making - Medical Decision Making EKG shows normal sinus rhythm at 62 bpm NM interval 176 QRS is 182 QT interval 494 QTC is 501. Chest x-ray shows no acute abnormality. I started the patient heparin because the unstable angina picture. I spoke with Dr. Perkins agreed to admit the patient. I wrote admitting orders I continued heparin and aspirin and Nitropaste on the floor. I consult cardiology. - Lab Data Result diagrams: 11/16/18 10:35 11/16/18 10:35 Lab Results 11/16/18 11/16/18 11/16/18 Range/Units 10:35 10:35 10:35 WBC 7.0 (3.8-10.6) k/uL RBC 4.42 (3.80-5.40) m/uL Hgb 12.9 (11.4-16.0) gm/dL Hct 40.3 (34.0-46.0) % MCV 91.1 (80.0-100.0) fL MCH 29.2 (25.0-35.0) pg MCHC 32.0 (31.0-37.0) g/dL RDW 14.6 (11.5-15.5) % Plt Count 244 (150-450) k/uL Neutrophils % 57 % Lymphocytes % 32 % Monocytes % 6 % Eosinophils % 2 % Basophils % 1 % Neutrophils # 4.0 (1.3-7.7) k/uL Lymphocytes # 2.2 (1.0-4.8) k/uL Monocytes # 0.4 (0-1.0) k/uL Eosinophils # 0.1 (0-0.7) k/uL Basophils # 0.1 (0-0.2) k/uL PT 10.0 (9.0-12.0) sec INR 0.9 (<1.2) APTT 24.2 (22.0-30.0) sec Sodium 142 (137-145) mmol/L Potassium 4.7 (3.5-5.1) mmol/L Chloride 109 H (98-107) mmol/L Carbon Dioxide 26 (22-30) mmol/L Anion Gap 7 mmol/L BUN 20 H (7-17) mg/dL Creatinine 0.94 (0.52-1.04) mg/dL Est GFR (CKD-EPI)AfAm 80 (>60 ml/min/1.73 sqM) Est GFR (CKD-EPI)NonAf 69 (>60 ml/min/1.73 sqM) Glucose 115 H (74-99) mg/dL Calcium 10.0 (8.4-10.2) mg/dL Magnesium 1.7 (1.6-2.3) mg/dL Total Bilirubin 0.7 (0.2-1.3) mg/dL AST 32 (14-36) U/L ALT 24 (9-52) U/L Alkaline Phosphatase 68 (38-126) U/L Troponin I (0.000-0.034) ng/mL Total Protein 7.3 (6.3-8.2) g/dL Albumin 4.4 (3.5-5.0) g/dL 11/16/18 Range/Units 10:35 WBC (3.8-10.6) k/uL RBC (3.80-5.40) m/uL Hgb (11.4-16.0) gm/dL Hct (34.0-46.0) % MCV (80.0-100.0) fL MCH (25.0-35.0) pg MCHC (31.0-37.0) g/dL RDW (11.5-15.5) % Plt Count (150-450) k/uL Neutrophils % % Lymphocytes % % Monocytes % % Eosinophils % % Basophils % % Neutrophils # (1.3-7.7) k/uL Lymphocytes # (1.0-4.8) k/uL Monocytes # (0-1.0) k/uL Eosinophils # (0-0.7) k/uL Basophils # (0-0.2) k/uL PT (9.0-12.0) sec INR (<1.2) APTT (22.0-30.0) sec Sodium (137-145) mmol/L Potassium (3.5-5.1) mmol/L Chloride (98-107) mmol/L Carbon Dioxide (22-30) mmol/L Anion Gap mmol/L BUN (7-17) mg/dL Creatinine (0.52-1.04) mg/dL Est GFR (CKD-EPI)AfAm (>60 ml/min/1.73 sqM) Est GFR (CKD-EPI)NonAf (>60 ml/min/1.73 sqM) Glucose (74-99) mg/dL Calcium (8.4-10.2) mg/dL Magnesium (1.6-2.3) mg/dL Total Bilirubin (0.2-1.3) mg/dL AST (14-36) U/L ALT (9-52) U/L Alkaline Phosphatase (38-126) U/L Troponin I <0.012 (0.000-0.034) ng/mL Total Protein (6.3-8.2) g/dL Albumin (3.5-5.0) g/dL Critical Care Time Critical Care Time: Yes Total Critical Care Time: 35 Disposition Clinical Impression: Unstable angina pectoris Disposition: ADMITTED IP TO THIS [facility] Referrals: Tera Villanueva DO [Primary Care Provider] - 1-2 days Time of Disposition: 12:00
[2018-11-16 10:58] LABS: Basophils # (A) 0.1 k/uL (0-0.2); Basophils % (A) 1 %; Eosinophils # (A) 0.1 k/uL (0-0.7); Eosinophils % (A) 2 %; HCT 40.3 % (34.0-46.0); HGB 12.9 gm/dL (11.4-16.0); Lymphocytes # (A) 2.2 k/uL (1.0-4.8); Lymphocytes % (A) 32 %; MCH 29.2 pg (25.0-35.0); MCV 91.1 fL (80.0-100.0); Mean Platelet Volume 9.5; Monocytes # (A) 0.4 k/uL (0-1.0); Monocytes % (A) 6 %; Neutrophils % (A) 57 %; Platelet Count 244 k/uL (150-450); RBC 4.42 m/uL (3.80-5.40); RDW 14.6 % (11.5-15.5)
[2018-11-16 11:08] LABS: INR 0.9 (<1.2); Partial Thromboplastin Time 24.2 sec (22.0-30.0)
[2018-11-16 11:09] LABS: Albumin 4.4 g/dL (3.5-5.0); Magnesium 1.7 mg/dL (1.6-2.3); Potassium 4.7 mmol/L (3.5-5.1); Total Bilirubin 0.7 mg/dL (0.2-1.3); Total Protein 7.3 g/dL (6.3-8.2)
--- NOTE | 2018-11-16 11:16 | XR ---
EXAMINATION TYPE: XR chest 2V DATE OF EXAM: 11/16/2018 COMPARISON: 07/02/2018 HISTORY: Chest pain TECHNIQUE: Frontal and lateral views of the chest are obtained. FINDINGS: There is no focal air space opacity, pleural effusion, or pneumothorax seen. Single lead left-sided cardiac device is seen The cardiac silhouette size is within normal limits. The osseous structures are intact. Cholecystectomy clips are present. IMPRESSION: No acute cardiopulmonary process.
[2018-11-16] MEDS ORDERED: NITROGLYCERIN SL TABS 0.4 MG TAB SUBLINGUAL PRN ×2 (12:00→13:43)
[2018-11-16 13:30] VITALS: BMI 37.4
--- NOTE | 2018-11-16 13:50 | P.HPIM ---
History of Present Illness 53-year-old the female with known history of coronary disease can start failure EF of 30% and has a defibrillator came in with compensative pressure-like chest pain which started the today lasted for a few minutes nonradiating left sternal area pressure-like sensation force-5/10 severity last for over 15 minutes associated with the lightheadedness denied any diaphoresis denied any nausea status of breath. EKG showed left bundle branch block. History or changes. Patient is being admitted for a rule out acute coronary syndromes and unstable angina. Patient chest pain is nonpleuritic not associated with food. Review of Systems REVIEW OF SYSTEMS: CONSTITUTIONAL: No fever, no malaise, no fatigue. HEENT: No recent visual problems or hearing problems. Denied any sore throat. CARDIOVASCULAR: No orthopnea, PND, no palpitations, no syncope. PULMONARY: No shortness of breath, no cough, no hemoptysis. GASTROINTESTINAL: No diarrhea, no nausea, no vomiting, no abdominal pain. NEUROLOGICAL: No headaches, no weakness, no numbness. HEMATOLOGICAL: Denies any bleeding or petechiae. GENITOURINARY: Denies any burning micturition, frequency, or urgency. MUSCULOSKELETAL/RHEUMATOLOGICAL: Denies any joint pain, swelling, or any muscle pain. ENDOCRINE: Denies any polyuria or polydipsia. The rest of the 14-point review of systems is negative. Past Medical History Past Medical History: Coronary Artery Disease (CAD), Chest Pain / Angina, Heart Failure, GERD/Reflux, Hyperlipidemia, Hypertension, Myocardial Infarction (NM), Renal Disease, Thyroid Disorder Additional Past Medical History / Comment(s): Ischemic cardiomyopathy, CKD stage II, nephrolithiasis, migraines, occasional back pain, hypothyroid. Last Myocardial Infarction Date:: 06-30-15 History of Any Multi-Drug Resistant Organisms: None Reported Past Surgical History: AICD, Heart Catheterization With Stent, Hernia Repair, Hysterectomy Additional Past Surgical History / Comment(s): 2015 stents to lad,diag, 05/22/16 PTCA, bilateral oophorectomy, LT INGUINAL HERNIA REPAIR, CYSTOCOPY, LITHOTRIPSY,COLONOSCOPY, Past Anesthesia/Blood Transfusion Reactions: Postoperative Nausea & Vomiting (PONV) Additional Past Anesthesia/Blood Transfusion Reaction / Comment(s): MILD CLAUSTERPHOBIA Date of Last Stent Placement:: 06/30/15 Type of Cardiac Device: AICD Device Placement Date:: 12/12/15 Smoking Status: Former smoker - Past Family History Mother Family Medical History: Dementia Father Family Medical History: Cancer, Myocardial Infarction (NM) Additional Family Medical History / Comment(s): Pt does not recall age that father had his NM but states it was prior to age 60yrs. He also had a pacer and colon cancer, Sister(s) Family Medical History: Cancer, Hypertension Additional Family Medical History / Comment(s): breast/ colon cancer Medications and Allergies Home Medications Medication Instructions Recorded Confirmed Type Clopidogrel [Plavix] 75 mg PO DAILY 12/09/15 11/16/18 History Famotidine [Pepcid] 20 mg PO HS 05/20/16 11/16/18 History Nitroglycerin Sl Tabs [Nitrostat] 0.4 mg SUBLINGUAL Q5M PRN 05/20/16 11/16/18 History Aspirin 81 mg PO DAILY 12/17/16 11/16/18 Rx Spironolactone [Aldactone] 25 mg PO DAILY #0 07/11/17 11/16/18 Rx Atorvastatin [Lipitor] 80 mg PO HS #30 tab 02/09/18 11/16/18 Rx Sacubitril/Valsartan [Entresto 24 1 each PO BID #60 tablet 02/09/18 11/16/18 Rx mg-26 mg Tablet] Metoprolol Tartrate [Lopressor] 25 mg PO BID 07/02/18 11/16/18 History Ergocalciferol (Vitamin D2) 50,000 unit PO Q30D 11/16/18 11/16/18 History [Drisdol] Allergies Allergy/AdvReac Type Severity Reaction Status Date / Time hydrocodone bitartrate AdvReac Nausea & Verified 11/16/18 10:39 [From Vicodin] Vomiting propoxyphene napsylate AdvReac Vomiting Verified 11/16/18 10:39 [From Darvocet-N] Physical Exam Vitals: Vital Signs Temp Pulse Pulse Resp BP Pulse Ox 11/16/18 11:51 66 18 121/72 100 11/16/18 10:31 68 11/16/18 10:13 97.9 F 70 20 150/84 98 Intake and Output 11/15/18 11/16/18 11/16/18 22:59 06:59 14:59 Other: Weight 92.896 kg PHYSICAL EXAMINATION: GENERAL: The patient is alert and oriented x3, not in any acute distress. Well developed, well nourished. HEENT: Pupils are round and equally reacting to light. EOMI. No scleral icterus. No conjunctival pallor. Normocephalic, atraumatic. No pharyngeal erythema. No thyromegaly. CARDIOVASCULAR: S1 and S2 present. No murmurs, rubs, or gallops. PULMONARY: Chest is clear to auscultation, no wheezing or crackles. ABDOMEN: Soft, nontender, nondistended, normoactive bowel sounds. No palpable organomegaly. MUSCULOSKELETAL: No joint swelling or deformity. EXTREMITIES: No cyanosis, clubbing, or pedal edema. NEUROLOGICAL: Gross neurological examination did not reveal any focal deficits. SKIN: No rashes. Results CBC & Chem 7: 11/16/18 10:35 11/16/18 10:35 Labs: Abnormal Lab Results - Last 24 Hours (Table) 11/16/18 Range/Units 10:35 Chloride 109 H (98-107) mmol/L BUN 20 H (7-17) mg/dL Glucose 115 H (74-99) mg/dL Thrombosis Risk Factor Assmnt - Choose All That Apply Any of the Below Risk Factors Present?: Yes Each Factor Represents 1 point: Age 41-60 years, Obesity (BMI >25) Other Risk Factors: No Other congenital or acquired thrombophilia - If yes, enter type in comment: No Thrombosis Risk Factor Assessment Total Risk Factor Score: 2 Thrombosis Risk Factor Assessment Level: Low Risk Assessment and Plan Plan: -Chest pain we'll rule out acute coronary syndromes, unstable angina cardiology was consulted patient had a CABG in the past. Congestive heart failure chronic systolic dysfunction not in acute exacerbation patient will be resumed on home medications for this. Gastroesophageal reflux disease - hyperlipidemia -hypertension -Hypothyroidism -
[2018-11-16] MEDS: NITROGLYCERIN OINT 1 INCH/GM PACKET TOPICAL SCH ×2 (15:36→19:29)
[2018-11-16] MEDS: METOPROLOL TARTRATE 25 MG TAB PO SCH (20:30)
[2018-11-16] MEDS: SACUBITRIL/VALSARTAN 24 MG-26 MG TABLET PO SCH (20:30)
[2018-11-16] MEDS ORDERED: FAMOTIDINE 20 MG TAB PO SCH (21:00)
[2018-11-16] MEDS ORDERED: ATORVASTATIN 80 MG TAB PO SCH (21:00)
[2018-11-17] MEDS: NITROGLYCERIN OINT 1 INCH/GM PACKET TOPICAL SCH ×2 (00:53→06:03)
[2018-11-17 03:55] LABS: Cholesterol 116 mg/dL (<200); HDL Cholesterol 50 mg/dL (40-60); LDL Cholesterol,Calculated 48 mg/dL (0-99); Triglycerides 89 mg/dL (<150)
[2018-11-17 07:26] VITALS: RESP 18
[2018-11-17] MEDS ORDERED: ASPIRIN 325 MG TAB PO SCH (09:00)
[2018-11-17] MEDS ORDERED: CLOPIDOGREL 75 MG TAB PO SCH (09:00)
[2018-11-17] MEDS ORDERED: SPIRONOLACTONE 25 MG TAB PO SCH (09:00)
[2018-11-17] MEDS ORDERED: ASPIRIN 81 MG PO SCH (09:00)
[2018-11-17] MEDS ORDERED: CAFFEINE CITRATE 60 MG/3 ML VIAL IV PRN (09:56)
[2018-11-17] MEDS ORDERED: AMINOPHYLLINE 500 MG/20 ML VIAL IV PRN (09:56)
[2018-11-17] MEDS ORDERED: DIPYRIDAMOLE IV ONE (10:00)
[2018-11-17] MEDS ORDERED: SODIUM CHLORIDE 0.9% IV ONE (10:00)
--- NOTE | 2018-11-17 10:35 | P.CRDCN ---
History of Present Illness History of present illness: This is a pleasant 53-year-old female past medical history significant for coronary artery disease status post stent placement to the LAD and diagonal branch May 2016, ischemic cardiomyopathy, ventricular fibrillation, AICD placement, dyslipidemia, chronic systolic heart failure, chronic kidney disease and hypothyroidism. She follows in the office with Dr. Perez. We have been asked to see her in consultation secondary to chest discomfort. 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 Immediately thereafter she started having a pain described as sharp in the left precordial region with radiation to the mid-sternal region. She felt nauseated associated with the symptoms and after taking nitro she had a headac he. She took a total of 3 nitro and the pain went away. She went to bed in no pain, but woke up at 0300 with another sharp pressure like pain. She then took 2 nitro and the pain subsided. Upon waking up the following morning she started again having pain. She saw her primary care physician and was recommended to come to the hospital for further evaluation. Upon arrival to the emergency department she has been chest pain-free. She denies associated palpitations or dizziness. EKG reveals sinus mechanism with left bundle branch block. Chest x-ray is negative for an acute cardiopulmonary process. Laboratory data reviewed, WBC 7, hemoglobin 12.9, platelets 244, sodium 142, potassium 4.7, creatinine 0.94, magnesium 1.7, cardiac enzymes negative 3, LDL 48 and HDL 50. Current cardiac medications include Entresto 24/26 mg twice a day, Aldactone 25 mg daily, Lopressor 25 mg twice a day, Plavix 75 mg daily, atorvastatin 80 mg daily and aspirin 81 mg daily. Most recent echocardiogram obtained February 2018 reveals impaired LV systolic function with ejection fraction 30-35%, mild mitral regurgitation and mild tricuspid regurgitation. She underwent cardiac catheterization in February 2018 secondary to mild elevated troponins with evidence of ventricular fibrillation and abnormal Lexiscan suggestive of wero-infarct ischemia that revealed patent stents of the LAD and diagonal branches no progression of coronary artery disease. At the time of my exam: CONSTITUTIONAL: Denies fever. Denies chills. EYES: Denies blurred vision. Denies vision changes. Denies eye pain. EARS, NOSE, MOUTH & THROAT: Denies headache. Denies sore throat. Denies ear pain. CARDIOVASCULAR: Denies chest pain. Denies shortness of breath. Denies orthopnea. Denies PND. Denies palpitations. RESPIRATORY: Denies cough. GASTROINTESTINAL: Denies abdominal pain. Denies diarrhea. Denies constipation. Denies nausea. Denies vomiting. MUSCULOSKELETAL: Denies myalgias. INTEGUMENTARY: Denies pruitis. Denies rash. NEUROLOGIC: Denies numbness. Denies tingling. Denies weakness. PSYCHIATRIC: Denies anxiety. Denies depression. ENDOCRINE: Denies fatigue. Denies weight change. Denies polydipsia. Denies polyurina. GENITOURINARY: Denies burning, hematuria or urgency with micturation. HEMATOLOGIC: Denies history of anemia. Denies bleeding. Blood pressure 116/65 heart rate 64 afebrile maintaining oxygen saturation on room air GENERAL: This is a 53-year-old female in no apparent distress at the time of my examination. Obese. HEENT: Head is atraumatic, normocephalic. Pupils are equal, round. Sclerae anicteric. Conjunctivae are clear. Mucous membranes of the mouth are moist. Neck is supple. There is no jugular venous distention. No carotid bruit is heard. LUNGS: Clear to auscultation no wheezes, rales or rhonchi. No chest wall tenderness is noted on palpation or with deep breathing. HEART: Regular rate and rhythm without murmurs, rubs or gallops. S1 and S2 heard. ABDOMEN: Soft, nontender. Bowel sounds are heard. No organomegaly noted. EXTREMITIES: No evidence of peripheral edema and no calf tenderness noted. VASCULAR: Radial and dorsalis pedis pulses palpated, no evidence of clubbing. NEUROLOGIC: Patient is awake, alert and oriented x3. ASSESSMENT Chest pain, atypical for angina. Acute coronary event has been ruled out. Relieved by nitroglycerin. Recent cardiac catheterization unremarkable with no progression of CAD. Ischemic cardiomyopathy status post AICD placement chronic systolic heart failure, currently euvolemic History of ventricular fibrillation Hypertension Dyslipidemia Chronic kidney disease, GFR 69 Obesity, BMI 37 PLAN An acute coronary event has been ruled out. Interrogate Staples device for any evidence of an acute arrhythmia. Obtain 2D echocardiogram and doppler study to assess cardiac structure and function. Perform persantine stress test to assess for reversible cardiac ischemia. Increase Entresto to 49/51 mg BID. Thank you kindly for this consultation. Nurse Practitioner note has been reviewed, I agree with a documented findings and plan of care. Patient was seen and examined. Past Medical History Past Medical History: Coronary Artery Disease (CAD), Chest Pain / Angina, Heart Failure, GERD/Reflux, Hyperlipidemia, Hypertension, Myocardial Infarction (RI), Renal Disease, Thyroid Disorder Additional Past Medical History / Comment(s): Ischemic cardiomyopathy, CKD stage II, nephrolithiasis, migraines, occasional back pain, hypothyroid. Last Myocardial Infarction Date:: 06-30-15 History of Any Multi-Drug Resistant Organisms: None Reported Past Surgical History: AICD, Heart Catheterization With Stent, Hernia Repair, Hysterectomy Additional Past Surgical History / Comment(s): 2015 stents to lad,diag, 05/22/16 PTCA, bilateral oophorectomy, LT INGUINAL HERNIA REPAIR, CYSTOCOPY, LITHOTRIPSY,COLONOSCOPY, Past Anesthesia/Blood Transfusion Reactions: Postoperative Nausea & Vomiting (PONV) Additional Past Anesthesia/Blood Transfusion Reaction / Comment(s): MILD CLAUSTERPHOBIA Date of Last Stent Placement:: 06/30/15 Type of Cardiac Device: AICD Device Placement Date:: 12/12/15 Smoking Status: Former smoker - Past Family History Mother Family Medical History: Dementia Father Family Medical History: Cancer, Myocardial Infarction (RI) Additional Family Medical History / Comment(s): Pt does not recall age that father had his RI but states it was prior to age 60yrs. He also had a pacer and colon cancer, Sister(s) Family Medical History: Cancer, Hypertension Additional Family Medical History / Comment(s): breast/ colon cancer Medications and Allergies Home Medications Medication Instructions Recorded Confirmed Type Clopidogrel [Plavix] 75 mg PO DAILY 12/09/15 11/16/18 History Famotidine [Pepcid] 20 mg PO HS 05/20/16 11/16/18 History Nitroglycerin Sl Tabs [Nitrostat] 0.4 mg SUBLINGUAL Q5M PRN 05/20/16 11/16/18 History Aspirin 81 mg PO DAILY 12/17/16 11/16/18 Rx Spironolactone [Aldactone] 25 mg PO DAILY #0 07/11/17 11/16/18 Rx Atorvastatin [Lipitor] 80 mg PO HS #30 tab 02/09/18 11/16/18 Rx Sacubitril/Valsartan [Entresto 24 1 each PO BID #60 tablet 02/09/18 11/16/18 Rx mg-26 mg Tablet] Metoprolol Tartrate [Lopressor] 25 mg PO BID 07/02/18 11/16/18 History Ergocalciferol (Vitamin D2) 50,000 unit PO Q30D 11/16/18 11/16/18 History [Drisdol] Allergies Allergy/AdvReac Type Severity Reaction Status Date / Time hydrocodone bitartrate AdvReac Nausea & Verified 11/16/18 10:39 [From Vicodin] Vomiting propoxyphene napsylate AdvReac Vomiting Verified 11/16/18 10:39 [From Darvocet-N] Physical Exam Vitals: Vital Signs Temp Pulse Pulse Pulse Resp BP BP 11/17/18 07:13 11/17/18 07:05 98.2 F 64 18 116/65 11/17/18 04:00 97.7 F 66 16 111/63 11/17/18 03:20 18 11/16/18 23:35 18 11/16/18 23:25 97.9 F 67 18 124/68 11/16/18 20:00 16 11/16/18 19:38 98.4 F 66 16 143/71 11/16/18 16:25 11/16/18 14:56 11/16/18 14:30 97.5 F L 67 18 96/57 11/16/18 14:06 57 L 18 120/70 11/16/18 11:51 66 18 121/72 11/16/18 10:31 68 11/16/18 10:13 97.9 F 70 20 150/84 Pulse Ox 11/17/18 07:13 97 11/17/18 07:05 97 11/17/18 04:00 99 11/17/18 03:20 11/16/18 23:35 11/16/18 23:25 99 11/16/18 20:00 11/16/18 19:38 97 11/16/18 16:25 98 11/16/18 14:56 98 11/16/18 14:30 98 11/16/18 14:06 100 11/16/18 11:51 100 11/16/18 10:31 11/16/18 10:13 98 Intake and Output 11/16/18 11/17/18 11/17/18 22:59 06:59 14:59 Other: Voiding Method Toilet Toilet # Voids 1 # Bowel Movements 1 Results 11/16/18 10:35 11/16/18 10:35 Cardiac Enzymes 11/16/18 11/16/18 11/16/18 Range/Units 10:35 10:35 16:43 AST 32 (14-36) U/L Troponin I <0.012 <0.012 (0.000-0.034) ng/mL 11/16/18 Range/Units 22:07 AST (14-36) U/L Troponin I <0.012 (0.000-0.034) ng/mL Coagulation 11/16/18 Range/Units 10:35 PT 10.0 (9.0-12.0) sec APTT 24.2 (22.0-30.0) sec Lipids 11/16/18 Range/Units 10:35 Triglycerides 89 (<150) mg/dL Cholesterol 116 (<200) mg/dL HDL Cholesterol 50 (40-60) mg/dL CBC 11/16/18 Range/Units 10:35 WBC 7.0 (3.8-10.6) k/uL RBC 4.42 (3.80-5.40) m/uL Hgb 12.9 (11.4-16.0) gm/dL Hct 40.3 (34.0-46.0) % Plt Count 244 (150-450) k/uL Comprehensive Metabolic Panel 11/16/18 Range/Units 10:35 Sodium 142 (137-145) mmol/L Potassium 4.7 (3.5-5.1) mmol/L Chloride 109 H (98-107) mmol/L Carbon Dioxide 26 (22-30) mmol/L BUN 20 H (7-17) mg/dL Creatinine 0.94 (0.52-1.04) mg/dL Glucose 115 H (74-99) mg/dL Calcium 10.0 (8.4-10.2) mg/dL AST 32 (14-36) U/L ALT 24 (9-52) U/L Alkaline Phosphatase 68 (38-126) U/L Total Protein 7.3 (6.3-8.2) g/dL Albumin 4.4 (3.5-5.0) g/dL Current Medications Generic Name Dose Route Start Last Admin Trade Name Freq PRN Reason Stop Dose Admin Aspirin 81 mg 11/17/18 09:00 Aspirin PO DAILY [facility] Atorvastatin Calcium 80 mg 11/16/18 21:00 11/16/18 20:30 Lipitor PO 80 mg HS LEO Administration Clopidogrel Bisulfate 75 mg 11/17/18 09:00 Plavix PO DAILY [facility] Famotidine 20 mg 11/16/18 21:00 11/16/18 20:30 Pepcid PO 20 mg HS LEO Administration Metoprolol Tartrate 25 mg 11/16/18 21:00 11/16/18 20:30 Lopressor PO 25 mg BID LEO Administration Nitroglycerin 1 inch 11/16/18 12:00 11/17/18 06:03 Nitro-Bid Oint TOPICAL Not Given Q6HR [facility] Nitroglycerin 0.4 mg 11/16/18 13:43 Nitrostat SUBLINGUAL Q5M PRN Chest Pain Sacubitril/Valsartan 1 each 11/16/18 21:00 11/16/18 20:30 Entresto 24 Mg-26 Mg Tablet PO 1 each BID [facility] Administration Spironolactone 25 mg 11/17/18 09:00 Aldactone PO DAILY [facility] Intake and Output 11/16/18 11/17/18 11/17/18 22:59 06:59 14:59 Other: Voiding Method Toilet Toilet # Voids 1 # Bowel Movements 1 11/16/18 10:35 11/16/18 10:35
[2018-11-17] MEDS ORDERED: SACUBITRIL/VALSARTAN 49 MG-51 MG TABLET PO SCH (10:45)
[2018-11-17] MEDS ORDERED: AMINOPHYLLINE 500 MG/20 ML VIAL IV ONE (11:40)
[2018-11-17] MEDS: METOPROLOL TARTRATE 25 MG TAB PO SCH (12:25)
[2018-11-17 12:26] VITALS: BP 146/81; PULSE 70; TEMP 98.5
[2018-11-17] MEDS: SACUBITRIL/VALSARTAN 24 MG-26 MG TABLET PO SCH (12:37)
--- NOTE | 2018-11-17 12:50 | NM ---
EXAMINATION TYPE: NM stress persantine cardiolit DATE OF EXAM: 11/17/2018 COMPARISON: Prior nuclear medicine myocardial SPECT 02/07/2018 HISTORY: Chest pain TECHNIQUE: After the intravenous administration of 10.17 mCi Tc 99m Sestamibi - Cardiolite resting S PECT images acquired 45 minutes post injection. The patient received 53 mg Persantine, 25.4 mCi Tc 99m Sestamibi - Stress images obtained 30 minutes post injection FINDINGS: Review of stress and rest SPECT images demonstrates decreased uptake on stress or rest images along t he cardiac apex as on previous exam, there is improvement in the inferoapical left ventricle uptake a s compared to prior exam however some wero-infarct decreased uptake is noted at the apex on stress as compared to rest images. Gated analysis shows normal wall motion with an estimated left ventricular ejection fraction of 39 %. IMPRESSION: Suspect wero-infarct apical left ventricular myocardial ischemia
--- NOTE | 2018-11-17 14:22 | P.PN ---
Progress Note - Text Interrogation of ICD unremarkable. There have been no acute events since last interrogation the beginning of November. Battery life is greater than 11 years. Normally functioning leads. Stress images were reviewed by Dr. Nelson. When compared to previous Lexiscan stress test they are the same. There is no acute changes noted. No need for further cardiac workup. Patient is stable for discharge home. Follow-up with Dr. Perez in the office in 2 weeks.
--- NOTE | 2018-11-17 14:27 | ECHOF ---
Referral Reason:cp MEASUREMENTS -------- HEIGHT: 157.5 cm WEIGHT: 92.5 kg BP: 116/65 RVIDd: 2.3 cm (< 3.3) IVSd: 1.3 cm (0.6 - 1.1) LVIDd: 5.6 cm (3.9 - 5.3) LVPWd: 1.4 cm (0.6 - 1.1) IVSs: 1.5 cm LVIDs: 4.8 cm LVPWs: 1.8 cm LA Diam: 3.3 cm (2.7 - 3.8) LAESV Index (A-L): 21.93 ml/m Ao Diam: 2.6 cm (2.0 - 3.7) AV Cusp: 1.5 cm (1.5 - 2.6) MV EXCURSION: 15.271 mm (> 18.000) MV EF SLOPE: 62 mm/s (70 - 150) EPSS: 1.2 cm MV E Wale: 0.71 m/s MV DecT: 208 ms MV A Wale: 0.80 m/s MV E/A Ratio: 0.89 RAP: 5.00 mmHg RVSP: 30.58 mmHg FINDINGS -------- Sinus rhythm. AICD This was a technically adequate study. The left ventricle is mildly dilated. There is moderate concentric left ventricular hypertrophy. Overall left ventricular systolic function is moderately impaired with, an EF between 35 - 40 %. Se ptal wall motion is delayed, and consistent with conduction delay/bundle branch block. Basal infero septal LV wall motion is hypokinetic. Mid inferoseptal LV wall motion is hypokinetic. Inferior Hypokinesis The right ventricle is normal in size and function. Normal LA size by volume 22+/-6 ml/m2. The right atrium is normal in size. Interatrial and interventricular septum intact. There is mild aortic valve sclerosis. The mitral valve leaflets are mildly thickened. Mild mitral regurgitation is present. Mild tricuspid regurgitation present. Right ventricular systolic pressure is normal at < 35 mmHg. There is no pulmonic regurgitation present. The aortic root size is normal. Normal inferior vena cava with normal inspiratory collapse consistent with estimated right atrial pre ssure of 5 mmHg. There is no pericardial effusion. CONCLUSIONS -------- 1. Sinus rhythm. 2. AICD 3. This was a technically adequate study. 4. The left ventricle is mildly dilated. 5. There is moderate concentric left ventricular hypertrophy. 6. Overall left ventricular systolic function is moderately impaired with, an EF between 35 - 40 %. 7. Septal wall motion is delayed, and consistent with conduction delay/bundle branch block. 8. Basal inferoseptal LV wall motion is hypokinetic. 9. Mid inferoseptal LV wall motion is hypokinetic. 10. Inferior Hypokinesis 11. The right ventricle is normal in size and function. 12. Normal LA size by volume 22+/-6 ml/m2. 13. The right atrium is normal in size. 14. Interatrial and interventricular septum intact. 15. There is mild aortic valve sclerosis. 16. The mitral valve leaflets are mildly thickened. 17. Mild mitral regurgitation is present. 18. Mild tricuspid regurgitation present. 19. Right ventricular systolic pressure is normal at < 35 mmHg. 20. There is no pulmonic regurgitation present. 21. The aortic root size is normal. 22. Normal inferior vena cava with normal inspiratory collapse consistent with estimated right atrial pressure of 5 mmHg. 23. There is no pericardial effusion. BUTCHER SCULLION: Jessi Marinelli RDCS
--- NOTE | 2018-11-17 23:34 | DS ---
DISCHARGE SUMMARY DATE OF ADMISSION: 11/16/2018 DATE OF DISCHARGE: 11/17/2018 FINAL DIAGNOSES: 1. Chest pain. Could be musculoskeletal or psychosomatic. 2. Coronary artery disease with prior history of stent. 3. Gastroesophageal reflux disease. 4. Hyperlipidemia. 5. Essential hypertension. 6. Chronic kidney disease, stage II, probably from nephrosclerosis. 7. Hypothyroid. 8. Automated implantable cardioverter defibrillator. 9. Chronic congestive heart failure from systolic dysfunction, ejection fraction 30% to 35%, with underlying coronary artery disease. 10.Primary osteoarthritis. HOSPITAL COURSE: This is a patient with known coronary artery disease. She got startled when somebody raised a voice and developed chest pain. The patient did undergo a nuclear stress test that was reviewed by Dr. Rafael Nelson. The nurse informed me that he did review the test and felt it was no different than before, and no further intervention was to be carried out. Patient's troponins were negative. PHYSICAL EXAMINATION: Temperature 98.5, pulse 70, respiration 18, blood pressure 140/81, pulse ox 97% on room air. LUNGS: Slightly decreased breath sounds. CARDIOVASCULAR: First and second sounds normal. LABS: White count 7, hemoglobin 12.9, potassium 4.7, BUN 20, creatinine 0.94. CONSULTATION: Dr. Rafael Nelson from Cardiology. DISCHARGE MEDICATIONS: 1. Plavix 75 mg a day. 2. Pepcid 20 mg at bedtime. 3. Nitrostat 0.4 sublingually q.5 p.r.n. 4. Aspirin 81 mg p.o. daily. 5. Aldactone 25 mg p.o. daily. 6. Lipitor 80 mg p.o. at bedtime. 7. Entresto 24 one tablet p.o. b.i.d. 8. Lopressor 25 mg b.i.d. 9. Vitamin D2 50,000 units every 30 days. Follow up with Dr. Villanueva in one week. Follow up with Dr. Perez on 12/07/2018. Patient may return to work on 11/19/2018. Care was discussed with the patient. MMODL / IJN: [id number] /
--- NOTE | 2018-11-18 13:03 | EST ---
EXERCISE STRESS DATE OF SERVICE: 11/17/2018 AGE: 53 SEX: Female HT: 5'2" WT: 204 pounds PROTOCOL: Persantine Cardiolite STAGE: DURATION OF EXERCISE: HEART RATE REST: 54 BLOOD PRESSURE REST: 123/91 MAXIMUM HEART RATE ACHIEVED: 96 MAXIMUM BLOOD PRESSURE: 133/72 85% MPHR: 100% MPHR: METS: INDICATIONS: Chest pain. CLINICAL INFORMATION: Persantine Cardiolite study was performed. Peak heart rate of 96 was achieved. Maximum blood pressure of 133/72 mmHg was noted. Resting EKG shows normal sinus rhythm with QRS morphology suggestive for left bundle branch block pattern was noted. No significant change in the ST-segment from the baseline was noted. FINAL IMPRESSION: This EKG is inconclusive to diagnose ischemia because of the resting left bundle branch block pattern. The results of the nuclear study will follow. YAMEL / JUVENTINO: [id number] /
== END 2018-11-17 14:55 | disposition home or self-care (01) ==
LOC: EC 10:12 → 1SOBS 12:00
PROVIDERS: ADMIT Hospitalist; ATTEND Hospitalist
DX: R07.89 Other chest pain (principal); E03.9 Hypothyroidism, unspecified; E66.9 Obesity, unspecified; Z68.37 Body mass index [BMI] 37.0-37.9, adult; E78.5 Hyperlipidemia, unspecified; I13.0 Hypertensive heart and chronic kidney disease with heart failure and stage 1 through stage 4 chronic kidney disease, or unspecified chronic kidney disease; I50.22 Chronic systolic (congestive) heart failure; K21.9 Gastro-esophageal reflux disease without esophagitis; I25.110 Atherosclerotic heart disease of native coronary artery with unstable angina pectoris; I25.2 Old myocardial infarction; I25.5 Ischemic cardiomyopathy; I44.7 Left bundle-branch block, unspecified; I49.01 Ventricular fibrillation; M19.91 Primary osteoarthritis, unspecified site; N18.2 Chronic kidney disease, stage 2 (mild); Z79.02 Long term (current) use of antithrombotics/antiplatelets; Z79.82 Long term (current) use of aspirin; Z79.899 Other long term (current) drug therapy; Z86.79 Personal history of other diseases of the circulatory system; Z87.442 Personal history of urinary calculi; Z87.891 Personal history of nicotine dependence; Z90.710 Acquired absence of both cervix and uterus; Z95.1 Presence of aortocoronary bypass graft; Z95.5 Presence of coronary angioplasty implant and graft; Z95.810 Presence of automatic (implantable) cardiac defibrillator; Z80.0 Family history of malignant neoplasm of digestive organs; Z82.49 Family history of ischemic heart disease and other diseases of the circulatory system
CPT/HCPCS: 99291; 36415; 94760 ×2; 93005; 93017; 93306; 80061; 80053; 83735; 84484; 85025; 85610; 85730; 71046; 78452; 93292; G0378 ×2; A9500

== ENCOUNTER → 2018-12-29 | Outpatient (CLI) | payer BC ==
[2018-12-29 09:57] LABS: HCT 37.3 % (34.0-46.0); HGB 12.1 gm/dL (11.4-16.0); MCHC 32.5 g/dL (31.0-37.0); MCV 92.3 fL (80.0-100.0); Mean Platelet Volume 9.7; Platelet Count 210 k/uL (150-450); RBC 4.04 m/uL (3.80-5.40); RDW 15.5 % (11.5-15.5); WBC 8.1 k/uL (3.8-10.6)
[2018-12-29 16:36] LABS: African American GFR (CKD) 65.9 (60.0-200.0); Albumin 4.3 g/dL (3.80-4.90); Albumin/Globulin Ratio 1.79 (1.60-3.17); Anion Gap 7.6 mmol/L (4.00-12.00); BUN/Creat Ratio 16.36 Ratio (12.00-20.00); Calcium 9.4 mg/dL (8.7-10.3); Carbon Dioxide 26.4 mmol/L (21.6-31.8); Globulin 2.4 g/dL (1.6-3.3); Potassium 4.2 mmol/L (3.5-5.5); Total Bilirubin 0.5 mg/dL (0.3-1.2); Total Protein 6.7 g/dL (6.2-8.2)
== END | disposition home or self-care (01) ==
LOC: LABWHC1 09:18
PROVIDERS: ATTEND Internal Medicine Cardiovascular Disease
DX: R07.9 Chest pain, unspecified (principal)
CPT/HCPCS: 36415; 80053; 84484; 85027

== ENCOUNTER 2020-03-28 19:52 | Inpatient (IN) | payer OTHER, BC ==
[2020-03-28 20:24] LABS: Glucose,Whole Blood 125 mg/dL (75-99)
--- NOTE | 2020-03-28 20:35 | ED ---
General Adult HPI - General Chief complaint: Syncope Stated complaint: dizziness, fall Time Seen by Provider: 03/28/20 20:03 Source: patient, RN notes reviewed, old records reviewed Mode of arrival: ambulatory Limitations: no limitations - History of Present Illness Initial comments: 55-year-old female presenting for evaluation of syncope. 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 She became very lightheaded and passed out. She did complain of some preceding dizziness and some persistent dizziness. She denies headache. She denies focal numbness or weakness. She denies chest pain but states she has some chest pressure. She has previous history of coronary artery disease status post stenting and pacemaker defibrillator. She states she had some nausea, no vomiting. No abdominal pain. No fever. She states she had very little to eat and had several glasses of water today. - Related Data Home Medications Medication Instructions Recorded Confirmed Clopidogrel [Plavix] 75 mg PO DAILY 12/09/15 11/16/18 Famotidine [Pepcid] 20 mg PO HS 05/20/16 11/16/18 Nitroglycerin Sl Tabs [Nitrostat] 0.4 mg SUBLINGUAL Q5M PRN 05/20/16 11/16/18 Metoprolol Tartrate [Lopressor] 25 mg PO BID 07/02/18 11/16/18 Ergocalciferol (Vitamin D2) 50,000 unit PO Q30D 11/16/18 11/16/18 [Drisdol] Previous Rx's Medication Instructions Recorded Aspirin 81 mg PO DAILY 12/17/16 Spironolactone [Aldactone] 25 mg PO DAILY #0 07/11/17 Atorvastatin [Lipitor] 80 mg PO HS #30 tab 02/09/18 Sacubitril/Valsartan [Entresto 24 1 each PO BID #60 tablet 02/09/18 mg-26 mg Tablet] Ondansetron [Zofran ODT] 4 mg PO Q8HR PRN #10 tab 03/03/20 Penicillin V Potassium [Pen Vee K] 500 mg PO Q6H #40 tablet 03/03/20 Allergies Allergy/AdvReac Type Severity Reaction Status Date / Time hydrocodone bitartrate AdvReac Nausea & Verified 03/28/20 20:01 [From Vicodin] Vomiting propoxyphene napsylate AdvReac Vomiting Verified 03/28/20 20:01 [From Darradhacet-N] Review of Systems ROS Statement: Those systems with pertinent positive or pertinent negative responses have been documented in the HPI. ROS Other: All systems not noted in ROS Statement are negative. Past Medical History Past Medical History: Coronary Artery Disease (CAD), Chest Pain / Angina, Heart Failure, GERD/Reflux, Hyperlipidemia, Hypertension, Myocardial Infarction (OR), Renal Disease, Thyroid Disorder Additional Past Medical History / Comment(s): Ischemic cardiomyopathy, CKD stage II, nephrolithiasis, migraines, occasional back pain, hypothyroid. Last Myocardial Infarction Date:: 06-30-15 History of Any Multi-Drug Resistant Organisms: None Reported Past Surgical History: AICD, Heart Catheterization With Stent, Hernia Repair, Hysterectomy, Pacemaker Additional Past Surgical History / Comment(s): 2015 stents to lad,diag, 05/22/16 PTCA, bilateral oophorectomy, LT INGUINAL HERNIA REPAIR, CYSTOCOPY, LITHOTRIPSY,COLONOSCOPY, Past Anesthesia/Blood Transfusion Reactions: Postoperative Nausea & Vomiting (PONV) Additional Past Anesthesia/Blood Transfusion Reaction / Comment(s): MILD CLAUSTERPHOBIA Date of Last Stent Placement:: 06/30/15 Type of Cardiac Device: AICD Device Placement Date:: 12/12/15 Past Psychological History: Anxiety Smoking Status: Former smoker Past Alcohol Use History: Rare Past Drug Use History: None Reported - Past Family History Mother Family Medical History: Dementia Father Family Medical History: Cancer, Myocardial Infarction (OR) Additional Family Medical History / Comment(s): Pt does not recall age that father had his OR but states it was prior to age 60yrs. He also had a pacer and colon cancer, Sister(s) Family Medical History: Cancer, Hypertension Additional Family Medical History / Comment(s): breast/ colon cancer General Exam Limitations: no limitations General appearance: alert, in no apparent distress Head exam: Present: atraumatic, normocephalic Eye exam: Present: normal appearance, PERRL ENT exam: Present: mucous membranes dry Neck exam: Present: normal inspection. Absent: tenderness, meningismus Respiratory exam: Present: normal lung sounds bilaterally. Absent: respiratory distress, wheezes Cardiovascular Exam: Present: bradycardia, irregular rhythm GI/Abdominal exam: Present: soft. Absent: distended, tenderness Extremities exam: Present: normal inspection, normal capillary refill. Absent: pedal edema Neurological exam: Present: alert, oriented X3, CN II-XII intact. Absent: motor sensory deficit Psychiatric exam: Present: normal affect, normal mood Skin exam: Present: warm, dry, intact. Absent: cyanosis, diaphoretic Course Vital Signs 03/28/20 03/28/20 03/28/20 19:58 20:20 21:05 Temperature 97.8 F Pulse Rate 48 L 56 L Pulse Rate [ 54 L Gizzard Peeler ] Respiratory 16 17 Rate Blood Pressure 133/75 132/74 O2 Sat by Pulse 99 97 Oximetry EKG Findings - EKG Comments: EKG Findings:: EKG: Demand paced rhythm, with PVC, rate of 57, OK interval 218, QRS duration 164, QTC 439, similar QRS complex to previous EKG. Medical Decision Making - Medical Decision Making 55-year-old female with syncope, and chest pain. Patient's pain is minimal at the time my initial evaluation and completely resolved at the time of reevaluation at 2130. She has paced rhythm on a monitor, stable blood pressure. Chest x-rays negative for acute cardiopulmonary disease. She has normal CBC, normal CMP, negative initial troponin. Given her risk factors I will keep her in observation for serial cardiac enzymes, telemetry, and cardiology consultation. - Lab Data Result diagrams: 03/28/20 20:27 03/28/20 20:27 Lab Results 03/28/20 03/28/20 03/28/20 Range/Units 20:22 20:27 20:27 WBC 8.3 (3.8-10.6) k/uL RBC 4.25 (3.80-5.40) m/uL Hgb 12.7 (11.4-16.0) gm/dL Hct 39.0 (34.0-46.0) % MCV 91.9 (80.0-100.0) fL MCH 29.8 (25.0-35.0) pg MCHC 32.4 (31.0-37.0) g/dL RDW 13.1 (11.5-15.5) % Plt Count 174 (150-450) k/uL Neutrophils % 70 % Lymphocytes % 21 % Monocytes % 6 % Eosinophils % 1 % Basophils % 1 % Neutrophils # 5.8 (1.3-7.7) k/uL Lymphocytes # 1.8 (1.0-4.8) k/uL Monocytes # 0.5 (0-1.0) k/uL Eosinophils # 0.1 (0-0.7) k/uL Basophils # 0.1 (0-0.2) k/uL PT 9.9 (9.0-12.0) sec INR 1.0 (<1.2) APTT 24.1 (22.0-30.0) sec Sodium (137-145) mmol/L Potassium (3.5-5.1) mmol/L Chloride (98-107) mmol/L Carbon Dioxide (22-30) mmol/L Anion Gap mmol/L BUN (7-17) mg/dL Creatinine (0.52-1.04) mg/dL Est GFR (CKD-EPI)AfAm (>60 ml/min/1.73 sqM) Est GFR (CKD-EPI)NonAf (>60 ml/min/1.73 sqM) Glucose (74-99) mg/dL POC Glucose (mg/dL) 125 H (75-99) mg/dL POC Glu Hand Decorator ID Moreno Lyly Calcium (8.4-10.2) mg/dL Magnesium (1.6-2.3) mg/dL Total Bilirubin (0.2-1.3) mg/dL AST (14-36) U/L ALT (4-34) U/L Alkaline Phosphatase (38-126) U/L Troponin I (0.000-0.034) ng/mL Total Protein (6.3-8.2) g/dL Albumin (3.5-5.0) g/dL Urine Color Urine Appearance (Clear) Urine pH (5.0-8.0) Ur Specific Cerulean (1.001-1.035) Urine Protein (Negative) Urine Glucose (UA) (Negative) Urine Ketones (Negative) Urine Blood (Negative) Urine Nitrite (Negative) Urine Bilirubin (Negative) Urine Urobilinogen (<2.0) mg/dL Ur Leukocyte Esterase (Negative) Urine RBC (0-5) /hpf Urine WBC (0-5) /hpf Ur Squamous Epith Cells (0-4) /hpf Urine Mucus (None) /hpf 03/28/20 03/28/20 03/28/20 Range/Units 20:27 20:27 20:27 WBC (3.8-10.6) k/uL RBC (3.80-5.40) m/uL Hgb (11.4-16.0) gm/dL Hct (34.0-46.0) % MCV (80.0-100.0) fL MCH (25.0-35.0) pg MCHC (31.0-37.0) g/dL RDW (11.5-15.5) % Plt Count (150-450) k/uL Neutrophils % % Lymphocytes % % Monocytes % % Eosinophils % % Basophils % % Neutrophils # (1.3-7.7) k/uL Lymphocytes # (1.0-4.8) k/uL Monocytes # (0-1.0) k/uL Eosinophils # (0-0.7) k/uL Basophils # (0-0.2) k/uL PT (9.0-12.0) sec INR (<1.2) APTT (22.0-30.0) sec Sodium 139 (137-145) mmol/L Potassium 3.7 (3.5-5.1) mmol/L Chloride 105 (98-107) mmol/L Carbon Dioxide 26 (22-30) mmol/L Anion Gap 8 mmol/L BUN 23 H (7-17) mg/dL Creatinine 1.25 H (0.52-1.04) mg/dL Est GFR (CKD-EPI)AfAm 56 (>60 ml/min/1.73 sqM) Est GFR (CKD-EPI)NonAf 48 (>60 ml/min/1.73 sqM) Glucose 122 H (74-99) mg/dL POC Glucose (mg/dL) (75-99) mg/dL POC Glu Hand Decorator ID Calcium 9.9 (8.4-10.2) mg/dL Magnesium 1.7 (1.6-2.3) mg/dL Total Bilirubin 0.7 (0.2-1.3) mg/dL AST 37 H (14-36) U/L ALT 28 (4-34) U/L Alkaline Phosphatase 71 (38-126) U/L Troponin I <0.012 (0.000-0.034) ng/mL Total Protein 7.2 (6.3-8.2) g/dL Albumin 4.4 (3.5-5.0) g/dL Urine Color Yellow Urine Appearance Clear (Clear) Urine pH 5.5 (5.0-8.0) Ur Specific Cerulean 1.021 (1.001-1.035) Urine Protein Trace H (Negative) Urine Glucose (UA) Negative (Negative) Urine Ketones Negative (Negative) Urine Blood Trace H (Negative) Urine Nitrite Negative (Negative) Urine Bilirubin Negative (Negative) Urine Urobilinogen <2.0 (<2.0) mg/dL Ur Leukocyte Esterase Moderate H (Negative) Urine RBC 4 (0-5) /hpf Urine WBC 10 H (0-5) /hpf Ur Squamous Epith Cells 2 (0-4) /hpf Urine Mucus Rare H (None) /hpf Disposition Clinical Impression: Chest pain, Syncope Disposition: ADMITTED IP TO THIS [facility] Condition: Stable Is patient prescribed a controlled substance at d/c from ED?: No Referrals: Tera Villanueva DO [Primary Care Provider] - 1-2 days Decision to Admit Reason: Admit from EC Decision Date: 03/28/20 Decision Time: 21:34
[2020-03-28 20:36] LABS: Basophils # (A) 0.1 k/uL (0-0.2); Basophils % (A) 1 %; Eosinophils # (A) 0.1 k/uL (0-0.7); Eosinophils % (A) 1 %; HGB 12.7 gm/dL (11.4-16.0); Lymphocytes # (A) 1.8 k/uL (1.0-4.8); Lymphocytes % (A) 21 %; MCH 29.8 pg (25.0-35.0); MCHC 32.4 g/dL (31.0-37.0); MCV 91.9 fL (80.0-100.0); Mean Platelet Volume 10.4; Monocytes # (A) 0.5 k/uL (0-1.0); Monocytes % (A) 6 %; Neutrophils # (A) 5.8 k/uL (1.3-7.7); Neutrophils % (A) 70 %; Platelet Count 174 k/uL (150-450); RBC 4.25 m/uL (3.80-5.40); RDW 13.1 % (11.5-15.5); WBC 8.3 k/uL (3.8-10.6)
[2020-03-28 20:44] LABS: Appearance,Urine Clear (Clear); Bilirubin,Urine Negative (Negative); Blood,Urine Trace (Negative); Color,Urine Yellow; Glucose,Urine (UA) Negative (Negative); Ketones,Urine Negative (Negative); Leukocyte Esterase,Urine Moderate (Negative); Mucus,Urine Rare /hpf; Nitrite,Urine Negative (Negative); PH, Urine 5.5 (5.0-8.0); Protein,Urine Trace (Negative); RBC,Urine 4 /hpf (0-5); Specific Gravity,Urine 1.021 (1.001-1.035); Squamous Epithelial Cell,Urine 2 /hpf (0-4); Urobilinogen,Urine <2.0 mg/dL (<2.0); WBC,Urine 10 /hpf (0-5)
[2020-03-28 20:47] LABS: Albumin 4.4 g/dL (3.5-5.0); Calcium 9.9 mg/dL (8.4-10.2); Magnesium 1.7 mg/dL (1.6-2.3); Potassium 3.7 mmol/L (3.5-5.1); Total Bilirubin 0.7 mg/dL (0.2-1.3); Total Protein 7.2 g/dL (6.3-8.2)
[2020-03-28 20:54] LABS: Partial Thromboplastin Time 24.1 sec (22.0-30.0); Prothrombin Time 9.9 sec (9.0-12.0)
--- NOTE | 2020-03-28 21:14 | XR ---
EXAMINATION: XR chest 2V DATE AND TIME: 03/28/2020 8:54 PM CLINICAL INDICATION: PHH; syncope TECHNIQUE: Departmental protocol COMPARISON: 11/16/2018 FINDINGS: Cardiac pacemaker and EKG leads noted. The lungs are clear. The pleural spaces are negative. The cardiac silhouette is not enlarged. The remainder of the mediastinal silhouette is unremarkable. The skeletal structures and soft tissues are negative for acute findings. IMPRESSION: NO ACUTE PROCESS.
[2020-03-28] MEDS ORDERED: NALOXONE 0.4 MG/ML 1 ML VIAL IV PRN (21:30)
[2020-03-28] MEDS: ACETAMINOPHEN TAB 325 MG TAB PO PRN (21:39)
[2020-03-28] MEDS: METOPROLOL SUCCINATE (ER) 100 MG TAB.ER.24H PO SCH (23:27)
[2020-03-28] MEDS: ATORVASTATIN 80 MG TAB PO SCH (23:27)
[2020-03-29 06:54] LABS: Glucose,Whole Blood 138 mg/dL (75-99)
[2020-03-29] MEDS ORDERED: SPIRONOLACTONE 25 MG TAB PO SCH (09:00)
[2020-03-29] MEDS: SACUBITRIL/VALSARTAN 24 MG-26 MG TABLET PO SCH ×2 (09:00→20:43)
[2020-03-29] MEDS: metFORMIN 500 MG TAB PO SCH ×2 (09:00→20:43)
[2020-03-29] MEDS ORDERED: CLOPIDOGREL 75 MG TAB PO SCH (09:00)
[2020-03-29] MEDS: ASPIRIN 81 MG PO SCH (09:00)
[2020-03-29] MEDS ORDERED: SODIUM CHLORIDE 0.9% 1,000 ML IV SCH ×3 (09:30→11:30)
--- NOTE | 2020-03-29 10:50 | P.CRDCN ---
History of Present Illness History of present illness: HISTORY OF PRESENTING ILLNESS This is a pleasant 55-year-old female past medical history significant for ischemic cardiomyopathy, chronic systolic heart failure, coronary artery di sease, hypertension, dyslipidemia, complete heart block status post [employer] AICD 2016 and diabetes mellitus. She follows in the office with Dr. Perez. We have been asked to see in consultation for syncope. She states she was at work yesterday complaining a patient get dressed and she was bent over. When she stood up she felt lightheaded which does happen to her from time to time she can usually compensate quite quickly however on this instance she actually passed out. She is unsure of how long she had loss of consciousness. When she woke up she felt overall weak. She had no chest pain, shortness of breath, palpitations, nausea, vomiting or diaphoresis. DIAGNOSTICS EKG reveals AV dissociation with ventricular pacing and intermittent bigeminal intrinsic beats. Chest xray negative for an acute cardiopulmonary process. Laboratory reviewed, CBC unremarkable, sodium 139, potassium 3.7, creatinine 1.25, magnesium 1.7, cardiac enzymes negative 3. Current cardiac medications include entresto 24/26 mg twice a day, Plavix 75 mg daily, aspirin 81 mg daily, Aldactone 25 mg daily, atorvastatin 80 mg at bedtime and Toprol 100 mg at bedtime. She underwent cardiac catheterization February 2018 revealing patent stents in the LAD and diagonal branch with no other obstructive disease. Most recent echocardiogram obtained in 2018 revealed impaired LV systolic function with ejection fraction 35-40%. REVIEW OF SYSTEMS At the time of my exam: CONSTITUTIONAL: Denies fever or chills. CARDIOVASCULAR: Denies chest pain, shortness of breath, orthopnea, PND or palpitations. RESPIRATORY: Denies cough. GASTROINTESTINAL: Denies abdominal pain, diarrhea, constipation, nausea or vo miting. MUSCULOSKELETAL: Denies myalgias. NEUROLOGIC: Denies numbness, tingling or weakness. ENDOCRINE: Denies fatigue, weight change, polydipsia or polyurina. GENITOURINARY: Denies burning, hematuria or urgency with micturation. HEMATOLOGIC: Denies history of anemia or bleeding. PHYSICAL EXAMINATION Blood pressure 114/72 heart rate 60 afebrile and maintaining oxygen saturation on room air. CONSTITUTIONAL: No apparent distress. HEENT: Head is normocephalic. Pupils are equal, round. Sclerae anicteric. Mucous membranes of the mouth are moist. No JVD. No carotid bruit. CHEST EXAMINATION: Lungs are clear to auscultation. No chest wall tenderness is noted on palpation or with deep breathing. HEART EXAMINATION: Regular rate and rhythm. S1, S2 heard. No murmurs, gallops or rub. ABDOMEN: Soft, nontender. Positive bowel sounds. EXTREMITIES: 2+ peripheral pulses, no lower extremity edema and no calf tenderness. NEUROLOGIC EXAMINATION: Patient is awake, alert and oriented x3. ASSESSMENT Syncope Chronic systolic heart failure, clinically euvolemic Ischemic cardiomyopathy status post AICD Complete heart block Coronary artery disease status post PCI Hypertension Dyslipidemia Diabetes mellitus PLAN Check for orthostatic changes. Interrogate [employer] device. Obtain 2D echocardiogram and doppler study to assess cardiac structure and function. EKG interpretation reveals she is RV pacing and may require upgrade to BiV. We will do a left upper extremity venogram this afternoon. Symptoms of syncope clinically sound to be related position changes, discussed with her changing positions slowly. If interrogation is unremarkable, she can be discharged home to follow up with Dr. Perez in the office. Thank you kindly for this consultation. Nurse Practitioner note has been reviewed, I agree with a documented findings and plan of care. Patient was seen and examined. Past Medical History Past Medical History: Coronary Artery Disease (CAD), Chest Pain / Angina, Heart Failure, GERD/Reflux, Hyperlipidemia, Hypertension, Myocardial Infarction (SC), Renal Disease, Thyroid Disorder Additional Past Medical History / Comment(s): Ischemic cardiomyopathy, CKD stage II, nephrolithiasis, migraines, occasional back pain, hypothyroid. Last Myocardial Infarction Date:: 06-30-15 History of Any Multi-Drug Resistant Organisms: None Reported Past Surgical History: AICD, Heart Catheterization With Stent, Hernia Repair, Hysterectomy, Pacemaker Additional Past Surgical History / Comment(s): 2015 stents to lad,diag, 05/22/16 PTCA, bilateral oophorectomy, LT INGUINAL HERNIA REPAIR, CYSTOCOPY, LITHOTRIPSY,COLONOSCOPY, Past Anesthesia/Blood Transfusion Reactions: Postoperative Nausea & Vomiting (PONV) Additional Past Anesthesia/Blood Transfusion Reaction / Comment(s): MILD CLAUSTERPHOBIA Date of Last Stent Placement:: 06/30/15 Type of Cardiac Device: AICD Device Placement Date:: 12/12/15 Past Psychological History: Anxiety Additional Psychological History / Comment(s): Pt resides with her daughter, Blank. She is independent. She works at a [employer]. Smoking Status: Former smoker Past Alcohol Use History: Rare Additional Past Alcohol Use History / Comment(s): Pt started smoking in 1976 and quit in 1991. She was about a 1/2 ppd smoker. She used to drink alcohol on occasion, but has not had any alcohol in a long time. Past Drug Use History: None Reported - Past Family History Mother Family Medical History: Dementia Father Family Medical History: Cancer, Myocardial Infarction (SC) Additional Family Medical History / Comment(s): Pt does not recall age that father had his SC but states it was prior to age 60yrs. He also had a pacer and colon cancer, Sister(s) Family Medical History: Cancer, Hypertension Additional Family Medical History / Comment(s): breast/ colon cancer Medications and Allergies Home Medications Medication Instructions Recorded Confirmed Type Clopidogrel [Plavix] 75 mg PO DAILY 12/09/15 03/28/20 History Famotidine [Pepcid] 20 mg PO HS 05/20/16 03/28/20 History Spironolactone [Aldactone] 25 mg PO DAILY #0 07/11/17 03/28/20 Rx Atorvastatin [Lipitor] 80 mg PO HS #30 tab 02/09/18 03/28/20 Rx Aspirin EC [Ecotrin Low Dose] 81 mg PO DAILY 03/28/20 03/28/20 History Metoprolol Succinate (ER) [Toprol 100 mg PO HS 03/28/20 03/28/20 History Xl] Sacubitril/Valsartan [Entresto 24 1 tab PO BID 03/28/20 03/28/20 History mg-26 mg Tablet] metFORMIN HCL [Glucophage] 500 mg PO BID 03/28/20 03/28/20 History Allergies Allergy/AdvReac Type Severity Reaction Status Date / Time hydrocodone bitartrate AdvReac Nausea & Verified 03/28/20 21:37 [From Vicodin] Vomiting propoxyphene napsylate AdvReac Vomiting Verified 03/28/20 21:37 [From Darvocet-N] Physical Exam Vitals: Vital Signs Temp Pulse Pulse Resp BP BP Pulse Ox 03/29/20 03:00 97.7 F 60 18 114/72 97 03/28/20 21:59 97.8 F 64 18 120/71 95 03/28/20 21:55 98.1 F 62 18 115/70 99 03/28/20 21:05 56 L 17 132/74 97 03/28/20 20:20 54 L 03/28/20 19:58 97.8 F 48 L 16 133/75 99 Intake and Output 03/28/20 03/29/20 03/29/20 22:59 06:59 14:59 Intake Total 900 0 Balance 900 0 Intake: Oral 900 0 Other: Voiding Method Toilet Toilet # Voids 2 Weight 90.718 kg Results 03/28/20 20:27 03/28/20 20:27 Cardiac Enzymes 03/28/20 03/28/20 03/28/20 Range/Units 20:27 20:27 23:46 AST 37 H (14-36) U/L Troponin I <0.012 0.031 (0.000-0.034) ng/mL 03/29/20 Range/Units 02:07 AST (14-36) U/L Troponin I 0.029 (0.000-0.034) ng/mL Coagulation 03/28/20 Range/Units 20:27 PT 9.9 (9.0-12.0) sec APTT 24.1 (22.0-30.0) sec CBC 03/28/20 Range/Units 20:27 WBC 8.3 (3.8-10.6) k/uL RBC 4.25 (3.80-5.40) m/uL Hgb 12.7 (11.4-16.0) gm/dL Hct 39.0 (34.0-46.0) % Plt Count 174 (150-450) k/uL Comprehensive Metabolic Panel 03/28/20 Range/Units 20:27 Sodium 139 (137-145) mmol/L Potassium 3.7 (3.5-5.1) mmol/L Chloride 105 (98-107) mmol/L Carbon Dioxide 26 (22-30) mmol/L BUN 23 H (7-17) mg/dL Creatinine 1.25 H (0.52-1.04) mg/dL Glucose 122 H (74-99) mg/dL Calcium 9.9 (8.4-10.2) mg/dL AST 37 H (14-36) U/L ALT 28 (4-34) U/L Alkaline Phosphatase 71 (38-126) U/L Total Protein 7.2 (6.3-8.2) g/dL Albumin 4.4 (3.5-5.0) g/dL Current Medications Generic Name Dose Route Start Last Admin Trade Name Freq PRN Reason Stop Dose Admin Acetaminophen 650 mg 03/28/20 21:30 03/28/20 21:39 Acetaminophen Tab 325 Mg Tab PO 650 mg Q6HR PRN Administration Mild Pain or Fever > 100.5 Aspirin 81 mg 03/29/20 09:00 Aspirin 81 Mg PO DAILY LEO Atorvastatin Calcium 80 mg 03/28/20 23:15 03/28/20 23:27 Atorvastatin 80 Mg Tab PO 80 mg HS LEO Administration Famotidine 20 mg 03/29/20 21:00 Famotidine 20 Mg Tab PO HS LEO Metformin HCl 500 mg 03/29/20 09:00 Metformin 500 Mg Tab PO BID LEO Metoprolol Succinate 100 mg 03/28/20 23:15 03/28/20 23:27 Metoprolol Succinate (Er) 100 Mg Tab.Er.24h PO 100 mg HS LEO Administration Naloxone HCl 0.2 mg 03/28/20 21:30 Naloxone 0.4 Mg/Ml 1 Ml Vial IV Q2M PRN Opioid Reversal Sacubitril/Valsartan 1 each 03/29/20 09:00 Sacubitril/Valsartan 24 Mg-26 Mg Tablet PO BID LEO Spironolactone 25 mg 03/29/20 09:00 Spironolactone 25 Mg Tab PO DAILY LEO Intake and Output 03/28/20 03/29/20 03/29/20 22:59 06:59 14:59 Intake Total 900 0 Balance 900 0 Intake: Oral 900 0 Other: Voiding Method Toilet Toilet # Voids 2 Weight 90.718 kg 03/28/20 20:27 03/28/20 20:27
--- NOTE | 2020-03-29 11:25 | P.PCN ---
Preoperative Diagnosis: Diagnosis Ischemic cardiomyopathy CHF last 2-3, on guideline recommended medical treatment including spironolactone metoprolol XL and ENTRESTO Status post single chamber ICD implant Complete heart block, increase RV pacing percentage, underlying left bundle branch block Procedure 1 Cinefluoroscopy of the leads Single-chamber ICD, in situ, single coil lead Cinefluoroscopy revealed a single coil ICD lead implanted in the RV apex no fractures or breaks noted, [employer] device Procedure #2 Left upper extremity venography 15 mL of IV dye injected in the left arm Patent axillary, subclavian and innominate vein on the left side Plan Upgrade to a biventricular ICD for management of cardio myopathy in heart failure as well as complete heart block with increased RV pacing percentage and A-V dissociation
[2020-03-29] MEDS ORDERED: SPIRONOLACTONE 25 MG TAB PO STA (11:51)
--- NOTE | 2020-03-29 12:41 | ECHOF ---
Referral Reason:syncope MEASUREMENTS -------- HEIGHT: 157.5 cm WEIGHT: 90.7 kg BP: 114/72 IVSd: 1.5 cm (0.6 - 1.1) LVIDd: 4.9 cm (3.9 - 5.3) LVPWd: 1.4 cm (0.6 - 1.1) IVSs: 1.6 cm LVIDs: 3.1 cm LVPWs: 1.7 cm RVIDd: 2.9 cm (< 3.3) LAESV Index (A-L): 31.01 ml/m Ao Diam: 2.5 cm (2.0 - 3.7) AV Cusp: 1.9 cm (1.5 - 2.6) EPSS: 1.0 cm MV E Wale: 0.97 m/s MV DecT: 196 ms MV A Wale: 0.72 m/s MV E/A Ratio: 1.35 RAP: 5.00 mmHg RVSP: 38.96 mmHg MV EF SLOPE: 82.96 mm/s (70 - 150) MV EXCURSION: 15.86 mm (> 18.000) FINDINGS -------- This was a technically adequate study. The left ventricular size is normal. There is moderate concentric left ventricular hypertrophy. O verall left ventricular systolic function is moderately impaired with, an EF between 35 - 40 %. The diastolic filling pattern is normal for the age of the patient 16.88. The right ventricle is normal in size. LA is midly dilated 29-33ml/m2. The right atrial size is normal. Interatrial and interventricular septum intact. The aortic valve is trileaflet and appears structurally normal. There is no evidence of aortic regu rgitation. There is no evidence of aortic stenosis. Wxig-xy-[id number] mitral regurgitation is present. Ntet-ly-ninszfvi tricuspid regurgitation present. There is mild pulmonary hypertension. The right ventricular systolic pressure, as measured by Doppler, is 38.96mmHg. There is no pulmonic regurgitation present. The aortic root size is normal. IVC Not well visulized. There is no pericardial effusion. CONCLUSIONS -------- 1. The left ventricular size is normal. 2. There is moderate concentric left ventricular hypertrophy. 3. Overall left ventricular systolic function is moderately impaired with, an EF between 35 - 40 %. 4. LA is midly dilated 29-33ml/m2. 5. Ymwu-pk-bvmhisxo mitral regurgitation is present. 6. Nocp-zy-guakzvvx tricuspid regurgitation present. 7. There is mild pulmonary hypertension. 8. The right ventricular systolic pressure, as measured by Doppler, is 38.96mmHg. ICE GUARD TESTER: Stefani Montoya RDCS
[2020-03-29 13:16] LABS: Glucose,Whole Blood 91 mg/dL (75-99)
[2020-03-29] MEDS: MAGNESIUM OXIDE 400 MG TAB PO SCH (14:09)
[2020-03-29] MEDS: SOTALOL 80 MG TAB PO SCH ×2 (14:10→20:43)
[2020-03-29] MEDS: SODIUM CHLORIDE 0.9% 1,000 ML IV SCH (15:54)
--- NOTE | 2020-03-29 17:16 | P.HPIM ---
History of Present Illness H&P Date: 03/29/20 Chief Complaint: past out History of presenting complaint: This is a pleasant 55-year-old patient of Dr. Villanueva. Chronic stable medical conditions include coronary artery disease with stent, CHF, GERD, hypertension, hyperlipidemia, ischemic cardiomyopathy, chronic kidney disease stage II, kidney stones, hypothyroid. Last angioplasty was 2015. Patient also has an AICD. 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 Patient became dizzy lightheaded and then patient passed out. She may have been passed for good 20 minutes at least. Had no chest pain. No focal weakness. No tongue biting or incontinence. Earlier device interrogation and revealed an episode of sustained ventricular fibrillation. Patient also noticed to be an third-degree heart block. Patient being followed by benefits clerk Dr. Jas Owen. Review of systems: GEN.: Tired EYES: None HEENT: None NECK: None RESPIRATORY: None CARDIOVASCULAR: None GASTROINTESTINAL: None GENITOURINARY: None MUSCULOSKELETAL: Some joint pains] LYMPHATICS: None HEMATOLOGICAL: None PSYCHIATRY: None NEUROLOGICAL: None Social history: Patient lives with her Dr. Rivera. Works at a correction. Smoked from 1976 through 1991. One half a pack a day. Alcohol Occasionally. Physical examination: VITAL SIGNS: 97.8, 48, 16, 133 with 75, 99% on room air GENERAL: BMI 36.6, sitting on bed, awake. EYES: Pupils equal. Conjunctiva normal. HEENT: External appearance of nose and ears normal, oral cavity grossly normal. NECK: JVD not raised; masses not palpable. HEART: First and second heart sounds are normal; no edema. LUNGS: Respiratory rate normal; clear to auscultation. ABDOMEN: Soft, nontender, liver spleen not palpable, no masses palpable. PSYCH: Alert and oriented x3; mood and affect normal. NEUROLOGICAL: Cranial nerves grossly intact; no facial asymmetry, power and sensation grossly intact. LYMPHATICS: No lymph nodes palpable in the axilla and neck INVESTIGATIONS, reviewed in the clinical context: White count 8.3 hemoglobin 12.7 platelets 134 potassium 3.7 creatinine 1.25 UA positive for leukoesterase, WBC Troponin I less than 0.012, 0.031, 0.029 EKG tracing personally reviewed by me-complete heart block Chest x-ray film personally reviewed by me-cardiomegaly 2-D echocardiogram-concentric LVH, EF 55-60%, Assessment: -Episode of unconsciousness following complete heart block, patient has a AICD -Coronary artery disease prior history of stent -Chronic congestive heart failure from diastolic dysfunction EF 55-60% -GERD -Hyperlipidemia -Essential hypertension -Chronic kidney disease stage II likely nephrosclerosis -Hypothyroid -Nephrolithiasis -Diabetes mellitus type 2 and oral hypoglycemic Plan: Dr. Jas Owen from electrophysiology was consulted. AICD was evaluated. Planning for a great to biventricular ICD on Wednesday. Home medications to be resumed. Lovenox for DVT prophylaxis. Follow Accu-Cheks. Care was discussed with the patient. Questions answered. Past Medical History Past Medical History: Coronary Artery Disease (CAD), Chest Pain / Angina, Heart Failure, GERD/Reflux, Hyperlipidemia, Hypertension, Myocardial Infarction (DC), Renal Disease, Thyroid Disorder Additional Past Medical History / Comment(s): Ischemic cardiomyopathy, CKD stage II, nephrolithiasis, migraines, occasional back pain, hypothyroid. Last Myocardial Infarction Date:: 06-30-15 History of Any Multi-Drug Resistant Organisms: None Reported Past Surgical History: AICD, Heart Catheterization With Stent, Hernia Repair, Hysterectomy, Pacemaker Additional Past Surgical History / Comment(s): 2015 stents to lad,diag, 05/22/16 PTCA, bilateral oophorectomy, LT INGUINAL HERNIA REPAIR, CYSTOCOPY, LITHOTRIPSY,COLONOSCOPY, Past Anesthesia/Blood Transfusion Reactions: Postoperative Nausea & Vomiting (PONV) Additional Past Anesthesia/Blood Transfusion Reaction / Comment(s): MILD CLAUSTERPHOBIA Date of Last Stent Placement:: 06/30/15 Type of Cardiac Device: AICD Device Placement Date:: 12/12/15 Past Psychological History: Anxiety Additional Psychological History / Comment(s): Pt resides with her daughter, Blank. She is independent. She works at a correction. Smoking Status: Former smoker Past Alcohol Use History: Rare Additional Past Alcohol Use History / Comment(s): Pt started smoking in 1976 and quit in 1991. She was about a 1/2 ppd smoker. She used to drink alcohol on occasion, but has not had any alcohol in a long time. Past Drug Use History: None Reported - Past Family History Mother Family Medical History: Dementia Father Family Medical History: Cancer, Myocardial Infarction (DC) Additional Family Medical History / Comment(s): Pt does not recall age that father had his DC but states it was prior to age 60yrs. He also had a pacer and colon cancer, Sister(s) Family Medical History: Cancer, Hypertension Additional Family Medical History / Comment(s): breast/ colon cancer Medications and Allergies Home Medications Medication Instructions Recorded Confirmed Type Clopidogrel [Plavix] 75 mg PO DAILY 12/09/15 03/28/20 History Famotidine [Pepcid] 20 mg PO HS 05/20/16 03/28/20 History Spironolactone [Aldactone] 25 mg PO DAILY #0 07/11/17 03/28/20 Rx Atorvastatin [Lipitor] 80 mg PO HS #30 tab 02/09/18 03/28/20 Rx Aspirin EC [Ecotrin Low Dose] 81 mg PO DAILY 03/28/20 03/28/20 History Metoprolol Succinate (ER) [Toprol 100 mg PO HS 03/28/20 03/28/20 History Xl] Sacubitril/Valsartan [Entresto 24 1 tab PO BID 03/28/20 03/28/20 History mg-26 mg Tablet] metFORMIN HCL [Glucophage] 500 mg PO BID 03/28/20 03/28/20 History Allergies Allergy/AdvReac Type Severity Reaction Status Date / Time hydrocodone bitartrate AdvReac Nausea & Verified 03/28/20 21:37 [From Vicodin] Vomiting propoxyphene napsylate AdvReac Vomiting Verified 03/28/20 21:37 [From Darvocet-N] Physical Exam Vitals: Vital Signs Temp Pulse Pulse Pulse Pulse Pulse Resp 03/29/20 08:19 78 63 61 03/29/20 03:00 97.7 F 60 18 03/28/20 21:59 97.8 F 64 18 03/28/20 21:55 98.1 F 62 18 03/28/20 21:05 56 L 17 03/28/20 20:20 54 L 03/28/20 19:58 97.8 F 48 L 16 BP BP BP BP BP Pulse Ox 03/29/20 08:19 123/81 117/77 129/75 03/29/20 03:00 114/72 97 03/28/20 21:59 120/71 95 03/28/20 21:55 115/70 99 03/28/20 21:05 132/74 97 03/28/20 20:20 03/28/20 19:58 133/75 99 Intake and Output 03/28/20 03/29/20 03/29/20 22:59 06:59 14:59 Intake Total 900 0 Balance 900 0 Intake: Oral 900 0 Other: Voiding Method Toilet Toilet # Voids 2 Weight 90.718 kg Results CBC & Chem 7: 03/28/20 20:27 03/28/20 20:27 Labs: Abnormal Lab Results - Last 24 Hours (Table) 03/28/20 03/28/20 03/28/20 Range/Units 20:22 20:27 20:27 BUN 23 H (7-17) mg/dL Creatinine 1.25 H (0.52-1.04) mg/dL Glucose 122 H (74-99) mg/dL POC Glucose (mg/dL) 125 H (75-99) mg/dL AST 37 H (14-36) U/L Urine Protein Trace H (Negative) Urine Blood Trace H (Negative) Ur Leukocyte Esterase Moderate H (Negative) Urine WBC 10 H (0-5) /hpf Urine Mucus Rare H (None) /hpf 03/29/20 Range/Units 06:52 BUN (7-17) mg/dL Creatinine (0.52-1.04) mg/dL Glucose (74-99) mg/dL POC Glucose (mg/dL) 138 H (75-99) mg/dL AST (14-36) U/L Urine Protein (Negative) Urine Blood (Negative) Ur Leukocyte Esterase (Negative) Urine WBC (0-5) /hpf Urine Mucus (None) /hpf
[2020-03-29] MEDS ORDERED: LACTULOSE 20 GM/30 ML CUP PO PRN (17:17)
[2020-03-29] MEDS ORDERED: ONDANSETRON 4 MG/2 ML VIAL IVP PRN (17:17)
[2020-03-29] MEDS ORDERED: PROCHLORPERAZINE 5 MG TAB PO PRN (17:17)
[2020-03-29] MEDS ORDERED: MAG HYDROX/AL HYDROX/SIMETH 30 ML CUP PO PRN (17:17)
[2020-03-29] MEDS ORDERED: CALCIUM CARBONATE 500 MG CHEWABLE PO PRN (17:17)
[2020-03-29] MEDS ORDERED: MELATONIN 3 MG TABLET PO PRN (17:17)
[2020-03-29] MEDS ORDERED: MAGNESIUM HYDROXIDE 2,400 MG/10 ML CUP PO PRN (17:17)
[2020-03-29 17:23] LABS: Glucose,Whole Blood 126 mg/dL (75-99)
[2020-03-29] MEDS: INSULIN ASPART (NovoLOG) 100 UNIT/ML VIAL SQ SCH ×2 (17:31→20:41)
[2020-03-29 20:12] LABS: Glucose,Whole Blood 126 mg/dL (75-99)
[2020-03-29] MEDS: ATORVASTATIN 80 MG TAB PO SCH (20:43)
[2020-03-29] MEDS: METOPROLOL SUCCINATE (ER) 100 MG TAB.ER.24H PO SCH (20:43)
[2020-03-29] MEDS: FAMOTIDINE 20 MG TAB PO SCH (20:43)
[2020-03-30] MEDS: SODIUM CHLORIDE 0.9% 1,000 ML IV SCH (06:52)
[2020-03-30] MEDS: INSULIN ASPART (NovoLOG) 100 UNIT/ML VIAL SQ SCH ×4 (06:53→20:10)
[2020-03-30 06:55] LABS: Glucose,Whole Blood 132 mg/dL (75-99)
--- NOTE | 2020-03-30 08:15 | P.PN ---
Subjective Progress Note Date: 03/30/20 Principal diagnosis: ICD shocks This is a 55-year-old female patient was coronary artery disease and ischemic cardiomyopathy and status post AICD who was admitted to the hospital with appropriate ICD shocks. The patient was seen I Dr. Owen who started the patient on sotalol and she is in process of upgrading her device into by the ICD this coming Wednesday. She was seen this morning. She remains asymptomatic at this point. Hemodynamically she is stable patient continues to be on sotalol. She is staying until Wednesday to have the upgrade none. Objective - Vital Signs Vital signs: Vital Signs Temp 97.7 F 03/30/20 03:00 Pulse 59 L 03/30/20 03:00 Resp 18 03/30/20 03:00 BP 112/70 03/30/20 03:00 Pulse Ox 96 03/29/20 21:00 Intake & Output 03/29/20 03/30/20 03/30/20 18:59 06:59 18:59 Intake Total 1680 1350 Balance 1680 1350 Intake: Oral 1680 1350 Other: Voiding Method Toilet Toilet # Voids 2 1 - Constitutional General appearance: Present: no acute distress - Respiratory Respiratory: bilateral: CTA - Cardiovascular Rhythm: regular Heart sounds: normal: S1, S2 - Labs CBC & Chem 7: 03/28/20 20:27 03/28/20 20:27 Labs: Abnormal Lab Results - Last 24 Hours (Table) 03/29/20 03/29/20 03/30/20 Range/Units 17:21 20:11 06:53 POC Glucose (mg/dL) 126 H 126 H 132 H (75-99) mg/dL Assessment and Plan Assessment: Assessment #1 an AICD shocks #2 severe CAD #3 ischemic cardiomyopathy #4 status post AICD Plan Continue the current medical regimen The patient is going to have upgrade of the ICD into by the ICD this coming Wednesday #3 follow-up with the patient
[2020-03-30] MEDS: ASPIRIN 81 MG PO SCH (09:05)
[2020-03-30] MEDS: MAGNESIUM OXIDE 400 MG TAB PO SCH (09:05)
[2020-03-30] MEDS: metFORMIN 500 MG TAB PO SCH ×2 (09:05→20:10)
[2020-03-30] MEDS: SACUBITRIL/VALSARTAN 24 MG-26 MG TABLET PO SCH ×2 (09:05→20:10)
[2020-03-30] MEDS: SPIRONOLACTONE 25 MG TAB PO SCH (09:06)
[2020-03-30] MEDS: SOTALOL 80 MG TAB PO SCH ×2 (09:06→20:10)
[2020-03-30 13:08] LABS: Glucose,Whole Blood 94 mg/dL (75-99)
[2020-03-30 13:58] LABS: Calcium 9.6 mg/dL (8.4-10.2); Potassium 4.4 mmol/L (3.5-5.1)
--- NOTE | 2020-03-30 14:03 | PN ---
PROGRESS NOTE DATE OF SERVICE: 03/30/2020 I am covering for Dr. Nayak. This 55-year-old woman was admitted with episodes of unconsciousness following a complete heart block. Patient had AICD placement, biventricular lead placement is being planned by Cardiology. Patient also found to have a UTI. The patient's antibiotic Kefzol perioperatively recommended by cardiology. The patient was started on sotalol and the device upgrade was being planned on Wednesday as mentioned. PAST MEDICAL HISTORY: Reviewed. REVIEW OF SYSTEMS: CARDIOVASCULAR as mentioned. RESPIRATORY: As mentioned earlier. GI: As mentioned earlier. : No dysuria. NERVOUS SYSTEM: No numbness or weakness. CURRENT MEDICATIONS: Reviewed and include: Tylenol, Maalox, aspirin, Lipitor, Tums, cefazolin, Pepcid, NovoLog, Cephulac, milk of Magnesia, Magnesium oxide, Melatonin. Glucophage. Toprol- XL, Narcan, Zofran. Compazine, Entresto, Betapace, Aldactone. PHYSICAL EXAM: Patient is alert, oriented x3. Pulse 55, blood pressure 120/70. Respiration 18, temp is normal. Pulse ox 98% on room air. HEENT: Conjunctivae normal. NECK: No JVD. CARDIOVASCULAR: S1, S2 muffled. RESPIRATORY: Breath sounds diminished in the bases. A few scattered rhonchi. ABDOMEN: Soft, obese. LEGS are no edema. No swelling. NERVOUS SYSTEM: No focal deficits. LAB: Glucose 132. Other labs are: Creatinine is 1.25. UA 10 WBCs. ASSESSMENT: 1. Unconsciousness, possibly secondary to cardiac arrhythmia, syncope with AICD shocks. 2. History of coronary artery disease/stent with severe coronary artery disease. 3. History of congestive heart failure with chronic diastolic dysfunction, ejection fraction 50 to 60%. 4. Ischemic cardiomyopathy. 5. Gastroesophageal reflux disease. 6. Possible urinary tract infection present on admission. 7. Hyperlipidemia. 8. Essential hypertension. 9. Chronic kidney stage 2, likely nephrosclerosis. 10.Hypothyroidism. 11.Nephrolithiasis. 12.Diabetes mellitus type 2 on oral hypoglycemics. 13.Chronic kidney disease stage III possibly baseline, multifactorial. RECOMMENDATIONS AND DISCUSSION: In this 55-year-old woman who presented with multiple medical issues, we will monitor the patient closely, continue the current medications, management and symptomatic treatment. I would recommend a course of Rocephin. Otherwise, I would also recommend monitor renal functions very closely. Repeat labs will be ordered. Follow closely with Cardiology. Telemetry, AICD device upgrade, on Wednesday. Guarded prognosis. Further recommendations to follow. MMODL / IJN: [id number] /
[2020-03-30 17:39] LABS: Glucose,Whole Blood 101 mg/dL (75-99)
[2020-03-30 19:51] LABS: Glucose,Whole Blood 155 mg/dL (75-99)
[2020-03-30] MEDS: METOPROLOL SUCCINATE (ER) 100 MG TAB.ER.24H PO SCH (20:09)
[2020-03-30] MEDS: ATORVASTATIN 80 MG TAB PO SCH (20:10)
[2020-03-30] MEDS: FAMOTIDINE 20 MG TAB PO SCH (20:10)
[2020-03-31 06:33] LABS: Glucose,Whole Blood 115 mg/dL (75-99)
[2020-03-31] MEDS: INSULIN ASPART (NovoLOG) 100 UNIT/ML VIAL SQ SCH ×4 (06:37→21:01)
[2020-03-31] MEDS: SODIUM CHLORIDE 0.9% 1,000 ML IV SCH ×2 (06:38→22:31)
[2020-03-31] MEDS: SOTALOL 80 MG TAB PO SCH ×2 (09:13→21:01)
[2020-03-31] MEDS: SACUBITRIL/VALSARTAN 24 MG-26 MG TABLET PO SCH ×2 (09:13→21:01)
[2020-03-31] MEDS: metFORMIN 500 MG TAB PO SCH ×2 (09:13→21:01)
[2020-03-31] MEDS: MAGNESIUM OXIDE 400 MG TAB PO SCH (09:13)
[2020-03-31] MEDS: SPIRONOLACTONE 25 MG TAB PO SCH (09:13)
[2020-03-31] MEDS: ASPIRIN 81 MG PO SCH (09:13)
--- NOTE | 2020-03-31 09:36 | P.PN ---
Subjective Progress Note Date: 03/31/20 Principal diagnosis: ICD shocks This is a 55-year-old female patient was coronary artery disease and ischemic cardiomyopathy and status post AICD who was admitted to the hospital with appropriate ICD shocks. The patient was seen I Dr. Owen who started the patient on sotalol and she is in process of upgrading her device into by the ICD this coming Wednesday. The patient was seen today 03/31/2020. She is asymptomatic. Hemodynamically she is stable beside multiple episodes of bradycardia with heart rate in the 30s and 40s. She is on sotalol at this point. I am going to obtain an EKG on her. She is in process of having upgrade of her device tomorrow by Dr. Owen. Objective - Vital Signs Vital signs: Vital Signs Temp 98.1 F 03/31/20 08:25 Pulse 54 L 03/31/20 08:25 Resp 16 03/31/20 08:25 BP 102/64 03/31/20 08:25 Pulse Ox 97 03/31/20 08:25 Intake & Output 03/30/20 03/31/20 03/31/20 18:59 06:59 18:59 Intake Total 1040 1350 Balance 1040 1350 Intake: Intake, IV Titration 50 Amount cefTRIAXone 1 gm In 50 Sodium Chloride 0.9% 50 ml @ 100 mls/hr IVPB Q24HR ON LICENSE OF [facility] Rx#:[id number] Oral 990 1350 Other: Voiding Method Toilet Toilet Toilet # Voids 2 2 - Constitutional General appearance: Present: no acute distress - Respiratory Respiratory: bilateral: CTA - Cardiovascular Rhythm: regular Heart sounds: normal: S1, S2 - Labs CBC & Chem 7: 03/28/20 20:27 03/30/20 13:24 Labs: Abnormal Lab Results - Last 24 Hours (Table) 03/30/20 03/30/20 03/30/20 Range/Units 13:24 17:38 19:50 Chloride 108 H (98-107) mmol/L BUN 19 H (7-17) mg/dL Creatinine 1.08 H (0.52-1.04) mg/dL POC Glucose (mg/dL) 101 H 155 H (75-99) mg/dL 03/31/20 Range/Units 06:32 Chloride (98-107) mmol/L BUN (7-17) mg/dL Creatinine (0.52-1.04) mg/dL POC Glucose (mg/dL) 115 H (75-99) mg/dL Microbiology - Last 24 Hours (Table) 03/30/20 17:49 Urine Culture - Preliminary Urine,Clean Catch Assessment and Plan Assessment: Assessment #1 an AICD shocks #2 severe CAD #3 ischemic cardiomyopathy #4 status post AICD Plan Continue the current medical regimen Obtain 12 please EKG Follow-up with the patient
[2020-03-31 10:26] LABS: Basophils # (A) 0.1 k/uL (0-0.2); Basophils % (A) 1 %; Eosinophils # (A) 0.1 k/uL (0-0.7); Eosinophils % (A) 2 %; HCT 38.5 % (34.0-46.0); HGB 12.1 gm/dL (11.4-16.0); Lymphocytes # (A) 1.8 k/uL (1.0-4.8); Lymphocytes % (A) 26 %; MCH 29.3 pg (25.0-35.0); MCHC 31.4 g/dL (31.0-37.0); MCV 93.5 fL (80.0-100.0); Mean Platelet Volume 10.5; Monocytes # (A) 0.4 k/uL (0-1.0); Monocytes % (A) 6 %; Neutrophils # (A) 4.5 k/uL (1.3-7.7); Neutrophils % (A) 65 %; Platelet Count 173 k/uL (150-450); RBC 4.12 m/uL (3.80-5.40); RDW 13.3 % (11.5-15.5)
[2020-03-31 10:37] LABS: Calcium 9.2 mg/dL (8.4-10.2); Potassium 4.3 mmol/L (3.5-5.1)
[2020-03-31 11:32] LABS: Glucose,Whole Blood 134 mg/dL (75-99)
[2020-03-31 16:32] LABS: Glucose,Whole Blood 103 mg/dL (75-99)
--- NOTE | 2020-03-31 17:05 | PN ---
PROGRESS NOTE DATE OF SERVICE: 03/31/2020 INTERVAL HISTORY: This 55-year-old woman was admitted with unconsciousness, possibly cardiac arrhythmia and was slated to have an AICD revision tomorrow. The patient also had renal failure. Patient also had low heart rate with bradycardia last night in 30s. The creatinine is also elevated to 1.15. The patient is receiving IV fluids at 50 mL/hour. PAST MEDICAL HISTORY: Reviewed. REVIEW OF SYSTEM: CARDIOVASCULAR: As mentioned earlier. RESPIRATORY: As mentioned earlier. GI: As mentioned earlier. : As mentioned earlier. NERVOUS SYSTEM: No numbness or weakness. CURRENT MEDICATIONS: Reviewed include Tylenol, Maalox, aspirin, Lipitor, Tums, cefazolin, Rocephin, Cephulac, Milk of Magnesia, melatonin, Glucophage, Toprol-XL, Narcan, Zofran, Compazine, Entresto, Betapace, Aldactone. PHYSICAL EXAM: GENERAL: Patient is alert and oriented times three. VITAL SIGNS: Pulse 54, blood pressure 126/62, respirations 16, temperature normal, pulse ox 97% on room air HEENT: Conjunctivae normal. Oral mucosa moist. NECK: No jugular venous distention. No carotid bruits. No lymph node enlargement. RESPIRATORY: Breath sounds diminished at the bases. A few scattered rhonchi and crackles. HEART: S1 and S2, muffled. ABDOMEN: Soft, no tenderness. Obese. EXTREMITIES: No edema, no swelling. NERVOUS: No focal deficits. LABS: CBC within normal limits and glucose 134. Urine culture is pending. ASSESSMENT: 1. Unconscious possibly secondary to cardiac arrhythmia and syncope with automatic implantable cardioverter defibrillator shocks. 2. Bradycardia. 3. Increased creatinine with possible chronic kidney disease stage 3. 4. History of coronary artery disease and severe coronary artery disease. 5. History of congestive heart failure with chronic diastolic dysfunction ejection fraction 55-60%. 6. History of ischemic cardiomyopathy. 7. Gastroesophageal reflux disease. 8. Possible urinary tract infection present on admission, on empiric antibiotics. 9. Hyperlipidemia. 10.Essential hypertension. 11.Chronic kidney disease stage 2, likely nephrosclerosis. 12.Hypothyroidism. 13.Nephrolithiasis history. 14.Diabetes mellitus type 2. On oral hypoglycemic agents. 15.FULL CODE. RECOMMENDATIONS AND DISCUSSION: In this 55-year-old woman who presented with multiple complex medical issues, we will monitor the patient closely. Continue the current medications, continue symptomatic treatment. Recommend to increase the IV fluids to 75 cc/hours. Repeat labs in the morning. Order TSH. Closely with Cardiology. AICD updated tomorrow. Further recommendations to follow. YAMEL / JUVENTINO: [id number] /
[2020-03-31 17:15] LABS: T4, Free (Free Thyroxine) 0.72 ng/dL (0.78-2.19)
[2020-03-31 21:01] LABS: Glucose,Whole Blood 105 mg/dL (75-99)
[2020-03-31] MEDS: ATORVASTATIN 80 MG TAB PO SCH (21:01)
[2020-03-31] MEDS: FAMOTIDINE 20 MG TAB PO SCH (21:01)
[2020-03-31] MEDS: METOPROLOL SUCCINATE (ER) 100 MG TAB.ER.24H PO SCH (21:01)
[2020-04-01] MEDS: INSULIN ASPART (NovoLOG) 100 UNIT/ML VIAL SQ SCH ×4 (06:46→20:08)
[2020-04-01 06:53] LABS: Glucose,Whole Blood 150 mg/dL (75-99)
[2020-04-01 08:36] LABS: Basophils # (A) 0.1 k/uL (0-0.2); Basophils % (A) 1 %; Eosinophils # (A) 0.1 k/uL (0-0.7); Eosinophils % (A) 2 %; HCT 39.2 % (34.0-46.0); HGB 12.4 gm/dL (11.4-16.0); Lymphocytes # (A) 2.3 k/uL (1.0-4.8); Lymphocytes % (A) 31 %; MCH 29.4 pg (25.0-35.0); MCHC 31.6 g/dL (31.0-37.0); MCV 93.3 fL (80.0-100.0); Mean Platelet Volume 10.7; Monocytes # (A) 0.5 k/uL (0-1.0); Monocytes % (A) 7 %; Neutrophils # (A) 4.2 k/uL (1.3-7.7); Neutrophils % (A) 58 %; Platelet Count 175 k/uL (150-450); RDW 13.3 % (11.5-15.5); WBC 7.3 k/uL (3.8-10.6)
[2020-04-01 08:57] LABS: Calcium 9.1 mg/dL (8.4-10.2); Potassium 4.3 mmol/L (3.5-5.1)
[2020-04-01] MEDS ORDERED: ceFAZolin 1,000 MG in SODIUM CHLORIDE 0.9% IRRIGATIO 250 ML IRRIGATION ONE (09:00)
[2020-04-01] MEDS: MAGNESIUM OXIDE 400 MG TAB PO SCH (09:07)
[2020-04-01] MEDS: ASPIRIN 81 MG PO SCH (09:07)
[2020-04-01] MEDS: SOTALOL 80 MG TAB PO SCH ×2 (09:08→20:11)
[2020-04-01] MEDS: metFORMIN 500 MG TAB PO SCH ×2 (09:08→20:08)
[2020-04-01] MEDS: SACUBITRIL/VALSARTAN 24 MG-26 MG TABLET PO SCH ×2 (09:08→20:08)
[2020-04-01] MEDS: SPIRONOLACTONE 25 MG TAB PO SCH (09:08)
[2020-04-01] MEDS ORDERED: LIDOCAINE 1% INJ 10MG/ML (20 ML MDV) ONE ×2 (14:00→14:04)
[2020-04-01] MEDS ORDERED: MIDAZOLAM 2 MG/2 ML VIAL ONE (14:03)
[2020-04-01] MEDS ORDERED: PROPOFOL 10 MG/ML 20 ML VIAL IV ONE (14:03)
[2020-04-01] MEDS ORDERED: IV FLUID CONTINUATION 1,000 ML IV ONE (14:03)
[2020-04-01] MEDS ORDERED: fentaNYL (PF) 50 MCG/ML 2 ML AMP ONE (14:03)
[2020-04-01] MEDS ORDERED: LIDOCAINE 1% INJ 10MG/ML (20 ML MDV) SQ ONE (14:55)
[2020-04-01] MEDS ORDERED: VANCOMYCIN 1,000 MG in SODIUM CHLORIDE 0.9% 250 ML IVPB STA (15:19)
[2020-04-01] MEDS ORDERED: IOPAMIDOL-370 50ML BTL INJ ONE ×2 (16:37)
--- NOTE | 2020-04-01 16:52 | P.PN ---
Progress Note - Text Diagnosis Patient admitted with syncope. Documented ventricular fibrillation requiring internal defibrillation by single chamber ICD Complete heart block with RV pacing Ischemic cardio myopathy, known CAD , old NC CHF class II on guideline directed medical treatment upon admission Underlying left bundle branch block pattern QRS width of 192 ms Intermittent RV pacing, high RV pacing percentage Left ventricular ejection fraction 35-40% septal hypokinesis Procedure Upgrade to a biventricular ICD on account of heart failure, left bundle branch block, third degree heart block, increase RV pacing percentage Admitting diagnosis syncope and ventricular fibrillation Suggest Add sotalol 80 mg twice daily
--- NOTE | 2020-04-01 17:31 | PN ---
PROGRESS NOTE DATE OF SERVICE: 04/01/2020 This 55-year-old woman who was admitted with unconsciousness also had possibly cardiac arrhythmia. The patient is slated to undergo upgrade of AICD by Dr. Owen. Multiple episodes of bradycardia with a heart rate around 30 to 40 were noted. No chest pain. No palpitations. No fever. PHYSICAL EXAMINATION: Alert and oriented x3. Pulse 50, blood pressure 104/69, respiration 18, temperature 97.9, pulse ox 97% on room air. HEENT: Conjunctivae normal. NECK: No jugular venous distention. CARDIOVASCULAR SYSTEM: S1, S2 muffled. RESPIRATORY SYSTEM: Breath sounds diminished at the bases. No rhonchi. No crackles. ABDOMEN: Soft, non-tender. NERVOUS SYSTEM: No focal deficit. LABS: CBC within normal limits. Sodium 141, potassium 4.3. ASSESSMENT: 1. Unconsciousness, possibly secondary to cardiac arrhythmia as well as syncope and AICD shocks. 2. Bradycardia. 3. Increased creatinine with possible chronic kidney disease, stage 3. 4. History of coronary artery disease, coronary artery bypass grafting. 5. History of congestive heart failure with chronic diastolic dysfunction, ejection fraction 55% to 60%. 6. History of ischemic cardiomyopathy. 7. History of gastroesophageal reflux disease. 8. Possible urinary tract infection, present on admission, on empiric antibiotics. 9. Hyperlipidemia. 10.Hypertension, essential. 11.Chronic kidney disease, stage 2, likely nephrosclerosis. 12.Hypothyroidism. 13.Nephrolithiasis history. 14.Diabetes mellitus, type 2, on oral hypoglycemic agent. 15.FULL CODE. RECOMMENDATIONS AND DISCUSSION: I recommend to continue current medications, continue with the monitoring, symptomatic treatment. Cultures are negative so far. Continue with the antibiotics. Continue the rest of medications and EP studies by Cardiology. Further recommendations to follow. MMODL / IJN: [id number] /
[2020-04-01] MEDS: SODIUM CHLORIDE 0.9% 1,000 ML IV SCH (18:11)
[2020-04-01 18:16] LABS: Glucose,Whole Blood 100 mg/dL (75-99)
[2020-04-01 20:02] LABS: Glucose,Whole Blood 109 mg/dL (75-99)
[2020-04-01] MEDS: ATORVASTATIN 80 MG TAB PO SCH (20:08)
[2020-04-01] MEDS: METOPROLOL SUCCINATE (ER) 100 MG TAB.ER.24H PO SCH (20:08)
[2020-04-01] MEDS: FAMOTIDINE 20 MG TAB PO SCH (20:08)
[2020-04-01 22:13] VITALS: RESP 16
[2020-04-02] MEDS: SODIUM CHLORIDE 0.9% 1,000 ML IV SCH ×2 (03:42→06:12)
[2020-04-02 06:17] LABS: Glucose,Whole Blood 129 mg/dL (75-99)
[2020-04-02] MEDS: INSULIN ASPART (NovoLOG) 100 UNIT/ML VIAL SQ SCH (06:33)
[2020-04-02] MEDS: MAGNESIUM OXIDE 400 MG TAB PO SCH (09:03)
[2020-04-02] MEDS: SPIRONOLACTONE 25 MG TAB PO SCH (09:03)
[2020-04-02] MEDS: ASPIRIN 81 MG PO SCH (09:03)
[2020-04-02] MEDS: metFORMIN 500 MG TAB PO SCH (09:03)
[2020-04-02] MEDS: SOTALOL 80 MG TAB PO SCH (09:04)
[2020-04-02] MEDS: SACUBITRIL/VALSARTAN 24 MG-26 MG TABLET PO SCH (09:04)
[2020-04-02] MEDS: ACETAMINOPHEN TAB 325 MG TAB PO PRN (09:06)
[2020-04-02 09:18] VITALS: BP 135/76; PULSE 60; TEMP 98.2
--- NOTE | 2020-04-02 09:59 | PCN ---
PROCEDURE NOTE This is a 55-year-old female who presented with an episode of syncope while kneeling at work. She was actually found to have ventricular fibrillation and she received an appropriate ICD shock. She has known ischemic cardiomyopathy, ejection fraction around 40%, known CAD in the past. She also has underlying left bundle branch block with complete heart block with increased RV pacing percentage and AV dissociation. She for medical treatment for heart failure. She was brought in for a biventricular ICD implant. DESCRIPTION OF PROCEDURE: The patient is brought to the EP lab in a fasting state. Written informed consent was obtained prior to the procedure. The left shoulder area was prepped and draped as per protocol. 1% lidocaine was used for local anesthesia. An incision made about 2 cm medial to the deltopectoral groove and carried down to the level of the generator. The generator was explanted. A subfascial pocket was extended caudally. Partial capsulectomy was performed. The axillary vein was accessed at 2 separate points under fluoroscopy and via appropriately-sized introducer sheaths, 2 leads were positioned. The LV lead was positioned in the large lateral vein and the lead tip was securely positioned in the tributary of this large lateral vein. R-waves 9.7 mV, pacing impedance 933 ohms. Pacing threshold in the proximal poles 1.4 V at 0.5 milliseconds. In the distal poles, 1, 2 diaphragmatic stimulation was noted. This is an LV quartet. This was a [employer] quartet model #1458 QL, 75 cm length and serial number [id number]. The new atrial lead implanted was a [employer] tendril STS, model #2088TC, 52 cm in length and serial number [id number]. This was screwed in the right atrial appendage. P waves were 3.2 mV, pacing impedance 450 ohms, pacing threshold 1.1 V at 0.5 milliseconds, 10 V test negative. The patient has a chronically implanted [employer] ICD lead, DSX 0292, serial #[id number] that was originally implanted December 12, [address] Perez. R-waves greater than 12 mV. Pacing impedance 730 ohms, pacing threshold 0.75 V at 0.5 milliseconds, high-voltage impedance 64 ohms. All 3 leads were secured to the underlying pectoralis muscle. The pocket was irrigated. The old generator was then explanted. This was a [employer]nergen E140, serial #[id number]. Originally implanted December 12, 2015. The new generator implanted was a [place] CD 3369-40 Q and serial #[id number]. The leads and generator were then placed in subfascial pocket. The wound was closed in 3 layers and dressed per protocol. RESULT: 1. Successful upgrade to a biventricular ICD. 2. New atrial lead implanted. 3. New LV lead implanted in the lateral vein. 4. New biventricular ICD generator implanted. 5. Old single-chamber ICD generator explanted. DFT testing was not performed at this time, it was deferred. PLAN: 1. Continue sotalol 80 mg twice daily. 2. Continue all other heart failure medications. 3. Increase spironolactone to 50 mg p.o. daily and continue Slow-Mag. The device was then programmed to DDDR mode with AV delay 150 milliseconds. Pacing from electrodes LV, 2, 3. programming. Appropriate antitachycardia pacing cardioversion and defibrillation. MMODL / IJN: [id number] /
[2020-04-02 10:35] LABS: Calcium 8.6 mg/dL (8.4-10.2); Potassium 4.2 mmol/L (3.5-5.1)
[2020-04-02 10:44] LABS: Basophils # (A) 0.1 k/uL (0-0.2); Basophils % (A) 1 %; Eosinophils # (A) 0.1 k/uL (0-0.7); Eosinophils % (A) 1 %; HCT 37.7 % (34.0-46.0); Lymphocytes # (A) 1.5 k/uL (1.0-4.8); Lymphocytes % (A) 20 %; MCH 30.3 pg (25.0-35.0); MCHC 31.9 g/dL (31.0-37.0); MCV 94.8 fL (80.0-100.0); Mean Platelet Volume 11.3; Monocytes # (A) 0.5 k/uL (0-1.0); Monocytes % (A) 6 %; Neutrophils # (A) 5.4 k/uL (1.3-7.7); Neutrophils % (A) 72 %; Platelet Count 170 k/uL (150-450); RBC 3.98 m/uL (3.80-5.40); RDW 13.4 % (11.5-15.5); WBC 7.5 k/uL (3.8-10.6)
--- NOTE | 2020-04-02 10:54 | P.PRLE ---
RE: Sarita Coley Dear Luiza Stein came in with an episode of syncope. She was bending down helping the patient at work when she collapsed. She had no prior symptoms but her device interrogation revealed an episode of ventricular fibrillation, for which she received an appropriate shock. She is a single chamber ICD implanted a few years back In addition she was noted to have complete heart block with RV pacing I added sotalol 80 mg twice daily to her current medications, increased spironolactone to 50mg by mouth daily and added magnesium oxide She will continue metoprolol succinate as well as ENTRESTO and her other cardiac medications I also upgraded her to a biventricular ICD for heart failure management She will continue to follow with you and Dr. Perez as before Thank you for entrusting me with the care of the patient Warm regards Sincerely Jas Owen
--- NOTE | 2020-04-02 11:21 | P.PN ---
Subjective HISTORY OF PRESENTING ILLNESS This is a pleasant 55-year-old female past medical history significant for ischemic cardiomyopathy, chronic systolic heart failure, coronary artery disease, hypertension, dyslipidemia, complete heart block status post [employer] AICD 2016 and diabetes mellitus. She follows in the office with Dr. ePrez. Patient is status post BiV upgrade with Dr. Owen yesterday. She is seen and examined resting comfortably laying flat in bed in no acute distress. Blood pressure 135/76 heart rate 60 afebrile maintaining oxygen saturation on room air. Laboratory data reviewed, CBC unremarkable, sodium 141, potassium 4.2, creatinine 1.06. Currently maintained on sotalol 80 mg twice a day, aspirin 81 mg daily, atorvastatin 80 mg at bedtime, Slow-Mag 400 mg daily, Toprol 100 mg at bedtime and Aldactone 50 mg daily. PHYSICAL EXAMINATION Blood pressure 114/72 heart rate 60 afebrile and maintaining oxygen saturation on room air. CONSTITUTIONAL: No apparent distress. HEENT: Head is normocephalic. Pupils are equal, round. Sclerae anicteric. Mucous membranes of the mouth are moist. No JVD. No carotid bruit. CHEST EXAMINATION: Lungs are clear to auscultation. No chest wall tenderness is noted on palpation or with deep breathing. HEART EXAMINATION: Regular rate and rhythm. S1, S2 heard. No murmurs, gallops or rub. ABDOMEN: Soft, nontender. Positive bowel sounds. EXTREMITIES: 2+ peripheral pulses, no lower extremity edema and no calf tenderness. NEUROLOGIC EXAMINATION: Patient is awake, alert and oriented x3. ASSESSMENT Syncope Ventricular fibrillation status post AICD therapy Chronic systolic heart failure, clinically euvolemic Ischemic cardiomyopathy status post AICD Complete heart block Coronary artery disease status post PCI Hypertension Dyslipidemia Diabetes mellitus PLAN Stable for discharge on current medical regimen. Follow up with Dr. Perez in the office in 1-week. Nurse Practitioner note has been reviewed, I agree with a documented findings and plan of care. Patient was seen and examined. Objective - Vital Signs Vital signs: Vital Signs Temp 98.2 F 04/02/20 09:00 Pulse 60 04/02/20 09:00 Resp 16 04/02/20 09:00 BP 135/76 04/02/20 09:00 Pulse Ox 99 04/02/20 09:00 Intake & Output 04/01/20 04/02/2004/02/20 18:59 06:59 18:59 Intake Total 1050 Balance 1050 Intake: IV 1050 Oral 0 Other: Voiding Method Toilet Toilet # Voids 1 - Labs CBC & Chem 7: 04/02/20 08:55 04/02/20 08:55 Labs: Abnormal Lab Results - Last 24 Hours (Table) 04/01/20 04/01/20 04/02/20 Range/Units 18:04 20:00 06:15 BUN (7-17) mg/dL Creatinine (0.52-1.04) mg/dL Glucose (74-99) mg/dL POC Glucose (mg/dL) 100 H 109 H 129 H (75-99) mg/dL 04/02/20 Range/Units 08:55 BUN 19 H (7-17) mg/dL Creatinine 1.06 H (0.52-1.04) mg/dL Glucose 104 H (74-99) mg/dL POC Glucose (mg/dL) (75-99) mg/dL
--- NOTE | 2020-04-03 10:25 | DS ---
DISCHARGE SUMMARY DATE OF SERVICE: 04/02/2025 FINAL DIAGNOSES: 1. Unconscious, possibly secondary to cardiac arrhythmia as well as syncope and AICD shock. 2. Status post AICD upgrade to biventricular ICD. 3. Bradycardia, improved. 4. History of increased creatinine with possible chronic kidney stage 3. 5. History of coronary artery disease, coronary artery bypass grafting. 6. History of CHF, chronic diastolic dysfunction, ejection fraction 50%-60%. 7. History of ischemic cardiomyopathy. 8. History of gastroesophageal reflux disease. 9. Possible acute urinary tract infection present on admission, on empiric antibiotics. 10.Hyperlipidemia. 11.Hypertension. 12.Chronic kidney disease stage 2, likely nephrosclerosis. 13.Hypothyroidism. 14.Nephrolithiasis history. 15.Diabetes mellitus type 2 on oral hypoglycemic agents. 16.FULL CODE. DISCHARGE DISPOSITION: The patient will be discharged in a stable condition with guarded prognosis. HISTORY OF PRESENT ILLNESS: This 55-year-old woman was admitted with bradycardia, AICD shocks, and multiple other medical issues. Cardiology saw the patient. AICD upgrade was done with biventricular leads. Patient improved significantly. The patient also had a slightly elevated creatinine, which is rather stable at 1.76. Otherwise, treated symptomatically. On exam, vitals are stable. CARDIOVASCULAR SYSTEM: S1, S2. ABDOMEN: Soft. NERVOUS SYSTEM: No focal deficits. DISCHARGE ADVICE: 1. Discharge diet is cardiac diet. 2. Activity limited until followup. 3. Follow up with Dr. Tera Villanueva in 1 to 2 days. 4. Follow up with Cardiology as recommended. DISCHARGE MEDICATIONS: 1. Ecotrin 81 mg p.o. daily. 2. Entresto 1 p.o. b.i.d. 3. Glucophage 500 mg p.o. b.i.d. 4. Pepcid 20 mg q.h.s. 5. Metoprolol. 6. Toprol-XL 100 mg q.h.s. 7. Aldactone 50 mg daily. 8. Betapace at 80 mg b.i.d. 9. Lipitor 80 mg q.h.s. 10.Magnesium oxide 400 mg daily. 11.CBC, BMP in the outpatient setting with Dr. Tera Villanueva in 2-3 days and continue to follow potassium also. MMODL / IJN: [id number] /
== END 2020-04-02 12:09 | disposition home or self-care (01) | DRG 227 ==
LOC: EC 19:52 → 3NCARDOBS 21:32 → OBSVTOIN 03-29 11:22 → 3NCARDOBS 04-01 14:55
PROVIDERS: ADMIT Hospitalist; ATTEND Hospitalist
PROC: B51N1ZZ Fluoroscopy of Left Upper Extremity Veins using Low Osmolar Contrast (ICD-10-PCS; 2020-03-29 10:40)
PROC: 4B02XTZ Measurement of Cardiac Defibrillator, External Approach (ICD-10-PCS; 2020-03-29 10:40)
PROC: 02HL3KZ Insertion of Defibrillator Lead into Left Ventricle, Percutaneous Approach (ICD-10-PCS; principal; 2020-04-01 12:25)
PROC: 02H63KZ Insertion of Defibrillator Lead into Right Atrium, Percutaneous Approach (ICD-10-PCS; principal; 2020-04-01 12:25)
PROC: 02HK3KZ Insertion of Defibrillator Lead into Right Ventricle, Percutaneous Approach (ICD-10-PCS; principal; 2020-04-01 12:25)
PROC: 0JPT0PZ Removal of Cardiac Rhythm Related Device from Trunk Subcutaneous Tissue and Fascia, Open Approach (ICD-10-PCS; principal; 2020-04-01 12:25)
PROC: 0JH609Z Insertion of Cardiac Resynchronization Defibrillator Pulse Generator into Chest Subcutaneous Tissue and Fascia, Open Approach (ICD-10-PCS; principal; 2020-04-01 12:25)
DX: I44.2 Atrioventricular block, complete (principal); I13.0 Hypertensive heart and chronic kidney disease with heart failure and stage 1 through stage 4 chronic kidney disease, or unspecified chronic kidney disease; I50.42 Chronic combined systolic (congestive) and diastolic (congestive) heart failure; N39.0 Urinary tract infection, site not specified; I49.01 Ventricular fibrillation; I45.89 Other specified conduction disorders; E03.9 Hypothyroidism, unspecified; E11.22 Type 2 diabetes mellitus with diabetic chronic kidney disease; E78.5 Hyperlipidemia, unspecified; F41.9 Anxiety disorder, unspecified; F17.210 Nicotine dependence, cigarettes, uncomplicated; I25.10 Atherosclerotic heart disease of native coronary artery without angina pectoris; K21.9 Gastro-esophageal reflux disease without esophagitis; I25.5 Ischemic cardiomyopathy; N18.3 Chronic kidney disease, stage 3 (moderate); I44.7 Left bundle-branch block, unspecified; N20.0 Calculus of kidney; Z79.899 Other long term (current) drug therapy; I25.2 Old myocardial infarction; Z79.84 Long term (current) use of oral hypoglycemic drugs; Z79.82 Long term (current) use of aspirin; Z79.02 Long term (current) use of antithrombotics/antiplatelets; Z88.5 Allergy status to narcotic agent; Z88.8 Allergy status to other drugs, medicaments and biological substances; Z95.1 Presence of aortocoronary bypass graft; Z95.5 Presence of coronary angioplasty implant and graft; Z82.49 Family history of ischemic heart disease and other diseases of the circulatory system; Z87.442 Personal history of urinary calculi; Z90.710 Acquired absence of both cervix and uterus; Z80.0 Family history of malignant neoplasm of digestive organs; Z81.8 Family history of other mental and behavioral disorders; Z98.890 Other specified postprocedural states
CPT/HCPCS: 33225; 33249; 36005; 36415; 71046; 75820; 76000; 80048; 80053; 81001; 83735; 84439; 84443; 84484; 85025; 85610; 85730; 87086; 93005; 93306; 99285

== ENCOUNTER 2020-06-05 07:58 | Emergency (ER) | payer BC ==
[2020-06-05 08:04] VITALS: RESP 18
[2020-06-05] MEDS ORDERED: SODIUM CHLORIDE 0.9% 1,000 ML IV STA (08:15)
[2020-06-05] MEDS ORDERED: ONDANSETRON 4 MG/2 ML VIAL IVP STA (08:15)
[2020-06-05] MEDS ORDERED: ACETAMINOPHEN TAB 500 MG TAB PO STA (08:15)
--- NOTE | 2020-06-05 08:19 | ED ---
General Adult HPI - General Chief complaint: Nausea/Vomiting/Diarrhea Stated complaint: Vomiting/Headach/Aches/Sore Throat Time Seen by Provider: 06/05/20 08:06 Source: patient, RN notes reviewed Mode of arrival: ambulatory Limitations: no limitations - History of Present Illness Initial comments: Patient is a pleasant 55-year-old female presenting to the emergency department with multiple symptoms. Onset of symptoms was yesterday. Patient has nausea vomiting. No abdominal pain. Patient has had fevers chills and myalgias. Patient has fatigue. Patient does have cough. No dyspnea. No rhinorrhea. No loss of taste or smell. Patient has had headaches. - Related Data Home Medications Medication Instructions Recorded Confirmed Famotidine [Pepcid] 20 mg PO HS 05/20/16 06/05/20 Metoprolol Succinate (ER) [Toprol 100 mg PO HS 03/28/20 06/05/20 XL] Sacubitril/Valsartan [Entresto 24 1 tab PO BID 03/28/20 06/05/20 mg-26 mg Tablet] metFORMIN HCL [Glucophage] 500 mg PO BID 03/28/20 06/05/20 Ondansetron Odt [Zofran Odt] 4 mg PO Q8HR PRN 06/05/20 06/05/20 Previous Rx's Medication Instructions Recorded Atorvastatin [Lipitor] 80 mg PO HS #30 tab 02/09/18 Magnesium Oxide [Magox 400] 400 mg PO DAILY #90 tablet 04/01/20 Spironolactone [Aldactone] 50 mg PO DAILY tab 04/02/20 Ondansetron Odt [Zofran Odt] 4 mg PO Q8HR PRN #10 tab 06/05/20 Allergies Allergy/AdvReac Type Severity Reaction Status Date / Time hydrocodone bitartrate AdvReac Nausea & Verified 06/05/20 08:39 [From Vicodin] Vomiting propoxyphene napsylate AdvReac Vomiting Verified 06/05/20 08:39 [From Darvocet-N] Review of Systems ROS Statement: Those systems with pertinent positive or pertinent negative responses have been documented in the HPI. ROS Other: All systems not noted in ROS Statement are negative. Constitutional: Reports: fever, chills Eyes: Denies: eye pain ENT: Denies: ear pain Respiratory: Reports: cough. Denies: dyspnea Cardiovascular: Denies: chest pain Endocrine: Denies: fatigue Gastrointestinal: Reports: nausea, vomiting. Denies: abdominal pain Genitourinary: Denies: dysuria Musculoskeletal: Denies: back pain Skin: Denies: rash Neurological: Denies: weakness Past Medical History Past Medical History: Coronary Artery Disease (CAD), Chest Pain / Angina, Heart Failure, GERD/Reflux, Hyperlipidemia, Hypertension, Myocardial Infarction (IA), Renal Disease, Thyroid Disorder Additional Past Medical History / Comment(s): Ischemic cardiomyopathy, CKD stage II, nephrolithiasis, migraines, occasional back pain, hypothyroid. Last Myocardial Infarction Date:: 06-30-15 History of Any Multi-Drug Resistant Organisms: None Reported Past Surgical History: AICD, Heart Catheterization With Stent, Hernia Repair, Hysterectomy, Pacemaker Additional Past Surgical History / Comment(s): 2015 stents to lad,diag, 05/22/16 PTCA, bilateral oophorectomy, LT INGUINAL HERNIA REPAIR, CYSTOCOPY, LITHOTRIPSY,COLONOSCOPY, Past Anesthesia/Blood Transfusion Reactions: Postoperative Nausea & Vomiting (PONV) Additional Past Anesthesia/Blood Transfusion Reaction / Comment(s): MILD CLAUSTERPHOBIA Date of Last Stent Placement:: 06/30/15 Type of Cardiac Device: AICD Device Placement Date:: 12/12/15 Past Psychological History: Anxiety Smoking Status: Former smoker Past Alcohol Use History: Rare Past Drug Use History: None Reported - Past Family History Mother Family Medical History: Dementia Father Family Medical History: Cancer, Myocardial Infarction (IA) Additional Family Medical History / Comment(s): Pt does not recall age that father had his IA but states it was prior to age 60yrs. He also had a pacer and colon cancer, Sister(s) Family Medical History: Cancer, Hypertension Additional Family Medical History / Comment(s): breast/ colon cancer General Exam Limitations: no limitations General appearance: alert, in no apparent distress Head exam: Present: normocephalic Eye exam: Present: normal appearance Neck exam: Present: normal inspection. Absent: meningismus Respiratory exam: Present: normal lung sounds bilaterally Cardiovascular Exam: Present: regular rate, normal rhythm GI/Abdominal exam: Present: soft. Absent: distended, tenderness, guarding, rebound, rigid Extremities exam: Present: normal inspection Neurological exam: Present: alert Psychiatric exam: Present: normal affect, normal mood Skin exam: Present: normal color Course Vital Signs 06/05/20 06/05/20 07:59 09:26 Temperature 99.7 F H 100.5 F H Pulse Rate 105 H 96 Respiratory 18 18 Rate Blood Pressure 124/79 116/63 O2 Sat by Pulse 99 97 Oximetry Medical Decision Making - Medical Decision Making Patient reevaluated and feeling better. Patient updated on results and need for follow-up as well as need for quarantine. - Lab Data Result diagrams: 06/05/20 08:30 06/05/20 08:30 Lab Results 06/05/20 06/05/20 06/05/20 Range/Units 08:30 08:30 08:30 WBC 7.9 (3.8-10.6) k/uL RBC 4.43 (3.80-5.40) m/uL Hgb 13.3 (11.4-16.0) gm/dL Hct 41.0 (34.0-46.0) % MCV 92.5 (80.0-100.0) fL MCH 30.0 (25.0-35.0) pg MCHC 32.4 (31.0-37.0) g/dL RDW 13.6 (11.5-15.5) % Plt Count 207 (150-450) k/uL MPV 10.8 Neutrophils % 76 % Lymphocytes % 8 % Monocytes % 12 % Eosinophils % 0 % Basophils % 2 % Neutrophils # 5.9 (1.3-7.7) k/uL Lymphocytes # 0.7 L (1.0-4.8) k/uL Monocytes # 1.0 (0-1.0) k/uL Eosinophils # 0.0 (0-0.7) k/uL Basophils # 0.2 (0-0.2) k/uL PT 10.4 (9.0-12.0) sec INR 1.0 (<1.2) APTT 25.0 (22.0-30.0) sec Sodium 137 (137-145) mmol/L Potassium 4.4 (3.5-5.1) mmol/L Chloride 101 (98-107) mmol/L Carbon Dioxide 28 (22-30) mmol/L Anion Gap 8 mmol/L BUN 21 H (7-17) mg/dL Creatinine 1.26 H (0.52-1.04) mg/dL Est GFR (CKD-EPI)AfAm 55 (>60 ml/min/1.73 sqM) Est GFR (CKD-EPI)NonAf 48 (>60 ml/min/1.73 sqM) Glucose 155 H (74-99) mg/dL Plasma Lactic Acid Srinath (0.7-2.0) mmol/L Calcium 9.8 (8.4-10.2) mg/dL Magnesium 1.6 (1.6-2.3) mg/dL Total Bilirubin 0.7 (0.2-1.3) mg/dL AST 48 H (14-36) U/L ALT 44 H (4-34) U/L Alkaline Phosphatase 76 (38-126) U/L Lactate Dehydrogenase 735 H (313-618) U/L C-Reactive Protein <5.0 (<10.0) mg/L Total Protein 7.8 (6.3-8.2) g/dL Albumin 4.6 (3.5-5.0) g/dL Coronavirus (PCR) (Not Detectd) 06/05/20 06/05/20 Range/Units 08:30 09:25 WBC (3.8-10.6) k/uL RBC (3.80-5.40) m/uL Hgb (11.4-16.0) gm/dL Hct (34.0-46.0) % MCV (80.0-100.0) fL MCH (25.0-35.0) pg MCHC (31.0-37.0) g/dL RDW (11.5-15.5) % Plt Count (150-450) k/uL MPV Neutrophils % % Lymphocytes % % Monocytes % % Eosinophils % % Basophils % % Neutrophils # (1.3-7.7) k/uL Lymphocytes # (1.0-4.8) k/uL Monocytes # (0-1.0) k/uL Eosinophils # (0-0.7) k/uL Basophils # (0-0.2) k/uL PT (9.0-12.0) sec INR (<1.2) APTT (22.0-30.0) sec Sodium (137-145) mmol/L Potassium (3.5-5.1) mmol/L Chloride (98-107) mmol/L Carbon Dioxide (22-30) mmol/L Anion Gap mmol/L BUN (7-17) mg/dL Creatinine (0.52-1.04) mg/dL Est GFR (CKD-EPI)AfAm (>60 ml/min/1.73 sqM) Est GFR (CKD-EPI)NonAf (>60 ml/min/1.73 sqM) Glucose (74-99) mg/dL Plasma Lactic Acid Srinath 1.1 (0.7-2.0) mmol/L Calcium (8.4-10.2) mg/dL Magnesium (1.6-2.3) mg/dL Total Bilirubin (0.2-1.3) mg/dL AST (14-36) U/L ALT (4-34) U/L Alkaline Phosphatase (38-126) U/L Lactate Dehydrogenase (313-618) U/L C-Reactive Protein (<10.0) mg/L Total Protein (6.3-8.2) g/dL Albumin (3.5-5.0) g/dL Coronavirus (PCR) Detected A (Not Detectd) - Radiology Data Radiology results: image reviewed (Chest x-ray shows no acute process) Disposition Clinical Impression: Vomiting, COVID-19 Disposition: HOME SELF-CARE Condition: Stable Instructions (If sedation given, give patient instructions): Acute Nausea and Vomiting (ED) Additional Instructions: Please follow-up with primary care physician in the next couple days for recheck. Please self quarantined for 10 days following onset of symptoms. [id number] Tylenol as needed for fever. [id number] vitamin D, vitamin C, and zinc daily. Return for not tolerating fluids, difficulty breathing, worsening symptoms or other concerns. Prescription sent to [facility] at [facility] Prescriptions: Ondansetron Odt [Zofran Odt] 4 mg PO Q8HR PRN #10 tab PRN Reason: Nausea Is patient prescribed a controlled substance at d/c from ED?: No Referrals: Tera Villanueva DO [Primary Care Provider] - 1-2 days Time of Disposition: 10:30
[2020-06-05 08:59] LABS: Prothrombin Time 10.4 sec (9.0-12.0)
[2020-06-05 09:00] LABS: ALT 44 U/L (4-34); AST 48 U/L (14-36); African American GFR (CKD) 55 (>60 ml/min/1.73 sqM); Albumin 4.6 g/dL (3.5-5.0); Alkaline Phosphatase 76 U/L (38-126); Anion Gap 8 mmol/L; Blood Urea Nitrogen 21 mg/dL (7-17); C Reactive Protein <5.0 mg/L (<10.0); Calcium 9.8 mg/dL (8.4-10.2); Carbon Dioxide 28 mmol/L (22-30); Chloride 101 mmol/L (98-107); Glucose 155 mg/dL (74-99); LDH 735 U/L (313-618); Magnesium 1.6 mg/dL (1.6-2.3); Non-African American GFR(CKD) 48 (>60 ml/min/1.73 sqM); Potassium 4.4 mmol/L (3.5-5.1); Sodium 137 mmol/L (137-145); Total Bilirubin 0.7 mg/dL (0.2-1.3); Total Protein 7.8 g/dL (6.3-8.2)
--- NOTE | 2020-06-05 09:03 | XR ---
EXAMINATION TYPE: XR chest 1V portable DATE OF EXAM: 06/05/2020 COMPARISON: 03/28/2020 HISTORY: Vomiting, headache, sore throat and body aches TECHNIQUE: Single frontal view of the chest is obtained. FINDINGS: Cardiac device is seen in the heart size is within normal limits. There is no obvious cons olidation or pleural effusion. No interstitial edema. Interstitium stable from prior exam. IMPRESSION: No acute process.
[2020-06-05 09:06] LABS: Basophils # (A) 0.2 k/uL (0-0.2); Basophils % (A) 2 %; Eosinophils % (A) 0 %; HGB 13.3 gm/dL (11.4-16.0); Lymphocytes # (A) 0.7 k/uL (1.0-4.8); Lymphocytes % (A) 8 %; MCHC 32.4 g/dL (31.0-37.0); MCV 92.5 fL (80.0-100.0); Mean Platelet Volume 10.8; Monocytes % (A) 12 %; Neutrophils # (A) 5.9 k/uL (1.3-7.7); Neutrophils % (A) 76 %; Platelet Count 207 k/uL (150-450); RBC 4.43 m/uL (3.80-5.40); RDW 13.6 % (11.5-15.5); WBC 7.9 k/uL (3.8-10.6)
[2020-06-05 11:06] VITALS: BP 114/64; PULSE 78; TEMP 98.6
[2020-06-05 15:11] LABS: Ferritin 77.2 ng/mL (10.0-291.0)
== END 2020-06-05 11:00 | disposition home or self-care (01) ==
LOC: EC 07:58
DX: U07.1 COVID-19 (principal); R11.10 Vomiting, unspecified; I25.119 Atherosclerotic heart disease of native coronary artery with unspecified angina pectoris; I13.0 Hypertensive heart and chronic kidney disease with heart failure and stage 1 through stage 4 chronic kidney disease, or unspecified chronic kidney disease; I50.9 Heart failure, unspecified; N18.2 Chronic kidney disease, stage 2 (mild); I25.5 Ischemic cardiomyopathy; I25.2 Old myocardial infarction; E78.5 Hyperlipidemia, unspecified; E03.9 Hypothyroidism, unspecified; K21.9 Gastro-esophageal reflux disease without esophagitis; Z79.899 Other long term (current) drug therapy; Z79.84 Long term (current) use of oral hypoglycemic drugs; Z88.5 Allergy status to narcotic agent; Z88.6 Allergy status to analgesic agent; Z87.891 Personal history of nicotine dependence; Z95.0 Presence of cardiac pacemaker; Z90.722 Acquired absence of ovaries, bilateral
CPT/HCPCS: 36415; 80053; 82728; 83605; 83615; 83735; 85025; 85610; 85730; 86140; 84145; 87635; 71045; 99284; 96374; 96361; J2405

== ENCOUNTER 2020-06-10 10:07 | Emergency (ER) | payer BC ==
[2020-06-10 10:27] VITALS: RESP 18
[2020-06-10] MEDS ORDERED: SODIUM CHLORIDE 0.9% 1,000 ML IV ONE (10:39)
[2020-06-10] MEDS ORDERED: SODIUM CHLORIDE 0.9% 500 ML 500 ML IV ONE (10:39)
[2020-06-10] MEDS ORDERED: METOCLOPRAMIDE 5 MG/ML 2 ML VIAL IVP STA (10:40)
[2020-06-10] MEDS ORDERED: diphenhydrAMINE 50 MG/ML 1 ML VIAL IVP STA (10:40)
[2020-06-10] MEDS ORDERED: MECLIZINE 12.5 MG TAB PO STA (10:40)
--- NOTE | 2020-06-10 10:45 | ED ---
General Adult HPI - General Chief complaint: Dizziness Stated complaint: Cough,Dizziness Time Seen by Provider: 06/10/20 10:28 Source: patient, RN notes reviewed Mode of arrival: wheelchair Limitations: no limitations - History of Present Illness Initial comments: This a 55-year-old female presents emergency Department with chief complaint of ongoing short of breath nausea vomiting dizziness. Patient was diagnosed with coronavirus last week. Patient states she started symptoms 6 days ago. She is intermittent shortness of breath. Patient states that she's had fevers chills body aches. Patient states she has extreme dizziness, nausea vomiting diarrhea. Patient has no localized abdominal pain states she has cramping diffusely. Patient states every time she tries take [id number] vitamins makes it worse. She was discharged with Zofran which seemed to help but she is out of her medication now. - Related Data Home Medications Medication Instructions Recorded Confirmed Famotidine [Pepcid] 20 mg PO HS 05/20/16 06/10/20 Metoprolol Succinate (ER) [Toprol 100 mg PO HS 03/28/20 06/10/20 XL] Sacubitril/Valsartan [Entresto 24 1 tab PO BID 03/28/20 06/10/20 mg-26 mg Tablet] metFORMIN HCL [Glucophage] 500 mg PO BID 03/28/20 06/10/20 Ondansetron Odt [Zofran Odt] 4 mg PO Q8HR PRN 06/05/20 06/10/20 Aspirin 81 mg PO DAILY 06/10/20 06/10/20 Sotalol [Betapace] 80 mg PO BID 06/10/20 06/10/20 Previous Rx's Medication Instructions Recorded Atorvastatin [Lipitor] 80 mg PO HS #30 tab 02/09/18 Magnesium Oxide [Magox 400] 400 mg PO DAILY #90 tablet 04/01/20 Spironolactone [Aldactone] 50 mg PO DAILY tab 04/02/20 Meclizine [Antivert] 25 mg PO TID PRN #20 tab 06/10/20 Ondansetron Odt [Zofran Odt] 4 mg PO Q8HR PRN #14 tab 06/10/20 Allergies Allergy/AdvReac Type Severity Reaction Status Date / Time hydrocodone bitartrate AdvReac Nausea & Verified 06/10/20 11:03 [From Vicodin] Vomiting propoxyphene napsylate AdvReac Vomiting Verified 06/10/20 11:03 [From Darvocet-N] Review of Systems ROS Statement: Those systems with pertinent positive or pertinent negative responses have been documented in the HPI. ROS Other: All systems not noted in ROS Statement are negative. Past Medical History Past Medical History: Coronary Artery Disease (CAD), Chest Pain / Angina, Heart Failure, GERD/Reflux, Hyperlipidemia, Hypertension, Myocardial Infarction (VT), Renal Disease, Thyroid Disorder Additional Past Medical History / Comment(s): Ischemic cardiomyopathy, CKD stage II, nephrolithiasis, migraines, occasional back pain, hypothyroid. Last Myocardial Infarction Date:: 06-30-15 History of Any Multi-Drug Resistant Organisms: None Reported Past Surgical History: AICD, Heart Catheterization With Stent, Hernia Repair, Hysterectomy, Pacemaker Additional Past Surgical History / Comment(s): 2015 stents to lad,diag, 05/22/16 PTCA, bilateral oophorectomy, LT INGUINAL HERNIA REPAIR, CYSTOCOPY, LITHOTRIPSY,COLONOSCOPY, Past Anesthesia/Blood Transfusion Reactions: Postoperative Nausea & Vomiting (PONV) Additional Past Anesthesia/Blood Transfusion Reaction / Comment(s): MILD CLAUSTERPHOBIA Date of Last Stent Placement:: 06/30/15 Type of Cardiac Device: AICD Device Placement Date:: 12/12/15 Past Psychological History: Anxiety Smoking Status: Former smoker Past Alcohol Use History: Rare Past Drug Use History: None Reported - Past Family History Mother Family Medical History: Dementia Father Family Medical History: Cancer, Myocardial Infarction (VT) Additional Family Medical History / Comment(s): Pt does not recall age that f katalina had his VT but states it was prior to age 60yrs. He also had a pacer and colon cancer, Sister(s) Family Medical History: Cancer, Hypertension Additional Family Medical History / Comment(s): breast/ colon cancer General Exam Limitations: no limitations General appearance: alert, in no apparent distress Head exam: Present: atraumatic, normocephalic, normal inspection Eye exam: Present: normal appearance, PERRL, EOMI. Absent: scleral icterus, conjunctival injection, periorbital swelling ENT exam: Present: normal exam, normal oropharynx, mucous membranes moist Neck exam: Present: normal inspection, full ROM. Absent: tenderness, meningismus, lymphadenopathy Respiratory exam: Present: normal lung sounds bilaterally. Absent: respiratory distress, wheezes, rales, rhonchi, stridor Cardiovascular Exam: Present: regular rate, normal rhythm, normal heart sounds. Absent: systolic murmur, diastolic murmur, rubs, gallop, clicks GI/Abdominal exam: Present: soft, tenderness (Mild diffuse), normal bowel sounds. Absent: distended, guarding, rebound, rigid Back exam: Absent: CVA tenderness (R), CVA tenderness (L) Neurological exam: Present: alert, oriented X3 Skin exam: Present: warm, dry, intact, normal color. Absent: rash Course Vital Signs 06/10/20 06/10/20 06/10/20 10:24 11:32 12:42 Temperature 98.4 F 99.3 F 98 F Pulse Rate 75 68 64 Respiratory 18 18 18 Rate Blood Pressure 116/75 127/60 127/64 O2 Sat by Pulse 97 100 100 Oximetry Medical Decision Making - Medical Decision Making 55-year-old presented for COVID. Patient's labs were not simply changed, x-rays unremarkable. Patient was hydrated, given antiemetics and feels greatly improved. Patient discharged in stable condition. - Lab Data Result diagrams: 06/10/20 11:02 06/10/20 11:02 Lab Results 06/10/20 06/10/20 06/10/20 Range/Units 11:02 11:02 11:02 WBC 5.2 (3.8-10.6) k/uL RBC 4.41 (3.80-5.40) m/uL Hgb 13.9 (11.4-16.0) gm/dL Hct 40.3 (34.0-46.0) % MCV 91.4 (80.0-100.0) fL MCH 31.4 (25.0-35.0) pg MCHC 34.4 (31.0-37.0) g/dL RDW 13.2 (11.5-15.5) % Plt Count 165 (150-450) k/uL MPV 10.1 Neutrophils % 61 % Lymphocytes % 28 % Monocytes % 7 % Eosinophils % 0 % Basophils % 2 % Neutrophils # 3.1 (1.3-7.7) k/uL Lymphocytes # 1.5 (1.0-4.8) k/uL Monocytes # 0.4 (0-1.0) k/uL Eosinophils # 0.0 (0-0.7) k/uL Basophils # 0.1 (0-0.2) k/uL PT 10.0 (9.0-12.0) sec INR 1.0 (<1.2) APTT 27.0 (22.0-30.0) sec D-Dimer 0.38 (<0.60) mg/L FEU Sodium 139 (137-145) mmol/L Potassium 3.9 (3.5-5.1) mmol/L Chloride 105 (98-107) mmol/L Carbon Dioxide 27 (22-30) mmol/L Anion Gap 7 mmol/L BUN 18 H (7-17) mg/dL Creatinine 1.08 H (0.52-1.04) mg/dL Est GFR (CKD-EPI)AfAm 66 (>60 ml/min/1.73 sqM) Est GFR (CKD-EPI)NonAf 58 (>60 ml/min/1.73 sqM) Glucose 126 H (74-99) mg/dL Plasma Lactic Acid Srinath (0.7-2.0) mmol/L Calcium 9.1 (8.4-10.2) mg/dL Magnesium 1.9 (1.6-2.3) mg/dL Total Bilirubin 0.5 (0.2-1.3) mg/dL AST 64 H (14-36) U/L ALT 64 H (4-34) U/L Alkaline Phosphatase 57 (38-126) U/L Lactate Dehydrogenase 846 H (313-618) U/L C-Reactive Protein 17.3 H (<10.0) mg/L Total Protein 7.1 (6.3-8.2) g/dL Albumin 4.0 (3.5-5.0) g/dL 06/10/20 Range/Units 11:02 WBC (3.8-10.6) k/uL RBC (3.80-5.40) m/uL Hgb (11.4-16.0) gm/dL Hct (34.0-46.0) % MCV (80.0-100.0) fL MCH (25.0-35.0) pg MCHC (31.0-37.0) g/dL RDW (11.5-15.5) % Plt Count (150-450) k/uL MPV Neutrophils % % Lymphocytes % % Monocytes % % Eosinophils % % Basophils % % Neutrophils # (1.3-7.7) k/uL Lymphocytes # (1.0-4.8) k/uL Monocytes # (0-1.0) k/uL Eosinophils # (0-0.7) k/uL Basophils # (0-0.2) k/uL PT (9.0-12.0) sec INR (<1.2) APTT (22.0-30.0) sec D-Dimer (<0.60) mg/L FEU Sodium (137-145) mmol/L Potassium (3.5-5.1) mmol/L Chloride (98-107) mmol/L Carbon Dioxide (22-30) mmol/L Anion Gap mmol/L BUN (7-17) mg/dL Creatinine (0.52-1.04) mg/dL Est GFR (CKD-EPI)AfAm (>60 ml/min/1.73 sqM) Est GFR (CKD-EPI)NonAf (>60 ml/min/1.73 sqM) Glucose (74-99) mg/dL Plasma Lactic Acid Srinath 1.0 (0.7-2.0) mmol/L Calcium (8.4-10.2) mg/dL Magnesium (1.6-2.3) mg/dL Total Bilirubin (0.2-1.3) mg/dL AST (14-36) U/L ALT (4-34) U/L Alkaline Phosphatase (38-126) U/L Lactate Dehydrogenase (313-618) U/L C-Reactive Protein (<10.0) mg/L Total Protein (6.3-8.2) g/dL Albumin (3.5-5.0) g/dL Disposition Clinical Impression: COVID-19, Nausea & vomiting, Dizziness Disposition: HOME SELF-CARE Condition: Stable Instructions (If sedation given, give patient instructions): Dizziness (ED) Additional Instructions: Please return to the Emergency Department if symptoms worsen or any other concerns. Prescriptions: Meclizine [Antivert] 25 mg PO TID PRN #20 tab PRN Reason: Vertigo Ondansetron Odt [Zofran Odt] 4 mg PO Q8HR PRN #14 tab PRN Reason: Nausea Is patient prescribed a controlled substance at d/c from ED?: No Referrals: Tera Villanueva DO [Primary Care Provider] - 1-2 days Time of Disposition: 13:05
[2020-06-10 11:14] LABS: Basophils # (A) 0.1 k/uL (0-0.2); Basophils % (A) 2 %; Eosinophils % (A) 0 %; HCT 40.3 % (34.0-46.0); HGB 13.9 gm/dL (11.4-16.0); Lymphocytes # (A) 1.5 k/uL (1.0-4.8); Lymphocytes % (A) 28 %; MCH 31.4 pg (25.0-35.0); MCHC 34.4 g/dL (31.0-37.0); MCV 91.4 fL (80.0-100.0); Mean Platelet Volume 10.1; Monocytes # (A) 0.4 k/uL (0-1.0); Monocytes % (A) 7 %; Neutrophils # (A) 3.1 k/uL (1.3-7.7); Neutrophils % (A) 61 %; Platelet Count 165 k/uL (150-450); RBC 4.41 m/uL (3.80-5.40); RDW 13.2 % (11.5-15.5); WBC 5.2 k/uL (3.8-10.6)
[2020-06-10 11:24] LABS: C Reactive Protein 17.3 mg/L (<10.0); Calcium 9.1 mg/dL (8.4-10.2); Magnesium 1.9 mg/dL (1.6-2.3); Potassium 3.9 mmol/L (3.5-5.1); Total Bilirubin 0.5 mg/dL (0.2-1.3); Total Protein 7.1 g/dL (6.3-8.2)
[2020-06-10 11:33] LABS: D-Dimer 0.38 mg/L FEU (<0.60)
--- NOTE | 2020-06-10 11:33 | XR ---
EXAMINATION TYPE: XR chest 2V DATE OF EXAM: 06/10/2020 COMPARISON: 06/05/2020 HISTORY: 55 year-old female shortness of breath TECHNIQUE: PA and lateral views FINDINGS: Left anterior chest wall AICD generator with right atrial, right ventricular, and coronary sinus lead s. Heart normal size. Mild interstitial prominence is unchanged and is a chronic appearance. No conso lidation or pleural effusion. IMPRESSION: Chronic appearing changes. No acute cardiopulmonary process.
[2020-06-10 12:43] VITALS: BP 127/64; PULSE 64; TEMP 98
[2020-06-10 19:21] LABS: Ferritin 201.4 ng/mL (10.0-291.0)
== END 2020-06-10 13:20 | disposition home or self-care (01) ==
LOC: EC 10:07
DX: U07.1 COVID-19 (principal); R11.2 Nausea with vomiting, unspecified; R42 Dizziness and giddiness; I13.0 Hypertensive heart and chronic kidney disease with heart failure and stage 1 through stage 4 chronic kidney disease, or unspecified chronic kidney disease; N18.2 Chronic kidney disease, stage 2 (mild); I50.9 Heart failure, unspecified; I25.119 Atherosclerotic heart disease of native coronary artery with unspecified angina pectoris; K21.9 Gastro-esophageal reflux disease without esophagitis; I25.2 Old myocardial infarction; Z79.899 Other long term (current) drug therapy; Z79.82 Long term (current) use of aspirin; Z79.84 Long term (current) use of oral hypoglycemic drugs; Z88.5 Allergy status to narcotic agent; Z95.810 Presence of automatic (implantable) cardiac defibrillator; Z87.891 Personal history of nicotine dependence; Z95.5 Presence of coronary angioplasty implant and graft
CPT/HCPCS: 36415; 85379; 80053; 82728; 83605; 83615; 83735; 85025; 85610; 85730; 86140; 84145; 71046; 99284; 96374; 96375; 96361 ×2; J1200; J2765

== ENCOUNTER → 2020-09-09 | Outpatient (CLI) | payer BC ==
--- NOTE | 2020-09-09 17:27 | CT ---
Study: CTA of the abdomen and pelvis and lower extremity with contrast. TECHNIQUE: Axial CT images of the abdomen and pelvis and lower extremities was performed after admini stration of contrast. CT angiogram protocol was utilized. 3-D reconstruction was performed. Images, sagittal and coronal images were also provided. HISTORY: Decreased bilateral growth distal popliteal pulses. COMPARISON: No prior imaging is available for comparison. FINDINGS: Visualized lower lung rm are clear. Liver, spleen, stomach, and pancreas are within normal limits. Cholecystectomy clips are seen in the gallbladder fossa. Bowel loops do not appear dilated or obstructed. There is no retroperitoneal lymph adenopathy no free fluid is seen in the abdomen or pelvis. There is no abdominal aortic aneurysm. No significant atherosclerotic disease is seen in the abdomina l aorta or the major branch vessels in the abdomen. Iliac arteries are patent. Common femoral arteries are patent. Popliteal arteries are patent. Three-v essel runoff is seen bilaterally. IMPRESSION: 1. No abdominal aortic aneurysm. 2. Iliac, common femoral, and popliteal arteries are patent.. Three-vessel runoff is seen bilaterally to the level of the foot bilaterally.
--- NOTE | 2020-09-10 14:54 | MM ---
Reason for exam: screening (asymptomatic). Last mammogram was performed 3 years and 7 months ago. History: Patient is postmenopausal. Family history of premenopausal breast cancer in sister at age 45. Took hormonal contraceptives for 1 year. Physical Findings: A clinical breast exam by your physician is recommended on an annual basis and results should be correlated with mammographic findings. MG 3D Screening Mammo W/Cad Bilateral CC and MLO view(s) were taken. Prior study comparison: February 10, 2017, bilateral MG 3d screening mammo w/cad. No significant changes when compared with prior studies. ASSESSMENT: Benign, BI-RAD 2 RECOMMENDATION: Routine screening mammogram of both breasts in 1 year.
== END | disposition home or self-care (01) ==
LOC: RADCTMAIN 15:25
PROVIDERS: ATTEND Family Medicine
DX: Z12.31 Encounter for screening mammogram for malignant neoplasm of breast (principal); R09.89 Other specified symptoms and signs involving the circulatory and respiratory systems; R93.89 Abnormal findings on diagnostic imaging of other specified body structures; Z13.9 Encounter for screening, unspecified
CPT/HCPCS: 82565; 84520; 77067; 77063; 36415; 73706; Q9967

== ENCOUNTER → 2020-11-12 | Outpatient (CLI) | payer BC ==
[2020-11-12 12:07] LABS: African American GFR (CKD) 72.9 (60.0-200.0); Anion Gap 9.3 mmol/L (4.00-12.00); Calcium 9.2 mg/dL (8.7-10.3); Carbon Dioxide 28.7 mmol/L (21.6-31.8); Chol/HDL Ratio 2.78; LDL Cholesterol,Calculated 55.8 mg/dL (0.0-131.0); Non-African American GFR(CKD) 62.9 (60.0-200.0); Potassium 4.7 mmol/L (3.5-5.5); VLDL Calculation 26.2 mg/dL (5.00-40.00)
== END | disposition home or self-care (01) ==
LOC: LABWHC1 07:25
PROVIDERS: ATTEND Internal Medicine Cardiovascular Disease
DX: I50.9 Heart failure, unspecified (principal); E78.5 Hyperlipidemia, unspecified
CPT/HCPCS: 36415; 80048; 80061

== ENCOUNTER → 2020-12-09 | Outpatient (CLI) | payer BC ==
[2020-12-09 07:35] LABS: HCT 35.4 % (34.0-46.0); HGB 12.3 gm/dL (11.4-16.0); MCH 32.6 pg (25.0-35.0); MCHC 34.9 g/dL (31.0-37.0); MCV 93.3 fL (80.0-100.0); Mean Platelet Volume 10.3; Platelet Count 186 k/uL (150-450); RBC 3.79 m/uL (3.80-5.40); RDW 13.5 % (11.5-15.5); WBC 7.4 k/uL (3.8-10.6)
[2020-12-09 07:45] LABS: Potassium 4.3 mmol/L (3.5-5.1)
== END | disposition home or self-care (01) ==
LOC: LABPAT 07:01
PROVIDERS: ATTEND Internal Medicine Clinical Cardiac Electrophysiology
DX: Z01.812 Encounter for preprocedural laboratory examination (principal); I25.5 Ischemic cardiomyopathy
CPT/HCPCS: 36415; 80051; 82565; 84520; 85027

== ENCOUNTER 2020-12-23 06:49 | Day surgery (SDC) | payer BC ==
[2020-12-20 10:53] VITALS: BMI 42.0
[~2020-12-23 06:49] MED LIST: LACTATED RINGERS 1,000 ML IV SCH; SODIUM CHLORIDE 0.9% 1,000 ML IV SCH
[2020-12-23 07:18] LABS: Glucose,Whole Blood 196 mg/dL (75-99)
[2020-12-23 07:21] VITALS: RESP 18; TEMP 97.8
[2020-12-23] MEDS ORDERED: PROPOFOL 10 MG/ML 20 ML VIAL IV ONE (12:20)
[2020-12-23] MEDS ORDERED: MIDAZOLAM 2 MG/2 ML VIAL ONE (12:20)
--- NOTE | 2020-12-23 13:21 | P.EPPROC ---
- EP Procedure Note Electrophysiology Procedure Note: Diagnosis Nonischemic cardio myopathy History of ventricular fibrillation History of upgrade to a biventricular ICD, [facility], Debraa Maryura MP [id number] Q OVEN TENDER BAGELS-D Defibrillation level testing Ventricular fibrillation was induced and successfully internally defibrillated with a 10 J shock No dropouts Charge time 1.5 seconds High-voltage impedance 72 ohms No post shock noise The biventricular ICD was then reprogrammed Appropriate antitachycardia pacing cardioversion and defibrillation programmed First cardioversion 10 J, first defibrillation 20 J MADIT RIT programming Sensitivity 0.5 mV Atrial pacing threshold 0.75 V at 0.5 ms, P waves greater than 5 mV and pacing impedance 610 ohms RV pacing threshold 1 V at 0.5 ms, R waves greater than 11 mV and pacing impedance 730 ohms LV pacing threshold 1.5 V at 1 ms, pacing impedance 790 ohms High-voltage impedance 72 ohms, RV to Can LV offset 15 ms Threshold start has been programmed at 1.7 mV previously Impression Normal biventricular ICD function DFT at a below 10 J, detected and treated appropriately at least sensitivity Biventricular ICD reprogrammed according to the MADIT RIT programming parameters Sensitivity at 0.5 mV
[2020-12-23 13:39] VITALS: BP 121/64; PULSE 76
== END 2020-12-23 13:42 | disposition home or self-care (01) ==
LOC: CATHEP 06:49
PROVIDERS: ATTEND Internal Medicine Clinical Cardiac Electrophysiology
DX: Z45.02 Encounter for adjustment and management of automatic implantable cardiac defibrillator (principal); I42.8 Other cardiomyopathies; I49.01 Ventricular fibrillation; E78.5 Hyperlipidemia, unspecified; I11.0 Hypertensive heart disease with heart failure; I50.9 Heart failure, unspecified; I44.7 Left bundle-branch block, unspecified; I44.2 Atrioventricular block, complete; Z79.899 Other long term (current) drug therapy; Z79.82 Long term (current) use of aspirin; I25.10 Atherosclerotic heart disease of native coronary artery without angina pectoris; I34.0 Nonrheumatic mitral (valve) insufficiency
CPT/HCPCS: 93642; J2250; J2704

== ENCOUNTER 2021-10-02 09:45 | Emergency (ER) | payer BC ==
[2021-10-02] MEDS ORDERED: KETOROLAC 15 MG/ML 1 ML VIAL IVP STA (10:18)
--- NOTE | 2021-10-02 10:18 | ED ---
Chest Pain HPI - General Chief Complaint: Chest Pain Stated Complaint: Chest pain Time Seen by Provider: 10/02/21 09:56 Source: patient, RN notes reviewed, old records reviewed Mode of arrival: wheelchair Limitations: no limitations - History of Present Illness Initial Comments: This is a 56-year-old female history of cardiomyopathy and CHF AICD who states she's had intermittent episodes of chest pain and lightheadedness for the past week she states chest pain is sharp in 9/10 severity located in the lower chest and seemed to go to the back she also is had some tingling in the left side of her face and left hand intermittently. Distally some numbness to left side of her face currently no such complaints. No fevers chills nausea vomiting sweats she states she's been bending over a lot. No other complaints of trauma fevers chills sweats cough or phlegm production. MD Complaint: chest pain - Related Data Home Medications Medication Instructions Recorded Confirmed Famotidine [Pepcid] 20 mg PO HS 05/20/16 10/02/21 Metoprolol Succinate (ER) [Toprol 100 mg PO HS 03/28/20 10/02/21 XL] Sacubitril/Valsartan [Entresto 24 1 tab PO BID 03/28/20 10/02/21 mg-26 mg Tablet] metFORMIN HCL [Glucophage] 500 mg PO BID 03/28/20 10/02/21 Aspirin 81 mg PO DAILY 06/10/20 10/02/21 Sotalol [Betapace] 80 mg PO BID 06/10/20 10/02/21 Insulin Glargine,Hum.rec.anlog 36 units SQ HS 10/02/21 10/02/21 [John Fang] Spironolactone 50 mg PO DAILY 10/02/21 10/02/21 Previous Rx's Medication Instructions Recorded Atorvastatin [Lipitor] 80 mg PO HS #30 tab 02/09/18 Magnesium Oxide [Magox 400] 400 mg PO DAILY #90 tablet 04/01/20 Ibuprofen 800 mg PO Q6HR PRN #20 tablet 10/02/21 Allergies Allergy/AdvReac Type Severity Reaction Status Date / Time hydrocodone bitartrate AdvReac Nausea & Verified 10/02/21 10:55 [From Vicodin] Vomiting propoxyphene napsylate AdvReac Vomiting Verified 10/02/21 10:55 [From Flakita-Vanesa] Review of Systems ROS Statement: Those systems with pertinent positive or pertinent negative responses have been documented in the HPI. ROS Other: All systems not noted in ROS Statement are negative. EKG Findings - EKG Results: EKG: interpreted by NOAH (Pacemaker rhythm rate 71 appear of 01 61 QRS duration 101 QT since QTC 503 12/07/2025) Past Medical History Past Medical History: Coronary Artery Disease (CAD), Chest Pain / Angina, Heart Failure, GERD/Reflux, Hyperlipidemia, Hypertension, Myocardial Infarction ([place]), Renal Disease, Thyroid Disorder Additional Past Medical History / Comment(s): Ischemic cardiomyopathy, CKD stage II, nephrolithiasis, migraines, occasional back pain, hypothyroid. Last Myocardial Infarction Date:: 06-30-15 History of Any Multi-Drug Resistant Organisms: None Reported Past Surgical History: AICD, Heart Catheterization With Stent, Hernia Repair, Hysterectomy, Pacemaker Additional Past Surgical History / Comment(s): 2015 stents to lad,diag, 05/22/16 PTCA, bilateral oophorectomy, LT INGUINAL HERNIA REPAIR, CYSTOCOPY, LITHOTRIPSY,COLONOSCOPY, Past Anesthesia/Blood Transfusion Reactions: Postoperative Nausea & Vomiting (PONV) Additional Past Anesthesia/Blood Transfusion Reaction / Comment(s): MILD CLAUSTERPHOBIA Date of Last Stent Placement:: 06/30/15 Type of Cardiac Device: AICD Device Placement Date:: 12/12/15 Past Psychological History: Anxiety Smoking Status: Former smoker Past Alcohol Use History: Rare - Past Family History Mother Family Medical History: Dementia Brother(s) Family Medical History: Unable to Obtain Father Family Medical History: Cancer, Myocardial Infarction ([place]) Sister(s) Family Medical History: Cancer, Hypertension General Exam - General Exam Comments Initial Comments: This is a well-developed well-nourished awake alert oriented history female Limitations: no limitations General appearance: alert, in no apparent distress Head exam: Present: atraumatic, normocephalic, normal inspection Eye exam: Present: normal appearance, PERRL, EOMI. Absent: scleral icterus, conjunctival injection, periorbital swelling ENT exam: Present: normal exam, mucous membranes moist Neck exam: Present: normal inspection, full ROM, other (No stridor JVD or bruits some mild tenderness palpation over the left lateral neck musculature no spinous process tenderness.). Absent: tenderness, meningismus, lymphadenopathy Respiratory exam: Present: normal lung sounds bilaterally, chest wall tenderness (Tenderness palpation over left costal sternal margin with no step-off or crepitation noted this does reproduce the patient's pain she states.). Absent: respiratory distress, wheezes, rales, rhonchi, stridor Cardiovascular Exam: Present: regular rate, normal rhythm, normal heart sounds. Absent: systolic murmur, diastolic murmur, rubs, gallop, clicks GI/Abdominal exam: Present: soft, normal bowel sounds. Absent: distended, tenderness, guarding, rebound, rigid Extremities exam: Present: normal inspection, full ROM, normal capillary refill. Absent: tenderness, pedal edema, joint swelling, calf tenderness Back exam: Present: normal inspection Neurological exam: Present: alert, oriented X3, CN II-XII intact Psychiatric exam: Present: normal affect, normal mood Skin exam: Present: warm, dry, intact, normal color. Absent: rash Course Vital Signs 10/02/21 10/02/21 10/02/21 09:46 09:51 11:49 Temperature 97.6 F 98.4 F Pulse Rate 71 74 68 Respiratory 16 18 18 Rate Blood Pressure 145/73 119/82 115/80 O2 Sat by Pulse 98 97 97 Oximetry Chest Pain MDM - MDM Imaging reviewed no acute findings patient did respond to IV Toradol the presentation is consistent with costochondritis musculoskeletal pain. Cardiac evaluation with us far normal. I did a long discussion with her regarding findings she will be discharged we did discuss return parameters however. She will otherwise have close follow-up with her doctor return when necessary Disposition Clinical Impression: Costochondritis, Chest wall syndrome Disposition: HOME SELF-CARE Condition: Good Instructions (If sedation given, give patient instructions): Costochondritis (ED) Prescriptions: Ibuprofen 800 mg PO Q6HR PRN #20 tablet PRN Reason: Pain Is patient prescribed a controlled substance at d/c from ED?: No Referrals: Tera Villanueva DO [Primary Care Provider] - 1-2 days
[2021-10-02 10:38] VITALS: RESP 18; TEMP 98.4
[2021-10-02 10:42] LABS: Basophils # (A) 0.1 k/uL (0-0.2); Basophils % (A) 1 %; Eosinophils # (A) 0.1 k/uL (0-0.7); Eosinophils % (A) 2 %; HGB 12.7 gm/dL (11.4-16.0); Lymphocytes # (A) 1.9 k/uL (1.0-4.8); Lymphocytes % (A) 23 %; MCH 30.3 pg (25.0-35.0); MCHC 32.5 g/dL (31.0-37.0); MCV 93.2 fL (80.0-100.0); Mean Platelet Volume 10.6; Monocytes # (A) 0.6 k/uL (0-1.0); Monocytes % (A) 7 %; Neutrophils # (A) 5.5 k/uL (1.3-7.7); Neutrophils % (A) 66 %; Platelet Count 198 k/uL (150-450); RBC 4.18 m/uL (3.80-5.40); RDW 13.7 % (11.5-15.5); WBC 8.3 k/uL (3.8-10.6)
--- NOTE | 2021-10-02 10:45 | XR ---
EXAMINATION TYPE: XR chest 2V DATE OF EXAM: 10/02/2021 COMPARISON: 06/10/2020 HISTORY: 56-year-old female with chest pain TECHNIQUE: PA and lateral views FINDINGS: Left anterior chest wall AICD generator with right atrial, right ventricular, and coronary sinus lead s. Heart normal size. Aorta and pulmonary vasculature within normal limits. No consolidation or pleur al effusion. IMPRESSION: Left chest wall 3-lead AICD generator. No acute cardiopulmonary process.
[2021-10-02 10:46] LABS: INR 0.9 (<1.2); Partial Thromboplastin Time 24.7 sec (22.0-30.0); Prothrombin Time 10.3 sec (9.0-12.0)
[2021-10-02 10:47] LABS: Albumin 4.1 g/dL (3.5-5.0); Calcium 9.3 mg/dL (8.4-10.2); Magnesium 1.7 mg/dL (1.6-2.3); Potassium 4.2 mmol/L (3.5-5.1); Total Protein 6.9 g/dL (6.3-8.2)
[2021-10-02 13:35] VITALS: BP 126/78; PULSE 80
== END 2021-10-02 13:39 | disposition home or self-care (01) ==
LOC: EC 09:45
DX: M94.0 Chondrocostal junction syndrome [Tietze] (principal); I13.0 Hypertensive heart and chronic kidney disease with heart failure and stage 1 through stage 4 chronic kidney disease, or unspecified chronic kidney disease; I50.9 Heart failure, unspecified; N18.30 Chronic kidney disease, stage 3 unspecified; I25.10 Atherosclerotic heart disease of native coronary artery without angina pectoris; K21.9 Gastro-esophageal reflux disease without esophagitis; E78.5 Hyperlipidemia, unspecified; I25.2 Old myocardial infarction; E07.9 Disorder of thyroid, unspecified; F41.9 Anxiety disorder, unspecified; Z79.84 Long term (current) use of oral hypoglycemic drugs; Z79.82 Long term (current) use of aspirin; Z79.4 Long term (current) use of insulin; Z88.5 Allergy status to narcotic agent; Z90.710 Acquired absence of both cervix and uterus; Z95.0 Presence of cardiac pacemaker; Z87.891 Personal history of nicotine dependence
CPT/HCPCS: 36415; 71046; 80053; 83690; 83735; 83880; 84484; 85025; 85610; 85730; 93005; 96374; 99285

== ENCOUNTER 2022-04-22 11:52 | Observation (INO) | payer BC ==
[2022-04-22] MEDS ORDERED: ASPIRIN 81 MG PO STA (13:04)
[2022-04-22 13:21] LABS: Appearance,Urine Cloudy (Clear); Bacteria,Urine Few /hpf; Bilirubin,Urine Negative (Negative); Blood,Urine Moderate (Negative); Color,Urine Yellow; Glucose,Urine (UA) 4+ (Negative); Leukocyte Esterase,Urine Large (Negative); Mucus,Urine Occasional /hpf; Nitrite,Urine Negative (Negative); Protein,Urine 2+ (Negative); RBC,Urine 15 /hpf (0-5); Specific Gravity,Urine 1.022 (1.001-1.035); Squamous Epithelial Cell,Urine 3 /hpf (0-4); Urobilinogen,Urine <2.0 mg/dL (<2.0); WBC,Urine >182 /hpf (0-5)
--- NOTE | 2022-04-22 13:26 | XR ---
EXAMINATION TYPE: XR chest 2V DATE OF EXAM: 04/22/2022 COMPARISON: 10/02/2021 TECHNIQUE: PA and lateral views submitted. HISTORY: Chest pain FINDINGS: The lungs are clear and there is no pneumothorax, pleural effusion, or focal pneumonia. Cardiac dev ice seen with biapical pleural thickening. Arthropathy of the shoulders. Heart size normal with no ev idence of heart failure. Surgical clips suggest abdomen lateral view. IMPRESSION: 1. No acute process.
[2022-04-22 13:27] LABS: Ketones,Urine 2+ (Negative)
[2022-04-22 13:51] LABS: Basophils % (A) 0 %; Eosinophils % (A) 0 %; HCT 40.7 % (34.0-46.0); HGB 13.7 gm/dL (11.4-16.0); Lymphocytes # (A) 0.9 k/uL (1.0-4.8); Lymphocytes % (A) 9 %; MCH 30.6 pg (25.0-35.0); MCHC 33.5 g/dL (31.0-37.0); MCV 91.4 fL (80.0-100.0); Mean Platelet Volume 10.8; Monocytes # (A) 0.7 k/uL (0-1.0); Monocytes % (A) 7 %; Neutrophils # (A) 8.2 k/uL (1.3-7.7); Neutrophils % (A) 82 %; Platelet Count 182 k/uL (150-450); RBC 4.46 m/uL (3.80-5.40); RDW 12.9 % (11.5-15.5)
[2022-04-22 13:58] LABS: Prothrombin Time 10.6 sec (9.0-12.0)
[2022-04-22 14:01] LABS: Albumin 4.2 g/dL (3.5-5.0); Calcium 9.2 mg/dL (8.4-10.2); Magnesium 1.8 mg/dL (1.6-2.3); Potassium 3.7 mmol/L (3.5-5.1); Total Bilirubin 1.1 mg/dL (0.2-1.3); Total Protein 7.4 g/dL (6.3-8.2)
--- NOTE | 2022-04-22 14:39 | ED ---
Chest Pain HPI - General Chief Complaint: Chest Pain Stated Complaint: dizziness, chest & abd pain Time Seen by Provider: 04/22/22 12:55 Source: patient, RN notes reviewed Mode of arrival: ambulatory Limitations: no limitations - History of Present Illness Initial Comments: This a 57-year-old female presents emergency Department chief complaint of chest pain. Patient states that chest pain has been present last day or so. Patient's been having increasing chest pain prior cardiac disease including pacemaker, stents. Patient states she's had increasing weakness. She initially that she had COVID-19 what was test was negative. Patient does have some urinary symptoms increasing frequency, painful urination. Patient is concerned about UTI, kidney infection. Patient is a mild shortness of breath no second leg pain or leg swelling no history of DVT or PE. - Related Data Home Medications Medication Instructions Recorded Confirmed Famotidine [Pepcid] 20 mg PO HS 05/20/16 10/02/21 Metoprolol Succinate (ER) [Toprol 100 mg PO HS 03/28/20 10/02/21 XL] Sacubitril/Valsartan [Entresto 24 1 tab PO BID 03/28/20 10/02/21 mg-26 mg Tablet] metFORMIN HCL [Glucophage] 500 mg PO BID 03/28/20 10/02/21 Aspirin 81 mg PO DAILY 06/10/20 10/02/21 Sotalol [Betapace] 80 mg PO BID 06/10/20 10/02/21 Insulin Glargine,Hum.rec.anlog 36 units SQ HS 10/02/21 10/02/21 [John Fang] Spironolactone 50 mg PO DAILY 10/02/21 10/02/21 Previous Rx's Medication Instructions Recorded Atorvastatin [Lipitor] 80 mg PO HS #30 tab 02/09/18 Magnesium Oxide [Magox 400] 400 mg PO DAILY #90 tablet 04/01/20 Ibuprofen 800 mg PO Q6HR PRN #20 tablet 10/02/21 Allergies Allergy/AdvReac Type Severity Reaction Status Date / Time hydrocodone bitartrate AdvReac Nausea & Verified 04/22/22 12:48 [From Vicodin] Vomiting propoxyphene napsylate AdvReac Vomiting Verified 04/22/22 12:48 [From Darvocet-N] Review of Systems ROS Statement: Those systems with pertinent positive or pertinent negative responses have been documented in the HPI. ROS Other: All systems not noted in ROS Statement are negative. Past Medical History Past Medical History: Coronary Artery Disease (CAD), Chest Pain / Angina, Heart Failure, GERD/Reflux, Hyperlipidemia, Hypertension, Myocardial Infarction ([place]), Renal Disease, Thyroid Disorder Additional Past Medical History / Comment(s): Ischemic cardiomyopathy, CKD stage II, nephrolithiasis, migraines, occasional back pain, hypothyroid. Last Myocardial Infarction Date:: 06-30-15 History of Any Multi-Drug Resistant Organisms: None Reported Past Surgical History: AICD, Heart Catheterization, Heart Catheterization With Stent, Hernia Repair, Hysterectomy, Pacemaker Additional Past Surgical History / Comment(s): 2015 stents to lad,diag, 05/22/16 PTCA, bilateral oophorectomy, LT INGUINAL HERNIA REPAIR, CYSTOCOPY, LITHOTRIPSY,COLONOSCOPY, Past Anesthesia/Blood Transfusion Reactions: Postoperative Nausea & Vomiting (PONV) Additional Past Anesthesia/Blood Transfusion Reaction / Comment(s): MILD CLAUSTERPHOBIA Date of Last Stent Placement:: 06/30/15 Type of Cardiac Device: AICD Device Placement Date:: 12/12/15 Past Psychological History: Anxiety Smoking Status: Former smoker Past Alcohol Use History: Rare - Past Family History Mother Family Medical History: Dementia Brother(s) Family Medical History: Unable to Obtain Father Family Medical History: Cancer, Myocardial Infarction ([place]) Additional Family Medical History / Comment(s): Pt does not recall age that father had his [place] but states it was prior to age 60yrs. He also had a pacemaker and colon cancer. Sister(s) Family Medical History: Cancer, Hypertension Additional Family Medical History / Comment(s): Breast and colon cancer. General Exam Limitations: no limitations General appearance: alert, in no apparent distress Head exam: Present: atraumatic, normocephalic, normal inspection Eye exam: Present: normal appearance, PERRL, EOMI. Absent: scleral icterus, conjunctival injection, periorbital swelling ENT exam: Present: normal exam, normal oropharynx, mucous membranes moist Neck exam: Present: normal inspection, full ROM. Absent: tenderness, meningismus, lymphadenopathy Respiratory exam: Present: normal lung sounds bilaterally. Absent: respiratory distress, wheezes, rales, rhonchi, stridor Cardiovascular Exam: Present: normal rhythm, tachycardia, normal heart sounds. Absent: systolic murmur, diastolic murmur, rubs, gallop, clicks GI/Abdominal exam: Present: soft, normal bowel sounds. Absent: distended, tenderness, guarding, rebound, rigid Course Vital Signs 04/22/22 04/22/22 12:45 13:05 Temperature 98.4 F Pulse Rate 122 H Pulse Rate [ 103 H Seismic Plotter ] Respiratory 20 Rate Blood Pressure 133/82 O2 Sat by Pulse 99 Oximetry Chest Pain MDM - MDM Initial cardiac enzymes are negative, patient does have significant cardiac history. Patient does have evidence of urinary tract infection patient was started on IV antibiotic, blood cultures were drawn patient be made for cardiac rule out. Disposition Clinical Impression: UTI (urinary tract infection), Chest pain Disposition: ADMITTED IP TO THIS HOSP Condition: Fair Referrals: Tera Villanueva DO [Primary Care Provider] - 1-2 days Time of Disposition: 14:39
[2022-04-22] MEDS ORDERED: NITROGLYCERIN SL TABS 0.4 MG TAB SUBLINGUAL PRN ×2 (14:41→15:52)
[2022-04-22] MEDS ORDERED: SODIUM CHLORIDE 0.9% 500 ML 500 ML IV ONE (15:15)
[2022-04-22] MEDS ORDERED: PROMETHAZINE 25 MG TAB PO PRN (16:13)
--- NOTE | 2022-04-22 16:13 | P.HPIM ---
History of Present Illness H&P Date: 04/22/22 Chief Complaint: Chest pain This is a pleasant 49-year-old female presents to [facility] with chest pain. Patient has a past medical history of hypertension, ischemic cardiomyopathy, diabetes mellitus type 2, hyperlipidemia, ventricular pacemaker and coronary artery disease with PTCA. Patient states that this past Wednesday she was working in her basement with the windows open. Patient was using bleach to clean out some old. That evening patient developed nausea vomiting and diarrhea. Patient stated she was dry heaving and couldn't keep anything down. Shortly thereafter patient developed chest pain. The pain was described as if someone was sitting on her chest. This pain would last about 10 minutes and would come and go. Patient states that pain can be worse with activity. Patient further admits that the pain can radiate to her back intermittently. Pain has resolved since being admitted to the hospital. Patient was given aspi rin and nitro. Patient further admits to urinary frequency and urgency for the past week. She is accompanied by suprapubic pain. Patient was noted to have a urinary tract infection per UA in the ER. Patient denies fever but admits to chills. Patient states that her urinary symptoms began about a week ago. Patient did not seek medical attention for this at that time. Patient has 2 children and her daughter Marleni the next of kin to contact for any emergent needs. EKG in the ER showed ventricular pacing. Chest x-ray was negative. Troponin 1 was within normal limits. UA was positive for UTI. Review of Systems A 14 point review of systems was assessed patient was only positive for those explained in HPI Past Medical History Past Medical History: Coronary Artery Disease (CAD), Chest Pain / Angina, Heart Failure, GERD/Reflux, Hyperlipidemia, Hypertension, Myocardial Infarction ([place]), Renal Disease, Thyroid Disorder Additional Past Medical History / Comment(s): Ischemic cardiomyopathy, CKD stage II, nephrolithiasis, migraines, occasional back pain, hypothyroid. Last Myocardial Infarction Date:: 06-30-15 History of Any Multi-Drug Resistant Organisms: None Reported Past Surgical History: AICD, Heart Catheterization, Heart Catheterization With Stent, Hernia Repair, Hysterectomy, Pacemaker Additional Past Surgical History / Comment(s): 2014 stents to lad,diag, 05/22/16 PTCA, bilateral oophorectomy, LT INGUINAL HERNIA REPAIR, CYSTOCOPY, LITHOTRIPSY,COLONOSCOPY, Past Anesthesia/Blood Transfusion Reactions: Postoperative Nausea & Vomiting (PONV) Additional Past Anesthesia/Blood Transfusion Reaction / Comment(s): MILD CLAUSTERPHOBIA Date of Last Stent Placement:: 06/30/15 Type of Cardiac Device: AICD Device Placement Date:: 12/12/15 Past Psychological History: Anxiety Smoking Status: Former smoker Past Alcohol Use History: Rare - Past Family History Mother Family Medical History: Dementia Brother(s) Family Medical History: Unable to Obtain Father Family Medical History: Cancer, Myocardial Infarction ([place]) Additional Family Medical History / Comment(s): Pt does not recall age that father had his [place] but states it was prior to age 60yrs. He also had a pacemaker and colon cancer. Sister(s) Family Medical History: Cancer, Hypertension Additional Family Medical History / Comment(s): Breast and colon cancer. Medications and Allergies Home Medications Medication Instructions Recorded Confirmed Type Atorvastatin [Lipitor] 80 mg PO HS #30 tab 02/09/18 04/22/22 Rx Metoprolol Succinate (ER) [Toprol 100 mg PO HS 03/28/20 04/22/22 History XL] Sacubitril/Valsartan [Entresto 24 1 tab PO BID 03/28/20 04/22/22 History mg-26 mg Tablet] metFORMIN HCL [Glucophage] 500 mg PO BID 03/28/20 04/22/22 History Aspirin 81 mg PO DAILY 06/10/20 04/22/22 History Sotalol [Betapace] 80 mg PO BID 06/10/20 04/22/22 History Spironolactone 50 mg PO DAILY 10/02/21 04/22/22 History Empagliflozin [Jardiance] 25 mg PO DAILY 04/22/22 04/22/22 History Nitroglycerin Sl Tabs [Nitrostat] 0.4 mg SUBLINGUAL Q5M PRN 04/22/22 04/22/22 History Allergies Allergy/AdvReac Type Severity Reaction Status Date / Time hydrocodone bitartrate AdvReac Nausea & Verified 04/22/22 14:54 [From Vicodin] Vomiting propoxyphene napsylate AdvReac Vomiting Verified 04/22/22 14:54 [From Darvocet-N] Physical Exam Osteopathic Statement: *. No significant issues noted on an osteopathic structural exam other than those noted in the History and Physical/Consult. Vitals: Vital Signs Temp Pulse Pulse Resp BP Pulse Ox 04/22/22 13:05 103 H 04/22/22 12:45 98.4 F 122 H 20 133/82 99 Intake and Output 04/22/22 04/22/22 04/22/22 06:59 14:59 22:59 Other: Weight 108.862 kg General: [non toxic], [no distress], [appears at stated age] Derm: [warm], [dry] Head: [atraumatic], [normocephalic], [symmetric] Eyes: [EOMI], [no lid lag], [anicteric sclera] Mouth: [no lip lesion], [mucus membranes moist] Cardiovascular: [S1S2 reg], [no murmur], [positive posterior tibial pulse bilateral], Lungs: [CTA bilateral], [no rhonchi, no rales] , [no accessory muscle use] Abdominal: [soft], [ nontender to palpation], [no guarding], [no appreciable organomegaly] Ext: [no gross muscle atrophy], [no edema], [no contractures] Neuro: [ CN II-XI grossly intact], [no focal neuro deficits] Psych: [Alert], [oriented], [appropriate affect] Results CBC & Chem 7: 04/22/22 13:17 04/22/22 13:17 Labs: Abnormal Lab Results - Last 24 Hours (Table) 04/22/22 04/22/22 04/22/22 Range/Units 13:00 13:17 13:17 Neutrophils # 8.2 H (1.3-7.7) k/uL Lymphocytes # 0.9 L (1.0-4.8) k/uL Sodium 134 L (137-145) mmol/L Chloride 96 L (98-107) mmol/L Carbon Dioxide 20 L (22-30) mmol/L BUN 24 H (7-17) mg/dL Creatinine 1.07 H (0.52-1.04) mg/dL Glucose 151 H (74-99) mg/dL Urine Appearance Cloudy H (Clear) Urine Protein 2+ H (Negative) Urine Glucose (UA) 4+ H (Negative) Urine Ketones 2+ H (Negative) Urine Blood Moderate H (Negative) Ur Leukocyte Esterase Large H (Negative) Urine RBC 15 H (0-5) /hpf Urine WBC >182 H (0-5) /hpf Urine WBC Clumps Many H (None) /hpf Urine Bacteria Few H (None) /hpf Urine Mucus Occasional H (None) /hpf Thrombosis Risk Factor Assmnt - DVT/VTE Prophylaxis DVT/VTE Prophylaxis: Pharmacologic Prophylaxis ordered Assessment and Plan Assessment: 1. Chest pain rule out ACS Admit to OBS Telemetry Troponin 1 negative Trend troponin Chest x-ray no acute cardiopulmonary process Consult cardiology echo 2. Nausea/vomiting and diarrhea currently resolved This is likely multifactorial due to UTI +/- viral etiology COV ID [id number] negative Zofran when necessary IV fluids 3. UTI per UA IV fluids Await culture 4. Type 2 diabetes mellitus Restart guardian Hold metformin Insulin sliding scale Glucose checks 5. Chronic conditions of hyperlipidemia, hypertension, coronary artery disease status post PTCA, ventricular pacemaker, Resume home medications 6. A.m. labs 7. GI DVT prophylaxis Greater than 45 minutes spent coordinating care, documenting, and counseling patient. Patient is a full code PCP is Dr. Tera Villanueva Disposition: Admit to obs discharge planning tomorrow if cardiac workup is negative Time with Patient: Greater than 30
[2022-04-22] MEDS: HEPARIN SODIUM,PORCINE/PF 5,000 UNIT/0.5 ML SYRINGE SQ SCH ×2 (16:23→23:39)
[2022-04-22] MEDS: FAMOTIDINE 20 MG TAB PO SCH (18:17)
[2022-04-22] MEDS: INSULIN ASPART (NovoLOG) 100 UNIT/ML VIAL SQ SCH (18:29)
[2022-04-22] MEDS: SACUBITRIL/VALSARTAN 24 MG-26 MG TABLET PO SCH (20:14)
[2022-04-22] MEDS: SOTALOL 80 MG TAB PO SCH (20:15)
[2022-04-22] MEDS ORDERED: METOPROLOL SUCCINATE (ER) 100 MG TAB.ER.24H PO SCH (21:00)
[2022-04-22] MEDS ORDERED: ATORVASTATIN 80 MG TAB PO SCH (21:00)
[2022-04-22] MEDS ORDERED: ACETAMINOPHEN TAB 325 MG TAB PO PRN (21:16)
[2022-04-23 07:35] LABS: Glucose,Whole Blood 156 mg/dL (70-110)
[2022-04-23 08:38] VITALS: BP 127/79; PULSE 83; RESP 18; TEMP 99
[2022-04-23] MEDS ORDERED: SPIRONOLACTONE 25 MG TAB PO SCH (09:00)
[2022-04-23] MEDS ORDERED: ASPIRIN 325 MG TAB PO SCH (09:00)
[2022-04-23] MEDS ORDERED: ASPIRIN 81 MG PO SCH (09:00)
[2022-04-23] MEDS ORDERED: DAPAGLIFLOZIN PROPANEDIOL 10 MG TABLET PO SCH (09:00)
[2022-04-23] MEDS: INSULIN ASPART (NovoLOG) 100 UNIT/ML VIAL SQ SCH ×2 (09:01→12:21)
[2022-04-23] MEDS: HEPARIN SODIUM,PORCINE/PF 5,000 UNIT/0.5 ML SYRINGE SQ SCH (09:01)
[2022-04-23] MEDS: SOTALOL 80 MG TAB PO SCH (09:02)
[2022-04-23] MEDS: FAMOTIDINE 20 MG TAB PO SCH (09:03)
[2022-04-23] MEDS: SACUBITRIL/VALSARTAN 24 MG-26 MG TABLET PO SCH (09:03)
[2022-04-23 09:24] LABS: ALT 21 U/L (8-44); AST 21 U/L (13-35); African American GFR (CKD) 81.7 (60.0-200.0); Albumin 3.8 g/dL (3.8-4.9); Albumin/Globulin Ratio 1.41 (1.60-3.17); Alkaline Phosphatase 84 U/L (41-126); BUN/Creat Ratio 22.44 Ratio (12.00-20.00); Blood Urea Nitrogen 20.2 mg/dL (9.0-27.0); Carbon Dioxide 21.8 mmol/L (20.0-27.5); Chloride 99 mmol/L (96-109); Globulin 2.7 g/dL (1.6-3.3); Glucose 176 mg/dL (70-110); LDL Cholesterol,Calculated 57.9 mg/dL (0.0-131.0); Non-African American GFR(CKD) 70.5 (60.0-200.0); Potassium 3.8 mmol/L (3.5-5.5); Sodium 134 mmol/L (135-145); Total Protein 6.5 g/dL (6.2-8.2); VLDL Calculation 19.38 mg/dL (5.00-40.00)
--- NOTE | 2022-04-23 10:40 | P.CRDCN ---
History of Present Illness History of present illness: HISTORY OF PRESENTING ILLNESS This is a pleasant 57-year-old female past medical history significant for coronary artery disease status post PCI LAD in 2016, history of ischemic cardiomyopathy s/p ICD and V fib s/p upgrade to BiV in 2019, hypertension, dyslipidemia, former smoker. She follows in the office with Dr. Mooney. We have been asked to see in consultation for chest pain. Patient states that she's been having plaque mold in her home. She states she's been cleaning her home. Over the past 3 days she's been having symptoms of nausea, vomiting, diarrhea, chills, diaphoresis. She also has been having one week of dysuria. Yesterday she did have some heaviness in her with and without nausea and vomiting. Her chest discomfort is nonexertional, nonradiating. She states that this is different from when she's had stenting in the past. She denies any specific associated symptoms. She denies any specific alleviating or aggravating factors. Her symptoms of nausea vomiting diarrhea had improved. She denies any symptoms of palpitations, lightheadedness, dizziness, syncope or near syncope. DIAGNOSTICS * EKG reveals ventricular paced rhythm * Telemetry tracings indicate ventricular paced rhythm. * Chest xray no acute cardiopulmonary process * Echocardiogram 06/12/2021 revealed normal ejection fraction 55%, mild tricuspid regurgitation, RVSP of 38 mmHg. moderate mitral regurgitation * Lexiscan stress test in the office 04/2020 revealed fixed small defect at the apex, couldn't related to the artifact related to pacemaker rhythm. * Most recent cardiac catheterization in 2018 revealed patent stent in the LAD and the diagonal, no other obstructive disease of significance * Laboratory reviewed, sodium 134, potassium 3.8, BUN 20, some kind 0.9, troponin negative 3, proBNP 373 * Current home medications include metoprolol succinate 100 mg daily, atorvastatin 80 mg nightly, spironolactone 50 mg daily, sotalol 80 mg twice a day, aspirin 81 mg daily, Entresto 24-26mg BID, chart he has 25 mg daily, metformin REVIEW OF SYSTEMS At the time of my exam: CONSTITUTIONAL: Denies fever or chills. CARDIOVASCULAR: Denies chest pain, shortness of breath, orthopnea, PND or palpi tations. RESPIRATORY: Denies cough. GASTROINTESTINAL: Reports nausea, vomiting, diarrhea. Denies abdominal pain, diarrhea, constipation, nausea or vomiting. MUSCULOSKELETAL: Denies myalgias. NEUROLOGIC: Denies numbness, tingling, headacbe or weakness. ENDOCRINE: Denies fatigue, weight change, polydipsia or polyurina. GENITOURINARY: + burning, Denies hematuria +urgency HEMATOLOGIC: Denies history of anemia or bleeding. PHYSICAL EXAMINATION Blood pressure 127/79, heart 83, Temp 100.0. saturations 97% on room air CONSTITUTIONAL: No apparent distress. HEENT: Head is normocephalic. Pupils are equal, round. Sclerae anicteric. Mucous membranes of the mouth are moist. No JVD. No carotid bruit. CHEST EXAMINATION: Lungs are clear to auscultation. No chest wall tenderness is noted on palpation or with deep breathing. HEART EXAMINATION: Regular rate and rhythm. S1, S2 heard. Systolic ejection murmur ABDOMEN: Soft, nontender. Positive bowel sounds. EXTREMITIES: 2+ peripheral pulses, no lower extremity edema and no calf tenderness. NEUROLOGIC EXAMINATION: Patient is awake, alert and oriented x3. ASSESSMENT Chest discomfort, acute coronary syndrome has been ruled out Symptoms of nausea, vomiting, diarrhea Symptoms of dysuria UTI Coronary artery disease status post PCI LAD in 2015 History of ischemic cardiomyopathy s/p ICD and V fib s/p upgrade to BiV in 2019, improved EF Hypertension Dyslipidemia Former smoker PLAN Obtain 2D echocardiogram and doppler study to assess cardiac structure and function. Continue home cardiac medications Rest of management per primary Patient recently started Jardiance in the past month, developed a UTI, consider decreasing dose of Jardiance If echocardiogram with no acute findings, okay to discharge from cardiology perspective, and follow up outpatient with Dr. Mooney, stress test can be considered as an outpatient Nurse practitioner note has been reviewed by physician. Signing provider agrees with the documented findings, assessment, and plan of care. Past Medical History Past Medical History: Coronary Artery Disease (CAD), Chest Pain / Angina, Heart Failure, GERD/Reflux, Hyperlipidemia, Hypertension, Myocardial Infarction (HI), Renal Disease, Thyroid Disorder Additional Past Medical History / Comment(s): Ischemic cardiomyopathy, CKD stage II, nephrolithiasis, migraines, occasional back pain, hypothyroid. states she had a pacemaker put in 1 or 2 years ago in March. Last Myocardial Infarction Date:: 06-30-15 History of Any Multi-Drug Resistant Organisms: None Reported Past Surgical History: Heart Catheterization, Heart Catheterization With Stent, Hernia Repair, Hysterectomy, Pacemaker Additional Past Surgical History / Comment(s): 2015 stents to lad,diag, 05/22/16 PTCA, bilateral oophorectomy, LT INGUINAL HERNIA REPAIR, CYSTOCOPY, LITHOTRIPSY,COLONOSCOPY, Past Anesthesia/Blood Transfusion Reactions: Postoperative Nausea & Vomiting (PONV) Additional Past Anesthesia/Blood Transfusion Reaction / Comment(s): MILD CLAUSTERPHOBIA Date of Last Stent Placement:: 06/30/15 Type of Cardiac Device: Permanent Pacemaker Device Placement Date:: pt states it was put in in March either this last one or the year befor Past Psychological History: Anxiety Additional Psychological History / Comment(s): She is independent. Smoking Status: Former smoker Past Alcohol Use History: Rare Additional Past Alcohol Use History / Comment(s): Pt started smoking in 1976 and quit in 1991. She was about a 1/2 ppd smoker. She used to drink alcohol on occasion, but has not had any alcohol in a long time. Past Drug Use History: None Reported - Past Family History Mother Family Medical History: Dementia Brother(s) Family Medical History: Unable to Obtain Father Family Medical History: Cancer, Myocardial Infarction (HI) Additional Family Medical History / Comment(s): Pt does not recall age that father had his HI but states it was prior to age 60yrs. He also had a pacemaker and colon cancer. Sister(s) Family Medical History: Cancer, Hypertension Additional Family Medical History / Comment(s): Breast and colon cancer. Medications and Allergies Home Medications Medication Instructions Recorded Confirmed Type Atorvastatin [Lipitor] 80 mg PO HS #30 tab 02/09/18 04/22/22 Rx Metoprolol Succinate (ER) [Toprol 100 mg PO HS 03/28/20 04/22/22 History XL] Sacubitril/Valsartan [Entresto 24 1 tab PO BID 03/28/20 04/22/22 History mg-26 mg Tablet] metFORMIN HCL [Glucophage] 500 mg PO BID 03/28/20 04/22/22 History Aspirin 81 mg PO DAILY 06/10/20 04/22/22 History Sotalol [Betapace] 80 mg PO BID 06/10/20 04/22/22 History Spironolactone 50 mg PO DAILY 10/02/21 04/22/22 History Empagliflozin [Jardiance] 25 mg PO DAILY 04/22/22 04/22/22 History Nitroglycerin Sl Tabs [Nitrostat] 0.4 mg SUBLINGUAL Q5M PRN 04/22/22 04/22/22 History Allergies Allergy/AdvReac Type Severity Reaction Status Date / Time hydrocodone bitartrate AdvReac Nausea & Verified 04/22/22 14:54 [From Vicodin] Vomiting propoxyphene napsylate AdvReac Vomiting Verified 04/22/22 14:54 [From Darvocet-N] Physical Exam Vitals: Vital Signs Temp Pulse Pulse Resp BP BP Pulse Ox 04/23/22 01:28 98.3 F 77 17 110/69 97 04/22/22 20:30 100.0 F H 102 H 17 109/63 97 04/22/22 18:19 98.3 F 104 H 16 137/86 99 04/22/22 17:25 98.2 F 112 H 16 158/90 99 04/22/22 13:05 103 H 04/22/22 12:45 98.4 F 122 H 20 133/82 99 Intake and Output 04/22/22 04/23/22 04/23/22 22:59 06:59 14:59 Intake Total 118 Balance 118 Intake: Oral 118 Other: # Voids 2 Weight 108.862 kg Results 04/22/22 13:17 04/23/22 05:12 Cardiac Enzymes 04/22/22 04/22/22 04/22/22 Range/Units 13:17 13:17 15:48 AST 28 (14-36) U/L Troponin I 0.019 0.018 (0.000-0.034) ng/mL 04/22/22 Range/Units 19:01 AST (14-36) U/L Troponin I 0.016 (0.000-0.034) ng/mL Coagulation 04/22/22 Range/Units 13:17 PT 10.6 (9.0-12.0) sec APTT 27.0 (22.0-30.0) sec CBC 04/22/22 Range/Units 13:17 WBC 10.0 (3.8-10.6) k/uL RBC 4.46 (3.80-5.40) m/uL Hgb 13.7 (11.4-16.0) gm/dL Hct 40.7 (34.0-46.0) % Plt Count 182 (150-450) k/uL Comprehensive Metabolic Panel 04/22/22 Range/Units 13:17 Sodium 134 L (137-145) mmol/L Potassium 3.7 (3.5-5.1) mmol/L Chloride 96 L (98-107) mmol/L Carbon Dioxide 20 L (22-30) mmol/L BUN 24 H (7-17) mg/dL Creatinine 1.07 H (0.52-1.04) mg/dL Glucose 151 H (74-99) mg/dL Calcium 9.2 (8.4-10.2) mg/dL AST 28 (14-36) U/L ALT 23 (4-34) U/L Alkaline Phosphatase 102 (38-126) U/L Total Protein 7.4 (6.3-8.2) g/dL Albumin 4.2 (3.5-5.0) g/dL Current Medications Generic Name Dose Route Start Last Admin Trade Name Freq PRN Reason Stop Dose Admin Acetaminophen 650 mg 04/22/22 21:16 04/22/22 21:39 Acetaminophen Tab 325 Mg Tab PO 650 mg Q6HR PRN Administration Fever and/ or Pain Atorvastatin Calcium 80 mg 04/22/22 21:00 04/22/22 20:14 Atorvastatin 80 Mg Tab PO 80 mg HS LEO Administration Dapagliflozin 10 mg 04/23/22 09:00 Dapagliflozin Propanediol 10 Mg Tablet PO DAILY [facility] Famotidine 40 mg 04/22/22 16:15 04/22/22 18:17 Famotidine 20 Mg Tab PO Not Given DAILY [facility] Heparin Sodium (Porcine) 5,000 unit 04/22/22 16:15 04/22/22 23:39 Heparin Sodium,Porcine/Pf 5,000 Unit/0.5 Ml Syringe SQ 5,000 unit Q8HR LEO Administration Insulin Aspart 0 unit 04/22/22 17:30 04/22/22 18:29 Insulin Aspart (Novolog) 100 Unit/Ml Vial SQ Not Given AC-TID [facility] Protocol Metoprolol Succinate 100 mg 04/22/22 21:00 04/22/22 20:14 Metoprolol Succinate (Er) 100 Mg Tab.Er.24h PO 100 mg HS LEO Administration Nitroglycerin 0.4 mg 10/19/22 14:41 Nitroglycerin Sl Tabs 0.4 Mg Tab SUBLINGUAL Q5M PRN Chest Pain Promethazine HCl 25 mg 04/22/22 16:13 Promethazine 25 Mg Tab PO Q6HR PRN Nausea And Vomiting Sacubitril/Valsartan 1 each 04/22/22 21:00 04/22/22 20:14 Sacubitril/Valsartan 24 Mg-26 Mg Tablet PO 1 each BID LEO Administration Sotalol HCl 80 mg 04/22/22 21:00 04/22/22 20:15 Sotalol 80 Mg Tab PO 80 mg BID LEO Administration Spironolactone 50 mg 04/23/22 09:00 Spironolactone 25 Mg Tab PO DAILY LEO Intake and Output 04/22/22 04/23/22 04/23/22 22:59 06:59 14:59 Intake Total 118 Balance 118 Intake: Oral 118 Other: # Voids 2 Weight 108.862 kg 04/22/22 13:17 04/22/22 13:17
--- NOTE | 2022-04-23 10:51 | CA ---
Transthoracic Echo Report Name: Sarita Coley Age: 57 Gender: F : 1965 Exam Date: 04/22/2022 16:26 Exam Location: [facility] Ht (in): 60 Wt (lb): 240 Ordering Physician: James Mclean Attending/Referring Phys: [id number], [employer] Administrative Assistant Lizet Castillo, RDTAL Procedure CPT: Indications: Chest Pain Cardiac Hx: Technical Quality: Contrast 1: Total Dose (mL): Contrast 2: Total Dose (mL): MEASUREMENTS (Male / Female) Normal Values 2D ECHO LV Diastolic Diameter PLAX 4.2 cm 4.2 - 5.9 / 3.9 - 5.3 cm LV Systolic Diameter PLAX 2.6 cm IVS Diastolic Thickness 1.5 cm 0.6 - 1.0 / 0.6 - 0.9 cm LVPW Diastolic Thickness 1.7 cm 0.6 - 1.0 / 0.6 - 0.9 cm LV Relative Wall Thickness 0.8 RV Internal Dim ED PLAX 2.9 cm M-MODE Aortic Root Diameter MM 2.6 cm LA Systolic Diameter MM 3.1 cm LA Ao Ratio MM 1.2 MV E Point Septal Separation 0.6 cm AV Cusp Separation MM 1.5 cm DOPPLER MV Area PHT 3.1 cm??? Mitral E Point Velocity 41.1 cm/s Mitral A Point Velocity 72.3 cm/s Mitral E to A Ratio 0.6 MV Deceleration Time 243.6 ms TR Peak Velocity 218.7 cm/s TR Peak Gradient 19.1 mmHg Right Ventricular Systolic Press 24.1 mmHg FINDINGS Left Ventricle Left ventricular ejection fraction is estimated at 55%. Moderate increased left ventricular wall thickness Right Ventricle Normal right ventricular size and function. Right ventricular systolic pressure within normal limits. Right Atrium Normal right atrial size. Left Atrium Normal left atrial size. Mitral Valve Structurally normal mitral valve. Mild mitral regurgitation. Aortic Valve Trileaflet aortic valve. Tricuspid Valve Structurally normal tricuspid valve. Mild tricuspid regurgitation. Pulmonic Valve Structurally normal pulmonic valve. Pericardium Normal pericardium. Aorta Normal size aortic root and proximal ascending aorta. CONCLUSIONS Left ventricular ejection fraction 55% Moderate increased left ventricular wall thickness Mild mitral regurgitation Mild tricuspid regurgitation No pericardial effusion Previewed by: Dr. Mono Villanueva DO (Electronically Signed) Final Date: 23 April 2022 10:51
[2022-04-23 11:34] LABS: Basophils # (A) 0.04 X 10*3/uL (0.00-0.10); Basophils % (A) 0.4 %; Eosinophils # (A) 0.03 X 10*3/uL (0.04-0.35); Eosinophils % (A) 0.3 %; HGB 12.4 g/dL (12.0-15.0); Immature Grans, Automated 0.3 %; Lymphocytes # (A) 1.01 X 10*3/uL (0.90-5.00); Lymphocytes % (A) 9.3 %; MCH 30.8 pg (27.0-32.0); MCHC 33.5 g/dL (32.0-37.0); MCV 91.8 fL (80.0-97.0); Mean Platelet Volume 13.3 fL (9.5-12.2); Monocytes # (A) 1.45 X 10*3/uL (0.20-1.00); Monocytes % (A) 13.3 %; NRBC Per 100 WBC 0 /100 WBCS (0.0-0.0); Neutrophils # (A) 8.34 X 10*3/uL (1.80-7.70); Neutrophils % (A) 76.4 %; Platelet Count 169 X 10*3/uL (140-440); RBC 4.03 X 10*6/uL (4.10-5.20); RDW 13.3 % (11.5-14.5)
[2022-04-23 11:35] LABS: RBC Morphology NORMAL
--- NOTE | 2022-04-23 12:39 | P.DS ---
Providers Date of admission: 04/22/22 15:41 Expected date of discharge: 04/23/22 Attending physician: Igor Castillo MD Consults: 04/22/22 14:41 Consult Physician Urgent Consulting Provider: Jed Marc Consult Reason/Comments: chest pain Do you want consulting provider notified?: Yes Primary care physician: [facility] Course: Chest pain Nausea/vomiting and diarrhea Complicated UTI Type 2 diabetes mellitus Hyperlipidemia Hypertension Coronary artery disease status post PTCA Ventricular pacemaker This is a pleasant 49-year-old female who presented to [facility] with chest pain. In the emergency room, she was noted to be hemodynamically stable, CBC was unremarkable. Chemistries showed hyponatremia and hypochloremia with anion gap and slight creatinine bump. Liver function tests were unremarkable. Initial troponin was 0.019, trended to 0.018 then 0.016. EKG in the ER showed ventricular pacing. Chest x-ray was negative. UA was positive for UTI. Patient was seen in consultation by cardiology who recommended outpatient stress testing considering the patient had resolution of symptoms within 24 hours of admission. Echocardiogram was done and showed moderate LVH with EF 55%. Patient has follow-up set up with cardiology as well as primary care physician. She was discharged with Phenergan for nausea, short course of antibiotics for UTI. Gen: awake, alert HEENT: normocephalic, atraumatic, good hearing acuity, moist mucous membranes Resp: good air exchange, breathing comfortably with no accessory muscle use CVS: good distal perfusion x 4, GI: soft, NTTP, ND : no SPT, no CVAT, pryor catheter not present MSK: no pitting edema, no clubbing Neuro: non-focal, moving all extremities Psych: cooperative, euthymic mood Patient Condition at Discharge: Good Plan - Discharge Summary New Discharge Prescriptions: New Promethazine [Phenergan] 25 mg PO Q6HR PRN #15 tab PRN Reason: Nausea And Vomiting Continue Atorvastatin [Lipitor] 80 mg PO HS #30 tab metFORMIN HCL [Glucophage] 500 mg PO BID Metoprolol Succinate (ER) [Toprol XL] 100 mg PO HS Sacubitril/Valsartan [Entresto 24 mg-26 mg Tablet] 1 tab PO BID Sotalol [Betapace] 80 mg PO BID Aspirin 81 mg PO DAILY Spironolactone 50 mg PO DAILY Nitroglycerin Sl Tabs [Nitrostat] 0.4 mg SUBLINGUAL Q5M PRN PRN Reason: Chest Pain Empagliflozin [Jardiance] 25 mg PO DAILY Discharge Medication List Atorvastatin [Lipitor] 80 mg PO HS #30 tab 02/09/18 [Rx] Metoprolol Succinate (ER) [Toprol XL] 100 mg PO HS 03/28/20 [History] Sacubitril/Valsartan [Entresto 24 mg-26 mg Tablet] 1 tab PO BID 03/28/20 [His tory] metFORMIN HCL [Glucophage] 500 mg PO BID 03/28/20 [History] Aspirin 81 mg PO DAILY 06/10/20 [History] Sotalol [Betapace] 80 mg PO BID 06/10/20 [History] Spironolactone 50 mg PO DAILY 10/02/21 [History] Empagliflozin [Jardiance] 25 mg PO DAILY 04/22/22 [History] Nitroglycerin Sl Tabs [Nitrostat] 0.4 mg SUBLINGUAL Q5M PRN 04/22/22 [History] Promethazine [Phenergan] 25 mg PO Q6HR PRN #15 tab 04/23/22 [Rx] Follow up Appointment(s)/Referral(s): Jermain Mooney MD [STAFF PHYSICIAN] - 05/11/22 10:15 am Tera Villanueva DO [Primary Care Provider] - 1-2 days Discharge Disposition: HOME SELF-CARE
== END 2022-04-23 12:30 | disposition home or self-care (01) ==
LOC: EC 11:52 → 6NMEDSUR 15:41
PROVIDERS: ADMIT Internal Medicine; ATTEND Internal Medicine
DX: R07.9 Chest pain, unspecified (principal); R11.2 Nausea with vomiting, unspecified; R19.7 Diarrhea, unspecified; N39.0 Urinary tract infection, site not specified; E11.9 Type 2 diabetes mellitus without complications; E78.5 Hyperlipidemia, unspecified; I25.10 Atherosclerotic heart disease of native coronary artery without angina pectoris; E87.1 Hypo-osmolality and hyponatremia; E87.8 Other disorders of electrolyte and fluid balance, not elsewhere classified; I25.5 Ischemic cardiomyopathy; I13.0 Hypertensive heart and chronic kidney disease with heart failure and stage 1 through stage 4 chronic kidney disease, or unspecified chronic kidney disease; I50.9 Heart failure, unspecified; N18.2 Chronic kidney disease, stage 2 (mild); K21.9 Gastro-esophageal reflux disease without esophagitis; E03.9 Hypothyroidism, unspecified; I25.2 Old myocardial infarction; G43.909 Migraine, unspecified, not intractable, without status migrainosus; F41.9 Anxiety disorder, unspecified; Z87.442 Personal history of urinary calculi; Z87.891 Personal history of nicotine dependence; Z95.5 Presence of coronary angioplasty implant and graft; Z95.810 Presence of automatic (implantable) cardiac defibrillator; Z79.4 Long term (current) use of insulin; Z79.82 Long term (current) use of aspirin; Z79.84 Long term (current) use of oral hypoglycemic drugs; Z79.899 Other long term (current) drug therapy; Z88.5 Allergy status to narcotic agent; Z82.49 Family history of ischemic heart disease and other diseases of the circulatory system
CPT/HCPCS: 96372 ×3; 96361; 96365; 99285; 36415; 93005; 93306; 83880; 80061; 80053 ×2; 84443; 83735; 84484; 85025 ×2; 85610; 85730; 81001; 87040; 87086; 87077; 87186; 83036; 71046; G0378 ×2; J0696; J1644 ×2

== ENCOUNTER → 2022-07-13 | Outpatient (CLI) | payer OTHER ==
[2022-07-13 10:37] LABS: HCT 40.5 % (37.2-46.3); HGB 12.5 g/dL (12.0-15.0); MCH 29.2 pg (27.0-32.0); MCHC 30.9 g/dL (32.0-37.0); MCV 94.6 fL (80.0-97.0); Mean Platelet Volume 12.9 fL (9.5-12.2); NRBC Per 100 WBC 0 /100 WBCS (0.0-0.0); Platelet Count 219 X 10*3/uL (140-440); RBC 4.28 X 10*6/uL (4.10-5.20); RDW 13.9 % (11.5-14.5); WBC 8.27 X 10*3/uL (4.50-10.00)
[2022-07-13 10:46] LABS: African American GFR (CKD) 71.9 (60.0-200.0); Anion Gap 6.6 mmol/L (10.00-18.00); Carbon Dioxide 29.4 mmol/L (20.0-27.5); Non-African American GFR(CKD) 62.1 (60.0-200.0); Potassium 4.3 mmol/L (3.5-5.5)
== END | disposition home or self-care (01) ==
LOC: LABPAT 06:45
PROVIDERS: ATTEND Internal Medicine Interventional Cardiology
DX: Z01.812 Encounter for preprocedural laboratory examination (principal); I25.10 Atherosclerotic heart disease of native coronary artery without angina pectoris
CPT/HCPCS: 36415; 80051; 82565; 84520; 85027

== ENCOUNTER → 2022-07-20 | Day surgery (SDC) | payer BC, OTHER ==
[2022-07-17 09:00] VITALS: BMI 44.8
[~2022-07-20] MED LIST changes: +ALPRAZolam 0.25 MG TAB PO PRN; +ALPRAZolam 0.5 MG TAB PO PRN; +ASPIRIN 325 MG TAB PO STA; +ATORVASTATIN 80 MG TAB PO STA; +HEPARIN SODIUM 1,000 UN/ML (10ML VL) ONE; +HEPARIN SODIUM,PORCINE 10,000 UNIT in SODIUM CHLORIDE 0.9% 1,000 ML IRRIGATION PRN; +HEPARIN SODIUM,PORCINE 2,500 UNIT in SODIUM CHLORIDE 0.9% 250 ML IRRIGATION PRN; +HYDROmorphone 0.5 MG/0.5 ML SYRINGE IVP ONE; +IOPAMIDOL-370 125ML BTL INJ ONE; -LACTATED RINGERS 1,000 ML IV SCH; +LIDOCAINE 1% INJ 10MG/ML (5 ML VIAL-PF) SQ ONE; +MIDAZOLAM 2 MG/2 ML VIAL IV ONE; +NITROGLYCERIN SL TABS 0.4 MG TAB SUBLINGUAL PRN; +ONDANSETRON 4 MG/2 ML VIAL IVP STA; +ONDANSETRON 4 MG/2 ML VIAL ONE; +RX INFO: IV CONTRAST WAS GIVEN 1 EACH MISC MISCELLANE PRN; +SODIUM CHLORIDE 0.9% 1,000 ML in EMPTY BAG 1 BAG IV SCH; +VERAPAMIL SYRINGE (5 MG/10 ML) INTRAARTER ONE
[2022-07-20 08:00] LABS: Glucose,Whole Blood 165 mg/dL (70-110)
[2022-07-20 08:05] VITALS: RESP 16; TEMP 97.8
[2022-07-20] MEDS: HEPARIN SODIUM 1,000 UN/ML (10ML VL) IV ONE ×2 (09:31→09:42)
--- NOTE | 2022-07-20 10:01 | P.PCN ---
Date of Procedure: 07/20/22 Operative Findings: CARDIAC CATHETERIZATION PERFORMING PHYSICIAN: Jermain Mooney MD, RPVI PROCEDURE PERFORMED: 1. Selective right and left coronary angiogram 2. Left heart catheterization 3. iFR od the LAD 4. Ultrasound-guided access of the right radial artery INDICATION: This is a 57-year-old female patient with CAD and prior stenting of the LAD was experiencing symptoms of chest discomfort which he underwent myocardial perfusion imaging stress test and that revealed an anterior ischemia and in the light of that I did advise the patient to undergo a heart catheterization COMPLICATION: None APPROACH: Right radial artery LEVEL OF SEDATION: Moderate with a sedation length of 24 minutes PROCEDURE DESCRIPTION: After obtaining an informed consent, the patient was brought to cardiac laboratory aide. Local anesthesia was performed using lidocaine subcutaneously. The right radial artery was cannulated using Seldinger technique, the guidewire passed easily, following that we advanced a 5-[place] sheath dilator assembly, the wire and dilator were removed and sheath was flushed. Following that, 2 mg of verapamil along with 5000 unit heparin were given. Selective right and left coronary angiogram using a 6-[place] JR4 and JL 3.5 cath eters. Following that we did left heart catheterization using 6-[place] pigtail catheter. The procedure was completed there was no complication. SELECTIVE CORONARY ANGIOGRAM: The right coronary artery: Large caliber vessel and a dominant vessel. Its angiographically normal distally bifurcates into PDA and PLV branches both appeared to be angiographically normal Left main: Is angiographically normal and bifurcates into LCx and LAD The left circumflex: Large caliber vessel nondominant vessel. The LCx is angiographically normal. Gives rise into OM1 and OM 2 and both appeared to be angiographically normal The left anterior descending artery: Large caliber vessel. The mid LAD is a stented just after the bifurcation of the large caliber diagonal branch. The LAD has a disease in the midportion appears to be in the range of 50%. FFR was performed and came in to be nonischemic HEMODYNAMICS: The LVEDP was 10 mmHg was no significant gradient across aortic valve iFR OF THE LAD: Anticoagulation was initiated using heparin with continuous ACT monitoring. Subsequently and after equalizing between the Doppler wire and the guiding catheter with did IFR and that came in to be 0.94 CONCLUSION: 1. Intermediate in-stent restenosis of the mid LAD. iFR was performed and came in to be nonischemic 0.94 2. Normal left-sided filling pressure POSTPROCEDURE MANAGEMENT: Medical treatment and follow-up with the patient
[2022-07-20 13:34] VITALS: BP 108/58; PULSE 65
== END ==
LOC: CATHCVL 07:34
PROVIDERS: ATTEND Internal Medicine Interventional Cardiology
DX: I25.10 Atherosclerotic heart disease of native coronary artery without angina pectoris (principal); I10 Essential (primary) hypertension; E78.5 Hyperlipidemia, unspecified; I34.0 Nonrheumatic mitral (valve) insufficiency; Z95.0 Presence of cardiac pacemaker; Z95.5 Presence of coronary angioplasty implant and graft
CPT/HCPCS: 93458; J2250; J2405; J2001; J1644; J1170; Q9967; 76937; 93799

== ENCOUNTER 2022-09-30 11:48 | Observation (INO) | payer OTHER ==
[2022-09-30] MEDS ORDERED: ASPIRIN 81 MG PO STA (12:28)
[2022-09-30] MEDS ORDERED: NITROGLYCERIN OINT 1 INCH/GM PACKET TOPICAL STA (12:28)
[2022-09-30 12:41] LABS: Basophils # (A) 0.1 k/uL (0-0.2); Basophils % (A) 1 %; Eosinophils # (A) 0.1 k/uL (0-0.7); Eosinophils % (A) 2 %; HCT 39.9 % (34.0-46.0); Lymphocytes # (A) 2.3 k/uL (1.0-4.8); Lymphocytes % (A) 30 %; MCH 30.1 pg (25.0-35.0); MCHC 32.6 g/dL (31.0-37.0); MCV 92.1 fL (80.0-100.0); Mean Platelet Volume 10.5; Monocytes # (A) 0.4 k/uL (0-1.0); Monocytes % (A) 6 %; Neutrophils # (A) 4.6 k/uL (1.3-7.7); Neutrophils % (A) 60 %; Platelet Count 224 k/uL (150-450); RBC 4.34 m/uL (3.80-5.40); RDW 14.1 % (11.5-15.5); WBC 7.6 k/uL (3.8-10.6)
--- NOTE | 2022-09-30 12:41 | ED ---
General Adult HPI - General Chief complaint: Chest Pain Stated complaint: Chest Pain Time Seen by Provider: 09/30/22 12:00 Source: patient, RN notes reviewed, old records reviewed Mode of arrival: wheelchair Limitations: no limitations - History of Present Illness Initial comments: This a 57-year-old female presents emergency Department complaining of chest pain on and off for a week. Patient states it usually lasts somewhere around an hour. Patient states his been slowly getting worse over the week per patient states the pain is central to her chest and radiates on her left arm occasionally. Patient states occasionally she has chest pain with it. Patient denies any nausea but she states she is had some diaphoretic episodes when she's had the pain. Patient states she's had 2 heart attacks in the past has a pacemaker has diabetes hypertension and high cholesterol. Patient denies any smoking history. Patient denies any abdominal pain today. Patient denies any fever chills or cough per patient denies calf tenderness or leg swelling. Patient is currently chest pain-free - Related Data Home Medications Medication Instructions Recorded Confirmed Metoprolol Succinate (ER) [Toprol 100 mg PO HS 03/28/20 09/30/22 XL] Sacubitril/Valsartan [Entresto 24 1 tab PO BID 03/28/20 09/30/22 mg-26 mg Tablet] Aspirin 81 mg PO DAILY 06/10/20 09/30/22 Sotalol [Betapace] 80 mg PO BID 06/10/20 09/30/22 Spironolactone 50 mg PO DAILY 10/02/21 09/30/22 Empagliflozin [Jardiance] 25 mg PO DAILY 04/22/22 09/30/22 Ascorbic Acid [Vitamin C] 1,000 mg PO DAILY 07/17/22 09/30/22 Insulin Glargine,Hum.rec.anlog 30 units SQ HS 07/17/22 09/30/22 [John Fang] metFORMIN HCL [Glucophage] 500 mg PO BID 09/30/22 09/30/22 Previous Rx's Medication Instructions Recorded Atorvastatin [Lipitor] 80 mg PO HS #30 tab 02/09/18 Allergies Allergy/AdvReac Type Severity Reaction Status Date / Time hydrocodone bitartrate AdvReac Nausea & Verified 09/30/22 13:04 [From Vicodin] Vomiting propoxyphene napsylate AdvReac Vomiting Verified 09/30/22 13:04 [From Darvocet-N] Review of Systems ROS Statement: Those systems with pertinent positive or pertinent negative responses have been documented in the HPI. ROS Other: All systems not noted in ROS Statement are negative. Past Medical History Past Medical History: Coronary Artery Disease (CAD), Chest Pain / Angina, Heart Failure, GERD/Reflux, Hyperlipidemia, Hypertension, Myocardial Infarction (OR), Renal Disease, Thyroid Disorder Additional Past Medical History / Comment(s): Ischemic cardiomyopathy, CKD stage II, nephrolithiasis, migraines, occasional back pain, hypothyroid. states she had a pacemaker put in 1 or 2 years ago in March. Last Myocardial Infarction Date:: 06-30-15 History of Any Multi-Drug Resistant Organisms: None Reported Past Surgical History: Heart Catheterization, Heart Catheterization With Stent, Hernia Repair, Hysterectomy, Pacemaker Additional Past Surgical History / Comment(s): 2015 stents to lad,diag, 05/22/16 PTCA, bilateral oophorectomy, LT INGUINAL HERNIA REPAIR, CYSTOCOPY, LITHOTRIPSY,COLONOSCOPY, Past Anesthesia/Blood Transfusion Reactions: Postoperative Nausea & Vomiting (PONV) Additional Past Anesthesia/Blood Transfusion Reaction / Comment(s): MILD CLAUSTERPHOBIA Date of Last Stent Placement:: 06/30/15 Type of Cardiac Device: Permanent Pacemaker Device Placement Date:: pt states it was put in in March either this last one or the year befor Past Psychological History: Anxiety Smoking Status: Former smoker Past Alcohol Use History: Rare Past Drug Use History: None Reported - Past Family History Mother Family Medical History: Dementia Brother(s) Family Medical History: No Reported History Father Family Medical History: Cancer, Dementia, Myocardial Infarction (OR) Sister(s) Family Medical History: Cancer, Hypertension General Exam - General Exam Comments Initial Comments: GENERAL: Patient is well-developed and well-nourished. Patient is nontoxic and well- hydrated and is in mild distress. ENT: Neck is soft and supple. No significant lymphadenopathy is noted. Oropharynx is clear. Moist mucous membranes. Neck has full range of motion without eliciting any pain. EYES: The sclera were anicteric and conjunctiva were pink and moist. Extraocular movements were intact and pupils were equal round and reactive to light. Eyelids were unremarkable. PULMONARY: Unlabored respirations. Good breath sounds bilaterally. No audible rales rhonchi or wheezing was noted. CARDIOVASCULAR: There is a regular rate and rhythm without any murmurs gallops or rubs. ABDOMEN: Soft and nontender with normal bowel sounds. SKIN: Skin is clear with no lesions or rashes and otherwise unremarkable. NEUROLOGIC: Patient is alert and oriented x3. Cranial nerves II through XII are grossly intact. Motor and sensory are also intact. Normal speech, volume and content. Symmetrical smile. MUSCULOSKELETAL: Normal extremities with adequate strength and full range of motion. No lower extremity swelling or edema. No calf tenderness. LYMPHATICS: No significant lymphadenopathy is noted PSYCHIATRIC: Normal psychiatric evaluation. Limitations: no limitations Course Vital Signs 09/30/22 09/30/22 11:56 13:42 Temperature 97.7 F Pulse Rate 65 78 Respiratory 20 18 Rate Blood Pressure 124/78 142/82 O2 Sat by Pulse 100 99 Oximetry Medical Decision Making - Medical Decision Making EKG was interpreted by myself shows a paced rhythm at 60 bpm RI interval is on a 73 QRS is 186 Q-T intervals 514 QTC is 519. Was pt. sent in by a medical professional or institution (, PA, PRESTIDIGITATOR, urgent care, hospital, or [facility]...) When possible be specific @ -No Did you speak to anyone other than the patient for history (EMS, parent, family, police, friend...)? What history was obtained from this source @ -No Did you review nursing and triage notes (agree or disagree)? Why? @ -I reviewed and agree with nursing and triage notes Were old charts reviewed (outside hosp., previous admission, EMS record, old EKG, old radiological studies, urgent care reports/EKG's, [facility] records)? Report findings @ -I reviewed patient's old lab results as well as prior EKGs prior radiological studies Differential Diagnosis (chest pain, altered mental status, abdominal pain women, abdominal pain men, vaginal bleeding, weakness, fever, dyspnea, syncope, headache, dizziness, GI bleed, back pain, seizure, CVA, palpatations, mental health, musculoskeletal)? @ -Differential Chest Pain: Stable Angina, Unstable Angina, STEMI, NSTEMI Aortic Dissection, Pneumothorax, Musculoskeletal, Esophageal Spasm GERD, Cholecystitis, Pancreatitis, Zoster, this is not meant to be an all-inclusive list. EKG interpreted by me (3pts min.). @ -As above X-rays interpreted by me (1pt min.). @ -Chest x-ray was interpreted by myself shows no acute abnormality CT interpreted by me (1pt min.). @ -None done U/S interpreted by me (1pt. min.). @ -None done What testing was considered but not performed or refused? (CT, X-rays, U/S, labs)? Why? @ -None What meds were considered but not given or refused? Why? @ -None Did you discuss the management of the patient with other professionals (professionals i.e. , PA, PRESTIDIGITATOR, lab, RT, psych nurse, marriage and family social worker, ground worker, teacher, learning and development officer, case maker)? Give summary @ -[facility] Was smoking cessation discussed for >3mins.? @ -No Was critical care preformed (if so, how long)? @ -No Were there social determinants of health that impacted care today? How? (Homelessness, low income, unemployed, alcoholism, drug addiction, transportation, low edu. Level, literacy, decrease access to med. care, care home, rehab)? @ -No Was there de-escalation of care discussed even if they declined (Discuss DNR or withdrawal of care, Hospice)? DNR status @ -No What co-morbidities impacted this encounter? (DM, HTN, Smoking, COPD, CAD, Cancer, CVA, ARF, Chemo, Hep., AIDS, mental health diagnosis, sleep apnea, morbid obesity)? @ -Patient has diabetes hypertension high cholesterol and coronary artery disease all of which increase her chances of morbidity and mortality Was patient admitted / discharged? Hospital course, mention meds given and route, prescriptions, significant lab abnormalities, going to OR and other pertinent info. @ -Patient was chest pain free when she arrived and remained that way throughout her course. Patient did get aspirin and Nitropaste. Labs came back her troponin was normal. Chest x-ray was normal. I spoke with [facility] he agreed to admit the patient and patient consult cardiology wrote admitting orders Undiagnosed new problem with uncertain prognosis? @ -No Drug Therapy requiring intensive monitoring for toxicity (Heparin, Nitro, Insulin, Cardizem)? @ -No Were any procedures done? @ -No Diagnosis/symptom? @ -Chest pain Acute, or Chronic, or Acute on Chronic? @ -Acute Uncomplicated (without systemic symptoms) or Complicated (systemic symptoms)? @ -Complicated Side effects of treatment? @ -No Exacerbation, Progression, or Severe Exacerbation? @ -No Poses a threat to life or bodily function? How? (Chest pain, USA, OR, pneumonia, PE, COPD, DKA, ARF, appy, cholecystitis, CVA, Diverticulitis, Homicidal, Suicidal, threat to staff... and all critical care pts) @ -Yes this poses an increased risk morbidity and mortality - Lab Data Result diagrams: 09/30/22 12:30 09/30/22 12:30 Lab Results 09/30/22 09/30/22 09/30/22 Range/Units 12:30 12:30 12:30 WBC 7.6 (3.8-10.6) k/uL RBC 4.34 (3.80-5.40) m/uL Hgb 13.0 (11.4-16.0) gm/dL Hct 39.9 (34.0-46.0) % MCV 92.1 (80.0-100.0) fL MCH 30.1 (25.0-35.0) pg MCHC 32.6 (31.0-37.0) g/dL RDW 14.1 (11.5-15.5) % Plt Count 224 (150-450) k/uL MPV 10.5 Neutrophils % 60 % Lymphocytes % 30 % Monocytes % 6 % Eosinophils % 2 % Basophils % 1 % Neutrophils # 4.6 (1.3-7.7) k/uL Lymphocytes # 2.3 (1.0-4.8) k/uL Monocytes # 0.4 (0-1.0) k/uL Eosinophils # 0.1 (0-0.7) k/uL Basophils # 0.1 (0-0.2) k/uL PT 9.9 (9.0-12.0) sec INR 0.9 (<1.2) APTT 24.7 (22.0-30.0) sec Sodium 139 (137-145) mmol/L Potassium 4.1 (3.5-5.1) mmol/L Chloride 105 (98-107) mmol/L Carbon Dioxide 24 (22-30) mmol/L Anion Gap 10 mmol/L BUN 22 H (7-17) mg/dL Creatinine 0.94 (0.52-1.04) mg/dL Est GFR (CKD-EPI)AfAm 78 (>60 ml/min/1.73 sqM) Est GFR (CKD-EPI)NonAf 67 (>60 ml/min/1.73 sqM) Glucose 125 H (74-99) mg/dL Calcium 9.4 (8.4-10.2) mg/dL Magnesium 1.8 (1.6-2.3) mg/dL Total Bilirubin 1.1 (0.2-1.3) mg/dL AST 30 (14-36) U/L ALT 31 (4-34) U/L Alkaline Phosphatase 75 (38-126) U/L Troponin I (0.000-0.034) ng/mL Total Protein 7.2 (6.3-8.2) g/dL Albumin 4.2 (3.5-5.0) g/dL 09/30/22 Range/Units 12:30 WBC (3.8-10.6) k/uL RBC (3.80-5.40) m/uL Hgb (11.4-16.0) gm/dL Hct (34.0-46.0) % MCV (80.0-100.0) fL MCH (25.0-35.0) pg MCHC (31.0-37.0) g/dL RDW (11.5-15.5) % Plt Count (150-450) k/uL MPV Neutrophils % % Lymphocytes % % Monocytes % % Eosinophils % % Basophils % % Neutrophils # (1.3-7.7) k/uL Lymphocytes # (1.0-4.8) k/uL Monocytes # (0-1.0) k/uL Eosinophils # (0-0.7) k/uL Basophils # (0-0.2) k/uL PT (9.0-12.0) sec INR (<1.2) APTT (22.0-30.0) sec Sodium (137-145) mmol/L Potassium (3.5-5.1) mmol/L Chloride (98-107) mmol/L Carbon Dioxide (22-30) mmol/L Anion Gap mmol/L BUN (7-17) mg/dL Creatinine (0.52-1.04) mg/dL Est GFR (CKD-EPI)AfAm (>60 ml/min/1.73 sqM) Est GFR (CKD-EPI)NonAf (>60 ml/min/1.73 sqM) Glucose (74-99) mg/dL Calcium (8.4-10.2) mg/dL Magnesium (1.6-2.3) mg/dL Total Bilirubin (0.2-1.3) mg/dL AST (14-36) U/L ALT (4-34) U/L Alkaline Phosphatase (38-126) U/L Troponin I <0.012 (0.000-0.034) ng/mL Total Protein (6.3-8.2) g/dL Albumin (3.5-5.0) g/dL Disposition Clinical Impression: Chest pain Disposition: ADMITTED IP TO THIS [facility] Referrals: Tera Villanueva DO [Primary Care Provider] - 1-2 days Time of Disposition: 13:50
[2022-09-30 12:51] LABS: INR 0.9 (<1.2); Partial Thromboplastin Time 24.7 sec (22.0-30.0); Prothrombin Time 9.9 sec (9.0-12.0)
[2022-09-30 12:52] LABS: Albumin 4.2 g/dL (3.5-5.0); Calcium 9.4 mg/dL (8.4-10.2); Magnesium 1.8 mg/dL (1.6-2.3); Potassium 4.1 mmol/L (3.5-5.1); Total Bilirubin 1.1 mg/dL (0.2-1.3); Total Protein 7.2 g/dL (6.3-8.2)
--- NOTE | 2022-09-30 12:53 | XR ---
EXAMINATION TYPE: XR chest 2V DATE OF EXAM: 09/30/2022 COMPARISON: 04/22/2022 TECHNIQUE: PA and lateral views submitted. HISTORY: Chest pain FINDINGS: The lungs are clear and there is no pneumothorax, pleural effusion, or focal pneumonia. Heart size normal and no overt failure. Osseous structures demonstrate hypertrophic and degenerative changes of the spine. A cardiac device is stable in appearance. Surgical clips in the abdomen. IMPRESSION: 1. No acute process.
[2022-09-30] MEDS ORDERED: NITROGLYCERIN SL TABS 0.4 MG TAB SUBLINGUAL PRN (13:52)
[2022-09-30] MEDS ORDERED: DEXTROSE 50% SYRINGE 50 ML IVP PRN ×2 (16:30)
--- NOTE | 2022-09-30 16:33 | P.HPIM ---
History of Present Illness H&P Date: 09/30/22 This is a 57 year old female with medical history of heart failure, coronary artery disease with PCI to LAD performed in 2014, hypertension, hyperlipidemia, ischemic cardiomyopathy, chronic kidney disease. Patient underwent cardiac work up back in July of this year and had a positive stress test. Patient had heart catheterization then performed which revealed intermediate in-stent stenosis of the mid LAD had FFR performed was found to be nonischemic and patient was recommended to continue medical therapy. Patient reports to the hospital with week long history of left sided chest pain with radiation into the left arm. Patient reports no precipitating factors, happens at rest and with activity. Initially thought to be a pulled muscle. However she is now experiencing associated nausea and lightheadedness. Denies shortness of breath, however reports chest discomfort can be worse with inspiration. There is some focal tenderness over the left chest wall. Lab work is essentially unremarkable, glucose is 125, and troponin level is negative x 2. Patient has been started on topical nitroglycerin and will be evaluated by cardiology. Most recent echocardiogram from April 2022 shows an EF of 55%, moderate increased left ventricular wall thickness, mild mitral regurgitation, mild tricuspid regurgitation, no pericardial effusion. Patient is currently ventricular pacing. Chest xray negative. Patient will be resumed on home medications. REVIEW OF SYSTEMS: CONSTITUTIONAL: No fever, no malaise, no fatigue. HEENT: No recent visual problems or hearing problems. Denied any sore throat. CARDIOVASCULAR: Reports chest pain and left arm pain, no orthopnea, PND, no palpitations, no syncope. Reports lightheadedness and diaphoresis. PULMONARY: No shortness of breath, no cough, no hemoptysis. GASTROINTESTINAL: No diarrhea, no vomiting, no abdominal pain. Reports nausea. NEUROLOGICAL: No headaches, no weakness, no numbness. HEMATOLOGICAL: Denies any bleeding or petechiae. GENITOURINARY: Denies any burning micturition, frequency, or urgency. MUSCULOSKELETAL/RHEUMATOLOGICAL: Denies any joint pain, swelling, or any muscle pain. ENDOCRINE: Denies any polyuria or polydipsia. The rest of the 14-point review of systems is negative. PHYSICAL EXAMINATION: GENERAL: The patient is alert and oriented x3, not in any acute distress. Well developed, well nourished. HEENT: Pupils are round and equally reacting to light. EOMI. No scleral icterus. No conjunctival pallor. Normocephalic, atraumatic. No pharyngeal erythema. No thyromegaly. CARDIOVASCULAR: S1 and S2 present. No murmurs, rubs, or gallops. PULMONARY: Chest is clear to auscultation, no wheezing or crackles. ABDOMEN: Soft, nontender, nondistended, normoactive bowel sounds. No palpable organomegaly. MUSCULOSKELETAL: No joint swelling or deformity. EXTREMITIES: No cyanosis, clubbing, or pedal edema. NEUROLOGICAL: Gross neurological examination did not reveal any focal deficits. SKIN: No rashes. Assessment and Plan Assessment Chest pain rule out ACS Recent positive stress test and cardiac cath with findings of mid LAD 50% stenosis, nonischemic History of coronary artery disease with prior PCI to LAD in 2014 Hypertension Hyperlipidemia History of heart failure Chronic kidney disease stage 2 Diabetes Mellitus type 2 Ventricular pacemaker Former smoker GI prophylaxis DVT prophylaxis Plan Resume home medications Cardiology consultation Trend troponin level Patient is admitted in observation anticipated hospital stay less than 2 nights. The impression and plan of care has been dictated by Delicia Gamboa Nurse Practitioner as directed. Dr. Cheri MD I have performed a history and physical examination and medical decision making of this patient, discussed the same with the dictator, and agree with the dictators assessment and plan as written, documented as a scribe. Based on total visit time, I have performed more than 50% of this visit. Past Medical History Past Medical History: Coronary Artery Disease (CAD), Chest Pain / Angina, Heart Failure, GERD/Reflux, Hyperlipidemia, Hypertension, Myocardial Infarction (ID), Renal Disease, Thyroid Disorder Additional Past Medical History / Comment(s): Ischemic cardiomyopathy, CKD stage II, nephrolithiasis, migraines, occasional back pain, hypothyroid. states she had a pacemaker put in 1 or 2 years ago in March. Last Myocardial Infarction Date:: 06-30-15 History of Any Multi-Drug Resistant Organisms: None Reported Past Surgical History: Heart Catheterization, Heart Catheterization With Stent, Hernia Repair, Hysterectomy, Pacemaker Additional Past Surgical History / Comment(s): 2014 stents to lad,diag, 05/22/16 PTCA, bilateral oophorectomy, LT INGUINAL HERNIA REPAIR, CYSTOCOPY, LITHOTRIPSY,COLONOSCOPY, Past Anesthesia/Blood Transfusion Reactions: Postoperative Nausea & Vomiting (PONV) Additional Past Anesthesia/Blood Transfusion Reaction / Comment(s): MILD CLAUSTERPHOBIA Date of Last Stent Placement:: 06/30/15 Type of Cardiac Device: Permanent Pacemaker Device Placement Date:: pt states it was put in in March either this last one or the year befor Past Psychological History: Anxiety Smoking Status: Former smoker Past Alcohol Use History: Rare Past Drug Use History: None Reported - Past Family History Mother Family Medical History: Dementia Brother(s) Family Medical History: No Reported History Father Family Medical History: Cancer, Dementia, Myocardial Infarction (ID) Sister(s) Family Medical History: Cancer, Hypertension Medications and Allergies Home Medications Medication Instructions Recorded Confirmed Type Atorvastatin [Lipitor] 80 mg PO HS #30 tab 02/09/18 09/30/22 Rx Metoprolol Succinate (ER) [Toprol 100 mg PO HS 03/28/20 09/30/22 History XL] Sacubitril/Valsartan [Entresto 24 1 tab PO BID 03/28/20 09/30/22 History mg-26 mg Tablet] Aspirin 81 mg PO DAILY 06/10/20 09/30/22 History Sotalol [Betapace] 80 mg PO BID 06/10/20 09/30/22 History Spironolactone 50 mg PO DAILY 10/02/21 09/30/22 History Empagliflozin [Jardiance] 25 mg PO DAILY 04/22/22 09/30/22 History Ascorbic Acid [Vitamin C] 1,000 mg PO DAILY 07/17/22 09/30/22 History Insulin Glargine,Hum.rec.anlog 30 units SQ HS 07/17/22 09/30/22 History [[place] Solostar] metFORMIN HCL [Glucophage] 500 mg PO BID 09/30/22 09/30/22 History Allergies Allergy/AdvReac Type Severity Reaction Status Date / Time hydrocodone bitartrate AdvReac Nausea & Verified 09/30/22 13:04 [From Vicodin] Vomiting propoxyphene napsylate AdvReac Vomiting Verified 09/30/22 13:04 [From Darvocet-N] Physical Exam Vitals: Vital Signs Temp Pulse Resp BP Pulse Ox 09/30/22 13:42 78 18 142/82 99 09/30/22 11:56 97.7 F 65 20 124/78 100 Intake and Output 09/29/22 09/30/22 09/30/22 22:59 06:59 14:59 Other: Weight 108.862 kg Results CBC & Chem 7: 09/30/22 12:30 09/30/22 12:30 Labs: Abnormal Lab Results - Last 24 Hours (Table) 09/30/22 Range/Units 12:30 BUN 22 H (7-17) mg/dL Glucose 125 H (74-99) mg/dL Assessment and Plan Time with Patient: Less than 30
[2022-09-30 17:24] LABS: Glucose,Whole Blood 147 mg/dL (70-110)
[2022-09-30] MEDS: NITROGLYCERIN OINT 1 INCH/GM PACKET TOPICAL SCH (17:48)
[2022-09-30] MEDS: INSULIN ASPART (NovoLOG) 100 UNIT/ML VIAL SQ SCH ×2 (18:19→20:52)
[2022-09-30 20:45] LABS: Glucose,Whole Blood 180 mg/dL (70-110)
[2022-09-30] MEDS: metFORMIN 500 MG TAB PO SCH (20:52)
[2022-09-30] MEDS: SOTALOL 80 MG TAB PO SCH (20:53)
[2022-09-30] MEDS: SACUBITRIL/VALSARTAN 24 MG-26 MG TABLET PO SCH (20:53)
[2022-09-30] MEDS ORDERED: INSULIN DETEMIR (LEVEMIR) 100 UNIT/ML SYR SQ SCH (21:00)
[2022-09-30] MEDS ORDERED: ATORVASTATIN 80 MG TAB PO SCH (21:00)
[2022-09-30] MEDS ORDERED: METOPROLOL SUCCINATE (ER) 100 MG TAB.ER.24H PO SCH (21:00)
[2022-10-01] MEDS: NITROGLYCERIN OINT 1 INCH/GM PACKET TOPICAL SCH ×2 (00:50→06:11)
[2022-10-01 06:05] LABS: Glucose,Whole Blood 141 mg/dL (70-110)
[2022-10-01] MEDS: INSULIN ASPART (NovoLOG) 100 UNIT/ML VIAL SQ SCH (06:11)
[2022-10-01 06:41] VITALS: BP 105/65; PULSE 67; RESP 14; TEMP 98.1
[2022-10-01] MEDS ORDERED: ASPIRIN 325 MG TAB PO SCH (09:00)
[2022-10-01] MEDS ORDERED: ASPIRIN 81 MG PO SCH (09:00)
[2022-10-01] MEDS ORDERED: SPIRONOLACTONE 25 MG TAB PO SCH (09:00)
[2022-10-01] MEDS ORDERED: DAPAGLIFLOZIN PROPANEDIOL 10 MG TABLET PO SCH (09:00)
[2022-10-01] MEDS ORDERED: ASCORBIC ACID 500 MG TAB PO SCH (09:00)
--- NOTE | 2022-10-01 09:12 | P.CRDCN ---
History of Present Illness Consult date: 09/30/22 History of present illness: HISTORY OF PRESENT ILLNESS: This is a 87-year-old female with a past medical history significant for coronary artery disease with previous stenting of the LAD, hypertension, hyperlipidemia, ischemic cardiomyopathy with previous AICD implantation and former nicotine dependence. Patient follows in the office with Dr. Mooney. We have been asked to see the patient in consultation for chest pain. Patient examined at the bedside. Patient states she started having chest pain a week ago. She states the pain was unlike her previous stenting. She states she thought she pulled a muscle at first. She states the pain was on and off. She would have to sit down to relax to get the pain to improve. She came to the ER for further evaluation. She received nitro paste which took her pain away and states she has not had any further pain since. She does report pain with chest wall tenderness. She states the pain is worse with movement with the left shoulder. She does report she has been exercising with her arms more frequently than normal. * EKG reveals ventricular paced rhythm * Chest xray negative for acute process * Laboratory data: WBC 7.6. Hemoglobin 13.0. Platelet count 224. Sodium 139. Potassium 4.1. BUN 22. Creatinine 0.94. Troponin negative 3 * Current home cardiac medications include spironolactone 50 mg daily, sotalol 80 mg twice a day, aspirin 81 mg daily, Lipitor 80 mg at night, metoprolol succinate 100 mg at night, and Entresto 24-26mg BID * Most recent echocardiogram obtained in April 2022 revealed ejection fraction 55%, mild MR, mild TR * Cardiac catheterization history: July 2022 revealing intermediate in-stent restenosis of the mid LAD. IFR was performed and came in to be nonischemic a nd 0.94. REVIEW OF SYSTEMS: At the time of my exam: CONSTITUTIONAL: Denies fever or chills. HEENT: Denies blurred vision, vision changes, or eye pain. Denies hemoptysis CARDIOVASCULAR: Denies chest pain. Denies orthopnea. Denies PND. Denies palpitations RESPIRATORY: Denies shortness of breath. GASTROINTESTINAL: Denies abdominal pain. Denies nausea or vomiting. HEMATOLOGIC: Denies bleeding disorders. GENITOURINARY: Denies any blood in urine. SKIN: Denies pruitis. Denies rash. PHYSICAL EXAM: VITAL SIGNS: Reviewed. GENERAL: Well-developed in no acute distress. HEENT: Head is normocephalic. Pupils are equal, round. Sclerae anicteric. Mucous membranes of the mouth are moist. Neck supple. No JVD or thyromegaly LUNGS: Respirations even and unlabored. Lungs essentially clear to auscultation bilaterally. HEART: Regular rate and rhythm. S1 and S2 heard. ABDOMEN: Soft. Nondistended. Nontender. EXTREMITIES: Normal range of motion. No clubbing or cyanosis. Peripheral pulses intact. No lower extremity edema NEUROLOGIC: Awake and alert. Oriented x 3. ASSESSMENT: Chest pain, troponin negative x 3, appears noncardiac in nature Coronary artery disease with previous stenting of the LAD History of ischemic cardiomyopathy with recovered EF, most recently 55% History of AICD implantation Hypertension Hyperlipidemia Former nicotine dependence PLAN: An acute coronary event has been ruled out No need to repeat echocardiogram as this was performed in April 2022 Resume home cardiac medications Patients pain appears to be musculoskeletal in nature. Pain is reproducible with movement and with chest wall palpation. Discontinue nitro paste If patient remains stable after DC of nitro paste, she may be discharged home today and follow up outpatient with Dr. Mooney Nurse practitioner note has been reviewed by physician. Signing provider agrees with the documented findings, assessment, and plan of care. Past Medical History Past Medical History: Coronary Artery Disease (CAD), Chest Pain / Angina, Heart Failure, GERD/Reflux, Hyperlipidemia, Hypertension, Myocardial Infarction ([place]), Renal Disease, Thyroid Disorder Additional Past Medical History / Comment(s): Ischemic cardiomyopathy, CKD stage II, nephrolithiasis, migraines, occasional back pain, hypothyroid. states she had a pacemaker put in 1 or 2 years ago in March. Last Myocardial Infarction Date:: 06-30-15 History of Any Multi-Drug Resistant Organisms: None Reported Past Surgical History: Heart Catheterization, Heart Catheterization With Stent, Hernia Repair, Hysterectomy, Pacemaker Additional Past Surgical History / Comment(s): 2015 stents to lad,diag, 05/22/16 PTCA, bilateral oophorectomy, LT INGUINAL HERNIA REPAIR, CYSTOCOPY, LITHOTRIPSY,COLONOSCOPY, Past Anesthesia/Blood Transfusion Reactions: Postoperative Nausea & Vomiting (PONV) Additional Past Anesthesia/Blood Transfusion Reaction / Comment(s): MILD CLAUSTERPHOBIA Date of Last Stent Placement:: 06/30/15 Type of Cardiac Device: Permanent Pacemaker Device Placement Date:: pt states it was put in in March either this last one or the year befor Past Psychological History: Anxiety Smoking Status: Former smoker Past Alcohol Use History: Rare Past Drug Use History: None Reported - Past Family History Mother Family Medical History: Dementia Brother(s) Family Medical History: No Reported History Father Family Medical History: Cancer, Dementia, Myocardial Infarction ([place]) Sister(s) Family Medical History: Cancer, Hypertension Medications and Allergies Home Medications Medication Instructions Recorded Confirmed Type Atorvastatin [Lipitor] 80 mg PO HS #30 tab 02/09/18 09/30/22 Rx Metoprolol Succinate (ER) [Toprol 100 mg PO HS 03/28/20 09/30/22 History XL] Sacubitril/Valsartan [Entresto 24 1 tab PO BID 03/28/20 09/30/22 History mg-26 mg Tablet] Aspirin 81 mg PO DAILY 06/10/20 09/30/22 History Sotalol [Betapace] 80 mg PO BID 06/10/20 09/30/22 History Spironolactone 50 mg PO DAILY 10/02/21 09/30/22 History Empagliflozin [Jardiance] 25 mg PO DAILY 04/22/22 09/30/22 History Ascorbic Acid [Vitamin C] 1,000 mg PO DAILY 07/17/22 09/30/22 History Insulin Glargine,Hum.rec.anlog 30 units SQ HS 07/17/22 09/30/22 History [Toujeo Max Solostar] metFORMIN HCL [Glucophage] 500 mg PO BID 09/30/22 09/30/22 History Nitroglycerin Sl Tabs [Nitrostat] 0.4 mg SUBLINGUAL Q5M PRN #100 tab 10/01/22 Rx Allergies Allergy/AdvReac Type Severity Reaction Status Date / Time hydrocodone bitartrate AdvReac Nausea & Verified 09/30/22 13:04 [From Vicodin] Vomiting propoxyphene napsylate AdvReac Vomiting Verified 09/30/22 13:04 [From Darvocet-N] Physical Exam Vitals: Vital Signs Temp Pulse Resp BP Pulse Ox 09/30/22 13:42 78 18 142/82 99 09/30/22 11:56 97.7 F 65 20 124/78 100 Intake and Output 09/29/22 09/30/22 09/30/22 22:59 06:59 14:59 Other: Weight 108.862 kg Results 09/30/22 12:30 09/30/22 12:30 Cardiac Enzymes 09/30/22 09/30/22 Range/Units 12:30 12:30 AST 30 (14-36) U/L Troponin I <0.012 (0.000-0.034) ng/mL Coagulation 09/30/22 Range/Units 12:30 PT 9.9 (9.0-12.0) sec APTT 24.7 (22.0-30.0) sec CBC 09/30/22 Range/Units 12:30 WBC 7.6 (3.8-10.6) k/uL RBC 4.34 (3.80-5.40) m/uL Hgb 13.0 (11.4-16.0) gm/dL Hct 39.9 (34.0-46.0) % Plt Count 224 (150-450) k/uL Comprehensive Metabolic Panel 09/30/22 Range/Units 12:30 Sodium 139 (137-145) mmol/L Potassium 4.1 (3.5-5.1) mmol/L Chloride 105 (98-107) mmol/L Carbon Dioxide 24 (22-30) mmol/L BUN 22 H (7-17) mg/dL Creatinine 0.94 (0.52-1.04) mg/dL Glucose 125 H (74-99) mg/dL Calcium 9.4 (8.4-10.2) mg/dL AST 30 (14-36) U/L ALT 31 (4-34) U/L Alkaline Phosphatase 75 (38-126) U/L Total Protein 7.2 (6.3-8.2) g/dL Albumin 4.2 (3.5-5.0) g/dL Current Medications Generic Name Dose Route Start Last Admin Trade Name Freq PRN Reason Stop Dose Admin Aspirin 325 mg 10/01/22 09:00 Aspirin 325 Mg Tab PO DAILY LEO Nitroglycerin 0.4 mg 09/30/22 13:52 Nitroglycerin Sl Tabs 0.4 Mg Tab SUBLINGUAL Q5M PRN Chest Pain Nitroglycerin 1 inch 09/30/22 18:00 Nitroglycerin Oint 1 Inch/Gm Packet TOPICAL Q6HR LEO Intake and Output 09/29/22 09/30/22 09/30/22 22:59 06:59 14:59 Other: Weight 108.862 kg Patient Weight 10/01/22 06:59 Weight 108.862 kg 09/30/22 12:30 09/30/22 12:30
[2022-10-01] MEDS: SACUBITRIL/VALSARTAN 24 MG-26 MG TABLET PO SCH (10:10)
[2022-10-01] MEDS: SOTALOL 80 MG TAB PO SCH (10:11)
[2022-10-01] MEDS: metFORMIN 500 MG TAB PO SCH (10:11)
[2022-10-01 10:27] LABS: African American GFR (CKD) 71.9 (60.0-200.0); Carbon Dioxide 25.5 mmol/L (20.0-27.5); Chloride 104 mmol/L (96-109); Chol/HDL Ratio 2.34 Ratio; Glucose 133 mg/dL (70-110); LDL Cholesterol,Calculated 41.4 mg/dL (0.0-131.0); Non-African American GFR(CKD) 62.1 (60.0-200.0); Potassium 4.2 mmol/L (3.5-5.5); Sodium 139 mmol/L (135-145); VLDL Calculation 16.44 mg/dL (5.00-40.00)
--- NOTE | 2022-10-01 22:26 | P.DS ---
Providers Date of admission: 09/30/22 13:54 Attending physician: Markus Jarrett Consults: 09/30/22 13:53 Consult Physician Urgent Consulting Provider: [facility] Consult Reason/Comments: Chest pain Do you want consulting provider notified?: Yes Primary care physician: Tera Villanueva Hospital Course: Diagnoses: Chest pain cardiac causes were ruled out. Most likely musculoskeletal. Completely resolved upon discharge Recent positive stress test and cardiac cath with findings of mid LAD 50% stenosis, nonischemic History of coronary artery disease with prior PCI to LAD in 2014 Hypertension Hyperlipidemia History of heart failure Chronic kidney disease stage 2 Diabetes Mellitus type 2 Ventricular pacemaker Former smoker Hospital course: This is a 57 year old female with medical history of heart failure, coronary artery disease with PCI to LAD performed in 2014, hypertension, hyperlipidemia, ischemic cardiomyopathy, chronic kidney disease. Patient underwent cardiac work up back in July of this year and had a positive stress test. Patient had heart catheterization then performed which revealed intermediate in-stent stenosis of the mid LAD had FFR performed was found to be nonischemic and patient was recommended to continue medical therapy. Patient reports to the hospital with week long history of left sided chest pain with radiation into the left arm. Patient has been followed by terrazzo layer helper and cleared her for discharge. chest pain completely resolved and was reproducible and musculoskeletal pain is suspected. However completely resolved and patient this morning denies any symptoms to me, no dyspnea coughing, no change in urine or bowel habits. No fever. Patient agrees to go home today Patient was cleared for discharge by terrazzo layer helper. Problems and management plan were discussed with the patient and he verbalized understanding and acceptance Patient was found stable and can be discharged home in guarded prognosis however he needs follow-up as an outpatient. Patient was instructed to follow up with PCP within one week and patient agrees Patient was instructed to follow up with terrazzo layer helper Dr. Mooney in one to 2 weeks and she agrees Physical exam Gen: patient is a AAOx3, no distress CVS: S1-S2, RRR, no murmur Lungs: B/L CTA, no wheezing Abdomen: soft, no distention, no tenderness, positive bowel sounds Extremity: no leg edema or induration Time spent more than 35 minutes Plan - Discharge Summary Discharge Rx Participant: Yes New Discharge Prescriptions: New Nitroglycerin Sl Tabs [Nitrostat] 0.4 mg SUBLINGUAL Q5M PRN #100 tab PRN Reason: Chest Pain Continue Atorvastatin [Lipitor] 80 mg PO HS #30 tab Metoprolol Succinate (ER) [Toprol XL] 100 mg PO HS Sacubitril/Valsartan [Entresto 24 mg-26 mg Tablet] 1 tab PO BID Sotalol [Betapace] 80 mg PO BID Aspirin 81 mg PO DAILY Spironolactone 50 mg PO DAILY Insulin Glargine,Hum.rec.anlog [Toujeo Max Solostar] 30 units SQ HS Empagliflozin [Jardiance] 25 mg PO DAILY Ascorbic Acid [Vitamin C] 1,000 mg PO DAILY metFORMIN HCL [Glucophage] 500 mg PO BID Discharge Medication List Atorvastatin [Lipitor] 80 mg PO HS #30 tab 02/09/18 [Rx] Metoprolol Succinate (ER) [Toprol XL] 100 mg PO HS 03/28/20 [History] Sacubitril/Valsartan [Entresto 24 mg-26 mg Tablet] 1 tab PO BID 03/28/20 [History] Aspirin 81 mg PO DAILY 06/10/20 [History] Sotalol [Betapace] 80 mg PO BID 06/10/20 [History] Spironolactone 50 mg PO DAILY 10/02/21 [History] Empagliflozin [Jardiance] 25 mg PO DAILY 04/22/22 [History] Ascorbic Acid [Vitamin C] 1,000 mg PO DAILY 07/17/22 [History] Insulin Glargine,Hum.rec.anlog [Toujeo Max Solostar] 30 units SQ HS 07/17/22 [H istory] metFORMIN HCL [Glucophage] 500 mg PO BID 09/30/22 [History] Nitroglycerin Sl Tabs [Nitrostat] 0.4 mg SUBLINGUAL Q5M PRN #100 tab 10/01/22 [Rx] Follow up Appointment(s)/Referral(s): Jermain Mooney MD [Family Provider] - 10/07/22 4:30 pm Tera Villanueva DO [Primary Care Provider] - 1-2 days Patient Instructions/Handouts: Chest Pain (DC) Activity/Diet/Wound Care/Special Instructions: Heart healthy diet Activity is restricted till you see your doctor Discharge Disposition: HOME SELF-CARE
== END 2022-10-01 12:14 | disposition home or self-care (01) ==
LOC: EC 11:48 → 6NMEDSUR 13:54
PROVIDERS: ADMIT Hospitalist; ATTEND Hospitalist
DX: R07.89 Other chest pain (principal); E11.9 Type 2 diabetes mellitus without complications; E78.00 Pure hypercholesterolemia, unspecified; I25.10 Atherosclerotic heart disease of native coronary artery without angina pectoris; I13.0 Hypertensive heart and chronic kidney disease with heart failure and stage 1 through stage 4 chronic kidney disease, or unspecified chronic kidney disease; I50.9 Heart failure, unspecified; N18.2 Chronic kidney disease, stage 2 (mild); K21.9 Gastro-esophageal reflux disease without esophagitis; G43.909 Migraine, unspecified, not intractable, without status migrainosus; E03.9 Hypothyroidism, unspecified; F41.9 Anxiety disorder, unspecified; I25.5 Ischemic cardiomyopathy; I25.2 Old myocardial infarction; Z87.442 Personal history of urinary calculi; Z87.891 Personal history of nicotine dependence; Z95.810 Presence of automatic (implantable) cardiac defibrillator; Z95.5 Presence of coronary angioplasty implant and graft; Z79.82 Long term (current) use of aspirin; Z79.899 Other long term (current) drug therapy; Z79.84 Long term (current) use of oral hypoglycemic drugs; Z88.5 Allergy status to narcotic agent; Z82.49 Family history of ischemic heart disease and other diseases of the circulatory system
CPT/HCPCS: 96372; 99285; 36415; 94760; 93005; 80061; 80053; 80048; 83735; 84484; 85025; 85610; 85730; 83036; 71046; G0378 ×2

== ENCOUNTER 2023-02-16 06:43 | Observation (INO) | payer OTHER ==
[2023-02-16] MEDS ORDERED: FAMOTIDINE 20 MG/2 ML VIAL IV STA (07:04)
[2023-02-16] MEDS ORDERED: SODIUM CHLORIDE 0.9% 1,000 ML IV STA (07:04)
[2023-02-16] MEDS ORDERED: ONDANSETRON 4 MG/2 ML VIAL IVP STA (07:04)
[2023-02-16] MEDS ORDERED: NITROGLYCERIN SL TABS 0.4 MG TAB SUBLINGUAL STA (07:04)
--- NOTE | 2023-02-16 07:11 | ED ---
Chest Pain HPI - General Chief Complaint: Abdominal Pain Stated Complaint: ALEKSANDR,Vomiting Time Seen by Provider: 02/16/23 06:45 Source: patient, RN notes reviewed Mode of arrival: ambulatory Limitations: no limitations - History of Present Illness Initial Comments: This is a 57-year-old female who presents to the emergency department for nausea, vomiting, chest pain, and shortness of breath. States that over the last 3-4 days she has had ongoing nausea and vomiting, and is unable to keep anything down. Denies any changes in bowel habits. Over the last 1-2 days, she has started to notice difficulty breathing with associated chest pain. Describes the chest pain as a heaviness and tightness sensation. She does have a cardiac history, with a history of stents as well as a pacemaker. Denies any associated abdominal pain. Denies any fevers, chills, sore throat, cough, palpitations, abdominal pain, diarrhea, back pain, or headaches. - Related Data Home Medications Medication Instructions Recorded Confirmed Metoprolol Succinate (ER) [Toprol 100 mg PO HS 03/28/20 02/16/23 XL] Sacubitril/Valsartan [Entresto 24 1 tab PO BID 03/28/20 02/16/23 mg-26 mg Tablet] Aspirin 81 mg PO DAILY 06/10/20 02/16/23 Sotalol [Betapace] 80 mg PO BID 06/10/20 02/16/23 Spironolactone 50 mg PO DAILY 10/02/21 02/16/23 Empagliflozin [Jardiance] 25 mg PO DAILY 04/22/22 02/16/23 metFORMIN HCL [Glucophage] 500 mg PO BID 09/30/22 02/16/23 Acetaminophen Tab [Tylenol Tab] 1,000 mg PO Q6HR 02/16/23 02/16/23 Ibuprofen [Motrin] 800 mg PO Q8H PRN 02/16/23 02/16/23 Insulin Glargine/Lixisenatide 15 units SQ HS 02/16/23 02/16/23 [Soliqua 100 Unit-33 Mcg/ml Pen] Magnesium Oxide [Mag-Ox] 400 mg PO DAILY 02/16/23 02/16/23 Previous Rx's Medication Instructions Recorded Atorvastatin [Lipitor] 80 mg PO HS #30 tab 02/09/18 Nitroglycerin Sl Tabs [Nitrostat] 0.4 mg SUBLINGUAL Q5M PRN #100 tab 10/01/22 Allergies Allergy/AdvReac Type Severity Reaction Status Date / Time hydrocodone bitartrate AdvReac Nausea & Verified 02/16/23 09:51 [From Vicodin] Vomiting propoxyphene napsylate AdvReac Vomiting Verified 02/16/23 09:51 [From Darvocet-N] Review of Systems ROS Statement: Those systems with pertinent positive or pertinent negative responses have been documented in the HPI. ROS Other: All systems not noted in ROS Statement are negative. Past Medical History Past Medical History: Coronary Artery Disease (CAD), Chest Pain / Angina, Heart Failure, GERD/Reflux, Hyperlipidemia, Hypertension, Myocardial Infarction ([place]), Renal Disease, Thyroid Disorder Additional Past Medical History / Comment(s): Ischemic cardiomyopathy, CKD stage II, nephrolithiasis, migraines, occasional back pain, hypothyroid. states she had a pacemaker put in 1 or 2 years ago in March. Last Myocardial Infarction Date:: 06-30-15 History of Any Multi-Drug Resistant Organisms: None Reported Past Surgical History: Heart Catheterization, Heart Catheterization With Stent, Hernia Repair, Hysterectomy, Pacemaker Additional Past Surgical History / Comment(s): 2015 stents to lad,diag, 05/22/16 PTCA, bilateral oophorectomy, LT INGUINAL HERNIA REPAIR, CYSTOCOPY, LITHOTRIPSY,COLONOSCOPY, Past Anesthesia/Blood Transfusion Reactions: Postoperative Nausea & Vomiting (PONV) Additional Past Anesthesia/Blood Transfusion Reaction / Comment(s): MILD CLAUSTERPHOBIA Date of Last Stent Placement:: 06/30/15 Type of Cardiac Device: Permanent Pacemaker Device Placement Date:: pt states it was put in in March either this last one or the year befor Past Psychological History: Anxiety Smoking Status: Former smoker Past Alcohol Use History: Rare Past Drug Use History: None Reported - Past Family History Mother Family Medical History: Dementia Additional Family Medical History / Comment(s): pacemaker Brother(s) Family Medical History: No Reported History Father Family Medical History: Cancer, Dementia, Myocardial Infarction ([place]) Additional Family Medical History / Comment(s): pacemaker and colon cancer. Sister(s) Family Medical History: Cancer, Hypertension Additional Family Medical History / Comment(s): Breast and colon cancer. General Exam Limitations: no limitations General appearance: alert, in no apparent distress Head exam: Present: atraumatic, normocephalic, normal inspection Respiratory exam: Present: normal lung sounds bilaterally. Absent: respiratory distress, wheezes, rales, rhonchi, stridor Cardiovascular Exam: Present: regular rate, normal rhythm, normal heart sounds. Absent: systolic murmur, diastolic murmur, rubs, gallop, clicks GI/Abdominal exam: Present: soft, normal bowel sounds. Absent: distended, tenderness, guarding, rebound, rigid Neurological exam: Present: alert, oriented X3, CN II-XII intact Psychiatric exam: Present: normal affect, normal mood Skin exam: Present: warm, dry, intact, normal color. Absent: rash Course Vital Signs 02/16/23 02/16/23 02/16/23 06:55 09:46 12:45 Temperature 98.1 F 98.5 F 98.4 F Pulse Rate 119 H 79 Pulse Rate [ 93 Pulse Oximetery ] Respiratory 18 17 16 Rate Blood Pressure 117/59 130/79 Blood Pressure 117/71 [Left Arm] O2 Sat by Pulse 98 95 95 Oximetry Chest Pain MDM - MDM This is a 57-year-old female who presents to the emergency department for nausea, vomiting, chest pain, and shortness of breath. Was pt. sent in by a medical professional or institution? @ -No Did you speak to anyone other than the patient for history? @ -No Did you review nursing and triage notes? @ -Yes, and I agree, it is accurate with regards to the patient's symptoms. Were old charts reviewed? @ -Cardiac catheterization from 07/20/2022 revealing intermediate in-stent restenosis of the mid LAD. iFR was performed and came in to be nonischemic 0.94. Differential Diagnosis? @ -Differential Chest Pain: Stable Angina, Unstable Angina, STEMI, NSTEMI Aortic Dissection, Pneumothorax, Musculoskeletal, Esophageal Spasm GERD, Cholecystitis, Pancreatitis, Zoster, this is not meant to be an all-inclusive list. -Differential Nausea and Vomiting: Gastroenteritis, cholecystitis, appendicitis, pancreatitis, migraine, benign positional vertigo, food borne illness, pyelonephritis, irritable bowel syndrome, influenza, Covid, GERD, incarcerated hernia, intestinal obstruction, this is not meant to be an all-inclusive list. EKG interpreted by me (3pts min.)? @ -EKG interpreted by me demonstrating the following: Electronic ventricular pacemaker. Ventricular rate 97 bpm, WV interval 155 ms, QRS duration 179 ms, QTC 448 ms. X-rays interpreted by me (1pt min.)? @ -Chest x-ray obtained, my interpretation identifies no localized consolidations or infiltrates. CT interpreted by me (1pt min.)? @ -CTA of the chest obtained. My interpretation identifies a left lower lobe opacity. U/S interpreted by me (1pt. min.)? @ -Not obtained What testing was considered but not performed? (CT, X-rays, U/S, labs)? Why? @ -None What meds were considered but not given? Why? @ -None Did you discuss the management of the patient with other professionals? @ -Yes, Dr. Keller, who accepts the patient for admission. Did you reconcile home meds? @ -Yes Was smoking cessation discussed for >3mins.? @ -No Was critical care preformed (if so, how long)? @ -No Were there social determinants of health that impacted care today? How? (Homelessness, low income, unemployed, alcoholism, drug addiction, transportation, low edu. Level, literacy, decrease access to med. care, retirement, rehab)? @ -No Was there de-escalation of care discussed even if they declined? (Discuss DNR or withdrawal of care, Hospice)? @ -No What co-morbidities impacted this encounter? (DM, HTN, Smoking, COPD, CAD, Cancer, CVA, Hep., AIDS, mental health diagnosis, sleep apnea, morbid obesity)? @ -CAD, HLD, HTN, GERD, DM, renal disease Was patient admitted / discharged? @ -Admitted. Lab work obtained revealing mild leukocytosis, signs of dehydration, and a mild elevation in her d-dimer. Chest x-ray obtained revealing no acute process. Nitroglycerin administered for the patient's chest pain, along with IV fluids, Zofran, and Pepcid, for the rest of her symptoms. The patient had significant relief in her chest pain following the nitroglycerin administration. States that the pain went from a 10 to a 4. Zofran successfully treated the nausea as well. Given the elevation in her d-dimer, CTA of the chest was subsequently obtained. This revealed no evidence of a pulmonary embolus. It did however identify a left lower lobe opacity that was not seen on the chest x-ray. Patient started on the pneumonia protocol with Ceftriaxone and Azithromycin. Patient's heart score is 4-5. Patient admitted to medicine for pneumonia and chest pain rule out. Serial troponins ordered. Consult placed for cardiology as well. Undiagnosed new problem with uncertain prognosis? @ -None Drug Therapy requiring intensive monitoring for toxicity (Heparin, Nitro, Insulin, Cardizem)? @ -None Were any procedures done? @ -None Diagnosis/symptom? @ -Chest pain, pneumonia, nausea and vomiting Acute, or Chronic, or Acute on Chronic? @ -Acute Uncomplicated (without systemic symptoms) or Complicated (systemic symptoms)? @ -Uncomplicated Side effects of treatment? @ -None Exacerbation, Progression, or Severe Exacerbation] @ -Not applicable Poses a threat to life or bodily function? @ -Yes This case was discussed in detail with the attending ED physician, Dr. Felton. Presentation, findings, and treatment plan discussed in detail as well. Disposition Clinical Impression: Left lower lobe pneumonia, Chest pain Disposition: ADMITTED IP TO THIS HOSP
--- NOTE | 2023-02-16 08:11 | XR ---
EXAMINATION TYPE: XR chest 2V DATE OF EXAM: 02/16/2023 7:14 AM COMPARISON: Chest radiographs from 09/30/2022 TECHNIQUE: XR chest 2V Frontal and lateral views of the chest. CLINICAL INDICATION:Female, 57 years old with history of Chest Pain; FINDINGS: Lungs/Pleura: There is no evidence of pleural effusion, focal consolidation, or pneumothorax. Pulmonary vascularity: Unremarkable. Heart/mediastinum: Cardiomediastinal silhouette is unremarkable. Three lead cardiac conduction device overlying the left hemithorax with lead tips projecting over the right ventricle, right atrium and c oronary sinus. Musculoskeletal: No acute osseous pathology. IMPRESSION: No acute cardiopulmonary disease/process.
[2023-02-16 08:14] LABS: Basophils # (A) 0.1 k/uL (0-0.2); Basophils % (A) 0 %; Eosinophils # (A) 0.1 k/uL (0-0.7); Eosinophils % (A) 1 %; HCT 40.7 % (34.0-46.0); HGB 13.7 gm/dL (11.4-16.0); Lymphocytes # (A) 1.3 k/uL (1.0-4.8); Lymphocytes % (A) 11 %; MCH 30.6 pg (25.0-35.0); MCHC 33.8 g/dL (31.0-37.0); MCV 90.7 fL (80.0-100.0); Mean Platelet Volume 10.7; Monocytes # (A) 1.1 k/uL (0-1.0); Monocytes % (A) 9 %; Neutrophils # (A) 9.2 k/uL (1.3-7.7); Neutrophils % (A) 77 %; Platelet Count 183 k/uL (150-450); RBC 4.48 m/uL (3.80-5.40); RDW 13.7 % (11.5-15.5); WBC 11.9 k/uL (3.8-10.6)
[2023-02-16 08:23] LABS: Partial Thromboplastin Time 27.4 sec (22.0-30.0); Prothrombin Time 10.5 sec (9.0-12.0)
[2023-02-16 08:27] LABS: ALT 19 U/L (4-34); AST 24 U/L (14-36); African American GFR (CKD) 67 (>60 ml/min/1.73 sqM); Alkaline Phosphatase 85 U/L (38-126); Amylase 37 U/L (30-110); Anion Gap 16 mmol/L; Blood Urea Nitrogen 21 mg/dL (7-17); Calcium 9.3 mg/dL (8.4-10.2); Carbon Dioxide 16 mmol/L (22-30); Chloride 100 mmol/L (98-107); Glucose 174 mg/dL (74-99); Lipase 62 U/L (23-300); Non-African American GFR(CKD) 58 (>60 ml/min/1.73 sqM); Potassium 4.4 mmol/L (3.5-5.1); Sodium 132 mmol/L (137-145); Total Bilirubin 1.2 mg/dL (0.2-1.3); Total Protein 7.4 g/dL (6.3-8.2)
--- NOTE | 2023-02-16 09:11 | CT ---
EXAMINATION TYPE: CT chest angio for PE CT DLP: 485 mGycm, Automated exposure control for dose reduction was used. DATE OF EXAM: 02/16/2023 9:06 AM COMPARISON: Chest radiograph from same day. CLINICAL INDICATION:Female, 57 years old with history of ALEKSANDR, chest pain, elevated d-dimer; Chest darlene ns, elevated d-dimer, difficulty breathing TECHNIQUE/CONTRAST: CTA scan of the thorax is performed with IV Contrast, patient injected with 80 mL of Isovue 370, MIP images are created and reviewed these are created on a separate workstation.. FINDINGS: Pulmonary Artery: There is no evidence for a filling defect within the pulmonary vasculature to sugge st acute pulmonary embolism. The pulmonary artery is of normal size. Lungs/Pleura: Left lower lobe airspace opacities are present. No evidence of focal consolidation, ple ural effusion or pneumothorax. Airway: Large airways are patent. Heart: Heart is within normal limits for size. Vasculature: No evidence of aortic aneurysm. Mediastinum: No gross evidence of adenopathy. Musculoskeletal: No acute osseous abnormalities Soft Tissues: Left calf cardiac conduction device with leads in appropriate position. Lower neck: No significant findings. Upper Abdomen: The gallbladder surgically absent. IMPRESSION: 1. No evidence of pulmonary embolism. 2. Left lower lobe airspace opacities compatible with pneumonia. Suspected reactive left pulmonary hi lum lymphadenopathy.
[2023-02-16] MEDS ORDERED: PNEUMONIA PROTOCOL UTILIZED 1 EACH MISC PO PRN (09:23)
[2023-02-16] MEDS ORDERED: AZITHROMYCIN 500 MG in SODIUM CHLORIDE 0.9% 250 ML IVPB STA (09:23)
[2023-02-16] MEDS ORDERED: HYDROcodone/APAP 5-325MG 1 EACH TAB PO PRN (09:33)
[2023-02-16] MEDS ORDERED: ACETAMINOPHEN TAB 325 MG TAB PO PRN (09:33)
[2023-02-16] MEDS ORDERED: MORPHINE SULFATE 4 MG/ML SYRINGE IV PRN (09:33)
[2023-02-16] MEDS ORDERED: ONDANSETRON 4 MG/2 ML VIAL IVP PRN (09:33)
[2023-02-16] MEDS ORDERED: NALOXONE 0.4 MG/ML 1 ML VIAL IV PRN (09:33)
[2023-02-16] MEDS ORDERED: IBUPROFEN 800 MG TAB PO PRN (11:44)
[2023-02-16 13:09] LABS: Appearance,Urine Clear (Clear); Bilirubin,Urine Negative (Negative); Blood,Urine Moderate (Negative); Color,Urine Light Yellow; Glucose,Urine (UA) 4+ (Negative); Leukocyte Esterase,Urine Negative (Negative); Nitrite,Urine Negative (Negative); PH, Urine 5.5 (5.0-8.0); Protein,Urine Trace (Negative); RBC,Urine 6 /hpf (0-5); Squamous Epithelial Cell,Urine 2 /hpf (0-4); Urobilinogen,Urine <2.0 mg/dL (<2.0); WBC,Urine 1 /hpf (0-5)
[2023-02-16 13:10] LABS: Specific Gravity,Urine >1.050 (1.001-1.035)
[2023-02-16 13:11] LABS: Ketones,Urine 2+ (Negative)
[2023-02-16] MEDS: ACETAMINOPHEN TAB 500 MG TAB PO SCH ×2 (15:36→17:37)
[2023-02-16] MEDS: NON FORMULARY DRUG (Insulin Glargine/Lixisenatide [Soliqua 100 Unit-33 Mcg/Ml Pen] 3 ML In SQ SCH (20:44)
[2023-02-16] MEDS: SACUBITRIL/VALSARTAN 24 MG-26 MG TABLET PO SCH (20:46)
[2023-02-16] MEDS: ATORVASTATIN 80 MG TAB PO SCH (20:46)
[2023-02-16] MEDS: metFORMIN 500 MG TAB PO SCH (20:47)
[2023-02-16] MEDS: SOTALOL 80 MG TAB PO SCH (20:47)
[2023-02-16] MEDS: METOPROLOL SUCCINATE (ER) 100 MG TAB.ER.24H PO SCH (21:12)
--- NOTE | 2023-02-17 01:49 | P.HPIM ---
History of Present Illness H&P Date: 02/16/23 Chief Complaint: Chest pain Patient is a 57-year-old female with a known history of coronary disease status post cardiac catheterization and stent placement, history of permanent pacemaker placement, ischemic cardiomyopathy with previous AICD implantation, hypertension, hyperlipidemia, anxiety and history of smoking presents to ER with complaints of chest pain associated shortness of breath, nausea and vomiting. Patient states that he has been having nausea vomiting for the past 3 to 4 days unable to keep down food. Denies any diarrhea. Denies any unusual food intake. Patient has been sick since Wednesday. [employer] like heaviness and elephant sitting on her chest and also lightheadedness. Patient states that she is also having back pain since Wednesday. She is having occasional chest pains. Patient had a prior history of cardiac catheterization in July 2022 showed intermediate in-stent restenosis of the mid LAD. Most recent echocardiogram in April 2020 showed ejection fraction 55%. Patient was seen by cardiology during recent admission on 10/01/2022. Chest x-ray showed no acute cardiopulmonary process/disease. EKG showed electronic ventricular paced rhythm. CTA chest showed no evidence for PE. Left lower lobe airspace opacities compatible with pneumonia. Suspected reactive to left pulmonary hilus lymphadenopathy. Laboratory data showed WBC 11.9 hemoglobin 13.7 and platelets 183 D-dimer level is 0.73 Sodium 132 potassium 4.4 chloride 100 bicarb is 16 BUN 21 and creatinine 1.06 and blood sugar is 174. Troponin x3 negative. Liver Anjeso not elevated. Urinalysis showed trace protein 4+ glucose 2+ ketones and nitrite negative and negative leukocyte esterase. Coronavirus PCR not detected. Left lower lobe pneumonia Chest pain/heaviness. Rule out ACS. Coronary artery disease history of stent placement Ischemic cardiomyopathy with recent echocardiogram showed ejection fraction 55% in April 2022 History of AICD placement and exchanged with PPM Hypertension Hyperlipidemia History [facility] Hypothyroidism Diabetes type 2 insulin-dependent GERD History of migraine headaches Anxiety Prior history of smoking DVT prophylaxis with heparin subcu Plan: Patient will be continued on antibiotics ceftriaxone and azithromycin. Urine Legionella antigen was sent. Follow-up procalcitonin level. Continue with the telemetry monitoring. Serial EKG and troponin x3 negative. Continue with aspirin statins and metoprolol and Entresto and sotalol and other cardiac medications. Cardiology consult for evaluation. Continue with insulin regimen and titrate dose as needed. GI and DVT prophylaxis. Current current management and prognosis is guarded at this time. Past Medical History Past Medical History: Coronary Artery Disease (CAD), Chest Pain / Angina, Heart Failure, GERD/Reflux, Hyperlipidemia, Hypertension, Myocardial Infarction ([place]), Renal Disease, Thyroid Disorder Additional Past Medical History / Comment(s): Ischemic cardiomyopathy, CKD stage II, nephrolithiasis, migraines, occasional back pain, hypothyroid. states she had a pacemaker put in 1 or 2 years ago in March. Last Myocardial Infarction Date:: 06-30-15 History of Any Multi-Drug Resistant Organisms: None Reported Past Surgical History: Heart Catheterization, Heart Catheterization With Stent, Hernia Repair, Hysterectomy, Pacemaker Additional Past Surgical History / Comment(s): 2015 stents to lad,diag, 05/22/16 PTCA, bilateral oophorectomy, LT INGUINAL HERNIA REPAIR, CYSTOCOPY, LITHOTRIPSY,COLONOSCOPY, Past Anesthesia/Blood Transfusion Reactions: Postoperative Nausea & Vomiting ( PONV) Additional Past Anesthesia/Blood Transfusion Reaction / Comment(s): MILD CLAUSTERPHOBIA Date of Last Stent Placement:: 06/30/15 Type of Cardiac Device: Permanent Pacemaker Device Placement Date:: pt states it was put in in March either this last one or the year befor Past Psychological History: Anxiety Smoking Status: Former smoker Past Alcohol Use History: Rare Past Drug Use History: None Reported - Past Family History Mother Family Medical History: Dementia Additional Family Medical History / Comment(s): pacemaker Brother(s) Family Medical History: No Reported History Father Family Medical History: Cancer, Dementia, Myocardial Infarction ([place]) Additional Family Medical History / Comment(s): pacemaker and colon cancer. Sister(s) Family Medical History: Cancer, Hypertension Additional Family Medical History / Comment(s): Breast and colon cancer. Medications and Allergies Home Medications Medication Instructions Recorded Confirmed Type Atorvastatin [Lipitor] 80 mg PO HS #30 tab 02/09/18 02/16/23 Rx Metoprolol Succinate (ER) [Toprol 100 mg PO HS 03/28/20 02/16/23 History XL] Sacubitril/Valsartan [Entresto 24 1 tab PO BID 03/28/20 02/16/23 History mg-26 mg Tablet] Aspirin 81 mg PO DAILY 06/10/20 02/16/23 History Sotalol [Betapace] 80 mg PO BID 06/10/20 02/16/23 History Spironolactone 50 mg PO DAILY 10/02/21 02/16/23 History Empagliflozin [Jardiance] 25 mg PO DAILY 04/22/22 02/16/23 History metFORMIN HCL [Glucophage] 500 mg PO BID 09/30/22 02/16/23 History Nitroglycerin Sl Tabs [Nitrostat] 0.4 mg SUBLINGUAL Q5M PRN #100 tab 10/01/22 02/16/23 Rx Acetaminophen Tab [Tylenol Tab] 1,000 mg PO Q6HR 02/16/23 02/16/23 History Ibuprofen [Motrin] 800 mg PO Q8H PRN 02/16/23 02/16/23 History Insulin Glargine/Lixisenatide 15 units SQ HS 02/16/23 02/16/23 History [Soliqua 100 Unit-33 Mcg/ml Pen] Magnesium Oxide [Mag-Ox] 400 mg PO DAILY 02/16/23 02/16/23 History Allergies Allergy/AdvReac Type Severity Reaction Status Date / Time hydrocodone bitartrate AdvReac Nausea & Verified 02/16/23 09:51 [From Vicodin] Vomiting propoxyphene napsylate AdvReac Vomiting Verified 02/16/23 09:51 [From Darvocet-N] Physical Exam Vitals: Vital Signs Temp Pulse Pulse Resp BP BP Pulse Ox 02/16/23 17:38 102 F H 02/16/23 17:00 100 F H 91 16 102/64 97 02/16/23 15:33 96 18 120/65 97 02/16/23 12:45 98.4 F 79 16 130/79 95 02/16/23 09:46 98.5 F 93 17 117/71 95 02/16/23 06:55 98.1 F 119 H 18 117/59 98 Intake and Output 02/16/23 02/16/23 02/16/23 06:59 14:59 22:59 Other: Weight 99.79 kg 99.79 kg Results CBC & Chem 7: 02/16/23 07:58 02/16/23 07:58 Labs: Abnormal Lab Results - Last 24 Hours (Table) 02/16/23 02/16/23 02/16/23 Range/Units 07:58 07:58 07:58 WBC 11.9 H (3.8-10.6) k/uL Neutrophils # 9.2 H (1.3-7.7) k/uL Monocytes # 1.1 H (0-1.0) k/uL D-Dimer 0.73 H (<0.60) mg/L FEU Sodium 132 L (137-145) mmol/L Carbon Dioxide 16 L (22-30) mmol/L BUN 21 H (7-17) mg/dL Creatinine 1.06 H (0.52-1.04) mg/dL Glucose 174 H (74-99) mg/dL Ur Specific [place] (1.001-1.035) Urine Protein (Negative) Urine Glucose (UA) (Negative) Urine Ketones (Negative) Urine Blood (Negative) Urine RBC (0-5) /hpf 02/16/23 Range/Units 12:43 WBC (3.8-10.6) k/uL Neutrophils # (1.3-7.7) k/uL Monocytes # (0-1.0) k/uL D-Dimer (<0.60) mg/L FEU Sodium (137-145) mmol/L Carbon Dioxide (22-30) mmol/L BUN (7-17) mg/dL Creatinine (0.52-1.04) mg/dL Glucose (74-99) mg/dL Ur Specific [place] >1.050 H (1.001-1.035) Urine Protein Trace H (Negative) Urine Glucose (UA) 4+ H (Negative) Urine Ketones 2+ H (Negative) Urine Blood Moderate H (Negative) Urine RBC 6 H (0-5) /hpf Thrombosis Risk Factor Assmnt - Choose All That Apply Each Factor Represents 1 point: Age 41-60 years, Obesity (BMI >25) Thrombosis Risk Factor Assessment Total Risk Factor Score: 2 Thrombosis Risk Factor Assessment Level: Low Risk
[2023-02-17] MEDS: ACETAMINOPHEN TAB 500 MG TAB PO SCH ×5 (04:12→23:59)
[2023-02-17] MEDS: AZITHROMYCIN 500 MG TAB PO SCH (08:14)
[2023-02-17] MEDS: SACUBITRIL/VALSARTAN 24 MG-26 MG TABLET PO SCH ×2 (08:14→20:39)
[2023-02-17] MEDS: SOTALOL 80 MG TAB PO SCH ×2 (08:14→20:39)
[2023-02-17] MEDS: DAPAGLIFLOZIN PROPANEDIOL 10 MG TABLET PO SCH (08:14)
[2023-02-17] MEDS: MAGNESIUM OXIDE 400 MG TAB PO SCH (08:14)
[2023-02-17] MEDS: SPIRONOLACTONE 25 MG TAB PO SCH (08:15)
[2023-02-17] MEDS: HEPARIN SODIUM,PORCINE 5,000 UNIT/ML 1 ML VIAL SQ SCH ×3 (08:15→23:54)
[2023-02-17] MEDS: ASPIRIN 81 MG PO SCH (08:15)
[2023-02-17] MEDS: metFORMIN 500 MG TAB PO SCH ×2 (08:15→20:39)
--- NOTE | 2023-02-17 09:31 | P.CRDCN ---
History of Present Illness Consult date: 02/16/23 History of present illness: HISTORY OF PRESENT ILLNESS: This is a 57-year-old female with a past medical history significant for diabetes, coronary artery disease with previous stenting of the LAD, hypertension, hyperlipidemia, ischemic cardiomyopathy, and AICD implantation. Patient follows in the office with Dr. Mooney. We have been asked to see the patient in consultation for chest pain. Patient examined at the bedside. The patient reports she has been having GI symptoms for the past 4 days. She states she has felt nauseous and has been vomiting. She has been unable to keep any food down. She also reports having some chest heaviness over the past few days when she was feeling sick. She also reports having a headache. At the time of examination this morning, she denies chest pain or pressure. Denies shortness of breath. The patient was febrile overnight with a temperature of 100.4. Blood pressure is stable. Telemetry reveals paced rhythm. * EKG reveals ventricular paced rhythm * Chest xray negative for acute process * Chest CT: Negative for pulmonary embolism. Left lower lobe airspace opacities compatible with pneumonia. * Laboratory data: WBC 11.9. Hemoglobin 13.7. Platelet count 183. D-dimer 0.73. Sodium 132. Potassium 4.4. BUN 21. Creatinine 1.06. Troponin negative 3 * Current home cardiac medications include spironolactone 50 g daily, sotalol 80 mg twice a day, metoprolol succinate 100 mg at night, and Entresto 24-26mg BID * Most recent echocardiogram obtained in April 2022 revealed ejection fraction 55%, mild MR, mild TR * Cardiac catheterization history: July 2022 revealing intermediate in stent restenosis of the mid LAD. IFR was performed and was found to be nonischemic at 0.94. REVIEW OF SYSTEMS: At the time of my exam: CONSTITUTIONAL: Denies fever or chills. HEENT: Denies blurred vision, vision changes, or eye pain. Denies hemoptysis CARDIOVASCULAR: Denies chest pain. Denies orthopnea. Denies PND. Denies palpitations RESPIRATORY: Denies shortness of breath. GASTROINTESTINAL: Denies abdominal pain. Denies nausea or vomiting. HEMATOLOGIC: Denies bleeding disorders. GENITOURINARY: Denies any blood in urine. SKIN: Denies pruitis. Denies rash. PHYSICAL EXAM: VITAL SIGNS: Reviewed. GENERAL: Well-developed in no acute distress. HEENT: Head is normocephalic. Pupils are equal, round. Sclerae anicteric. Mucous membranes of the mouth are moist. Neck supple. No JVD or thyromegaly LUNGS: Respirations even and unlabored. Lungs essentially clear to auscultation bilaterally. HEART: Regular rate and rhythm. S1 and S2 heard. ABDOMEN: Soft. Nondistended. Nontender. EXTREMITIES: Normal range of motion. No clubbing or cyanosis. Peripheral pulses intact. No lower extremity edema NEUROLOGIC: Awake and alert. Oriented x 3. ASSESSMENT: Chest pain, atypical, troponin negative 3 Nausea and vomiting, 4 days Febrile illness Coronary artery disease with previous stenting of the LAD History of ischemic cardiomyopathy with recovered EF, most recently 55% History of AICD implantation Hypertension Hyperlipidemia Former nicotine dependence PLAN: An acute coronary event has been ruled out Resume home cardiac medications Obtain 2-D echo to assess cardiac structure and function If no significant abnormalities noted on echocardiogram, patient may be discharged home from a cardiac standpoint Patient to follow up post discharge with Dr. Mooney Nurse practitioner note has been reviewed by physician. Signing provider agrees with the documented findings, assessment, and plan of care. Past Medical History Past Medical History: Coronary Artery Disease (CAD), Chest Pain / Angina, Heart Failure, GERD/Reflux, Hyperlipidemia, Hypertension, Myocardial Infarction ([place]), Renal Disease, Thyroid Disorder Additional Past Medical History / Comment(s): Ischemic cardiomyopathy, CKD stage II, nephrolithiasis, migraines, occasional back pain, hypothyroid. states she had a pacemaker put in 1 or 2 years ago in March. Last Myocardial Infarction Date:: 06-30-15 History of Any Multi-Drug Resistant Organisms: None Reported Past Surgical History: Heart Catheterization, Heart Catheterization With Stent, Hernia Repair, Hysterectomy, Pacemaker Additional Past Surgical History / Comment(s): 2015 stents to lad,diag, 05/22/16 PTCA, bilateral oophorectomy, LT INGUINAL HERNIA REPAIR, CYSTOCOPY, LITHOTRIPS Y,COLONOSCOPY, Past Anesthesia/Blood Transfusion Reactions: Postoperative Nausea & Vomiting (PONV) Additional Past Anesthesia/Blood Transfusion Reaction / Comment(s): MILD CLAUSTERPHOBIA Date of Last Stent Placement:: 06/30/15 Type of Cardiac Device: Permanent Pacemaker Device Placement Date:: 06/28/15 Past Psychological History: Anxiety Additional Psychological History / Comment(s): She is independent. Smoking Status: Former smoker Past Alcohol Use History: Rare Additional Past Alcohol Use History / Comment(s): Pt started smoking in 1976 and quit in 1991. She was about a 1/2 ppd smoker. She used to drink alcohol on occasion, but has not had any alcohol in a long time. Past Drug Use History: None Reported - Past Family History Mother Family Medical History: Dementia Additional Family Medical History / Comment(s): pacemaker Brother(s) Family Medical History: No Reported History Father Family Medical History: Cancer, Dementia, Myocardial Infarction ([place]) Additional Family Medical History / Comment(s): pacemaker and colon cancer. Sister(s) Family Medical History: Cancer, Hypertension Additional Family Medical History / Comment(s): Breast and colon cancer. Medications and Allergies Home Medications Medication Instructions Recorded Confirmed Type Atorvastatin [Lipitor] 80 mg PO HS #30 tab 02/09/18 02/16/23 Rx Metoprolol Succinate (ER) [Toprol 100 mg PO HS 03/28/20 02/16/23 History XL] Sacubitril/Valsartan [Entresto 24 1 tab PO BID 03/28/20 02/16/23 History mg-26 mg Tablet] Aspirin 81 mg PO DAILY 06/10/20 02/16/23 History Sotalol [Betapace] 80 mg PO BID 06/10/20 02/16/23 History Spironolactone 50 mg PO DAILY 10/02/21 02/16/23 History Empagliflozin [Jardiance] 25 mg PO DAILY 04/22/22 02/16/23 History metFORMIN HCL [Glucophage] 500 mg PO BID 09/30/22 02/16/23 History Nitroglycerin Sl Tabs [Nitrostat] 0.4 mg SUBLINGUAL Q5M PRN #100 tab 10/01/22 02/16/23 Rx Acetaminophen Tab [Tylenol Tab] 1,000 mg PO Q6HR 02/16/23 02/16/23 History Ibuprofen [Motrin] 800 mg PO Q8H PRN 02/16/23 02/16/23 History Insulin Glargine/Lixisenatide 15 units SQ HS 02/16/23 02/16/23 History [Soliqua 100 Unit-33 Mcg/ml Pen] Magnesium Oxide [Mag-Ox] 400 mg PO DAILY 02/16/23 02/16/23 History Allergies Allergy/AdvReac Type Severity Reaction Status Date / Time hydrocodone bitartrate AdvReac Nausea & Verified 02/16/23 09:51 [From Vicodin] Vomiting propoxyphene napsylate AdvReac Vomiting Verified 02/16/23 09:51 [From Darvocet-N] Physical Exam Vitals: Vital Signs Temp Pulse Pulse Resp BP BP Pulse Ox 02/16/23 09:46 98.5 F 93 17 117/71 95 02/16/23 06:55 98.1 F 119 H 18 117/59 98 Intake and Output 02/15/23 02/16/23 02/16/23 22:59 06:59 14:59 Other: Weight 99.79 kg 99.79 kg Results 02/16/23 07:58 02/16/23 07:58 Cardiac Enzymes 02/16/23 02/16/23 Range/Units 07:58 07:58 AST 24 (14-36) U/L Troponin I <0.012 (0.000-0.034) ng/mL Coagulation 02/16/23 Range/Units 07:58 PT 10.5 (9.0-12.0) sec APTT 27.4 (22.0-30.0) sec CBC 02/16/23 Range/Units 07:58 WBC 11.9 H (3.8-10.6) k/uL RBC 4.48 (3.80-5.40) m/uL Hgb 13.7 (11.4-16.0) gm/dL Hct 40.7 (34.0-46.0) % Plt Count 183 (150-450) k/uL Comprehensive Metabolic Panel 02/16/23 Range/Units 07:58 Sodium 132 L (137-145) mmol/L Potassium 4.4 (3.5-5.1) mmol/L Chloride 100 (98-107) mmol/L Carbon Dioxide 16 L (22-30) mmol/L BUN 21 H (7-17) mg/dL Creatinine 1.06 H (0.52-1.04) mg/dL Glucose 174 H (74-99) mg/dL Calcium 9.3 (8.4-10.2) mg/dL AST 24 (14-36) U/L ALT 19 (4-34) U/L Alkaline Phosphatase 85 (38-126) U/L Total Protein 7.4 (6.3-8.2) g/dL Albumin 4.0 (3.5-5.0) g/dL Current Medications Generic Name Dose Route Start Last Admin Trade Name Freq PRN Reason Stop Dose Admin Acetaminophen 650 mg 02/16/23 09:33 Acetaminophen Tab 325 Mg Tab PO Q6HR PRN Mild Pain or Fever > 100.5 Azithromycin 500 mg 02/17/23 09:00 Azithromycin 500 Mg Tab PO 02/18/23 09:01 DAILY [facility] Protocol Ceftriaxone Sodium 2 gm/ 50 mls @ 100 mls/hr 02/17/23 09:00 Sodium Chloride IVPB 02/20/23 09:29 Q24HR [facility] Protocol Miscellaneous Information 1 each 02/16/23 09:23 Pneumonia Protocol Utilized 1 Each Misc PO ONCE PRN Per Protocol Morphine Sulfate 4 mg 02/16/23 09:33 Morphine Sulfate 4 Mg/Ml Syringe IV Q4HR PRN Severe Pain (Scale 7 to 10) Naloxone HCl 0.2 mg 02/16/23 09:33 Naloxone 0.4 Mg/Ml 1 Ml Vial IV Q2M PRN Opioid Reversal Ondansetron HCl 4 mg 02/16/23 09:33 Ondansetron 4 Mg/2 Ml Vial IVP Q8HR PRN Nausea And Vomiting Intake and Output 02/15/23 02/16/23 02/16/23 22:59 06:59 14:59 Other: Weight 99.79 kg 99.79 kg Patient Weight 02/17/23 06:59 Weight 99.79 kg 02/16/23 07:58 02/16/23 07:58
--- NOTE | 2023-02-17 11:37 | CA ---
Transthoracic Echo Report Name: Sarita Coley Age: 57 Gender: F : 1965 Exam Date: 02/17/2023 09:54 Exam Location: [place] [facility] Ht (in): 62 Wt (lb): 220 Ordering Physician: Evonne Telles Attending/Referring Phys: [id number], Elfego Md Ophthalmologist Jessi Marinelli, GERMAINE Procedure CPT: Indications: CP, LV function Cardiac Hx: Peacemaker Technical Quality: Good Contrast 1: Total Dose (mL): Contrast 2: Total Dose (mL): MEASUREMENTS (Male / Female) Normal Values 2D ECHO LV Diastolic Diameter PLAX 4.4 cm 4.2 - 5.9 / 3.9 - 5.3 cm LV Systolic Diameter PLAX 2.9 cm IVS Diastolic Thickness 1.4 cm 0.6 - 1.0 / 0.6 - 0.9 cm LVPW Diastolic Thickness 1.3 cm 0.6 - 1.0 / 0.6 - 0.9 cm LV Relative Wall Thickness 0.6 RV Internal Dim ED PLAX 2.3 cm LA Systolic Diameter LX 3.5 cm 3.0 - 4.0 / 2.7 - 3.8 cm LV Diastolic Volume MOD BP 48.2 cm??? 67 - 155 / 56 - 104 cm??? LV Systolic Volume MOD BP 17.8 cm??? 22 - 58 / 19 - 49 cm??? LV Ejection Fraction MOD BP 63.1 % >= 55 % LV Cardiac Index MOD BP 949.3 cm???/min???m??? LV Diastolic Volume MOD 4C 57.4 cm??? LV Systolic Volume MOD 4C 18.6 cm??? LV Ejection Fraction MOD 4C 67.6 % LV Cardiac Index MOD 4C 1214.3 cm???/min???m??? LV Diastolic Length 4C 6.4 cm LV Systolic Length 4C 5.9 cm LV Diastolic Volume MOD 2C 40.6 cm??? LV Systolic Volume MOD 2C 16.5 cm??? LV Ejection Fraction MOD 2C 59.4 % LV Cardiac Index MOD 2C 754.0 cm???/min???m??? LV Diastolic Length 2C 6.6 cm LV Systolic Length 2C 6.1 cm LA Volume 44.0 cm??? 18 - 58 / 22 - 52 cm??? M-MODE Aortic Root Diameter MM 2.8 cm MV E Point Septal Separation 0.6 cm AV Cusp Separation MM 1.9 cm DOPPLER AV Peak Velocity 131.2 cm/s AV Peak Gradient 6.9 mmHg MV Area PHT 3.2 cm??? Mitral E Point Velocity 65.5 cm/s Mitral A Point Velocity 77.3 cm/s Mitral E to A Ratio 0.8 MV Deceleration Time 237.6 ms MV E' Velocity 8.7 cm/s Mitral E to MV E' Ratio 7.5 TR Peak Velocity 226.5 cm/s TR Peak Gradient 20.5 mmHg Right Ventricular Systolic Press 25.0 mmHg FINDINGS Left Ventricle Left ventricular ejection fraction is estimated at 55-60 %. Left ventricular cavity size normal. Moderately increased septal wall thickness. Mildly increased posterior wall thickness. A Right Ventricle Normal right ventricular size. Right ventricular systolic pressure within normal limits. Right Atrium Normal right atrial size. Left Atrium Normal left atrial size. Mitral Valve Structurally normal mitral valve. Trace mitral regurgitation. Aortic Valve Trileaflet aortic valve. No aortic valve stenosis or regurgitation. Tricuspid Valve Structurally normal tricuspid valve. [id number] tricuspid regurgitation. Pulmonic Valve Structurally normal pulmonic valve. Trace pulmonic regurgitation. Pericardium Trace pericardial effusion Aorta Normal size aortic root and proximal ascending aorta. CONCLUSIONS Normal LV systolic function Mild to moderate tricuspid regurgitation Trace pericardial effusion Previewed by: Dr. Jed Marc MD (Electronically Signed) Final Date: 17 February 2023 11:36
[2023-02-17 13:41] LABS: Basophils # (A) 0.06 X 10*3/uL (0.00-0.10); Basophils % (A) 0.6 %; Eosinophils # (A) 0.04 X 10*3/uL (0.04-0.35); Eosinophils % (A) 0.4 %; HCT 33.3 % (37.2-46.3); HGB 11.1 d/dL (12.0-15.0); Lymphocytes # (A) 1.41 X 10*3/uL (0.90-5.00); Lymphocytes % (A) 13.1 %; MCH 30.1 pg (27.0-32.0); MCHC 33.3 d/dL (32.0-37.0); MCV 90.2 FL (80.0-97.0); Mean Platelet Volume 12.9 FL (9.5-12.2); Monocytes # (A) 1.33 X 10*3/uL (0.20-1.00); Monocytes % (A) 12.3 %; NRBC Per 100 WBC 0 X 10*3/uL (0.00-0.01); Platelet Count 197 X 10*3/uL (140-440); RBC 3.69 X 10*6/uL (4.10-5.20); RDW 14.1 % (11.5-14.5)
[2023-02-17] MEDS ORDERED: HYDROcodone/APAP 5-325MG 1 EACH TAB PO PRN (14:27)
[2023-02-17 14:32] LABS: Blood Urea Nitrogen 16.2 mg/dL (9.0-27.0); Calcium 8.9 mg/dL (8.7-10.3); Carbon Dioxide 19.8 mmol/L (21.6-31.8); Chloride 99 mmol/L (96-109); Glucose 127 mg/dL (70-110); Potassium 4.1 mmol/L (3.5-5.5); Sodium 132 mmol/L (135-145)
[2023-02-17] MEDS: NON FORMULARY DRUG (Insulin Glargine/Lixisenatide [Soliqua 100 Unit-33 Mcg/Ml Pen] 3 ML In SQ SCH (20:34)
[2023-02-17] MEDS: ATORVASTATIN 80 MG TAB PO SCH (20:39)
[2023-02-17] MEDS: METOPROLOL SUCCINATE (ER) 100 MG TAB.ER.24H PO SCH (20:39)
[2023-02-18] MEDS ORDERED: ACETAMINOPHEN TAB 500 MG TAB PO PRN (05:10)
--- NOTE | 2023-02-18 05:44 | P.PN ---
Subjective Progress Note Date: 02/17/23 Patient is a 57-year-old female with a known history of coronary disease status post cardiac catheterization and stent placement, history of permanent pacemaker placement, ischemic cardiomyopathy with previous AICD implantation, hypertension, hyperlipidemia, anxiety and history of smoking presents to ER with complaints of chest pain associated shortness of breath, nausea and vomiting. Patient states that he has been having nausea vomiting for the past 3 to 4 days unable to keep down food. Denies any diarrhea. Denies any unusual food intake. Patient has been sick since Wednesday. [place] like heaviness and elephant sitting on her chest and also lightheadedness. Patient states that she is also having back pain since Wednesday. She is having occasional chest pains. Patient had a prior history of cardiac catheterization in July 2022 showed intermediate in-stent restenosis of the mid LAD. Most recent echocardiogram in April 2020 showed ejection fraction 55%. Patient was seen by cardiology during recent admission on 10/01/2022. Chest x-ray showed no acute cardiopulmonary process/disease. EKG showed electronic ventricular paced rhythm. CTA chest showed no evidence for PE. Left lower lobe airspace opacities compatible with pneumonia. Suspected reactive to left pulmonary hilus lymphade nopathy. Laboratory data showed WBC 11.9 hemoglobin 13.7 and platelets 183 D-dimer level is 0.73 Sodium 132 potassium 4.4 chloride 100 bicarb is 16 BUN 21 and creatinine 1.06 and blood sugar is 174. Troponin x3 negative. Liver [place] not elevated. Urinalysis showed trace protein 4+ glucose 2+ ketones and nitrite negative and negative leukocyte esterase. Coronavirus PCR not detected. 02/17/2023 Patient is seen and evaluated in follow-up today maintained on antibiotics in the form of ceftriaxone and Zithromax and being treated for pneumonia. Awaiting pro calcitonin which is very mildly elevated and will consult pulmonary and appreciate input and recommendations. Patient is afebrile although continues report cough, denies chest pain or shortness of breath. Patient is reporting headache. Encouraged increase activity as tolerated. Awaiting a.m. labs. Cardiology following as well and has ordered an echo which is pending. Patient also Dr. Mooney in the outpatient setting. Review of systems: Constitutional: No reports of fatigue, fever, or chills Cardiovascular: No reports of chest pain or palpitations Respiratory: No reports of shortness of breath, reports cough GI: No reports of nausea, vomiting, or diarrhea : No reports of dysuria or retention Neurovascular: No reports of weakness or numbness, reports headache All medications have been reviewed Physical exam: Gen: This is a 57-year-old female who is awake, alert and oriented 3, well- developed, well-nourished, morbidly obese HEENT: Head is atraumatic, normocephalic. Pupils equal, round. Sclerae is anicteric. NECK: Supple. No JVD. No lymphadenopathy. No thyromegaly. LUNGS: Clear to auscultation. No wheezes or rhonchi. No intercostal retractions. HEART: Regular rate and rhythm. No murmur. ABDOMEN: Soft. Obese. Bowel sounds are present. No masses. No tenderness. EXTREMITIES: No pedal edema. No calf tenderness. NEUROLOGICAL: Patient is awake, alert and oriented x3. Cranial nerves 2 through 12 are grossly intact. Assessment: Left lower lobe pneumonia Chest pain/heaviness. Ruled out ACS. Coronary artery disease history with stent placement Ischemic cardiomyopathy with recent echocardiogram showed ejection fraction 55% in April 2022 History of AICD placement and exchanged with PPM Hypertension Hyperlipidemia History [place] Hypothyroidism Diabetes type 2 insulin-dependent GERD History of migraine headaches Anxiety Prior history of smoking DVT prophylaxis with heparin subcu Plan: Patient is continued on antibiotics ceftriaxone and azithromycin. Urine Legionella antigen was negative. Follow-up procalcitonin level 0.42, mildly elevated and will consult pulmonary appreciate input and recommendations. Receive notification from pharmacy that some blood cultures were positive for staph epi likely contaminant and will repeat blood culture Repeat a.m. labs ordered as well as echo from cardiology which is currently pending. Continue with the telemetry monitoring. Serial EKG and troponin x3 negative. Home medications reviewed and resumed Continue with Accu-Cheks before meals and at bedtime as well as insulin regimen and titrate dose as needed. Will await pulmonary input recommendations and if patient is clinically showing improvement, possible discharge in the next 24-48 hours. The impression and plan of care has been dictated by Jessica Rosario, Nurse Practitioner as directed. Dr. Basia MD I have performed a history and examination and MDM of this patient, discussed the same with the dictator, and agree with the dictator's assessment and plan as written ,documented as a scribe. Based on total visit time, I have performed more than 50% of the visit. Objective - Vital Signs Vital signs: Vital Signs Temp 98.1 F 02/17/23 07:30 Pulse 77 02/17/23 07:30 Resp 16 02/17/23 07:30 BP 116/72 02/17/23 07:30 Pulse Ox 98 02/17/23 07:30 FiO2 Intake & Output 02/16/23 02/17/23 02/17/23 18:59 06:59 18:59 Intake Total 118 Balance 118 Weight 99.79 kg Intake: Oral 118 Other: Voiding Method Toilet # Voids 1 - Labs CBC & Chem 7: 02/17/23 05:44 02/17/23 05:44 Labs: Abnormal Lab Results - Last 24 Hours (Table) 02/16/23 Range/Units 12:43 Ur Specific [place] >1.050 H (1.001-1.035) Urine Protein Trace H (Negative) Urine Glucose (UA) 4+ H (Negative) Urine Ketones 2+ H (Negative) Urine Blood Moderate H (Negative) Urine RBC 6 H (0-5) /hpf
--- NOTE | 2023-02-18 06:34 | P.CNPUL ---
History of Present Illness Consult date: 02/18/23 Requesting physician: Jessica Rosario Reason for consult: pneumonia Chief complaint: Nausea and vomiting, chest pain, and shortness of breath History of present illness: I am seeing this patient in new consultation today 02/18/2023 for left lower lobe community-acquired pneumonia. Patient is a 57-year-old white female with past medical history significant for coronary artery disease with previous coronary stents, ischemic cardiomyopathy with improved ejection fraction of 55%, AICD implantation, hypertension, hyperlipidemia, diabetes mellitus type 2, GERD, hypothyroidism. Patient is an ex-smoker of over 20 years ago. Her primary care provider is Dr. Luiza Villanueva. Patient presented to the emergency room back on February 16 with chief complaint of nausea and vomiting that started 4 days prior to arrival, and shortness of breath with substernal chest pain that radiates to her back that started on Wednesday. She also admits associated subjective fevers. Patient denies any coughing or hemoptysis. Denies any heart palpitations, lightheadedness or syncope, lower extremity swelling. ACS has been pretty much ruled out. Troponins less than 0.012. ECG shows a ventricular paced rhythm. Patient did have a chest CTA on arrival which was negative for pulmonary embolism. It did show a left lower lung consolidation, concerning for pneumonia. Patient was febrile on arrival with a T-max of 102F, currently afebrile. Patient has been started on a combination of ceftriaxone and nirav thromycin. Procalcitonin was elevated at 0.42. Blood cultures were positive for staph epidermidis, probably a contaminant. Negative for COVID-19. Negative for Legionella. Most recent CBC shows a WBC count of 11, hemoglobin 11, hematocrit 33, platelets 197. BMP from yesterday was unremarkable.She is currently sitting up in bed, on room air, in no acute distress. Abdomen is soft and not particularly tender. Nausea and vomiting has subsided. No IV maintenance fluids infusing. She is currently tolerating oral fluids. Appears nontoxic and hemodynamically stable. Review of Systems REVIEW OF SYSTEMS: CONSTITUTIONAL: Denies any recent significant weight loss or weight gain. No fevers. EYES: Denies change in vision. EARS, NOSE, MOUTH, THROAT: Denies headaches, denies sore throat. CARDIOVASCULAR: See HPI RESPIRATORY: See HPI GASTROINTESTINAL: Nausea and vomiting is improved, there is some mild generalized tenderness, but abdomen is soft and does not appear acute, denies hematemesis or bloody stools GENITOURINARY: Denies hematuria, denies infections. MUSKULOSKELETAL: Denies pain, denies swelling. INTEGUMENTARY: Denies rash, denies eczema. NEUROLOGICAL: Denies recent memory loss, no recent seizure activity. PSYCHIATRIC: Denies anxiety, denies depression. HEMATOLOGIC/LYMPHATIC: Denies anemia, denies enlarged lymph node Past Medical History Past Medical History: Coronary Artery Disease (CAD), Chest Pain / Angina, Heart Failure, GERD/Reflux, Hyperlipidemia, Hypertension, Myocardial Infarction (DE), Renal Disease, Thyroid Disorder Additional Past Medical History / Comment(s): Ischemic cardiomyopathy, CKD stage II, nephrolithiasis, migraines, occasional back pain, hypothyroid. states she had a pacemaker put in 1 or 2 years ago in March. Last Myocardial Infarction Date:: 06-30-15 History of Any Multi-Drug Resistant Organisms: None Reported Past Surgical History: Heart Catheterization, Heart Catheterization With Stent, Hernia Repair, Hysterectomy, Pacemaker Additional Past Surgical History / Comment(s): 2015 stents to lad,diag, 05/22/16 PTCA, bilateral oophorectomy, LT INGUINAL HERNIA REPAIR, CYSTOCOPY, LITHOTRIPSY,COLONOSCOPY, Past Anesthesia/Blood Transfusion Reactions: Postoperative Nausea & Vomiting (PONV) Additional Past Anesthesia/Blood Transfusion Reaction / Comment(s): MILD CLAUSTERPHOBIA Date of Last Stent Placement:: 06/30/15 Type of Cardiac Device: Permanent Pacemaker Device Placement Date:: 06/28/15 Past Psychological History: Anxiety Additional Psychological History / Comment(s): She is independent. Smoking Status: Former smoker Past Alcohol Use History: Rare Additional Past Alcohol Use History / Comment(s): Pt started smoking in 1976 and quit in 1991. She was about a 1/2 ppd smoker. She used to drink alcohol on occasion, but has not had any alcohol in a long time. Past Drug Use History: None Reported - Past Family History Mother Family Medical History: Dementia Additional Family Medical History / Comment(s): pacemaker Brother(s) Family Medical History: No Reported History Father Family Medical History: Cancer, Dementia, Myocardial Infarction ([place]) Additional Family Medical History / Comment(s): pacemaker and colon cancer. Sister(s) Family Medical History: Cancer, Hypertension Additional Family Medical History / Comment(s): Breast and colon cancer. Medications and Allergies Home Medications Medication Instructions Recorded Confirmed Type Atorvastatin [Lipitor] 80 mg PO HS #30 tab 02/09/18 02/16/23 Rx Metoprolol Succinate (ER) [Toprol 100 mg PO HS 03/28/20 02/16/23 History XL] Sacubitril/Valsartan [Entresto 24 1 tab PO BID 03/28/20 02/16/23 History mg-26 mg Tablet] Aspirin 81 mg PO DAILY 06/10/20 02/16/23 History Sotalol [Betapace] 80 mg PO BID 06/10/20 02/16/23 History Spironolactone 50 mg PO DAILY 10/02/21 02/16/23 History Empagliflozin [Jardiance] 25 mg PO DAILY 04/22/22 02/16/23 History metFORMIN HCL [Glucophage] 500 mg PO BID 09/30/22 02/16/23 History Nitroglycerin Sl Tabs [Nitrostat] 0.4 mg SUBLINGUAL Q5M PRN #100 tab 10/01/22 02/16/23 Rx Acetaminophen Tab [Tylenol Tab] 1,000 mg PO Q6HR 02/16/23 02/16/23 History Ibuprofen [Motrin] 800 mg PO Q8H PRN 02/16/23 02/16/23 History Insulin Glargine/Lixisenatide 15 units SQ HS 02/16/23 02/16/23 History [[place] 100 Unit-33 Mcg/ml Pen] Magnesium Oxide [Mag-Ox] 400 mg PO DAILY 02/16/23 02/16/23 History Allergies Allergy/AdvReac Type Severity Reaction Status Date / Time hydrocodone bitartrate AdvReac Nausea & Verified 02/16/23 09:51 [From Vicodin] Vomiting propoxyphene napsylate AdvReac Vomiting Verified 02/16/23 09:51 [From Darvocet-N] Physical Exam Vitals: Vital Signs Temp Pulse Resp BP Pulse Ox 02/18/23 02:15 98.4 F 58 L 15 102/64 96 02/17/23 20:15 97.8 F 70 15 104/66 97 02/17/23 14:15 97.6 F 72 18 94/59 98 02/17/23 14:00 72 18 02/17/23 08:00 77 16 02/17/23 07:30 98.1 F 77 16 116/72 98 Intake and Output 02/17/23 02/17/23 02/18/23 14:59 22:59 06:59 Intake Total 236 Balance 236 Intake: Oral 236 Other: Voiding Method Toilet Toilet Toilet # Voids 5 1 # Bowel Movements 1 Results - Laboratory Findings CBC and BMP: 02/17/23 05:44 02/17/23 05:44 PT/INR, D-dimer PT 10.5 sec (9.0-12.0) 02/16/23 07:58 INR 1.0 (<1.2) 02/16/23 07:58 D-Dimer 0.73 mg/L FEU (<0.60) H 02/16/23 07:58 Abnormal lab findings: Abnormal Labs 02/16/23 02/16/23 02/16/23 07:58 07:58 07:58 WBC 11.9 H RBC Hgb Hct MPV Neutrophils # 9.2 H Monocytes # 1.1 H D-Dimer 0.73 H Sodium 132 L Carbon Dioxide 16 L Anion Gap BUN 21 H Creatinine 1.06 H Glucose 174 H Procalcitonin Ur Specific [place] Urine Protein Urine Glucose (UA) Urine Ketones Urine Blood Urine RBC 02/16/23 02/17/23 02/17/23 12:43 05:44 05:44 WBC 10.80 H RBC 3.69 L Hgb 11.1 L Hct 33.3 L MPV 12.9 H Neutrophils # 7.90 H Monocytes # 1.33 H D-Dimer Sodium 132 L Carbon Dioxide 19.8 L Anion Gap 13.20 H BUN Creatinine Glucose 127 H Procalcitonin Ur Specific [place] >1.050 H Urine Protein Trace H Urine Glucose (UA) 4+ H Urine Ketones 2+ H Urine Blood Moderate H Urine RBC 6 H 02/17/23 05:44 WBC RBC Hgb Hct MPV Neutrophils # Monocytes # D-Dimer Sodium Carbon Dioxide Anion Gap BUN Creatinine Glucose Procalcitonin 0.42 H Ur Specific [place] Urine Protein Urine Glucose (UA) Urine Ketones Urine Blood Urine RBC - Diagnostic Findings Chest x-ray: image reviewed CT scan - chest: image reviewed Assessment and Plan Assessment: Community-acquired left lower lobe pneumonia, as demonstrated on admission chest x-ray and chest CTA. Procalcitonin was elevated at 0.42. Currently covered on empiric antibiotics Atypical chest pain, ACS ruled out Nausea and vomiting, improved Bacteremia with reported staph epidermidis, probably contaminant Coronary artery disease, with previous PTCA History of ischemic cardiomyopathy, with improved ejection fraction of 55%, status post AICD implantation Essential hypertension Hyperlipidemia Diabetes mellitus type 2, insulin-dependent Hypothyroidism Remote history of tobacco dependence Plan: Patient's medications, labs, chest x-ray reviewed On room air Continue empiric antibiotics in the form of ceftriaxone and azithromycin Procalcitonin level was elevated at 0.42 Zofran as needed as antiemetic Appears hemodynamically stable and nontoxic We will continue to follow make recommendations I have personally seen and examined the patient, performed the documentation and the assessment and plan as written. Number of minutes spent on the visit:20 Time with Patient: Greater than 30
[2023-02-18 08:08] VITALS: RESP 16; TEMP 97.4
[2023-02-18] MEDS: MAGNESIUM OXIDE 400 MG TAB PO SCH (09:05)
[2023-02-18] MEDS: metFORMIN 500 MG TAB PO SCH (09:05)
[2023-02-18] MEDS: ASPIRIN 81 MG PO SCH (09:05)
[2023-02-18] MEDS: SPIRONOLACTONE 25 MG TAB PO SCH (09:05)
[2023-02-18] MEDS: HEPARIN SODIUM,PORCINE 5,000 UNIT/ML 1 ML VIAL SQ SCH (09:05)
[2023-02-18] MEDS: AZITHROMYCIN 500 MG TAB PO SCH (09:06)
[2023-02-18] MEDS: DAPAGLIFLOZIN PROPANEDIOL 10 MG TABLET PO SCH (09:06)
[2023-02-18] MEDS: SOTALOL 80 MG TAB PO SCH (09:06)
[2023-02-18] MEDS: SACUBITRIL/VALSARTAN 24 MG-26 MG TABLET PO SCH (09:06)
--- NOTE | 2023-02-18 10:25 | P.PN ---
Subjective HISTORY OF PRESENT ILLNESS: This is a 57-year-old female with a past medical history significant for diabetes, coronary artery disease with previous stenting of the LAD, hypertension, hyperlipidemia, ischemic cardiomyopathy, and AICD implantation. Patient follows in the office with Dr. Mooney. We have been asked to see the p arleen in consultation for chest pain. Patient examined at the bedside. The patient reports she has been having GI symptoms for the past 4 days. She states she has felt nauseous and has been vomiting. She has been unable to keep any food down. She also reports having some chest heaviness over the past few days when she was feeling sick. She also reports having a headache. At the time of examination this morning, she denies chest pain or pressure. Denies shortness of breath. The patient was febrile overnight with a temperature of 100.4. Blood pressure is stable. Telemetry reveals paced rhythm. * EKG reveals ventricular paced rhythm * Chest xray negative for acute process * Chest CT: Negative for pulmonary embolism. Left lower lobe airspace opacities compatible with pneumonia. * Laboratory data: WBC 11.9. Hemoglobin 13.7. Platelet count 183. D-dimer 0.73. Sodium 132. Potassium 4.4. BUN 21. Creatinine 1.06. Troponin negative 3 * Current home cardiac medications include spironolactone 50 g daily, sotalol 80 mg twice a day, metoprolol succinate 100 mg at night, and Entresto 24-26mg BID * Most recent echocardiogram obtained in April 2022 revealed ejection fraction 55%, mild MR, mild TR * Cardiac catheterization history: July 2022 revealing intermediate in stent restenosis of the mid LAD. IFR was performed and was found to be nonischemic at 0.94. 02/18/2023 Patient examined this morning at the bedside. Patient denies chest pain or pressure. She denies shortness of breath. Denies dizziness or lightheadedness. Echocardiogram completed revealing ejection fraction 55-60%, mild to moderate tricuspid regurgitation, and trace pericardial effusion. PHYSICAL EXAM: VITAL SIGNS: Reviewed. GENERAL: Well-developed in no acute distress. HEENT: Head is normocephalic. Pupils are equal, round. Sclerae anicteric. Mucous membranes of the mouth are moist. Neck supple. No JVD or thyromegaly LUNGS: Respirations even and unlabored. Lungs essentially clear to auscultation bilaterally. HEART: Regular rate and rhythm. S1 and S2 heard. ABDOMEN: Soft. Nondistended. Nontender. EXTREMITIES: Normal range of motion. No clubbing or cyanosis. Peripheral pulses intact. No lower extremity edema NEUROLOGIC: Awake and alert. Oriented x 3. ASSESSMENT: Chest pain, atypical, troponin negative 3 Nausea and vomiting, 4 days Febrile illness Left lower lobe pneumonia Coronary artery disease with previous stenting of the LAD History of ischemic cardiomyopathy with recovered EF, most recently 55% History of AICD implantation Hypertension Hyperlipidemia Former nicotine dependence PLAN: Continue current cardiac medications Patient is stable from a cardiac stand point with no further inpatient recommendations We will sign off. Please reconsult if needed. Patient to follow up post discharge with Dr. Mooney Nurse practitioner note has been reviewed by physician. Signing provider agrees with the documented findings, assessment, and plan of care. Objective - Vital Signs Vital signs: Vital Signs Temp 97.4 F L 02/18/23 07:00 Pulse 63 02/18/23 07:00 Resp 16 02/18/23 07:00 BP 113/72 02/18/23 07:00 Pulse Ox 95 02/18/23 08:42 FiO2 21 02/18/23 08:42 Intake & Output 02/17/23 02/18/23 02/18/23 18:59 06:59 18:59 Intake Total 236 222 Balance 236 222 Intake: Oral 236 222 Other: Voiding Method Toilet Toilet # Voids 5 1 # Bowel Movements 1 - Labs CBC & Chem 7: 02/17/23 05:44 02/17/23 05:44 Labs: Abnormal Lab Results - Last 24 Hours (Table) 02/17/23 02/17/23 02/17/23 Range/Units 05:44 05:44 05:44 WBC 10.80 H (4.50-10.00) X 10*3/uL RBC 3.69 L (4.10-5.20) X 10*6/uL Hgb 11.1 L (12.0-15.0) d/dL Hct 33.3 L (37.2-46.3) % MPV 12.9 H (9.5-12.2) [place] Neutrophils # 7.90 H (1.80-7.70) X 10*3/uL Monocytes # 1.33 H (0.20-1.00) X 10*3/uL Sodium 132 L (135-145) mmol/L Carbon Dioxide 19.8 L (21.6-31.8) mmol/L Anion Gap 13.20 H (4.00-12.00) mmol/L Glucose 127 H (70-110) mg/dL Procalcitonin 0.42 H (0.02-0.09) ng/mL Microbiology - Last 24 Hours (Table) 02/16/23 12:00 Blood Culture Gram Stain - Preliminary Blood 02/16/23 11:45 Blood Culture Gram Stain - Preliminary Blood
[2023-02-18 10:59] LABS: Basophils # (A) 0.07 X 10*3/uL (0.00-0.10); Basophils % (A) 0.8 %; Eosinophils % (A) 2.2 %; HCT 39.8 % (37.2-46.3); HGB 12.8 d/dL (12.0-15.0); Lymphocytes # (A) 1.45 X 10*3/uL (0.90-5.00); Lymphocytes % (A) 16.3 %; MCH 29.9 pg (27.0-32.0); MCHC 32.2 d/dL (32.0-37.0); Mean Platelet Volume 13.6 FL (9.5-12.2); Monocytes # (A) 1.08 X 10*3/uL (0.20-1.00); Monocytes % (A) 12.1 %; NRBC Per 100 WBC 0 X 10*3/uL (0.00-0.01); Neutrophils # (A) 6.06 X 10*3/uL (1.80-7.70); Platelet Count 215 X 10*3/uL (140-440); RBC 4.28 X 10*6/uL (4.10-5.20); RDW 14.4 % (11.5-14.5); WBC 8.91 X 10*3/uL (4.50-10.00)
[2023-02-18 11:14] LABS: BUN/Creat Ratio 18.62 Ratio (12.00-20.00); Blood Urea Nitrogen 14.9 mg/dL (9.0-27.0); Calcium 9.6 mg/dL (8.7-10.3); Carbon Dioxide 23.2 mmol/L (21.6-31.8); Chloride 101 mmol/L (96-109); Glucose 152 mg/dL (70-110); Potassium 3.7 mmol/L (3.5-5.5); Sodium 138 mmol/L (135-145)
[2023-02-18 14:29] VITALS: BP 100/55; PULSE 64
--- NOTE | 2023-02-27 18:51 | P.DS ---
Providers Date of admission: 02/16/23 09:16 Expected date of discharge: 02/18/23 Attending physician: Yasmany Keller MD Consults: 02/18/23 05:11 Consult Physician Urgent Consulting Provider: Jean Alvarez Consult Reason/Comments: pneumonia Do you want consulting provider notified?: Yes Primary care physician: Tera Villanueva [facility] Course: Final diagnosis Left lower lobe pneumonia Chest pain/heaviness. Ruled out ACS. Coronary artery disease history with stent placement Ischemic cardiomyopathy with recent echocardiogram showed ejection fraction 55% in April 2022 History of AICD placement and exchanged with PPM Hypertension Hyperlipidemia History PR Hypothyroidism Diabetes type 2 insulin-dependent GERD History of migraine headaches Anxiety Prior history of smoking DVT prophylaxis Discharge disposition Patient is being discharged in a stable condition with guarded prognosis to home. Patient will follow-up with Dr. Villanueva in the outpatient setting upon discharge. Patient is to continue with current medications as mentioned below and follow-up with pulmonary and cardiology outpatient as scheduled. Total time taken is greater than 35 minutes. Hospital course This is a 57-year-old female who was recently admitted with chest pain and postcardiac catheterization previously with stent placement and has history of permanent pacemaker along with ischemic cardiomyopathy was having increased shortness of breath found to have left lower lobe pneumonia. Patient was evaluated by cardiology reporting most likely regarding pulmonary issues and patient was started on antibiotics. Patient was evaluated by pulmonary and did undergo CT of the chest which was no evidence of PE. Patient did have lower lobe airspace opacities compatible with pneumonia. Patient will continue on antibiotics in the form of Ceftin on discharge and close outpatient follow-up with pulmonary along with cardiology. Patient has been cleared by consultations. Please refer to consultation notes for further HPI. Currently no reports of chest pain, shortness of breath, or palpitations. Patient is afebrile. No reports of nausea or vomiting and patient is tolerating diet. Patient will be discharged home today. Physical exam: Gen: This is a 57-year-old female who is awake, alert and oriented 3, well- developed, well-nourished, morbidly obese. HEENT: Head is atraumatic, normocephalic. Pupils equal, round. Sclerae is anicteric. NECK: Supple. No JVD. No lymphadenopathy. No thyromegaly. LUNGS: Diminished breath sounds bilaterally with scattered rhonchi noted. No intercostal retractions. HEART: Regular rate and rhythm. No murmur. ABDOMEN: Soft. Obese Bowel sounds are present. No masses. No tenderness. EXTREMITIES: No pedal edema. No calf tenderness. NEUROLOGICAL: Patient is awake, alert and oriented x3. Cranial nerves 2 through 12 are grossly intact. Please refer to medication reconciliation sheet for a list of medications. The impression and plan of care has been dictated by Jessica Rosario, Nurse Practitioner as directed. Dr. Basia MD I have performed a history and examination and MDM of this patient, discussed the same with the dictator, and agree with the dictator's assessment and plan as written ,documented as a scribe. Based on total visit time, I have performed more than 50% of the visit. Patient Condition at Discharge: Fair Plan - Discharge Summary Discharge Rx Participant: Yes New Discharge Prescriptions: New cefUROXime axetiL [Ceftin] 500 mg PO BID 5 Days #10 tab Continue Atorvastatin [Lipitor] 80 mg PO HS #30 tab Metoprolol Succinate (ER) [Toprol XL] 100 mg PO HS Sacubitril/Valsartan [Entresto 24 mg-26 mg Tablet] 1 tab PO BID Sotalol [Betapace] 80 mg PO BID Aspirin 81 mg PO DAILY Spironolactone 50 mg PO DAILY Nitroglycerin Sl Tabs [Nitrostat] 0.4 mg SUBLINGUAL Q5M PRN #100 tab PRN Reason: Chest Pain Acetaminophen Tab [Tylenol] 1,000 mg PO Q6HR Ibuprofen [Motrin] 800 mg PO Q8H PRN PRN Reason: Pain Magnesium Oxide [Mag-Ox] 400 mg PO DAILY Insulin Glargine/Lixisenatide [Soliqua 100 Unit-33 Mcg/ml Pen] 15 units SQ HS Empagliflozin [Jardiance] 25 mg PO DAILY metFORMIN HCL [Glucophage] 500 mg PO BID Discharge Medication List Atorvastatin [Lipitor] 80 mg PO HS #30 tab 02/09/18 [Rx] Metoprolol Succinate (ER) [Toprol XL] 100 mg PO HS 03/28/20 [History] Sacubitril/Valsartan [Entresto 24 mg-26 mg Tablet] 1 tab PO BID 03/28/20 [History] Aspirin 81 mg PO DAILY 06/10/20 [History] Sotalol [Betapace] 80 mg PO BID 06/10/20 [History] Spironolactone 50 mg PO DAILY 10/02/21 [History] Empagliflozin [Jardiance] 25 mg PO DAILY 04/22/22 [History] metFORMIN HCL [Glucophage] 500 mg PO BID 09/30/22 [History] Nitroglycerin Sl Tabs [Nitrostat] 0.4 mg SUBLINGUAL Q5M PRN #100 tab 10/01/22 [Rx] Acetaminophen Tab [Tylenol] 1,000 mg PO Q6HR 02/16/23 [History] Ibuprofen [Motrin] 800 mg PO Q8H PRN 02/16/23 [History] Insulin Glargine/Lixisenatide [Soliqua 100 Unit-33 Mcg/ml Pen] 15 units SQ HS 02/16/23 [History] Magnesium Oxide [Mag-Ox] 400 mg PO DAILY 02/16/23 [History] cefUROXime axetiL [Ceftin] 500 mg PO BID 5 Days #10 tab 02/18/23 [Rx] Follow up Appointment(s)/Referral(s): Jermain Mooney MD [STAFF PHYSICIAN] - 03/10/23 4:00 pm Jean Alvarez DO [Doctor of Osteopathic Medicine] - 02/24/23 1:15 pm Tera Villanueva DO [Primary Care Provider] - 1-2 days Patient Instructions/Handouts: Chest Pain (DC) Activity/Diet/Wound Care/Special Instructions: Activity Limited until follow-up Follow-up with primary care provider on discharge Follow-up with pulmonary outpatient as well as cardiology Continue taking medications as prescribed Encouraged fluids and rest Discharge Disposition: HOME SELF-CARE
== END 2023-02-18 16:35 | disposition home or self-care (01) ==
LOC: EC 06:43 → 6NMEDSUR 09:16
PROVIDERS: ADMIT Internal Medicine; ATTEND Internal Medicine
DX: J18.9 Pneumonia, unspecified organism (principal); I25.10 Atherosclerotic heart disease of native coronary artery without angina pectoris; Z95.5 Presence of coronary angioplasty implant and graft; I25.5 Ischemic cardiomyopathy; Z95.810 Presence of automatic (implantable) cardiac defibrillator; I13.0 Hypertensive heart and chronic kidney disease with heart failure and stage 1 through stage 4 chronic kidney disease, or unspecified chronic kidney disease; N18.2 Chronic kidney disease, stage 2 (mild); E11.22 Type 2 diabetes mellitus with diabetic chronic kidney disease; I50.9 Heart failure, unspecified; E78.5 Hyperlipidemia, unspecified; I25.2 Old myocardial infarction; E03.9 Hypothyroidism, unspecified; Z79.4 Long term (current) use of insulin; K21.9 Gastro-esophageal reflux disease without esophagitis; G43.909 Migraine, unspecified, not intractable, without status migrainosus; F41.9 Anxiety disorder, unspecified; E66.01 Morbid (severe) obesity due to excess calories; Z68.41 Body mass index [BMI] 40.0-44.9, adult; T82.855A Stenosis of coronary artery stent, initial encounter; Z87.442 Personal history of urinary calculi; Z79.899 Other long term (current) drug therapy; Z79.82 Long term (current) use of aspirin; Z79.84 Long term (current) use of oral hypoglycemic drugs; Z88.5 Allergy status to narcotic agent; Z87.891 Personal history of nicotine dependence; Z82.49 Family history of ischemic heart disease and other diseases of the circulatory system; Z80.0 Family history of malignant neoplasm of digestive organs; Z81.8 Family history of other mental and behavioral disorders; Z80.3 Family history of malignant neoplasm of breast
CPT/HCPCS: 96366 ×3; 96372 ×2; 96368; 96361; 96365; 96375; 99285; 36415; 94760; 93005; 93306; 85379; 80053; 80048 ×2; 87449; 82150; 83690; 83735; 84484; 85025 ×3; 85610; 85730; 81001; 87040 ×2; 87077; 87186; 84145; 87635; 71046; 71275; G0378 ×3; J1644 ×2; J2405; J0456; J0696 ×3; J3490; Q9967

== ENCOUNTER 2023-04-23 14:33 | Observation (INO) | payer OTHER ==
--- NOTE | 2023-04-23 16:07 | ED ---
Dizziness HPI - General Chief Complaint: Dizziness Stated Complaint: Near Syncope Time Seen by Provider: 04/23/23 14:40 Source: patient, RN notes reviewed, old records reviewed Mode of arrival: EMS Limitations: no limitations - History of Present Illness Initial Comments: This is a 58-year-old female to the emergency for evaluation today of a recent near syncopal event. Patient presents today for evaluation of overall not feeling well with syncopal episode and chest pain. No current shortness of breath chest pain is improved. He does have significant history of heart disease and does feel dizzy with headache. MD Complaint: dizziness, lightheadedness, near syncope, other (Chest pain) -: minutes(s) Timing: sudden onset, gradual onset Description: lightheadedness, near-syncope Improves With: nothing Worsens With: nothing Associated Symptoms: denies other symptoms - Related Data Home Medications Medication Instructions Recorded Confirmed Metoprolol Succinate (ER) [Toprol 100 mg PO HS 03/28/20 04/23/23 XL] Sacubitril/Valsartan [Entresto 24 1 tab PO BID 03/28/20 04/23/23 mg-26 mg Tablet] Aspirin 81 mg PO DAILY 06/10/20 04/23/23 Spironolactone 50 mg PO DAILY 10/02/21 04/23/23 Empagliflozin [Jardiance] 25 mg PO DAILY 04/22/22 04/23/23 metFORMIN HCL [Glucophage] 500 mg PO BID 09/30/22 04/23/23 Acetaminophen Tab [Tylenol] 1,000 mg PO Q6HR PRN 02/16/23 04/23/23 Ibuprofen [Motrin] 800 mg PO Q8H PRN 02/16/23 04/23/23 Insulin Glargine/Lixisenatide 20 units SQ HS 02/16/23 04/23/23 [Soliqua 100 Unit-33 Mcg/ml Pen] Magnesium Oxide [Mag-Ox] 400 mg PO DAILY 02/16/23 04/23/23 Previous Rx's Medication Instructions Recorded Atorvastatin [Lipitor] 80 mg PO HS #30 tab 02/09/18 Nitroglycerin Sl Tabs [Nitrostat] 0.4 mg SUBLINGUAL Q5M PRN #100 tab 10/01/22 Allergies Allergy/AdvReac Type Severity Reaction Status Date / Time hydrocodone bitartrate AdvReac Nausea & Verified 04/23/23 16:57 [From Vicodin] Vomiting propoxyphene napsylate AdvReac Vomiting Verified 04/23/23 16:57 [From Darvocet-N] Review of Systems ROS Statement: Those systems with pertinent positive or pertinent negative responses have been documented in the HPI. ROS Other: All systems not noted in ROS Statement are negative. Past Medical History Past Medical History: Coronary Artery Disease (CAD), Chest Pain / Angina, Heart Failure, GERD/Reflux, Hyperlipidemia, Hypertension, Myocardial Infarction (AK), Renal Disease, Thyroid Disorder Additional Past Medical History / Comment(s): Ischemic cardiomyopathy, CKD stage II, nephrolithiasis, migraines, occasional back pain, hypothyroid. states she had a pacemaker put in 1 or 2 years ago in March. Last Myocardial Infarction Date:: 06-30-15 History of Any Multi-Drug Resistant Organisms: None Reported Past Surgical History: Heart Catheterization, Heart Catheterization With Stent, Hernia Repair, Hysterectomy, Pacemaker Additional Past Surgical History / Comment(s): 2015 stents to lad,diag, 05/22/16 PTCA, bilateral oophorectomy, LT INGUINAL HERNIA REPAIR, CYSTOCOPY, LITHOTRIPSY,COLONOSCOPY, Past Anesthesia/Blood Transfusion Reactions: Postoperative Nausea & Vomiting (PONV) Additional Past Anesthesia/Blood Transfusion Reaction / Comment(s): MILD CLAUSTERPHOBIA Date of Last Stent Placement:: 06/30/15 Type of Cardiac Device: Permanent Pacemaker Device Placement Date:: 06/28/15 Past Psychological History: Anxiety Smoking Status: Former smoker Past Alcohol Use History: Rare Past Drug Use History: None Reported - Past Family History Mother Family Medical History: Dementia Additional Family Medical History / Comment(s): pacemaker Brother(s) Family Medical History: No Reported History Father Family Medical History: Cancer, Dementia, Myocardial Infarction ([place]) Additional Family Medical History / Comment(s): pacemaker and colon cancer. Sister(s) Family Medical History: Cancer, Hypertension Additional Family Medical History / Comment(s): Breast and colon cancer. General Exam Limitations: no limitations General appearance: alert, in no apparent distress Head exam: Present: atraumatic, normocephalic, normal inspection Eye exam: Present: normal appearance, PERRL, EOMI. Absent: scleral icterus, conjunctival injection, periorbital swelling ENT exam: Present: normal exam, mucous membranes moist Neck exam: Present: normal inspection. Absent: tenderness, meningismus, lymphadenopathy Respiratory exam: Present: normal lung sounds bilaterally. Absent: respiratory distress, wheezes, rales, rhonchi, stridor Cardiovascular Exam: Present: regular rate, normal rhythm, normal heart sounds. Absent: systolic murmur, diastolic murmur, rubs, gallop, clicks GI/Abdominal exam: Present: soft, normal bowel sounds. Absent: distended, tenderness, guarding, rebound, rigid Extremities exam: Present: normal inspection, full ROM, normal capillary refill. Absent: tenderness, pedal edema, joint swelling, calf tenderness Back exam: Present: normal inspection Neurological exam: Present: alert, oriented X3, CN II-XII intact Psychiatric exam: Present: normal affect, normal mood Skin exam: Present: warm, dry, intact, normal color. Absent: rash Course Vital Signs 04/23/23 04/23/23 14:38 19:07 Temperature 99.0 F Pulse Rate 66 67 Respiratory 18 18 Rate Blood Pressure 116/66 124/89 O2 Sat by Pulse 95 98 Oximetry - Reevaluation(s) Reevaluation #1: 04/23/23 17:47 Record is reviewed Reevaluation #2: 04/23/23 17:47 Patient has no recurrent syncope here in the ER Reevaluation #3: 04/23/23 19:03 patient informed of results and questions answered Reevaluation #4: 04/23/23 17:47 Was pt. sent in by a medical professional or institution (, PA, E COMMERCE MERCHANDISING COORDINATOR, urgent c are, hospital, or long-term...) When possible be specific @ -no Did you speak to anyone other than the patient for history (EMS, parent, family, police, friend...)? What history was obtained from this source @ -no Did you review nursing and triage notes (agree or disagree)? Why? @ -agree Are old charts reviewed (outside hosp., previous admission, EMS record, old EKG, old radiological studies, urgent care reports/EKG's, long-term records)? Report findings @ -yes Differential Diagnosis (chest pain, altered mental status, abdominal pain women, abdominal pain men, vaginal bleeding, weakness, fever, dyspnea, syncope, headache, dizziness, GI bleed, back pain, seizure, CVA, palpatations, mental health, musculoskeletal)? @ -prior EKG interpreted by me (3pts min.). @ -yes X-rays interpreted by me (1pt min.). @ -no CT interpreted by me (1pt min.). @ -no U/S interpreted by me (1pt. min.). @ -no What testing was considered but not performed or refused? (CT, X-rays, U/S, labs)? Why? @ -none What meds were considered but not given or refused? Why? @ -none Did you discuss the management of the patient with other professionals (professionals i.e. Dr., PA, E COMMERCE MERCHANDISING COORDINATOR, lab, RT, psych nurse, social work case manager, hand touch up painter, teacher, international first officer, director case management)? Give summary @ -no Was smoking cessation discussed for >3mins.? @ -no Was critical care preformed (if so, how long)? @ -no Were there social determinants of health that impacted care today? How? (Homelessness, low income, unemployed, alcoholism, drug addiction, transportation, low edu. Level, literacy, decrease access to med. care, group home, rehab)? @ -none Was there de-escalation of care discussed even if they declined (Discuss DNR or withdrawal of care, Hospice)? DNR status @ -no What co-morbidities impacted this encounter? (DM, HTN, Smoking, COPD, CAD, Cancer, CVA, ARF, Chemo, Hep., AIDS, mental health diagnosis, sleep apnea, morbid obesity)? @ -none Was patient admitted / discharged? Hospital course, mention meds given and route, prescriptions, significant lab abnormalities, going to OR and other pertinent info. @ - 58 female to the emergency department for evaluation of a syncopal event. Patient had syncope prior to arrival in emergency department, patient has no recurrent syncope here is a history of heart disease and will admit patient for pacemaker interrogation and cardiology to see Admitted Undiagnosed new problem with uncertain prognosis? @ -no Drug Therapy requiring intensive monitoring for toxicity (Heparin, Nitro, Insulin, Cardizem)? @ -no Were any procedures done? @ -no Diagnosis/symptom? @ -Arrhythmia Acute, or Chronic, or Acute on Chronic? @ -Acute Uncomplicated (without systemic symptoms) or Complicated (systemic symptoms)? @ -Complicated Side effects of treatment? @ -no Exacerbation, Progression, or Severe Exacerbation? @ -exacerbation Poses a threat to life or bodily function? How? (Chest pain, [place], [place], pneumonia, PE, COPD, DKA, ARF, appy, cholecystitis, CVA, Diverticulitis, Homicidal, Suicidal, threat to staff... and all critical care pts) @ -yes with significant arrhythmia Reevaluation #5: 04/23/23 17:47 Differential Syncope: Valvular disease, hypertrophic cardiomyopathy, pulmonary embolism, tamponade, tachycardia, bradycardia, [place], hypovolemia, hemorrhage, dissection, anemia, intracranial hemorrhage, seizure, hypoglycemia, carbon monoxide poisoning, this is not meant to be an all-inclusive list. - Consultations Consultation #1: spoke w REINIER who agrees for admission EKG Findings - EKG Comments: EKG Findings:: EKG is paced 66 OH 163 QRS 196 QTc 520 - EKG Results: EKG: interpreted by NOAH Medical Decision Making - Medical Decision Making 58 female to the emergency department for evaluation of a syncopal event. Patient had syncope prior to arrival in emergency department, patient has no recurrent syncope here is a history of heart disease and will admit patient for pacemaker interrogation and cardiology to see - Lab Data Result diagrams: 04/25/23 06:45 04/25/23 06:45 Lab Results 04/23/23 04/23/23 04/23/23 Range/Units 17:08 17:08 17:08 WBC 7.2 (3.8-10.6) k/uL RBC 4.56 (3.80-5.40) m/uL Hgb 13.9 (11.4-16.0) gm/dL Hct 42.3 (34.0-46.0) % MCV 92.8 (80.0-100.0) fL MCH 30.4 (25.0-35.0) pg MCHC 32.8 (31.0-37.0) g/dL RDW 13.8 (11.5-15.5) % Plt Count 185 (150-450) k/uL MPV 10.8 Neutrophils % 56 % Lymphocytes % 34 % Monocytes % 6 % Eosinophils % 2 % Basophils % 1 % Neutrophils # 4.0 (1.3-7.7) k/uL Lymphocytes # 2.5 (1.0-4.8) k/uL Monocytes # 0.4 (0-1.0) k/uL Eosinophils # 0.1 (0-0.7) k/uL Basophils # 0.0 (0-0.2) k/uL Sodium 138 (137-145) mmol/L Potassium 4.2 (3.5-5.1) mmol/L Chloride 105 (98-107) mmol/L Carbon Dioxide 24 (22-30) mmol/L Anion Gap 9 mmol/L BUN 24 H (7-17) mg/dL Creatinine 0.81 (0.52-1.04) mg/dL Est GFR (CKD-EPI)AfAm >90 (>60 ml/min/1.73 sqM) Est GFR (CKD-EPI)NonAf 80 (>60 ml/min/1.73 sqM) Glucose 141 H (74-99) mg/dL Plasma Lactic Acid Srinath (0.7-2.0) mmol/L Calcium 9.7 (8.4-10.2) mg/dL Phosphorus 3.9 (2.5-4.5) mg/dL Magnesium 1.9 (1.6-2.3) mg/dL Total Bilirubin 0.6 (0.2-1.3) mg/dL AST 34 (14-36) U/L ALT 33 (4-34) U/L Alkaline Phosphatase 75 (38-126) U/L Troponin I (0.000-0.034) ng/mL NT-Pro-B Natriuret Pep 71 pg/mL Total Protein 6.8 (6.3-8.2) g/dL Albumin 4.0 (3.5-5.0) g/dL Urine Color Colorless Urine Appearance Clear (Clear) Urine pH 5.5 (5.0-8.0) Ur Specific [place] 1.021 (1.001-1.035) Urine Protein Negative (Negative) Urine Glucose (UA) 4+ H (Negative) Urine Ketones 1+ H (Negative) Urine Blood Negative (Negative) Urine Nitrite Negative (Negative) Urine Bilirubin Negative (Negative) Urine Urobilinogen <2.0 (<2.0) mg/dL Ur Leukocyte Esterase Negative (Negative) 04/23/23 04/23/23 Range/Units 17:08 17:08 WBC (3.8-10.6) k/uL RBC (3.80-5.40) m/uL Hgb (11.4-16.0) gm/dL Hct (34.0-46.0) % MCV (80.0-100.0) fL MCH (25.0-35.0) pg MCHC (31.0-37.0) g/dL RDW (11.5-15.5) % Plt Count (150-450) k/uL MPV Neutrophils % % Lymphocytes % % Monocytes % % Eosinophils % % Basophils % % Neutrophils # (1.3-7.7) k/uL Lymphocytes # (1.0-4.8) k/uL Monocytes # (0-1.0) k/uL Eosinophils # (0-0.7) k/uL Basophils # (0-0.2) k/uL Sodium (137-145) mmol/L Potassium (3.5-5.1) mmol/L Chloride (98-107) mmol/L Carbon Dioxide (22-30) mmol/L Anion Gap mmol/L BUN (7-17) mg/dL Creatinine (0.52-1.04) mg/dL Est GFR (CKD-EPI)AfAm (>60 ml/min/1.73 sqM) Est GFR (CKD-EPI)NonAf (>60 ml/min/1.73 sqM) Glucose (74-99) mg/dL Plasma Lactic Acid Srinath 1.4 (0.7-2.0) mmol/L Calcium (8.4-10.2) mg/dL Phosphorus (2.5-4.5) mg/dL Magnesium (1.6-2.3) mg/dL Total Bilirubin (0.2-1.3) mg/dL AST (14-36) U/L ALT (4-34) U/L Alkaline Phosphatase (38-126) U/L Troponin I <0.012 (0.000-0.034) ng/mL NT-Pro-B Natriuret Pep pg/mL Total Protein (6.3-8.2) g/dL Albumin (3.5-5.0) g/dL Urine Color Urine Appearance (Clear) Urine pH (5.0-8.0) Ur Specific [place] (1.001-1.035) Urine Protein (Negative) Urine Glucose (UA) (Negative) Urine Ketones (Negative) Urine Blood (Negative) Urine Nitrite (Negative) Urine Bilirubin (Negative) Urine Urobilinogen (<2.0) mg/dL Ur Leukocyte Esterase (Negative) - EKG Data -: EKG Interpreted by Me Disposition Clinical Impression: Chest pain, Ischemic cardiomyopathy, Cardiac defibrillator in place, Syncope Disposition: ADMITTED IP TO THIS HOSP Condition: Fair Is patient prescribed a controlled substance at d/c from ED?: No Time of Disposition: 19:00
[2023-04-23] MEDS ORDERED: SODIUM CHLORIDE 0.9% 1,000 ML IV STA (16:20)
[2023-04-23 17:27] LABS: Basophils % (A) 1 %; Eosinophils # (A) 0.1 k/uL (0-0.7); Eosinophils % (A) 2 %; HCT 42.3 % (34.0-46.0); HGB 13.9 gm/dL (11.4-16.0); Lymphocytes # (A) 2.5 k/uL (1.0-4.8); Lymphocytes % (A) 34 %; MCH 30.4 pg (25.0-35.0); MCHC 32.8 g/dL (31.0-37.0); MCV 92.8 fL (80.0-100.0); Mean Platelet Volume 10.8; Monocytes # (A) 0.4 k/uL (0-1.0); Monocytes % (A) 6 %; Neutrophils % (A) 56 %; Platelet Count 185 k/uL (150-450); RBC 4.56 m/uL (3.80-5.40); RDW 13.8 % (11.5-15.5); WBC 7.2 k/uL (3.8-10.6)
[2023-04-23 17:39] LABS: ALT 33 U/L (4-34); AST 34 U/L (14-36); African American GFR (CKD) >90 (>60 ml/min/1.73 sqM); Alkaline Phosphatase 75 U/L (38-126); Anion Gap 9 mmol/L; Blood Urea Nitrogen 24 mg/dL (7-17); Calcium 9.7 mg/dL (8.4-10.2); Carbon Dioxide 24 mmol/L (22-30); Chloride 105 mmol/L (98-107); Glucose 141 mg/dL (74-99); Magnesium 1.9 mg/dL (1.6-2.3); Non-African American GFR(CKD) 80 (>60 ml/min/1.73 sqM); Phosphorus 3.9 mg/dL (2.5-4.5); Potassium 4.2 mmol/L (3.5-5.1); Sodium 138 mmol/L (137-145); Total Bilirubin 0.6 mg/dL (0.2-1.3); Total Protein 6.8 g/dL (6.3-8.2)
[2023-04-23 17:47] LABS: NT-Pro-B-Type Natriuretic Pept 71 pg/mL
[2023-04-23] MEDS ORDERED: MORPHINE SULFATE 4 MG/ML SYRINGE IV PRN (18:57)
[2023-04-23] MEDS ORDERED: NALOXONE 0.4 MG/ML 1 ML VIAL IV PRN (18:57)
[2023-04-23] MEDS ORDERED: ONDANSETRON 4 MG/2 ML VIAL IVP PRN (18:57)
[2023-04-23 19:36] LABS: Appearance,Urine Clear (Clear); Bilirubin,Urine Negative (Negative); Blood,Urine Negative (Negative); Color,Urine Colorless; Glucose,Urine (UA) 4+ (Negative); Ketones,Urine 1+ (Negative); Leukocyte Esterase,Urine Negative (Negative); Nitrite,Urine Negative (Negative); PH, Urine 5.5 (5.0-8.0); Protein,Urine Negative (Negative); Specific Gravity,Urine 1.021 (1.001-1.035); Urobilinogen,Urine <2.0 mg/dL (<2.0)
[2023-04-23] MEDS: SODIUM CHLORIDE 0.9% 1,000 ML IV SCH (19:52)
[2023-04-23 20:29] LABS: Glucose,Whole Blood 148 mg/dL (70-110)
[2023-04-23] MEDS ORDERED: ACETAMINOPHEN TAB 500 MG TAB PO PRN (20:40)
[2023-04-23] MEDS ORDERED: DEXTROSE 50% SYRINGE 50 ML IVP PRN ×2 (20:42)
[2023-04-23] MEDS: INSULIN ASPART (NovoLOG) 100 UNIT/ML VIAL SQ SCH (20:58)
[2023-04-23] MEDS ORDERED: NON FORMULARY DRUG (Insulin Glargine/Lixisenatide [Soliqua 100 Unit-33 Mcg/Ml Pen] 3 ML In SQ SCH (21:00)
[2023-04-23] MEDS: METOPROLOL SUCCINATE (ER) 100 MG TAB.ER.24H PO SCH (21:11)
[2023-04-23] MEDS: INSULIN DETEMIR (LEVEMIR) 100 UNIT/ML SYR SQ SCH (21:11)
[2023-04-23] MEDS: ATORVASTATIN 80 MG TAB PO SCH (21:11)
[2023-04-23] MEDS: SACUBITRIL/VALSARTAN 24 MG-26 MG TABLET PO SCH (21:11)
[2023-04-23 22:02] LABS: Partial Thromboplastin Time 24.8 sec (22.0-30.0); Prothrombin Time 10.7 sec (10.0-12.5)
[2023-04-24 06:09] LABS: Glucose,Whole Blood 183 mg/dL (70-110)
[2023-04-24] MEDS: INSULIN ASPART (NovoLOG) 100 UNIT/ML VIAL SQ SCH ×4 (06:15→21:02)
[2023-04-24] MEDS: ASPIRIN 81 MG PO SCH (08:44)
[2023-04-24] MEDS: SACUBITRIL/VALSARTAN 24 MG-26 MG TABLET PO SCH ×2 (08:44→19:42)
[2023-04-24] MEDS: SPIRONOLACTONE 25 MG TAB PO SCH (08:44)
[2023-04-24] MEDS: MAGNESIUM OXIDE 400 MG TAB PO SCH (08:44)
[2023-04-24] MEDS ORDERED: SOTALOL 80 MG TAB PO SCH (09:30)
[2023-04-24 10:08] LABS: Basophils % (A) 1 %; Eosinophils # (A) 0.1 k/uL (0-0.7); Eosinophils % (A) 2 %; HGB 12.6 gm/dL (11.4-16.0); Lymphocytes # (A) 2.1 k/uL (1.0-4.8); Lymphocytes % (A) 38 %; MCH 30.7 pg (25.0-35.0); MCHC 32.3 g/dL (31.0-37.0); MCV 94.9 fL (80.0-100.0); Monocytes # (A) 0.4 k/uL (0-1.0); Monocytes % (A) 7 %; Neutrophils # (A) 2.8 k/uL (1.3-7.7); Neutrophils % (A) 51 %; Platelet Count 188 k/uL (150-450); RBC 4.11 m/uL (3.80-5.40); RDW 13.9 % (11.5-15.5); WBC 5.6 k/uL (3.8-10.6)
--- NOTE | 2023-04-24 10:15 | US ---
EXAMINATION TYPE: US carotid duplex BILAT DATE OF EXAM: 04/24/2023 COMPARISON: NONE CLINICAL INDICATION: Female, 58 years old with history of syncope; Syncope per order. Prior smoker. TECHNIQUE: Carotid duplex ultrasound examination. Indirect Doppler criteria was utilized. FINDINGS: EXAM MEASUREMENTS: RIGHT: Peak Systolic Velocity (PSV) cm/sec ----- Right CCA: 63.3 ----- Right ICA: 86.6 ----- Right ECA: 100.7 ICA/CCA ratio: 1.4 RIGHT: End Diastole cm/sec ----- Right CCA: 18.8 ----- Right ICA: 35.2 ----- Right ECA: 9.5 LEFT: Peak Systolic Velocity (PSV) cm/sec ----- Left CCA: 65.1 ----- Left ICA: 93.0 ----- Left ECA: 83.1 ICA/CCA ratio: 1.4 LEFT: End Diastole cm/sec ----- Left CCA: 24.1 ----- Left ICA: 34.7 ----- Left ECA: 9.5 VERTEBRALS (direction of flow): Right Vertebral: Antegrade Left Vertebral: Antegrade Rhythm: Normal GEARMAN NOTES: Plaque seen within bilateral bulbs. No elevated velocities at this time. IMPRESSION: Less than 50% stenosis of bilateral carotid bifurcations. Criteria for Assigning % of Stenosis / Diameter reduction (Estimation based on the indirect measurements of the internal carotid artery velocities (ICA PSV). 1. Normal (no stenosis)=ICA PSV < 125 cm/s: ratio < 2.0: ICA EDV<40 cm/s. 2. Less than 50% stenosis=ICA PSV < 125 cm/s: ratio < 2.0: ICA EDV<40 cm/s. 3. 50 to 69% stenosis=ICA PSV of 125 to 230 cm/s: ration 2.0 ? 4.0: ICA EDV 40-100 cm/s. 4. Greater than 70% stenosis to near occlusion= ICA PSV > 230 cm/s: ratio > 4.0: ICA EDV > 100 cm/s. 5. Near occlusion= ICA PSV velocities may be low or undetectable: variable ratio and ICA EDV. 6. Total occlusion=unable to detect flow.
[2023-04-24 10:21] LABS: Potassium 4.3 mmol/L (3.5-5.1)
[2023-04-24 10:22] LABS: ALT 29 U/L (4-34); AST 27 U/L (14-36); African American GFR (CKD) 87 (>60 ml/min/1.73 sqM); Albumin 3.5 g/dL (3.5-5.0); Alkaline Phosphatase 72 U/L (38-126); Anion Gap 10 mmol/L; Blood Urea Nitrogen 21 mg/dL (7-17); Calcium 8.7 mg/dL (8.4-10.2); Carbon Dioxide 22 mmol/L (22-30); Chloride 103 mmol/L (98-107); Glucose 316 mg/dL (74-99); Magnesium 1.9 mg/dL (1.6-2.3); Non-African American GFR(CKD) 76 (>60 ml/min/1.73 sqM); Sodium 135 mmol/L (137-145); Total Bilirubin 0.7 mg/dL (0.2-1.3); Total Protein 6.1 g/dL (6.3-8.2)
[2023-04-24 11:23] LABS: Glucose,Whole Blood 342 mg/dL (70-110)
--- NOTE | 2023-04-24 11:39 | P.HPIM ---
History of Present Illness H&P Date: 04/24/23 Chief Complaint: Syncope * 58-year-old lady with past medical history significant for coronary artery disease, history of ischemic cardio myopathy status post AICD in place, ch ronic kidney disease, coronary artery disease with PCI of LAD, hyperlipidemia, presenting to the emergency department with near syncopal episode. Patient upon presentation complained of chest pain and complained of dizziness. Patient also complained of associated headache patient in general complained of fatigue and malaise * Workup initiated in ER included EKG which showed paced rhythm, initial vitals obtained showed systolic pressure 10 3 x 56 with mean of 71 * Serum chemistry obtained showed normal hepatology, PT INR within normal limits, serum chemistry showed sodium 138 potassium 4.2, Lasix 24. 24 creatinine 0.81 serial troponins obtained which were negative * N-terminal proBNP within normal limits, patient states she did not completely pass out * Patient states she had a good breakfast and does not believe her blood glucose was low REVIEW OF SYSTEMS: Dizziness, fatigue, weakness CONSTITUTIONAL: No fever, no malaise, no fatigue. HEENT: No recent visual problems or hearing problems. Denied any sore throat. CARDIOVASCULAR: No chest pain, orthopnea, PND, no palpitations, no syncope. PULMONARY: No shortness of breath, no cough, no hemoptysis. GASTROINTESTINAL: No diarrhea, no nausea, no vomiting, no abdominal pain. NEUROLOGICAL: No headaches, no weakness, no numbness. HEMATOLOGICAL: Denies any bleeding or petechiae. GENITOURINARY: Denies any burning micturition, frequency, or urgency. MUSCULOSKELETAL/RHEUMATOLOGICAL: Denies any joint pain, swelling, or any muscle pain. ENDOCRINE: Denies any polyuria or polydipsia. PHYSICAL EXAMINATION: GENERAL: The patient is alert and oriented x3, not in any acute distress. Well developed, well nourished. HEENT: Pupils are round and equally reacting to light. EOMI. CARDIOVASCULAR: S1 and S2 present. No murmurs, rubs, or gallops. PULMONARY: Chest is clear to auscultation, no wheezing or crackles. ABDOMEN: Soft, nontender, nondistended, normoactive bowel sounds. No palpable organomegaly. MUSCULOSKELETAL: No joint swelling or deformity. EXTREMITIES: No cyanosis, clubbing, or pedal edema. NEUROLOGICAL: Gross neurological examination did not reveal any focal deficits. SKIN: No rashes. Past Medical History Past Medical History: Coronary Artery Disease (CAD), Chest Pain / Angina, Heart Failure, GERD/Reflux, Hyperlipidemia, Hypertension, Myocardial Infarction (ND), Renal Disease, Thyroid Disorder Additional Past Medical History / Comment(s): Ischemic cardiomyopathy, CKD stage II, nephrolithiasis, migraines, occasional back pain, hypothyroid. states she had a pacemaker put in 1 or 2 years ago in March. Last Myocardial Infarction Date:: 06-30-15 History of Any Multi-Drug Resistant Organisms: None Reported Past Surgical History: Heart Catheterization, Heart Catheterization With Stent, Hernia Repair, Hysterectomy, Pacemaker Additional Past Surgical History / Comment(s): 2015 stents to lad,diag, 05/22/16 PTCA, bilateral oophorectomy, LT INGUINAL HERNIA REPAIR, CYSTOCOPY, LITHOTRIPSY,COLONOSCOPY, Past Anesthesia/Blood Transfusion Reactions: Postoperative Nausea & Vomiting (PONV) Additional Past Anesthesia/Blood Transfusion Reaction / Comment(s): MILD CLAUSTERPHOBIA Date of Last Stent Placement:: 06/30/15 Type of Cardiac Device: Permanent Pacemaker Device Placement Date:: 06/28/15 Past Psychological History: Anxiety Additional Psychological History / Comment(s): She is independent. Smoking Status: Former smoker Past Alcohol Use History: Rare Additional Past Alcohol Use History / Comment(s): Pt started smoking in 1976 and quit in 1991. She was about a 1/2 ppd smoker. She used to drink alcohol on occasion, but has not had any alcohol in a long time. Past Drug Use History: None Reported - Past Family History Mother Family Medical History: Dementia Additional Family Medical History / Comment(s): pacemaker Brother(s) Family Medical History: No Reported History Father Family Medical History: Cancer, Dementia, Myocardial Infarction (ND) Additional Family Medical History / Comment(s): pacemaker and colon cancer. Sister(s) Family Medical History: Cancer, Hypertension Additional Family Medical History / Comment(s): Breast and colon cancer. Medications and Allergies Home Medications Medication Instructions Recorded Confirmed Type Atorvastatin [Lipitor] 80 mg PO HS #30 tab 02/09/18 04/23/23 Rx Metoprolol Succinate (ER) [Toprol 100 mg PO HS 03/28/20 04/23/23 History XL] Sacubitril/Valsartan [Entresto 24 1 tab PO BID 03/28/20 04/23/23 History mg-26 mg Tablet] Aspirin 81 mg PO DAILY 06/10/20 04/23/23 History Sotalol [Betapace] 80 mg PO BID 06/10/20 04/23/23 History Spironolactone 50 mg PO DAILY 10/02/21 04/23/23 History Empagliflozin [Jardiance] 25 mg PO DAILY 04/22/22 04/23/23 History metFORMIN HCL [Glucophage] 500 mg PO BID 09/30/22 04/23/23 History Nitroglycerin Sl Tabs [Nitrostat] 0.4 mg SUBLINGUAL Q5M PRN #100 tab 10/01/22 04/23/23 Rx Acetaminophen Tab [Tylenol] 1,000 mg PO Q6HR PRN 02/16/23 04/23/23 History Ibuprofen [Motrin] 800 mg PO Q8H PRN 02/16/23 04/23/23 History Insulin Glargine/Lixisenatide 20 units SQ HS 02/16/23 04/23/23 History [Soliqua 100 Unit-33 Mcg/ml Pen] Magnesium Oxide [Mag-Ox] 400 mg PO DAILY 02/16/23 04/23/23 History Allergies Allergy/AdvReac Type Severity Reaction Status Date / Time hydrocodone bitartrate AdvReac Nausea & Verified 04/23/23 16:57 [From Vicodin] Vomiting propoxyphene napsylate AdvReac Vomiting Verified 04/23/23 16:57 [From Darvocet-N] Physical Exam Vitals: Vital Signs Temp Pulse Pulse Resp BP BP Pulse Ox 04/24/23 08:50 96 04/24/23 08:00 97.8 F 69 20 131/77 98 04/24/23 04:00 66 16 88/54 96 04/23/23 23:58 75 16 103/56 95 04/23/23 20:00 98.1 F 69 16 126/59 97 04/23/23 19:54 68 18 124/89 99 04/23/23 19:07 67 18 124/89 98 04/23/23 14:38 99.0 F 66 18 116/66 95 Intake and Output 04/23/23 04/24/23 04/24/23 22:59 06:59 14:59 Intake Total 540 540 180 Balance 540 540 180 Intake: Oral 540 540 180 Other: # Voids 1 Weight 108.862 kg Results CBC & Chem 7: 04/24/23 08:50 04/24/23 08:50 Labs: Abnormal Lab Results - Last 24 Hours (Table) 04/23/23 04/23/23 04/23/23 Range/Units 17:08 17:08 20:28 BUN 24 H (7-17) mg/dL Glucose 141 H (74-99) mg/dL POC Glucose (mg/dL) 148 H (70-110) mg/dL Urine Glucose (UA) 4+ H (Negative) Urine Ketones 1+ H (Negative) 04/24/23 Range/Units 06:05 BUN (7-17) mg/dL Glucose (74-99) mg/dL POC Glucose (mg/dL) 183 H (70-110) mg/dL Urine Glucose (UA) (Negative) Urine Ketones (Negative) Assessment and Plan Assessment: Assessment and plan * Presyncopal episode * History of ischemic cardiomyopathy status post AICD * Coronary artery disease * Diabetes mellitus TYPE 2 * Dyslipidemia * In regards to syncopal episode, consultation obtained from cardiology, serial troponins ordered, carotid ultrasound ordered * In regards to history of ischemic cardiopathy continue current and recommended medical therapy including contrast 2, metoprolol, Aldactone, sotalol * In regards to diabetes mellitus Accu-Cheks before meals at bedtime continue patient on Levaquin oral hypoglycemic agents on NovoLog monitor for hypoglycemia * In regards to dyslipidemia continue patient on Lipitor * CODE STATUS is full code
[2023-04-24] MEDS: SODIUM CHLORIDE 0.9% 1,000 ML IV SCH (12:16)
[2023-04-24 16:03] VITALS: BMI 43.9
[2023-04-24 16:06] LABS: Glucose,Whole Blood 218 mg/dL (70-110)
--- NOTE | 2023-04-24 18:33 | P.CRDCN ---
History of Present Illness Consult date: 04/24/23 History of present illness: HISTORY OF PRESENTING ILLNESS 57-year-old female with prior history of type 2 diabetes, CAD status post PCI to LAD, hypertension, dyslipidemia, ischemic adenopathy with recovered EF, by BiV ICD, known to Dr. Mooney. She presented to the hospital because of symptoms of lightheadedness and dizziness at work. Patient reported that she was having her lunch when she experiences these symptoms. Her symptoms continued for few hours. Over last night and today morning she has not had any recurrence of her symptoms. She feels back to her baseline at the time of my evaluation. This morning her orthostatic vital signs within normal limits. REVIEW OF SYSTEMS 14 point review of system is negative except what is mentioned above in HPI. PHYSICAL EXAMINATION Vital signs reviewed. Head: Normocephalic. Eyes: Sclerae nonicteric. Neck: Brisk carotid upstroke, no jugular venous distention. Lungs: Clear to auscultation. Heart: Regular rate and rhythm, S1-S2, no S3, no murmur or rub. Abdomen: Soft nontender, positive bowel sounds no organomegaly. Extremities: No edema, intact distal pulses. Neuro: Alert, oritented, no focal deficits Echo February 2023 normal LV size and systolic function, mild TR Cath from July 2022 shows mild in-stent stenosis of LAD stent with normal ifr ASSESSMENT Lightheadedness or dizziness. Likely noncardiac AICD interrogation did not show any arrhythmia. no at/af/vt episodes. Normal functioning BiV ICD Prior history of ischemic cardiac myopathy recovered ef CAD status post PCI to LAD, mild nonobstructive significant in-stent stenosis PLAN Discontinue sotalol. Patient does not have any history of reported V. fib or V. tach. She does not have any reported history of atrial fibrillation. Due to her symptoms of dizziness, we will discontinue sotalol continue atorvastatin, metoprolol xl 100 mg daily Continue aspirin Continue Entresto, spironolactone Normal orthostatic vital signs, no concerns of obstructive physiology on echocardiogram Patient is concerned about her dizziness symptoms which is mostly noncardiac. Would recommend PCP to evaluate if she needs neurological evaluation Follow up outpatient with Dr. Mooney Patient scheduled to discharge [facility] standpoint Past Medical History Past Medical History: Coronary Artery Disease (CAD), Chest Pain / Angina, Heart Failure, GERD/Reflux, Hyperlipidemia, Hypertension, Myocardial Infarction (ME), Renal Disease, Thyroid Disorder Additional Past Medical History / Comment(s): Ischemic cardiomyopathy, CKD stage II, nephrolithiasis, migraines, occasional back pain, hypothyroid. states she had a pacemaker put in 1 or 2 years ago in March. Last Myocardial Infarction Date:: 06-30-15 History of Any Multi-Drug Resistant Organisms: None Reported Past Surgical History: Heart Catheterization, Heart Catheterization With Stent, Hernia Repair, Hysterectomy, Pacemaker Additional Past Surgical History / Comment(s): 2015 stents to lad,diag, 05/22/16 PTCA, bilateral oophorectomy, LT INGUINAL HERNIA REPAIR, CYSTOCOPY, LITHOTRIPSY,COLONOSCOPY, Past Anesthesia/Blood Transfusion Reactions: Postoperative Nausea & Vomiting (PONV) Additional Past Anesthesia/Blood Transfusion Reaction / Comment(s): MILD CLAUSTERPHOBIA Date of Last Stent Placement:: 06/30/15 Type of Cardiac Device: Permanent Pacemaker Device Placement Date:: 06/28/15 Past Psychological History: Anxiety Additional Psychological History / Comment(s): She is independent. Smoking Status: Former smoker Past Alcohol Use History: Rare Additional Past Alcohol Use History / Comment(s): Pt started smoking in 1976 and quit in 1991. She was about a 1/2 ppd smoker. She used to drink alcohol on occasion, but has not had any alcohol in a long time. Past Drug Use History: None Reported - Past Family History Mother Family Medical History: Dementia Additional Family Medical History / Comment(s): pacemaker Brother(s) Family Medical History: No Reported History Father Family Medical History: Cancer, Dementia, Myocardial Infarction (ME) Additional Family Medical History / Comment(s): pacemaker and colon cancer. Sister(s) Family Medical History: Cancer, Hypertension Additional Family Medical History / Comment(s): Breast and colon cancer. Medications and Allergies Home Medications Medication Instructions Recorded Confirmed Type Atorvastatin [Lipitor] 80 mg PO HS #30 tab 02/09/18 04/23/23 Rx Metoprolol Succinate (ER) [Toprol 100 mg PO HS 03/28/20 04/23/23 History XL] Sacubitril/Valsartan [Entresto 24 1 tab PO BID 03/28/20 04/23/23 History mg-26 mg Tablet] Aspirin 81 mg PO DAILY 06/10/20 04/23/23 History Sotalol [Betapace] 80 mg PO BID 06/10/20 04/23/23 History Spironolactone 50 mg PO DAILY 10/02/21 04/23/23 History Empagliflozin [Jardiance] 25 mg PO DAILY 04/22/22 04/23/23 History metFORMIN HCL [Glucophage] 500 mg PO BID 09/30/22 04/23/23 History Nitroglycerin Sl Tabs [Nitrostat] 0.4 mg SUBLINGUAL Q5M PRN #100 tab 10/01/22 04/23/23 Rx Acetaminophen Tab [Tylenol] 1,000 mg PO Q6HR PRN 02/16/23 04/23/23 History Ibuprofen [Motrin] 800 mg PO Q8H PRN 02/16/23 04/23/23 History Insulin Glargine/Lixisenatide 20 units SQ HS 02/16/23 04/23/23 History [Soliqua 100 Unit-33 Mcg/ml Pen] Magnesium Oxide [Mag-Ox] 400 mg PO DAILY 02/16/23 04/23/23 History Allergies Allergy/AdvReac Type Severity Reaction Status Date / Time hydrocodone bitartrate AdvReac Nausea & Verified 04/23/23 16:57 [From Vicodin] Vomiting propoxyphene napsylate AdvReac Vomiting Verified 04/23/23 16:57 [From Darvocet-N] Physical Exam Vitals: Vital Signs Temp Pulse Pulse Resp BP BP BP 04/24/23 16:24 98 F 62 20 04/24/23 11:36 97.9 F 67 20 111/62 113/62 04/24/23 08:50 04/24/23 08:00 97.8 F 69 20 04/24/23 04:00 66 16 04/23/23 23:58 75 16 04/23/23 20:00 98.1 F 69 16 04/23/23 19:54 68 18 124/89 04/23/23 19:07 67 18 124/89 BP BP Pulse Ox 04/24/23 16:24 101/57 97 04/24/23 11:36 111/57 94 L 04/24/23 08:50 96 04/24/23 08:00 131/77 98 04/24/23 04:00 88/54 96 04/23/23 23:58 103/56 95 04/23/23 20:00 126/59 97 04/23/23 19:54 99 04/23/23 19:07 98 Intake and Output 04/24/23 04/24/23 04/24/23 06:59 14:59 22:59 Intake Total 467 911 4283 Output Total 0 Balance 146 523 7240 Intake: Intake, IV Titration 900 Amount Sodium Chloride 0.9% 1, 900 000 ml @ 75 mls/hr IV . [id number] [facility] Rx#:[id number] Oral 540 538 462 Output: Urine 0 Other: # Voids 1 Weight 108.862 kg Results 04/24/23 08:50 04/24/23 08:50 Cardiac Enzymes 04/23/23 04/24/23 04/24/23 Range/Units 21: 00:27 08:50 AST 27 (14-36) U/L Troponin I <0.012 <0.012 (0.000-0.034) ng/mL Coagulation 04/23/23 Range/Units 21:31 PT 10.7 (10.0-12.5) sec APTT 24.8 (22.0-30.0) sec CBC 04/24/23 Range/Units 08:50 WBC 5.6 (3.8-10.6) k/uL RBC 4.11 (3.80-5.40) m/uL Hgb 12.6 (11.4-16.0) gm/dL Hct 39.0 (34.0-46.0) % Plt Count 188 (150-450) k/uL Comprehensive Metabolic Panel 04/24/23 Range/Units 08:50 Sodium 135 L (137-145) mmol/L Potassium 4.3 (3.5-5.1) mmol/L Chloride 103 (98-107) mmol/L Carbon Dioxide 22 (22-30) mmol/L BUN 21 H (7-17) mg/dL Creatinine 0.85 (0.52-1.04) mg/dL Glucose 316 H (74-99) mg/dL Calcium 8.7 (8.4-10.2) mg/dL AST 27 (14-36) U/L ALT 29 (4-34) U/L Alkaline Phosphatase 72 (38-126) U/L Total Protein 6.1 L (6.3-8.2) g/dL Albumin 3.5 (3.5-5.0) g/dL Current Medications Generic Name Dose Route Start Last Admin Trade Name Freq PRN Reason Stop Dose Admin Acetaminophen 1,000 mg 04/23/23 20:40 Acetaminophen Tab 500 Mg Tab PO Q6HR PRN Pain or Fever > 100.5 Aspirin 81 mg 04/24/23 09:00 04/24/23 08:44 Aspirin 81 Mg PO 81 mg DAILY [facility] Administration Atorvastatin Calcium 80 mg 04/23/23 21:00 04/23/23 21:11 Atorvastatin 80 Mg Tab PO 80 mg HS [facility] Administration Dextrose/Water 25 ml 04/23/23 20:42 Dextrose 50% Syringe 50 Ml IVP PER PROTOCOL PRN Hypoglycemia Protocol Dextrose/Water 50 ml 04/23/23 20:42 Dextrose 50% Syringe 50 Ml IVP PER PROTOCOL PRN Hypoglycemia Protocol Sodium Chloride 1,000 mls @ 75 mls/hr 04/23/23 19:00 04/24/23 12:16 Saline 0.9% IV 75 mls/hr .[id number] [facility] Administration Insulin Aspart 0 unit 04/23/23 21:00 04/24/23 16:48 Insulin Aspart (Novolog) 100 Unit/Ml Vial SQ 4 unit ACHS [facility] Administration Protocol Insulin Detemir 10 unit 04/23/23 21:00 04/23/23 21:11 Insulin Detemir (Levemir) 100 Unit/Ml Syr SQ 10 unit HS [facility] Administration Magnesium Oxide 400 mg 04/24/23 09:00 04/24/23 08:44 Magnesium Oxide 400 Mg Tab PO 400 mg DAILY [facility] Administration Metoprolol Succinate 100 mg 04/23/23 21:00 04/23/23 21:11 Metoprolol Succinate (Er) 100 Mg Tab.Er.24h PO 100 mg HS [facility]O Administration Morphine Sulfate 4 mg 04/23/23 18:57 Morphine Sulfate 4 Mg/Ml Syringe IV Q4HR PRN Severe Pain (Scale 7 to 10) Naloxone HCl 0.2 mg 04/23/23 18:57 Naloxone 0.4 Mg/Ml 1 Ml Vial IV Q2M PRN Opioid Reversal Ondansetron HCl 4 mg 04/23/23 18:57 Ondansetron 4 Mg/2 Ml Vial IVP Q8HR PRN Nausea And Vomiting Sacubitril/Valsartan 1 each 04/23/23 21:00 04/24/23 08:44 Sacubitril/Valsartan 24 Mg-26 Mg Tablet PO 1 each BID LEO Administration Spironolactone 50 mg 04/24/23 09:00 04/24/23 08:44 Spironolactone 25 Mg Tab PO 50 mg DAILY LEO Administration Intake and Output 04/24/23 04/24/23 04/24/23 06:59 14:59 22:59 Intake Total 316 567 3077 Output Total 0 Balance 251 363 9192 Intake: Intake, IV Titration 900 Amount Sodium Chloride 0.9% 1, 900 000 ml @ 75 mls/hr IV . [id number] [facility] Rx#:[id number] Oral 540 538 462 Output: Urine 0 Other: # Voids 1 Weight 108.862 kg Patient Weight 04/25/23 06:59 Weight 108.862 kg 04/24/23 08:50 04/24/23 08:50
[2023-04-24] MEDS: ATORVASTATIN 80 MG TAB PO SCH (19:42)
[2023-04-24] MEDS: METOPROLOL SUCCINATE (ER) 100 MG TAB.ER.24H PO SCH (19:42)
[2023-04-24 20:24] LABS: Glucose,Whole Blood 245 mg/dL (70-110)
[2023-04-24] MEDS: INSULIN DETEMIR (LEVEMIR) 100 UNIT/ML SYR SQ SCH (21:02)
[2023-04-25] MEDS: SODIUM CHLORIDE 0.9% 1,000 ML IV SCH ×2 (00:19→12:19)
[2023-04-25 05:40] LABS: Glucose,Whole Blood 182 mg/dL (70-110)
[2023-04-25] MEDS: INSULIN ASPART (NovoLOG) 100 UNIT/ML VIAL SQ SCH ×2 (06:33→12:20)
[2023-04-25 07:06] LABS: HCT 38.5 % (34.0-46.0); HGB 12.8 gm/dL (11.4-16.0); MCH 31.2 pg (25.0-35.0); MCHC 33.3 g/dL (31.0-37.0); MCV 93.6 fL (80.0-100.0); Mean Platelet Volume 10.7; Platelet Count 193 k/uL (150-450); RBC 4.11 m/uL (3.80-5.40); RDW 13.9 % (11.5-15.5); WBC 6.3 k/uL (3.8-10.6)
[2023-04-25 07:17] LABS: African American GFR (CKD) 86 (>60 ml/min/1.73 sqM); Anion Gap 6 mmol/L; Blood Urea Nitrogen 20 mg/dL (7-17); Calcium 9.1 mg/dL (8.4-10.2); Carbon Dioxide 24 mmol/L (22-30); Chloride 107 mmol/L (98-107); Glucose 211 mg/dL (74-99); Non-African American GFR(CKD) 75 (>60 ml/min/1.73 sqM); Potassium 4.3 mmol/L (3.5-5.1); Sodium 137 mmol/L (137-145)
[2023-04-25] MEDS: MAGNESIUM OXIDE 400 MG TAB PO SCH (08:19)
[2023-04-25] MEDS: SACUBITRIL/VALSARTAN 24 MG-26 MG TABLET PO SCH (08:20)
[2023-04-25] MEDS: SPIRONOLACTONE 25 MG TAB PO SCH (08:20)
[2023-04-25] MEDS: ASPIRIN 81 MG PO SCH (08:20)
--- NOTE | 2023-04-25 10:42 | CT ---
EXAMINATION TYPE: CT brain wo con CT DLP: 1100.4 mGycm, Automated exposure control for dose reduction was used. DATE OF EXAM: 04/25/2023 10:00 AM COMPARISON: None. CLINICAL INDICATION:Female, 58 years old with history of syncope, Syncope TECHNIQUE: Brain: Axial CT images of the brain were obtained with coronal and sagittal reformats created and rev iewed. Contrast used: None. Oral contrast used: None. FINDINGS: Brain: Extra-axial spaces: No abnormal extra-axial fluid collections. Coarse calcifications noted along the falx. Ventricular system: Within normal limits Cerebral parenchyma: No acute intraparenchymal hemorrhage or mass effect. The pa-white junction ap pears maintained. Cerebellum: Unremarkable. Mass effect: No evidence of midline shift. Intracranial vasculature: unremarkable Soft tissues: Normal. Calvarium/osseous structures: No evidence of calvarial fracture. Mild hyperostosis frontalis interna. Paranasal sinuses and mastoid air cells: Clear Visualized orbits: Orbital contents are intact. IMPRESSION: No acute intracranial process.
[2023-04-25 11:31] LABS: Glucose,Whole Blood 256 mg/dL (70-110)
--- NOTE | 2023-04-25 12:41 | P.DS ---
Providers Date of admission: 04/23/23 18:57 Expected date of discharge: 04/25/23 Attending physician: Markus Jarrett Consults: 04/23/23 18:57 Consult Physician Routine Consulting Provider: Lionel Aguila Consult Reason/Comments: syncope Do you want consulting provider notified?: Yes Primary care physician: [facility] Course: * 58-year-old lady with past medical history significant for coronary artery disease, history of ischemic cardio myopathy status post AICD in place, chronic kidney disease, coronary artery disease with PCI of LAD, hyperlipidemia, presenting to the emergency department with near syncopal episode. Patient upon presentation complained of chest pain and complained of dizziness. Patient also complained of associated headache patient in general complained of fatigue and malaise * Workup initiated in ER included EKG which showed paced rhythm, initial vitals obtained showed systolic pressure 10 3 x 56 with mean of 71 * Serum chemistry obtained showed normal hepatology, PT INR within normal limits, serum chemistry showed sodium 138 potassium 4.2, Lasix 24. 24 creatinine 0.81 serial troponins obtained which were negative * N-terminal proBNP within normal limits, patient states she did not completely pass out * Patient states she had a good breakfast and does not believe her blood glucose was low * 04/25/23: Patient was seen by cardiology blood work at remain negative carotid ultrasound negative CT head negative as well patient remains asymptomatic. Cardiology recommended discontinuation of sotalol.. Blood glucose well controlled * Patient to be discharged home patient ambulated without difficulty orthostatic vitals negative PHYSICAL EXAMINATION: GENERAL: The patient is alert and oriented x3, not in any acute distress. Well developed, well nourished. HEENT: Pupils are round and equally reacting to light. EOMI. No scleral icterus. No conjunctival pallor. Normocephalic, atraumatic. No pharyngeal erythema. No thyromegaly. CARDIOVASCULAR: S1 and S2 present. No murmurs, rubs, or gallops. PULMONARY: Chest is clear to auscultation, no wheezing or crackles. ABDOMEN: Soft, nontender, nondistended, normoactive bowel sounds. No palpable organomegaly. MUSCULOSKELETAL: No joint swelling or deformity. EXTREMITIES: No cyanosis, clubbing, or pedal edema. NEUROLOGICAL: Gross neurological examination did not reveal any focal deficits. SKIN: No rashes. Assessment: Assessment and plan * Presyncopal episode * History of ischemic cardiomyopathy status post AICD * Coronary artery disease * Diabetes mellitus TYPE 2 * Dyslipidemia * In regards to Pre- syncopal episode, consultation obtained from cardiology, serial troponins negative, carotid ultrasound negative CT brain negative * In regards to history of ischemic cardiopathy continue current and recommended medical therapy , control discontinued after cardiology evaluation * In regards to diabetes mellitus Accu-Cheks before meals at bedtime and tinea home regimen * In regards to dyslipidemia continue patient on Lipitor * Patient remained asymptomatic blood pressure stable no episode of seizure or syncope during the hospital stay Patient Condition at Discharge: Fair Plan - Discharge Summary Discharge Rx Participant: Yes New Discharge Prescriptions: Continue Atorvastatin [Lipitor] 80 mg PO HS #30 tab Metoprolol Succinate (ER) [Toprol XL] 100 mg PO HS Sacubitril/Valsartan [Entresto 24 mg-26 mg Tablet] 1 tab PO BID Aspirin 81 mg PO DAILY Spironolactone 50 mg PO DAILY Nitroglycerin Sl Tabs [Nitrostat] 0.4 mg SUBLINGUAL Q5M PRN #100 tab PRN Reason: Chest Pain Acetaminophen Tab [Tylenol] 1,000 mg PO Q6HR PRN PRN Reason: Pain Or Fever > 100.5 Ibuprofen [Motrin] 800 mg PO Q8H PRN PRN Reason: Pain Magnesium Oxide [Mag-Ox] 400 mg PO DAILY Insulin Glargine/Lixisenatide [Soliqua 100 Unit-33 Mcg/ml Pen] 20 units SQ HS Empagliflozin [Jardiance] 25 mg PO DAILY metFORMIN HCL [Glucophage] 500 mg PO BID Discontinued Sotalol [Betapace] 80 mg PO BID Discharge Medication List Atorvastatin [Lipitor] 80 mg PO HS #30 tab 02/09/18 [Rx] Metoprolol Succinate (ER) [Toprol XL] 100 mg PO HS 03/28/20 [History] Sacubitril/Valsartan [Entresto 24 mg-26 mg Tablet] 1 tab PO BID 03/28/20 [History] Aspirin 81 mg PO DAILY 06/10/20 [History] Spironolactone 50 mg PO DAILY 10/02/21 [History] Empagliflozin [Jardiance] 25 mg PO DAILY 04/22/22 [History] metFORMIN HCL [Glucophage] 500 mg PO BID 09/30/22 [History] Nitroglycerin Sl Tabs [Nitrostat] 0.4 mg SUBLINGUAL Q5M PRN #100 tab 10/01/22 [Rx] Acetaminophen Tab [Tylenol] 1,000 mg PO Q6HR PRN 02/16/23 [History] Ibuprofen [Motrin] 800 mg PO Q8H PRN 02/16/23 [History] Insulin Glargine/Lixisenatide [Soliqua 100 Unit-33 Mcg/ml Pen] 20 units SQ HS 02/16/23 [History] Magnesium Oxide [Mag-Ox] 400 mg PO DAILY 02/16/23 [History] Follow up Appointment(s)/Referral(s): Tera Villanueva DO [Primary Care Provider] - 1-2 days Discharge Disposition: HOME SELF-CARE
[2023-04-25 15:08] VITALS: BP 116/76; PULSE 56; RESP 18; TEMP 97.9
== END 2023-04-25 15:27 | disposition home or self-care (01) ==
LOC: EC 14:33 → 3SCARD 18:57 → 4SSUR 04-24 23:51
PROVIDERS: ADMIT Hospitalist; ATTEND Hospitalist
DX: R55 Syncope and collapse (principal); R42 Dizziness and giddiness; R07.89 Other chest pain; I13.0 Hypertensive heart and chronic kidney disease with heart failure and stage 1 through stage 4 chronic kidney disease, or unspecified chronic kidney disease; I50.9 Heart failure, unspecified; N18.2 Chronic kidney disease, stage 2 (mild); I25.5 Ischemic cardiomyopathy; E11.22 Type 2 diabetes mellitus with diabetic chronic kidney disease; G43.909 Migraine, unspecified, not intractable, without status migrainosus; I25.10 Atherosclerotic heart disease of native coronary artery without angina pectoris; E78.5 Hyperlipidemia, unspecified; I25.2 Old myocardial infarction; K21.9 Gastro-esophageal reflux disease without esophagitis; E03.9 Hypothyroidism, unspecified; T82.855A Stenosis of coronary artery stent, initial encounter; F41.9 Anxiety disorder, unspecified; R53.81 Other malaise; R53.83 Other fatigue; F40.240 Claustrophobia; Z79.82 Long term (current) use of aspirin; Z79.84 Long term (current) use of oral hypoglycemic drugs; Z79.4 Long term (current) use of insulin; Z79.899 Other long term (current) drug therapy; Z88.5 Allergy status to narcotic agent; Z87.442 Personal history of urinary calculi; Z90.710 Acquired absence of both cervix and uterus; Z95.5 Presence of coronary angioplasty implant and graft; Z90.722 Acquired absence of ovaries, bilateral; Z87.891 Personal history of nicotine dependence; Z95.810 Presence of automatic (implantable) cardiac defibrillator; Z98.890 Other specified postprocedural states; Z82.49 Family history of ischemic heart disease and other diseases of the circulatory system; Z82.0 Family history of epilepsy and other diseases of the nervous system; Z80.3 Family history of malignant neoplasm of breast; Z80.0 Family history of malignant neoplasm of digestive organs
CPT/HCPCS: 96361 ×4; 96360; 99285; 36415; 94760; 93005; 85379; 83880; 80053 ×2; 80048; 83605; 83735 ×3; 84100 ×2; 84484 ×2; 85025 ×2; 85027; 85610; 85730; 81003; 83036; 93880; 70450; G0378 ×3

== ENCOUNTER → 2023-06-22 | Day surgery (SDC) | payer OTHER ==
[2023-06-18 11:29] VITALS: BMI 43.9
[~2023-06-22] MED LIST changes: -ALPRAZolam 0.25 MG TAB PO PRN; -ALPRAZolam 0.5 MG TAB PO PRN; -ASPIRIN 325 MG TAB PO STA; -ATORVASTATIN 80 MG TAB PO STA; -HEPARIN SODIUM 1,000 UN/ML (10ML VL) ONE; -HEPARIN SODIUM,PORCINE 10,000 UNIT in SODIUM CHLORIDE 0.9% 1,000 ML IRRIGATION PRN; -HEPARIN SODIUM,PORCINE 2,500 UNIT in SODIUM CHLORIDE 0.9% 250 ML IRRIGATION PRN; -HYDROmorphone 0.5 MG/0.5 ML SYRINGE IVP ONE; +IOPAMIDOL-370 100ML BTL INJ ONE; -IOPAMIDOL-370 125ML BTL INJ ONE; -LIDOCAINE 1% INJ 10MG/ML (5 ML VIAL-PF) SQ ONE; -MIDAZOLAM 2 MG/2 ML VIAL IV ONE; -NITROGLYCERIN SL TABS 0.4 MG TAB SUBLINGUAL PRN; -ONDANSETRON 4 MG/2 ML VIAL IVP STA; -ONDANSETRON 4 MG/2 ML VIAL ONE; -RX INFO: IV CONTRAST WAS GIVEN 1 EACH MISC MISCELLANE PRN; -SODIUM CHLORIDE 0.9% 1,000 ML in EMPTY BAG 1 BAG IV SCH; -VERAPAMIL SYRINGE (5 MG/10 ML) INTRAARTER ONE
[2023-06-22 13:14] VITALS: BP 134/71; PULSE 70; RESP 18; TEMP 97.7
[2023-06-22 13:28] LABS: African American GFR (CKD) 77 (>60 ml/min/1.73 sqM); Anion Gap 15 mmol/L; Blood Urea Nitrogen 20 mg/dL (7-17); Calcium 10.1 mg/dL (8.4-10.2); Carbon Dioxide 23 mmol/L (22-30); Chloride 102 mmol/L (98-107); Glucose 242 mg/dL (74-99); Non-African American GFR(CKD) 67 (>60 ml/min/1.73 sqM); Potassium 4.4 mmol/L (3.5-5.1); Sodium 140 mmol/L (137-145)
--- NOTE | 2023-06-22 16:16 | P.EPPROC ---
- EP Procedure Note Electrophysiology Procedure Note: Diagnosis Steadily rising atrial lead impedances Status post biventricular ICD implantation several years back Cine fluoroscopy of the leads Cinefluoroscopy of the leads was performed. No fractures or breaks are noted specifically for the atrial lead Atrial lead screw does not appear to be deployed. However this is a chronic finding RV ICD lead and LV lead do not have any fractures or breaks noted Left upper extremity venogram performed 15 mL IV dye injected Moderate stenosis of the axillary subclavian junction but there is passage of blood with patency of the vein as well as bridging collaterals This should allow passage of an angioplasty wire and access to the central circulation Plan At the time of generator change or if atrial lead thresholds rising rapidly, a new atrial lead will be implanted in the future
== END ==
LOC: CATHEP 12:07
PROVIDERS: ATTEND Internal Medicine Clinical Cardiac Electrophysiology
DX: I77.1 Stricture of artery (principal); I10 Essential (primary) hypertension; E78.5 Hyperlipidemia, unspecified; E11.9 Type 2 diabetes mellitus without complications; F17.210 Nicotine dependence, cigarettes, uncomplicated; Z79.82 Long term (current) use of aspirin; Z79.899 Other long term (current) drug therapy
CPT/HCPCS: 36005; 75820; 80048; Q9967

== ENCOUNTER → 2023-09-14 | Outpatient (CLI) | payer OTHER ==
--- NOTE | 2023-09-15 18:33 | MM ---
Reason for Exam: Screening (asymptomatic). Last mammogram was performed 3 year(s) and 0 month(s) ago. Patient History: Menarche at age 15. First Full-Term at age 17. Left ovary removed at age 44. Right ovary removed at age 44. Hysterectomy at age 42. Postmenopausal. Patient used Hormonal Contraceptives for 1 year. Sister had breast cancer, age 45. Risk Values: Ciarra 5 year model risk: 2.4%. NCI Lifetime model risk: 12.4%. Prior Study Comparison: 08/22/2015 Bilateral Screening Mammogram, [facility]. 02/10/2017 Bilateral Screening Mammogram, [facility]. 09/09/2020 Bilateral Screening Mammogram, [facility]. Tissue Density: There are scattered areas of fibroglandular density. Findings: Analyzed By CAD. Generator device on the left chest wall. There is no suspicious group of microcalcifications or new suspicious mass in either breast. Overall Assessment: Negative, BI-RAD 1 Management: Screening Mammogram of both breasts in 1 year. . Patient should continue monthly self-breast exams. A clinical breast exam by your physician is recommended on an annual basis. This exam should not preclude additional follow-up of suspicious palpable abnormalities. Note on Ciarar scores and lifetime risk: 1. A Ciarra score greater than 3% is considered moderate risk. If this is the case, consider specialist referral to assess eligibility for a risk reducing agent. 2. If overall lifetime risk for the development of breast cancer is 20% or higher, the patient may qualify for future screening with alternating mammogram and breast MRI. Electronically signed and approved by: Maritza Martinez M.D. Radiologist
== END | disposition home or self-care (01) ==
LOC: RADMAMWWP 16:14
PROVIDERS: ATTEND Family Medicine
DX: Z12.31 Encounter for screening mammogram for malignant neoplasm of breast (principal); Z78.0 Asymptomatic menopausal state; Z80.3 Family history of malignant neoplasm of breast
CPT/HCPCS: 77063; 77067

== ENCOUNTER 2023-10-28 08:56 | Emergency (ER) | payer OTHER ==
[2023-10-28] MEDS: ACETAMINOPHEN TAB 500 MG TAB PO STA (09:12)
[2023-10-28] MEDS: KETOROLAC 15 MG/ML 1 ML VIAL IM STA (09:14)
--- NOTE | 2023-10-28 09:15 | ED ---
Fall HPI - General Chief Complaint: Fall Stated Complaint: Fall-Hit head Time Seen by Provider: 10/28/23 09:05 Source: patient, RN notes reviewed Mode of arrival: wheelchair Limitations: no limitations - History of Present Illness Initial Comments: This is a 58-year-old female who presents to the emergency department for a head injury. Patient was going to the bathroom and accidentally ran into the gate in the doorway to her bathroom, which is there to keep out her pets. She tripped over the gate and fell, hitting the back of her head on the bathtub. Denies any loss of consciousness. Not taking any blood thinners. Currently complaining of a severe headache and dizziness. Denies any nausea. She does have some sensitivity to the light. Denies sustaining any other injuries. MD Complaint: fall - Related Data Home Medications Medication Instructions Recorded Confirmed Metoprolol Succinate (ER) [Toprol 100 mg PO HS 03/28/20 06/22/23 XL] Sacubitril/Valsartan [Entresto 24 1 tab PO BID 03/28/20 06/22/23 mg-26 mg Tablet] Aspirin 81 mg PO DAILY 06/10/20 06/22/23 Spironolactone 50 mg PO DAILY 10/02/21 06/22/23 Empagliflozin [Jardiance] 25 mg PO DAILY 04/22/22 06/22/23 metFORMIN HCL [Glucophage] 500 mg PO BID 09/30/22 06/22/23 Acetaminophen Tab [Tylenol] 1,000 mg PO Q6HR PRN 02/16/23 06/22/23 Ibuprofen [Motrin] 800 mg PO Q8H PRN 02/16/23 06/22/23 Insulin Glargine/Lixisenatide 30 units SQ QAM 02/16/23 06/22/23 [Soliqua 100 Unit-33 Mcg/ml Pen] Magnesium Oxide [Mag-Ox] 400 mg PO DAILY 02/16/23 06/22/23 Previous Rx's Medication Instructions Recorded Atorvastatin [Lipitor] 80 mg PO HS #30 tab 02/09/18 Nitroglycerin Sl Tabs [Nitrostat] 0.4 mg SUBLINGUAL Q5M PRN #100 tab 10/01/22 Allergies Allergy/AdvReac Type Severity Reaction Status Date / Time hydrocodone bitartrate AdvReac Nausea & Verified 10/28/23 09:04 [From Vicodin] Vomiting propoxyphene napsylate AdvReac Vomiting Verified 10/28/23 09:04 [From Darvocet-N] Review of Systems ROS Statement: Those systems with pertinent positive or pertinent negative responses have been documented in the HPI. ROS Other: All systems not noted in ROS Statement are negative. Past Medical History Past Medical History: Coronary Artery Disease (CAD), Chest Pain / Angina, Heart Failure, GERD/Reflux, Hyperlipidemia, Hypertension, Myocardial Infarction (VT), Renal Disease, Thyroid Disorder Additional Past Medical History / Comment(s): See Dr Owen's H&P,Ischemic cardiomyopathy, CKD stage II, nephrolithiasis, migraines, occasional back pain, hypothyroid. Last Myocardial Infarction Date:: 06-30-15 History of Any Multi-Drug Resistant Organisms: None Reported Past Surgical History: AICD, Cholecystectomy, Heart Catheterization, Heart Catheterization With Stent, Hernia Repair, Hysterectomy, Pacemaker Additional Past Surgical History / Comment(s): 2015 stents to lad,diag, 05/22/16 PTCA, bilateral oophorectomy, LT INGUINAL HERNIA REPAIR, CYSTOCOPY, LITHOTRIPSY,COLONOSCOPY, AICD Past Anesthesia/Blood Transfusion Reactions: Postoperative Nausea & Vomiting (PONV) Additional Past Anesthesia/Blood Transfusion Reaction / Comment(s): MILD CLAUSTERPHOBIA. no hx blood transfusion Date of Last Stent Placement:: 2014-08 stents Type of Cardiac Device: Permanent Pacemaker Device Placement Date:: 06/28/15, [facility]-left chest Past Psychological History: Anxiety Smoking Status: Former smoker - Past Family History Mother Family Medical History: Dementia Additional Family Medical History / Comment(s): pacemaker Brother(s) Family Medical History: No Reported History Father Family Medical History: Cancer, Dementia, Myocardial Infarction (VT) Additional Family Medical History / Comment(s): pacemaker and colon cancer. Sister(s) Family Medical History: Cancer, Hypertension Additional Family Medical History / Comment(s): Breast and colon cancer. General Exam Limitations: no limitations General appearance: alert, in no apparent distress Head exam: Present: atraumatic, normocephalic, normal inspection Eye exam: Present: normal appearance, PERRL, EOMI. Absent: scleral icterus, conjunctival injection, periorbital swelling Respiratory exam: Present: normal lung sounds bilaterally. Absent: respiratory distress, wheezes, rales, rhonchi, stridor Cardiovascular Exam: Present: regular rate, normal rhythm, normal heart sounds. Absent: systolic murmur, diastolic murmur, rubs, gallop, clicks Neurological exam: Present: alert, oriented X3, CN II-XII intact Psychiatric exam: Present: normal affect, normal mood Skin exam: Present: warm, dry, intact, normal color. Absent: rash Course Vital Signs 10/28/23 10/28/23 10/28/23 08:59 09:25 10:16 Temperature 97.9 F 98.7 F Pulse Rate 82 91 77 Respiratory 16 18 18 Rate Blood Pressure 182/93 188/98 159/87 O2 Sat by Pulse 99 98 97 Oximetry 10/28/23 11:14 Temperature 98.4 F Pulse Rate 77 Respiratory 18 Rate Blood Pressure 159/98 O2 Sat by Pulse 97 Oximetry Medical Decision Making - Medical Decision Making This is a 58 year old female who presents to the emergency department for a head injury. Was pt. sent in by a medical professional or institution? @ -No Did you speak to anyone other than the patient for history? @ -No Did you review nursing and triage notes? @ -Yes, and I agree, it is accurate with regards to the patient's symptoms. Were old charts reviewed? @ -No Differential Diagnosis? @ -Differential Diagnosis Head Injury: Contusion, hematoma, intracranial hemorrhage, skull fracture, whiplash, concussion, this is not meant to be an all-inclusive list. EKG interpreted by me (3pts min.)? @ -Not obtained X-rays interpreted by me (1pt min.)? @ -Not obtained CT interpreted by me (1pt min.)? @ -Computed tomography scan of the brain and c-spine obtained. My interpretation identifies no evidence of an acute intracranial hemorrhage, skull fracture, or cervical spine fracture. U/S interpreted by me (1pt. min.)? @ -Not obtained What testing was considered but not performed? (CT, X-rays, U/S, labs)? Why? @ -None What meds were considered but not given? Why? @ -None Did you discuss the management of the patient with other professionals? @ -No Did you reconcile home meds? @ -No Was smoking cessation discussed for >3mins.? @ -No Was critical care preformed (if so, how long)? @ -No Were there social determinants of health that impacted care today? How? (Homelessness, low income, unemployed, alcoholism, drug addiction, transportation, low edu. Level, literacy, decrease access to med. care, fpc, rehab)? @ -No Was there de-escalation of care discussed even if they declined? (Discuss DNR or withdrawal of care, Hospice)? @ -No What co-morbidities impacted this encounter? (DM, HTN, Smoking, COPD, CAD, Cancer, CVA, Hep., AIDS, mental health diagnosis, sleep apnea, morbid obesity)? @ -None Was patient admitted / discharged? @ -Discharged. Due to the patient's severe headache, dizziness, and photophobia, CT scan of the brain was obtained. This revealed no acute process. Toradol and Tylenol administered in the emergency department for pain relief, which the patient felt was beneficial. Advised ibuprofen and Tylenol as needed for pain relief and the patient was discharged home in stable condition. Undiagnosed new problem with uncertain prognosis? @ -None Drug Therapy requiring intensive monitoring for toxicity (Heparin, Nitro, Insulin, Cardizem)? @ -None Were any procedures done? @ -None Diagnosis/symptom? @ -Head injury Acute, or Chronic, or Acute on Chronic? @ -Acute Uncomplicated (without systemic symptoms) or Complicated (systemic symptoms)? @ -Uncomplicated Side effects of treatment? @ -None Exacerbation, Progression, or Severe Exacerbation] @ -Not applicable Poses a threat to life or bodily function? @ -No Return precautions reviewed in depth, the patient is instructed to return to the emergency department with any new, worsening, or concerning symptoms. Patient verbalized understanding. This case was discussed in detail with the attending ED physician, Dr. Borthers. Presentation, findings, and treatment plan discussed in detail as well. - Radiology Data Radiology results: report reviewed, image reviewed Disposition Clinical Impression: Fall, Head injury Disposition: HOME SELF-CARE Instructions (If sedation given, give patient instructions): Head Injury (ED) Additional Instructions: Return to the emergency department with any new, worsening, or concerning symptoms. Alternate with ibuprofen and Tylenol as needed for pain relief. Follow up with your primary care provider in 1-2 days. Is patient prescribed a controlled substance at d/c from ED?: No Referrals: Rich,Tera, DO [Primary Care Provider] - 1-2 days Time of Disposition: 11:01
[2023-10-28 09:28] VITALS: RESP 18
[2023-10-28] MEDS: OXYMETAZOLINE 0.05% NASL SPRAY 1 SPRAY BOTTLE NASAL STA (09:53)
--- NOTE | 2023-10-28 10:52 | CT ---
EXAMINATION TYPE: CT brain florian chung con DATE OF EXAM: 10/28/2023 COMPARISON: 04/25/2023 HISTORY: Head injury, fall hitting head on bathtub CT DLP: 1357.[address] of the brain was performed. The ventricles, basal cisterns and sulci overlying the cerebral convexities demonstrate enlargement. There is no evidence for intracranial hemorrhage or sulcal effacement. There is decreased attenuatio n about the periventricular white matter and deep white matter of both cerebral hemispheres, compatib le with chronic small vessel ischemia. No mass effects are seen. If symptoms persist consider MRI. Osseous calvarium is intact. IMPRESSION: 1. Age related atrophic and chronic small vessel ischemic change without acute intracranial process seen at this time. CT Cervical Spine: Unenhanced CT of the cervical spine was performed with bone and soft tissue window settings submitted . Coronal and sagittal reconstruction is obtained. There is normal alignment and prevertebral soft tissues. No evidence for acute cervical fracture . Scattered degenerative disc disease and spondylosis. Biapical scarring. IMPRESSION: 1. No evidence for acute fracture or subluxation of the cervical spine.
[2023-10-28 10:58] VITALS: PULSE 77
[2023-10-28 11:43] VITALS: BP 159/98; TEMP 98.4
== END 2023-10-28 11:32 | disposition home or self-care (01) ==
LOC: EC 08:56
DX: S09.90XA Unspecified injury of head, initial encounter (principal); Z88.5 Allergy status to narcotic agent; Z88.8 Allergy status to other drugs, medicaments and biological substances; Z87.891 Personal history of nicotine dependence; W01.0XXA Fall on same level from slipping, tripping and stumbling without subsequent striking against object, initial encounter; Y92.002 Bathroom of unspecified non-institutional (private) residence as the place of occurrence of the external cause
CPT/HCPCS: 72125; 70450; 99284; 96372; J1885

== ENCOUNTER 2024-02-21 07:57 | Emergency (ER) | payer OTHER ==
[2024-02-21] MEDS ORDERED: SODIUM CHLORIDE 0.9% 500 ML BAG ONE (10:45)
[2024-02-21] MEDS ORDERED: ACETAMINOPHEN TAB 500 MG TAB ONE (12:20)
== END 2024-02-21 14:40 | disposition home or self-care (01) ==
LOC: EC 07:57
DX: R25.2 Cramp and spasm (principal)
CPT/HCPCS: 99283

== ENCOUNTER 2024-07-25 12:15 | Observation (INO) | payer OTHER ==
--- NOTE | 2024-07-25 12:43 | ED ---
Chest Pain HPI - General Chief Complaint: Chest Pain Stated Complaint: Chest pain Time Seen by Provider: 07/25/24 12:41 Source: patient, RN notes reviewed Mode of arrival: ambulatory - History of Present Illness Initial Comments: This is a 59-year-old female history of type 2 diabetes, CAD with NC and stent placement, pacemaker, and HTN, to the emergency department for this and chest pain that started yesterday evening. Patient states that pain initiated in her back described as a sharp sensation with radiation into the front of her chest where she described this as "something sitting on my chest'. States that pain is constant however will intermittently intensify. States that when pain intensifies she feels short of breath. Patient began to feel nauseated this morning and became diaphoretic. She denies history of DVT, PE, unilateral leg swelling or pain, hemoptysis. Denies current blood thinner use. - Related Data Home Medications Medication Instructions Recorded Confirmed Metoprolol Succinate (ER) [Toprol 100 mg PO HS 03/28/20 07/25/24 XL] Sacubitril/Valsartan [Entresto 24 1 tab PO BID 03/28/20 07/25/24 mg-26 mg Tablet] Aspirin 81 mg PO DAILY 06/10/20 07/25/24 Spironolactone 50 mg PO DAILY 10/02/21 07/25/24 metFORMIN HCL [Glucophage] 500 mg PO BID 09/30/22 07/25/24 Insulin Glargine/Lixisenatide 40 units SQ DAILY 02/16/23 07/25/24 [Soliqua 100 Unit-33 Mcg/ml Pen] Magnesium Oxide [Mag-Ox] 400 mg PO DAILY 02/16/23 07/25/24 Empagliflozin [Jardiance] 10 mg PO DAILY 07/25/24 07/25/24 Previous Rx's Medication Instructions Recorded Atorvastatin [Lipitor] 80 mg PO HS #30 tab 02/09/18 Nitroglycerin Sl Tabs [Nitrostat] 0.4 mg SUBLINGUAL Q5M PRN #100 tab 10/01/22 Metoprolol Succinate (ER) [Toprol 50 mg PO DAILY #30 tab 07/26/24 XL] Pantoprazole [Protonix] 40 mg PO AC-BRKFST #30 tab 07/26/24 Allergies Allergy/AdvReac Type Severity Reaction Status Date / Time hydrocodone bitartrate AdvReac Nausea & Verified 07/25/24 14:04 [From Vicodin] Vomiting propoxyphene napsylate AdvReac Vomiting Verified 07/25/24 14:04 [From Darvocet-N] Review of Systems ROS Statement: Those systems with pertinent positive or pertinent negative responses have been documented in the HPI. ROS Other: All systems not noted in ROS Statement are negative. Past Medical History Past Medical History: Coronary Artery Disease (CAD), Chest Pain / Angina, Heart Failure, GERD/Reflux, Hyperlipidemia, Hypertension, Myocardial Infarction (NC), Renal Disease, Thyroid Disorder Additional Past Medical History / Comment(s): See Dr Owen's H&P,Ischemic cardiomyopathy, CKD stage II, nephrolithiasis, migraines, occasional back pain, hypothyroid. Last Myocardial Infarction Date:: 06-30-15 History of Any Multi-Drug Resistant Organisms: None Reported Past Surgical History: AICD, Cholecystectomy, Heart Catheterization, Heart Catheterization With Stent, Hernia Repair, Hysterectomy, Pacemaker Additional Past Surgical History / Comment(s): 2014 stents to lad,diag, 05/22/16 PTCA, bilateral oophorectomy, LT INGUINAL HERNIA REPAIR, CYSTOCOPY, LITHOTRIPSY,COLONOSCOPY, AICD Past Anesthesia/Blood Transfusion Reactions: Postoperative Nausea & Vomiting (PONV) Additional Past Anesthesia/Blood Transfusion Reaction / Comment(s): MILD CLAUSTERPHOBIA. no hx blood transfusion Date of Last Stent Placement:: 2014-08 stents Type of Cardiac Device: Permanent Pacemaker Device Placement Date:: 06/28/15, [facility]-left chest Past Psychological History: Anxiety Smoking Status: Former smoker Past Alcohol Use History: Rare Past Drug Use History: None Reported - Past Family History Mother Family Medical History: Dementia Additional Family Medical History / Comment(s): pacemaker Brother(s) Family Medical History: No Reported History Father Family Medical History: Cancer, Dementia, Myocardial Infarction (NC) Additional Family Medical History / Comment(s): pacemaker and colon cancer. Sister(s) Family Medical History: Cancer, Hypertension Additional Family Medical History / Comment(s): Breast and colon cancer. General Exam Eye exam: Present: normal appearance, PERRL, EOMI. Absent: scleral icterus, co njunctival injection, periorbital swelling Neck exam: Present: normal inspection. Absent: tenderness, meningismus, lymphadenopathy Respiratory exam: Present: normal lung sounds bilaterally. Absent: respiratory distress, wheezes, rales, rhonchi, stridor Cardiovascular Exam: Present: normal rhythm, tachycardia, normal heart sounds. Absent: systolic murmur, diastolic murmur, rubs, gallop, clicks GI/Abdominal exam: Present: soft, normal bowel sounds. Absent: distended, tenderness, guarding, rebound, rigid Extremities exam: Present: normal inspection, full ROM, normal capillary refill. Absent: tenderness, pedal edema, joint swelling, calf tenderness Back exam: Present: normal inspection Course Vital Signs 07/25/24 07/25/24 07/25/24 12:16 12:52 13:44 Temperature 98.2 F Pulse Rate 106 H 96 95 Respiratory 20 16 16 Rate Blood Pressure 112/78 135/71 129/83 O2 Sat by Pulse 99 98 96 Oximetry 07/25/24 07/25/24 07/25/24 15:01 18:25 20:00 Temperature 98.3 F Pulse Rate 99 92 88 Respiratory 16 16 18 Rate Blood Pressure 121/68 112/76 118/54 O2 Sat by Pulse 98 96 96 Oximetry 07/26/24 07/26/24 07/26/24 01:40 04:03 06:00 Temperature 98.2 F Pulse Rate 73 76 79 Respiratory 18 18 18 Rate Blood Pressure 110/69 113/69 113/69 O2 Sat by Pulse 95 96 95 Oximetry 07/26/24 07/26/24 07/26/24 08:26 13:27 14:22 Temperature 99.3 F Pulse Rate 84 90 92 Respiratory 16 20 14 Rate Blood Pressure 110/70 136/70 100/61 O2 Sat by Pulse 95 95 96 Oximetry Chest Pain MDM - MDM Was pt. sent in by a medical professional or institution (, PA, PASSPORT SUPPORT ASSOCIATE, urgent care, hospital, or skilled nursing...) When possible be specific @ -No Did you speak to anyone other than the patient for history (EMS, parent, family, police, friend...)? What history was obtained from this source @ -No Did you review nursing and triage notes (agree or disagree)? Why? @ -I reviewed and agree with nursing and triage notes Were old charts reviewed (outside hosp., previous admission, EMS record, old EKG, old radiological studies, urgent care reports/EKG's, skilled nursing records)? Report findings @ -No old charts were reviewed Differential Diagnosis (chest pain, altered mental status, abdominal pain women, abdominal pain men, vaginal bleeding, weakness, fever, dyspnea, syncope, h eadache, dizziness, GI bleed, back pain, seizure, CVA, palpatations, mental health, musculoskeletal)? @ -Differential Chest Pain: Stable Angina, Unstable Angina, STEMI, NSTEMI Aortic Dissection, Pneumothorax, Musculoskeletal, Esophageal Spasm GERD, Cholecystitis, Pancreatitis, Zoster, this is not meant to be an all-inclusive list. EKG interpreted by me (3pts min.). @ -.@1224 electronic ventricular pacemaker with a ventricular rate of 110, MN interval 172, QRS 181, QTc 451. EKG completed at 1318 electronic ventricular pacemaker with ventricular of 91, MN interval 171, QRS 190, QTc 455. X-rays interpreted by me (1pt min.). @ -Chest x-ray no acute cardiopulmonary process. CT interpreted by me (1pt min.). @ -None done U/S interpreted by me (1pt. min.). @ -None done What testing was considered but not performed or refused? (CT, X-rays, U/S, labs)? Why? @ -None What meds were considered but not given or refused? Why? @ -None Did you discuss the management of the patient with other professionals (professionals i.e. , PA, PASSPORT SUPPORT ASSOCIATE, lab, RT, psych nurse, professor of social work, forensic science examiner, teacher, community reinvestment act officer, pillowcase sewer)? Give summary @ -No Was smoking cessation discussed for >3mins.? @ -No Was critical care preformed (if so, how long)? @ -No Were there social determinants of health that impacted care today? How? (Homelessness, low income, unemployed, alcoholism, drug addiction, transportation, low edu. Level, literacy, decrease access to med. care, halfway, rehab)? @ -No Was there de-escalation of care discussed even if they declined (Discuss DNR or withdrawal of care, Hospice)? DNR status @ -No What co-morbidities impacted this encounter? (DM, HTN, Smoking, COPD, CAD, Cancer, CVA, ARF, Chemo, Hep., AIDS, mental health diagnosis, sleep apnea, morbid obesity)? @ -None Was patient admitted / discharged? Hospital course, mention meds given and route, prescriptions, significant lab abnormalities, going to OR and other pertinent info. @ -Admitted. 59-year-old female presenting with typical chest pain. On arrival patient is notably tachycardic with heart rate of 106, blood pressure stable. Patient will undergo cardiac evaluation is provided with Nitropaste and chewable aspirin. EKG sinus rhythm. lab testing including coagulation profile/D-dimer, BNP, and troponin within normal limits. On reevaluation after medication ministration patient states the nitro has aided in alleviating her symptoms. Patient will be admitted to the observation to trend cardiac enzymes and consult cardiology. Patient is not initiated on heparin drip with recommendation from my attending and the concern for typical chest pain and history of pacer difficult to determine possible ischemic changes in EKG. Patient is in agreement with admission. Case discussed with my attending Dr. Gandhi Undiagnosed new problem with uncertain prognosis? @ -No Drug Therapy requiring intensive monitoring for toxicity (Heparin, Nitro, Insulin, Cardizem)? @ -No Were any procedures done? @ -No Diagnosis/symptom? @ -Chest pain Acute, or Chronic, or Acute on Chronic? @ -Acute Uncomplicated (without systemic symptoms) or Complicated (systemic symptoms)? @ -Complicated Side effects of treatment? @ -No Exacerbation, Progression, or Severe Exacerbation? @ -No Poses a threat to life or bodily function? How? (Chest pain, USA, NC, pneumonia, PE, COPD, DKA, ARF, appy, cholecystitis, CVA, Diverticulitis, Homicidal, Suicidal, threat to staff... and all critical care pts) @ -No Disposition Clinical Impression: Chest pain Disposition: ADMITTED IP TO THIS HOSP Condition: Serious Decision to Admit Reason: Admit from EC Decision Date: 07/25/24 Decision Time: 14:53
[2024-07-25] MEDS: ASPIRIN 81 MG PO STA (13:21)
[2024-07-25] MEDS: NITROGLYCERIN OINT 1 INCH/GM PACKET TOPICAL STA (13:21)
[2024-07-25 14:01] LABS: Basophils # (A) 0.1 k/uL (0-0.2); Basophils % (A) 1 %; Eosinophils % (A) 1 %; HCT 41.8 % (34.0-46.0); HGB 13.5 gm/dL (11.4-16.0); Lymphocytes # (A) 1.4 k/uL (1.0-4.8); Lymphocytes % (A) 22 %; MCH 30.6 pg (25.0-35.0); MCHC 32.3 g/dL (31.0-37.0); MCV 94.5 fL (80.0-100.0); Mean Platelet Volume 10.4; Monocytes # (A) 0.7 k/uL (0-1.0); Monocytes % (A) 10 %; Neutrophils # (A) 4.1 k/uL (1.3-7.7); Neutrophils % (A) 64 %; Platelet Count 195 k/uL (150-450); RBC 4.42 m/uL (3.80-5.40); RDW 13.4 % (11.5-15.5); WBC 6.4 k/uL (3.8-10.6)
--- NOTE | 2024-07-25 14:03 | XR ---
EXAMINATION TYPE: XR chest 2V DATE OF EXAM: 07/25/2024 COMPARISON: 02/16/2023 CLINICAL INDICATION: Female, 59 years old with history of Chest Pain; , TECHNIQUE: XR chest 2V views of the chest. FINDINGS: The lungs are clear and there is no pneumothorax, pleural effusion, or focal pneumonia. Heart size normal and no overt failure. Osseous structures intact. There is a dual lead cardiac device.. IMPRESSION: 1. No acute process. [facility], , 07/25/2024 2:01 PM
[2024-07-25 14:14] LABS: ALT 34 U/L (4-34); AST 36 U/L (14-36); African American GFR (CKD) 84 (>60 ml/min/1.73 sqM); Albumin 4.1 g/dL (3.5-5.0); Alkaline Phosphatase 71 U/L (38-126); Anion Gap 14 mmol/L; Blood Urea Nitrogen 19 mg/dL (7-17); Calcium 9.4 mg/dL (8.4-10.2); Carbon Dioxide 19 mmol/L (22-30); Chloride 103 mmol/L (98-107); Glucose 204 mg/dL (74-99); Magnesium 1.9 mg/dL (1.6-2.3); Non-African American GFR(CKD) 73 (>60 ml/min/1.73 sqM); Potassium 4.3 mmol/L (3.5-5.1); Sodium 136 mmol/L (137-145); Total Protein 6.8 g/dL (6.3-8.2)
[2024-07-25 14:21] LABS: Partial Thromboplastin Time 23.2 sec (22.0-30.0); Prothrombin Time 10.7 sec (10.0-12.5)
[2024-07-25 14:22] LABS: NT-Pro-B-Type Natriuretic Pept 150 pg/mL
[2024-07-25] MEDS ORDERED: HEPARIN SODIUM 1,000 UN/ML (10ML VL) IV PRN (14:34)
[2024-07-25] MEDS: HEPARIN SOD,PORK IN 0.45% NACL 25,000 UNIT in 0.45% NACL 1 250ML.BAG IV SCH (14:56)
[2024-07-25] MEDS: HEPARIN SODIUM 1,000 UN/ML (10ML VL) IV ONE (14:59)
[2024-07-25] MEDS ORDERED: NITROGLYCERIN SL TABS 0.4 MG TAB SUBLINGUAL PRN (16:06)
[2024-07-25] MEDS ORDERED: ALPRAZolam 0.25 MG TAB PO PRN (16:07)
[2024-07-25] MEDS: ATORVASTATIN 80 MG TAB PO SCH (20:14)
[2024-07-25] MEDS: METOPROLOL SUCCINATE (ER) 100 MG TAB.ER.24H PO SCH (20:14)
[2024-07-25] MEDS: SACUBITRIL/VALSARTAN 24 MG-26 MG TABLET PO SCH (20:14)
[2024-07-25] MEDS: metFORMIN 500 MG TAB PO SCH (20:48)
--- NOTE | 2024-07-26 01:26 | HP ---
HISTORY AND PHYSICAL CHIEF COMPLAINT: Chest pain. HISTORY OF PRESENT ILLNESS: This is a 59-year-old woman with a past medical history of multiple medical problems, including CAD, CHF, hypertension, hyperlipidemia, being followed by Dr. Tera Villanueva in the outpatient setting complaining of chest pain. Initially, the patient had back pain, currently the patient is complaining of sharp sensation in the front of the chest and feel like something sitting on the chest. The patient came to [facility], was admitted for further evaluation and treatment. Initial evaluation showed normal troponins. The patient also had recently similar symptoms and had a stress test apparently in the office. The tests are reported negative, results are not available. There is no history of any fever, rigors, or chills. PAST MEDICAL HISTORY: CAD, CHF, GERD. Rest of the history and rest of the chart is also reviewed. HOME MEDICATIONS: Reviewed include nitroglycerin. Dose and rest of medications reviewed. ALLERGIES: Vicodin. FAMILY HISTORY: History of dementia and myocardial infarction. SOCIAL HISTORY: Previous history of smoking. REVIEW OF SYSTEMS: Fourteen-point review of systems is negative except as mentioned earlier. PHYSICAL EXAMINATION: VITAL SIGNS: Pulse is 99, blood pressure 120/60, respirations 16. HEENT: Conjunctivae normal. NECK: No JVD. CARDIOVASCULAR: S1, S2. RESPIRATIONS: Breath sounds diminished at the bases. ABDOMEN: Soft, nontender. LEGS: No edema. NERVOUS SYSTEM: Nonfocal. SKIN: No ulcer, rash, bleeding. JOINTS: No active deforming arthropathy. LABORATORY DATA: Reviewed. ASSESSMENT: 1. Chest pain, possible unstable angina. 2. History of recent negative stress test. 3. History of coronary artery disease stent. 4. History of congestive heart failure. 5. Hypertension. 6. Hyperlipidemia. 7. History of ischemic cardiomyopathy. RECOMMENDATIONS AND DISCUSSION: This is a 59-year-old woman, who presented with multiple complex medical issues, we will monitor the patient closely. Rule out myocardial infarction, unstable angina protocol. Follow with Cardiology. Guarded prognosis because of multiple complex medical issues. Further recommendations to follow. We will resume the home medications once they are confirmed. MMODL / IJN: [id number] /
[2024-07-26] MEDS: ASPIRIN 81 MG PO SCH (08:03)
[2024-07-26] MEDS: DAPAGLIFLOZIN PROPANEDIOL 5 MG TABLET PO SCH (08:03)
[2024-07-26] MEDS: SPIRONOLACTONE 25 MG TAB PO SCH (08:03)
[2024-07-26] MEDS: MAGNESIUM OXIDE 400 MG TAB PO SCH (08:04)
[2024-07-26] MEDS: PANTOPRAZOLE 40 MG TABLET PO SCH (08:04)
[2024-07-26] MEDS ORDERED: NON FORMULARY DRUG (Insulin Glargine/Lixisenatide [Soliqua 100 Unit-33 Mcg/Ml Pen] 3 ML In SQ SCH (09:00)
--- NOTE | 2024-07-26 09:48 | P.CRDCN ---
History of Present Illness Consult date: 07/26/24 Reason for Consult (text): Chest pain, history of NSTEMI History of present illness: This is 59-year-old female patient of Dr. Mooney with past medical history of CAD with prior stenting of the LAD, hypertension, dyslipidemia, ischemic cardiomyo pascale status post AICD, paroxysmal atrial fibrillation, diabetes. We have been asked to evaluate the patient for chest pain with history of NSTEMI. Patient states yesterday she started having pain in her back and then in the evening she was feeling cold. During the night she thought her pacemaker was going off and giving her shocks which continued all night until the morning. By the morning, she was complaining of nausea and felt like somebody was sitting on her chest. She states she has had a cough for the past 2 weeks or more. Chest pain is in the center of her chest without tenderness. Discussed plan to interrogate ICD. If patient has had shocks given we will move forward with a heart catheterization. If no shocks were given to the patient, we will move forward with a stress test. Blood pressure 113/69, heart rate 79, pulse ox 95% on room air. Patient is seen today in the emergency center waiting for a bed on the observation unit. Patient has been started on a heparin drip. -EKG: Paced rhythm -Chest x-ray: No acute process. -Laboratory studies: CBC, INR, D-dimer within normal limits. Sodium 136, potassium 4.3, BUN 19 and creatinine 0.87, CO2 19. Troponin negative x 3. proBNP 150. -Home cardiac medications: Aspirin 81 mg daily, atorvastatin 80 mg at bedtime, Jardiance 10 mg daily, magnesium oxide 400 mg daily, Toprol-XL 100 mg at bedtime, Nitrostat as needed, Entresto 24-26 mg 1 twice daily, spironolactone 50 mg daily. -Biventricular ICD upgrade on 12/23/2020, [facility]. -Echocardiogram performed 02/17/2023 revealed normal EF, mild MR, mild to moderate TR. -Left heart catheterization performed 07/20/2022 intermediate in-stent restenosis of the mid LAD. iFR was performed came to be nonischemic at 0.94. Normal left- sided filling pressure. Medical treatment was recommended. Review Of Systems: At the time of my exam: CONSTITUTIONAL: Denies fever or chills. HEENT: Denies blurred vision, vision changes, or eye pain. Denies hemoptysis CARDIOVASCULAR: Denies chest pain. Denies orthopnea. Denies PND. Denies palpitations RESPIRATORY: Denies shortness of breath. GASTROINTESTINAL: Denies abdominal pain. Denies nausea or vomiting. HEMATOLOGIC: Denies bleeding disorders. GENITOURINARY: Denies any blood in urine. SKIN: Denies puritis. Denies rash. Physical examination: Gen: This is 59-year-old female in no acute distress VS: reviewed HEENT: Head is atraumatic, normocephalic. Pupils equal, round. Sclerae is anicteric. NECK: Supple. No JVD. LUNGS: Clear to auscultation. No wheezes or rhonchi. No intercostal retractions. HEART: Regular rate and rhythm. Systolic murmur. ABDOMEN: Soft No tenderness. EXTREMITIES: No pedal edema. No calf tenderness. NEUROLOGICAL: Patient is awake, alert and oriented x3. Assessment: Atypical chest pain, acute coronary syndrome ruled out Patient reported shocks from ICD History of coronary artery disease with prior stenting of the LAD Hypertension Dyslipidemia Ischemic cardiomyopathy status post AICD Paroxysmal atrial fibrillation Plan: Resume patient's home cardiac medications Discontinue heparin drip Interrogate pacemaker. If interrogation does show shocks from her ICD, patient will be scheduled for left heart catheterization today. If interrogation does not show shocks, patient will be scheduled for stress test. N.p.o. Obtain 2-D echocardiogram and Doppler study to assess cardiac structure and function Further recommendations to follow based upon clinical course Thank you kindly for this consultation. Nurse practitioner note has been reviewed, I agree with documented findings and plan of care. Patient was seen and examined. Past Medical History Past Medical History: Coronary Artery Disease (CAD), Chest Pain / Angina, Heart Failure, GERD/Reflux, Hyperlipidemia, Hypertension, Myocardial Infarction (CA), Renal Disease, Thyroid Disorder Additional Past Medical History / Comment(s): See Dr Owen's H&P,Ischemic car diomyopathy, CKD stage II, nephrolithiasis, migraines, occasional back pain, hypothyroid. Last Myocardial Infarction Date:: 06-30-15 History of Any Multi-Drug Resistant Organisms: None Reported Past Surgical History: AICD, Cholecystectomy, Heart Catheterization, Heart Catheterization With Stent, Hernia Repair, Hysterectomy, Pacemaker Additional Past Surgical History / Comment(s): 2015 stents to lad,diag, 05/22/16 PTCA, bilateral oophorectomy, LT INGUINAL HERNIA REPAIR, CYSTOCOPY, LITHOTRIPSY,COLONOSCOPY, AICD Past Anesthesia/Blood Transfusion Reactions: Postoperative Nausea & Vomiting (PONV) Additional Past Anesthesia/Blood Transfusion Reaction / Comment(s): MILD CLAUSTERPHOBIA. no hx blood transfusion Date of Last Stent Placement:: 2014- stents Type of Cardiac Device: Permanent Pacemaker Device Placement Date:: 06/28/15, [facility]-left chest Past Psychological History: Anxiety Smoking Status: Former smoker Past Alcohol Use History: Rare Past Drug Use History: None Reported - Past Family History Mother Family Medical History: Dementia Additional Family Medical History / Comment(s): pacemaker Brother(s) Family Medical History: No Reported History Father Family Medical History: Cancer, Dementia, Myocardial Infarction (CA) Additional Family Medical History / Comment(s): pacemaker and colon cancer. Sister(s) Family Medical History: Cancer, Hypertension Additional Family Medical History / Comment(s): Breast and colon cancer. Medications and Allergies Home Medications Medication Instructions Recorded Confirmed Type Atorvastatin [Lipitor] 80 mg PO HS #30 tab 02/09/18 07/25/24 Rx Metoprolol Succinate (ER) [Toprol 100 mg PO HS 03/28/20 07/25/24 History XL] Sacubitril/Valsartan [Entresto 24 1 tab PO BID 03/28/20 07/25/24 History mg-26 mg Tablet] Aspirin 81 mg PO DAILY 06/10/20 07/25/24 History Spironolactone 50 mg PO DAILY 10/02/21 07/25/24 History metFORMIN HCL [Glucophage] 500 mg PO BID 09/30/22 07/25/24 History Nitroglycerin Sl Tabs [Nitrostat] 0.4 mg SUBLINGUAL Q5M PRN #100 tab 10/01/22 07/25/24 Rx Insulin Glargine/Lixisenatide 40 units SQ DAILY 02/16/23 07/25/24 History [Soliqua 100 Unit-33 Mcg/ml Pen] Magnesium Oxide [Mag-Ox] 400 mg PO DAILY 02/16/23 07/25/24 History Empagliflozin [Jardiance] 10 mg PO DAILY 07/25/24 07/25/24 History Allergies Allergy/AdvReac Type Severity Reaction Status Date / Time hydrocodone bitartrate AdvReac Nausea & Verified 07/25/24 14:04 [From Vicodin] Vomiting propoxyphene napsylate AdvReac Vomiting Verified 07/25/24 14:04 [From Darvocet-N] Physical Exam Vitals: Vital Signs Temp Pulse Resp BP Pulse Ox 07/26/24 06:00 79 18 113/69 95 07/26/24 04:03 76 18 113/69 96 07/26/24 01:40 98.2 F 73 18 110/69 95 07/25/24 20:00 88 18 118/54 96 07/25/24 18:25 98.3 F 92 16 112/76 96 07/25/24 15:01 99 16 121/68 98 07/25/24 13:44 95 16 129/83 96 07/25/24 12:52 96 16 135/71 98 07/25/24 12:16 98.2 F 106 H 20 112/78 99 Results 07/25/24 13:44 07/25/24 13:44 Cardiac Enzymes 07/25/24 07/25/24 07/25/24 Range/Units 13:44 13:44 16:44 AST 36 (14-36) U/L Troponin I <0.012 <0.012 (0.000-0.034) ng/mL 07/25/24 Range/Units 20:34 AST (14-36) U/L Troponin I <0.012 (0.000-0.034) ng/mL Coagulation 07/25/24 07/25/24 Range/Units 13:38 20:34 PT 10.7 (10.0-12.5) sec APTT 23.2 43.7 H (22.0-30.0) sec CBC 07/25/24 Range/Units 13:44 WBC 6.4 (3.8-10.6) k/uL RBC 4.42 (3.80-5.40) m/uL Hgb 13.5 (11.4-16.0) gm/dL Hct 41.8 (34.0-46.0) % Plt Count 195 (150-450) k/uL Comprehensive Metabolic Panel 07/25/24 Range/Units 13:44 Sodium 136 L (137-145) mmol/L Potassium 4.3 (3.5-5.1) mmol/L Chloride 103 (98-107) mmol/L Carbon Dioxide 19 L (22-30) mmol/L BUN 19 H (7-17) mg/dL Creatinine 0.87 (0.52-1.04) mg/dL Glucose 204 H (74-99) mg/dL Calcium 9.4 (8.4-10.2) mg/dL AST 36 (14-36) U/L ALT 34 (4-34) U/L Alkaline Phosphatase 71 (38-126) U/L Total Protein 6.8 (6.3-8.2) g/dL Albumin 4.1 (3.5-5.0) g/dL Current Medications Generic Name Dose Route Start Last Admin Trade Name Freq PRN Reason Stop Dose Admin Alprazolam 0.25 mg 07/25/24 16:07 Alprazolam 0.25 Mg Tab PO TID PRN Anxiety Aspirin 81 mg 07/26/24 09:00 Aspirin 81 Mg PO DAILY [facility] Atorvastatin Calcium 80 mg 07/25/24 21:00 07/25/24 20:14 Atorvastatin 80 Mg Tab PO 80 mg HS [facility] Administration Dapagliflozin 5 mg 07/26/24 09:00 Dapagliflozin Propanediol 5 Mg Tablet PO DAILY [facility] Heparin Sodium (Porcine) 0 unit 07/25/24 14:34 Heparin Sodium 1,000 Un/Ml (10ml Vl) IV PER PROTOCOL PRN Low PTT Protocol Heparin Sodium/Sodium Chloride 250 mls @ 10 mls/hr 07/25/24 14:45 07/25/24 14:56 25,000 unit/ Sodium Chloride IV 11.248 units/kg/hr .Q24H [facility] 10 mls/hr Administration Protocol 11.248 UNITS/KG/HR Magnesium Oxide 400 mg 07/26/24 09:00 Magnesium Oxide 400 Mg Tab PO DAILY [facility] Metformin HCl 500 mg 07/25/24 21:00 07/25/24 20:48 Metformin 500 Mg Tab PO 500 mg BID-W/MEALS [facility] Administration Metoprolol Succinate 100 mg 07/25/24 21:00 07/25/24 20:14 Metoprolol Succinate (Er) 100 Mg Tab.Er.24h PO 100 mg HS [facility] Administration Nitroglycerin 0.4 mg 07/25/24 16:06 Nitroglycerin Sl Tabs 0.4 Mg Tab SUBLINGUAL Q5M PRN Chest Pain Non-Formulary Medication 40 units 07/26/24 09:00 Insulin Glargine/Lixisenatide [Soliqua 100 Unit-33 Mcg/Ml Pen] SQ DAILY [facility] Pantoprazole Sodium 40 mg 07/26/24 07:30 Pantoprazole 40 Mg Tablet PO -BRKFST [facility] Sacubitril/Valsartan 1 each 07/25/24 21:00 07/25/24 20:14 Sacubitril/Valsartan 24 Mg-26 Mg Tablet PO 1 each BID [facility] Administration Spironolactone 50 mg 07/26/24 09:00 Spironolactone 25 Mg Tab PO DAILY [facility] 07/25/24 13:44 07/25/24 13:44
[2024-07-26 10:21] LABS: Basophils # (A) 0.05 X 10*3/uL (0.00-0.10); Basophils % (A) 0.8 %; Eosinophils # (A) 0.03 X 10*3/uL (0.04-0.35); Eosinophils % (A) 0.5 %; HGB 12.9 g/dL (12.0-15.0); Lymphocytes # (A) 1.24 X 10*3/uL (0.90-5.00); Lymphocytes % (A) 20.5 %; MCH 29.9 pg (27.0-32.0); MCHC 31.5 g/dL (32.0-37.0); MCV 94.9 FL (80.0-97.0); Mean Platelet Volume 13.8 FL (9.5-12.2); Monocytes % (A) 14.9 %; NRBC Per 100 WBC 0 X 10*3/uL (0.00-0.01); Platelet Count 171 X 10*3/uL (140-440); RBC 4.32 X 10*6/uL (4.10-5.20); RDW 13.6 % (11.5-14.5); WBC 6.04 X 10*3/uL (4.50-10.00)
[2024-07-26 10:28] LABS: ALT 31 U/L (8-44); AST 29 U/L (13-35); Albumin 3.8 g/dL (3.8-4.9); Albumin/Globulin Ratio 1.52 Ratio (1.60-3.17); Alkaline Phosphatase 72 U/L (41-126); Blood Urea Nitrogen 18.3 mg/dL (9.0-27.0); Calcium 8.8 mg/dL (8.7-10.3); Carbon Dioxide 23.8 mmol/L (21.6-31.8); Chloride 104 mmol/L (96-109); Chol/HDL Ratio 2.75 Ratio; Globulin 2.5 g/dL (1.6-3.3); Glucose 287 mg/dL (70-110); LDL Cholesterol,Calculated 47.8 mg/dL (0.0-131.0); Potassium 4.4 mmol/L (3.5-5.5); Sodium 137 mmol/L (135-145); Total Bilirubin 0.4 mg/dL (0.3-1.2); Total Protein 6.3 g/dL (6.2-8.2)
[2024-07-26] MEDS ORDERED: CAFFEINE CITRATE 60 MG/3 ML VIAL IV PRN (10:47)
[2024-07-26] MEDS ORDERED: REGADENOSON 0.4 MG/5 ML SYRINGE IV PRN (10:47)
[2024-07-26] MEDS ORDERED: AMINOPHYLLINE 500 MG/20 ML VIAL IV PRN (10:47)
[2024-07-26 10:58] LABS: INR 1.01 sec (0.93-1.11); Prothrombin Time 11.3 sec (9.9-11.9)
--- NOTE | 2024-07-26 13:24 | NM ---
EXAMINATION TYPE: NM stress lexiscan cardiolite DATE OF EXAM: 07/26/2024 COMPARISON: Prior stress test 2019 CLINICAL INDICATION: Female, 59 years old with history of chest pain; percent history of hypertension and hypercholesterolemia along with diabetes. Prior heart attack, catheterization, and angioplasty x 2. TECHNIQUE: After the intravenous administration of 10.1 mCi Tc 99m Sestamibi - Cardiolite resting SP ECT images acquired 50 minutes post injection. The patient received 0.4mg Lexiscan, 25.3 mCi Tc 99m Sestamibi - Stress images obtained [address] injection FINDINGS: Review of stress and rest SPECT images demonstrates persistent diminished uptake in the apex on stres s and rest images suspicious for old infarct. No convincing evidence for reversible ischemia. Gated analysis shows normal wall motion with an estimated left ventricular ejection fraction of 68 %. 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 No scintigraphic evidence for reversible ischemia on today's study. [facility], , 07/26/2024 1:21 PM
[2024-07-26 14:24] VITALS: BP 100/61; PULSE 92; RESP 14; TEMP 99.3
[2024-07-26] MEDS ORDERED: ONDANSETRON 4 MG/2 ML VIAL IVP PRN (14:36)
[2024-07-27] MEDS ORDERED: METOPROLOL SUCCINATE (ER) 50 MG TAB.ER.24H PO SCH (09:00)
--- NOTE | 2024-07-27 13:25 | CA ---
Lexiscan Nuclear Stress Test Report Name: Sarita Coley Exam Date: 07/26/2024 12:11 Exam Location: [facility] Ht (in): 62 Wt (lb): 196 BSA: 1.90 Ordering Phys: Jenny Cunha Referring Phys: GARFIELD Technologist: LADONNA Age: 59 Gender: F : 1965 Procedure CPT: Indications: Reflex order-Stress test ICD-10 Codes: Patient History: Chest pain Medications: Meds past 24 hrs: Pretest Chest Pain: STRESS TEST Lexiscan Protocol Exercise Duration (min:sec): 01:[address] Depressions (mm): Angina Score: Rodriguez Score: Resting HR (bpm): 87 Peak HR (bpm): 127 Resting BP (mmHg): 114 / 72 Peak BP (mmHg): 152 / 53 MPHR: 160 Target HR: 136 % MPHR: 79 METS: 1.0 Total Dose: Peak Dose: Atropine: Double Product: 69035 BP Response: Stress Termination: INFUSION COMPLETE Stress Symptoms: NAUSEA,VOMITING Stress Summary: ECG ANALYSIS Resting ECG: Stress ECG: CONCLUSIONS At baseline EKG showed normal sinus rhythm, atrial sensed ventricular paced rhythm with nonspecific ST, T-wave abnormalities. Patient recieved IV infusion of Lexiscan 0.4mg and at peak infusion EKG showed no significant change from baseline. Conclusions: 1. Nonspecific stress EKG portion second baseline EKG abnormalities. 2. Nuclear imaging to be reported separately. Dr. Mono Villanueva DO (Electronically Signed) Final Date: 26 July 2024 15:21
--- NOTE | 2024-07-27 13:25 | CA ---
Transthoracic Echo Report Name: Sarita Coley Age: 59 Gender: F : 1965 Exam Date: 07/26/2024 08:32 Exam Location: [facility] Ht (in): 62 Wt (lb): 196 Ordering Physician: Jenny Cunha Attending/Referring Phys: [id number], [place] [employer] Jessi Marinelli, GERMAINE Procedure CPT: Indications: LVF Cardiac Hx: pacemaker Technical Quality: Good Contrast 1: Total Dose (mL): Contrast 2: Total Dose (mL): MEASUREMENTS (Male / Female) Normal Values 2D ECHO LV Diastolic Diameter PLAX 4.1 cm 4.2 - 5.9 / 3.9 - 5.3 cm LV Systolic Diameter PLAX 2.8 cm IVS Diastolic Thickness 1.2 cm 0.6 - 1.0 / 0.6 - 0.9 cm LVPW Diastolic Thickness 1.2 cm 0.6 - 1.0 / 0.6 - 0.9 cm LV Relative Wall Thickness 0.6 RV Internal Dim ED PLAX 3.1 cm LA Systolic Diameter LX 3.4 cm 3.0 - 4.0 / 2.7 - 3.8 cm LV Diastolic Volume MOD BP 62.5 cm??? 67 - 155 / 56 - 104 cm??? LV Systolic Volume MOD BP 27.2 cm??? - 58 / 19 - 49 cm??? LV Ejection Fraction MOD BP 56.4 % >= 55 % LV Cardiac Index MOD BP 1417.5 cm???/min???m??? LV Diastolic Volume MOD 4C 55.2 cm??? LV Systolic Volume MOD 4C 21.0 cm??? LV Ejection Fraction MOD 4C 62.1 % LV Cardiac Index MOD 4C 1378.7 cm???/min???m??? LV Diastolic Length 4C 6.8 cm LV Systolic Length 4C 5.8 cm LV Diastolic Volume MOD 2C 70.0 cm??? LV Systolic Volume MOD 2C 33.9 cm??? LV Ejection Fraction MOD 2C 51.6 % LV Cardiac Index MOD 2C 1451.7 cm???/min???m??? LV Diastolic Length 2C 7.2 cm LV Systolic Length 2C 6.1 cm LA Volume 48.6 cm??? 18 - 58 / 22 - 52 cm??? LA Volume Index 24.1 cm???/m??? 16 - 28 cm???/m??? M-MODE Aortic Root Diameter MM 2.9 cm AV Cusp Separation MM 1.8 cm DOPPLER AV Peak Velocity 147.0 cm/s AV Peak Gradient 8.6 mmHg MV Area PHT 4.3 cm??? Mitral E Point Velocity 62.6 cm/s Mitral A Point Velocity 85.4 cm/s Mitral E to A Ratio 0.7 MV Deceleration Time 174.8 ms TR Peak Velocity 230.1 cm/s TR Peak Gradient 21.2 mmHg Right Ventricular Systolic Press 26.0 mmHg FINDINGS Left Ventricle Left ventricular ejection fraction is estimated at 50-55 %. Left ventricular cavity size normal. Mildly increased septal wall thickness. Mildly increased posterior wall thickness. Apical inferior hypokinesis Right Ventricle Normal right ventricular size. Right ventricular systolic pressure within normal limits. Right Atrium Normal right atrial size. No right atrial thrombus or mass seen. Left Atrium Normal left atrial size. No left atrial thrombus or mass present. Mitral Valve Structurally normal mitral valve. Mild mitral regurgitation. Aortic Valve Trileaflet aortic valve. No aortic valve stenosis or regurgitation. Tricuspid Valve Structurally normal tricuspid valve. Mild tricuspid regurgitation. Pulmonic Valve Structurally normal pulmonic valve. No pulmonic regurgitation. Pericardium No pericardial effusion. Aorta Normal size aortic root and proximal ascending aorta. CONCLUSIONS Left ventricular ejection fraction 50-55% Apical inferior hypokinesis RVSP 26 Mild mitral regurgitation Mild tricuspid regurgitation No pericardial effusion Previewed by: Dr. Mono Villanueva DO (Electronically Signed) Final Date: 26 July 2024 09:48
--- NOTE | 2024-07-31 06:08 | P.DS ---
Providers Date of admission: 07/25/24 15:47 Expected date of discharge: 07/26/24 Attending physician: Yasmany Keller MD Consults: 07/25/24 14:53 Consult Physician Urgent Consulting Provider: Jermain Mooney Consult Reason/Comments: chest pain, hx NSTEMI Do you want consulting provider notified?: Yes, Notify in am Primary care physician: Tera Villanueva Hospital Course: Final diagnosis Chest pain, possible unstable angina, ACS ruled out Stress test was negative History of coronary artery disease with stenting History of congestive heart failure, not in exacerbation Hypertension Hyperlipidemia History of ischemic cardiomyopathy Obesity with a BMI 35.8 GI prophylaxis DVT prophylaxis Full code Discharge disposition Patient is being discharged in a stable condition with guarded prognosis to home. Patient will follow-up with Dr. Villanueva in the outpatient setting upon discharge. Patient is to continue with outpatient follow-up with cardiology as scheduled. Total time taken is greater than 35 minutes. Hospital course This is a 59 year-old female who was recently admitted with chest pain possible unstable angina. Patient did undergo stress testing which was negative and has been cleared by cardiology for outpatient follow-up. Please refer to cardiology notes for further HPI. Currently no reports of chest pain, shortness of breath, or palpitations. Patient is afebrile. No reports of nausea or vomiting and patient is tolerating diet. Patient will be discharged home today. Guarded prognosis Physical exam: Gen: This is a 59-year-old female who is awake, alert and oriented x 3, well- developed, elderly appearing, obese HEENT: Head is atraumatic, normocephalic. Pupils equal, round. Sclerae is anicteric. NECK: Supple. No JVD. No lymphadenopathy. No thyromegaly. LUNGS: Diminished breath sounds bilaterally otherwise clear to auscultation. No wheezes or rhonchi. No intercostal retractions. HEART: Regular rate and rhythm. No murmur. ABDOMEN: Soft. Bowel sounds are present. No masses. No tenderness. EXTREMITIES: No pedal edema. No calf tenderness. NEUROLOGICAL: Patient is awake, alert and oriented x3. Cranial nerves 2 through 12 are grossly intact. Please refer to medication reconciliation sheet for a list of medications. The impression and plan of care has been dictated by Jessica Rosario, Nurse Practitioner as directed. Dr. Kolby MD I have performed a history and examination and MDM of this patient, discussed the same with the dictator, and agree with the dictator's assessment and plan as written ,documented as a scribe. Based on total visit time, I have performed more than 50% of the visit. Patient Condition at Discharge: Fair Plan - Discharge Summary New Discharge Prescriptions: New Pantoprazole [Protonix] 40 mg PO AC-BRKFST #30 tab Metoprolol Succinate (ER) [Toprol XL] 50 mg PO DAILY #30 tab Continue Atorvastatin [Lipitor] 80 mg PO HS #30 tab Metoprolol Succinate (ER) [Toprol XL] 100 mg PO HS Sacubitril/Valsartan [Entresto 24 mg-26 mg Tablet] 1 tab PO BID Aspirin 81 mg PO DAILY Spironolactone 50 mg PO DAILY Nitroglycerin Sl Tabs [Nitrostat] 0.4 mg SUBLINGUAL Q5M PRN #100 tab PRN Reason: Chest Pain Magnesium Oxide [Mag-Ox] 400 mg PO DAILY Insulin Glargine/Lixisenatide [Soliqua 100 Unit-33 Mcg/ml Pen] 40 units SQ DAILY Empagliflozin [Jardiance] 10 mg PO DAILY metFORMIN HCL [Glucophage] 500 mg PO BID Discharge Medication List Atorvastatin [Lipitor] 80 mg PO HS #30 tab 02/09/18 [Rx] Metoprolol Succinate (ER) [Toprol XL] 100 mg PO HS 03/28/20 [History] Sacubitril/Valsartan [Entresto 24 mg-26 mg Tablet] 1 tab PO BID 03/28/20 [History] Aspirin 81 mg PO DAILY 06/10/20 [History] Spironolactone 50 mg PO DAILY 10/02/21 [History] metFORMIN HCL [Glucophage] 500 mg PO BID 09/30/22 [History] Nitroglycerin Sl Tabs [Nitrostat] 0.4 mg SUBLINGUAL Q5M PRN #100 tab 10/01/22 [Rx] Insulin Glargine/Lixisenatide [Soliqua 100 Unit-33 Mcg/ml Pen] 40 units SQ DAILY 02/16/23 [History] Magnesium Oxide [Mag-Ox] 400 mg PO DAILY 02/16/23 [History] Empagliflozin [Jardiance] 10 mg PO DAILY 07/25/24 [History] Metoprolol Succinate (ER) [Toprol XL] 50 mg PO DAILY #30 tab 07/26/24 [Rx] Pantoprazole [Protonix] 40 mg PO AC-BRKFST #30 tab 07/26/24 [Rx] Follow up Appointment(s)/Referral(s): Tera Villanueva DO [Primary Care Provider] - 1-2 days Jermain Mooney MD [STAFF PHYSICIAN] - 1 Week Patient Instructions/Handouts: Chest Pain (DC) Activity/Diet/Wound Care/Special Instructions: Activity limited until follow-up follow-up with primary care provider on discharge Follow-up with cardiology outpatient in 1 to 2 weeks Continue taking medications as prescribed including metoprolol 50 mg daily and 100 mg at night Discharge Disposition: HOME SELF-CARE
== END 2024-07-26 15:10 | disposition home or self-care (01) ==
LOC: EC 12:15 → INTOOBSV 15:47 → 6NMEDSUR 15:47
PROVIDERS: ADMIT Internal Medicine; ATTEND Internal Medicine
DX: R07.89 Other chest pain (principal); I13.0 Hypertensive heart and chronic kidney disease with heart failure and stage 1 through stage 4 chronic kidney disease, or unspecified chronic kidney disease; N18.2 Chronic kidney disease, stage 2 (mild); I50.9 Heart failure, unspecified; I25.10 Atherosclerotic heart disease of native coronary artery without angina pectoris; I25.2 Old myocardial infarction; I25.5 Ischemic cardiomyopathy; I47.10 Supraventricular tachycardia, unspecified; I48.0 Paroxysmal atrial fibrillation; E11.22 Type 2 diabetes mellitus with diabetic chronic kidney disease; E78.5 Hyperlipidemia, unspecified; K21.9 Gastro-esophageal reflux disease without esophagitis; E03.9 Hypothyroidism, unspecified; E66.9 Obesity, unspecified; Z79.4 Long term (current) use of insulin; Z79.82 Long term (current) use of aspirin; Z79.84 Long term (current) use of oral hypoglycemic drugs; Z79.899 Other long term (current) drug therapy; Z87.891 Personal history of nicotine dependence; Z95.5 Presence of coronary angioplasty implant and graft; Z95.810 Presence of automatic (implantable) cardiac defibrillator; Z88.5 Allergy status to narcotic agent; Z68.35 Body mass index [BMI] 35.0-35.9, adult
CPT/HCPCS: 96365; 96366 ×2; 99285; 36415; 93005; 93017; 93306; 85379; 83880; 80061; 80053 ×2; 83735; 84484; 85025 ×2; 85610 ×2; 85730 ×2; 71046; 78452; G0378 ×2; A9500; J1644 ×2; J2785

== ENCOUNTER 2024-11-06 07:48 | Observation (INO) | payer OTHER ==
[2024-11-06 08:30] LABS: Basophils # (A) 0.07 10*3/uL (0.00-0.10); Basophils % (A) 1.3 %; Eosinophils # (A) 0.08 10*3/uL (0.04-0.35); Eosinophils % (A) 1.5 %; HCT 38.6 % (37.2-46.3); HGB 13.1 g/dL (12.0-15.0); Lymphocytes # (A) 1.43 10*3/uL (0.90-5.00); Lymphocytes % (A) 27.6 %; MCHC 33.9 g/dL (32.0-37.0); MCV 88.3 fL (80.0-97.0); Mean Platelet Volume 12.8 fL (9.5-12.2); Monocytes # (A) 0.42 10*3/uL (0.20-1.00); Monocytes % (A) 8.1 %; Neutrophils # (A) 3.18 10*3/uL (1.80-7.70); Neutrophils % (A) 61.3 %; Platelet Count 208 10*3/uL (140-440); RBC 4.37 10*6/uL (4.10-5.20); RDW 13.2 % (11.5-14.5); WBC 5.19 10*3/uL (4.50-10.00)
[2024-11-06 08:40] LABS: INR 0.9 (<1.2); Partial Thromboplastin Time 23.2 sec (22.0-30.0); Prothrombin Time 9.7 sec (10.0-12.5)
[2024-11-06] MEDS: SODIUM CHLORIDE 0.9% 500 ML 500 ML IV ONE (08:40)
[2024-11-06 08:41] LABS: ALT 41 U/L (4-34); African American GFR (CKD) >90 (>60 ml/min/1.73 sqM); Albumin 3.7 g/dL (3.5-5.0); Anion Gap 9 mmol/L; Blood Urea Nitrogen 20 mg/dL (7-17); Carbon Dioxide 22 mmol/L (22-30); Chloride 106 mmol/L (98-107); Glucose 379 mg/dL (74-99); Lipase 212 U/L (23-300); Non-African American GFR(CKD) >90 (>60 ml/min/1.73 sqM); Sodium 137 mmol/L (137-145); Total Bilirubin 0.7 mg/dL (0.2-1.3); Total Protein 6.6 g/dL (6.3-8.2)
[2024-11-06 08:44] LABS: AST 37 U/L (14-36); Alkaline Phosphatase 91 U/L (38-126); Magnesium 1.7 mg/dL (1.6-2.3); Potassium 4.2 mmol/L (3.5-5.1)
[2024-11-06 08:50] LABS: NT-Pro-B-Type Natriuretic Pept 144 pg/mL
[2024-11-06] MEDS: NITROGLYCERIN SL TABS 0.4 MG TAB SUBLINGUAL STA ×2 (08:57→09:10)
--- NOTE | 2024-11-06 09:04 | XR ---
EXAMINATION TYPE: XR chest 2V DATE OF EXAM: 11/06/2024 8:38 AM COMPARISON: 07/25/2024 CLINICAL INDICATION: Female, 59 years old with history of Chest Pain, , TECHNIQUE: PA and lateral views FINDINGS: Left anterior chest wall AICD generator with right atrial, right ventricular, and coronary sinus lead s. Upper limits of normal in size. Aorta and pulmonary vasculature within normal limits. No consolida tion or pleural effusion. IMPRESSION: Borderline heart size. No acute process seen. [facility], , 11/06/2024 9:02 AM
--- NOTE | 2024-11-06 09:25 | ED ---
General Adult HPI - General Chief complaint: Chest Pain Stated complaint: chest pain Time Seen by Provider: 11/06/24 08:00 Source: patient, RN notes reviewed, old records reviewed Mode of arrival: ambulatory Limitations: no limitations - History of Present Illness Initial comments: Patient is a 59-year-old female presents emergency department complaint of chest pain. Has been present since Wednesday. Is currently Wednesday. States the pain is a pressure on her back as well as on her chest and worse with movements of her upper extremity arms and torso. 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 No known palliative symptoms. Presents for further evaluation at this time. Denies any nausea or vomiting. States that when she previously required stents, it was somewhat similar to her current sensations. Denies any diaphoresis or radiation of the pain. States it is primarily over the central chest as well as central back and pressure sensation worse with movement. Worse on palpation. - Related Data Home Medications Medication Instructions Recorded Confirmed No Known Home Medications 11/06/24 11/06/24 Allergies Allergy/AdvReac Type Severity Reaction Status Date / Time hydrocodone bitartrate AdvReac Nausea & Verified 11/06/24 10:28 [From Vicodin] Vomiting propoxyphene napsylate AdvReac Vomiting Verified 11/06/24 10:28 [From Darvocet-N] Review of Systems ROS Statement: Those systems with pertinent positive or pertinent negative responses have been documented in the HPI. Review of Systems: CONST: Denies fever EYES: Denies blurry vision ENT: Denies nasal congestion C/V: Endorses chest pain RESP: Denies shortness of breath GI: Denies abdominal pain : Denies dysuria SKIN: Denies rash. MSK: Denies joint pain. NEURO: Denies headache ROS Other: All systems not noted in ROS Statement are negative. Past Medical History Past Medical History: Coronary Artery Disease (CAD), Chest Pain / Angina, Heart Failure, GERD/Reflux, Hyperlipidemia, Hypertension, Myocardial Infarction ([place]), Renal Disease, Thyroid Disorder Additional Past Medical History / Comment(s): See Dr Owen's H&P,Ischemic cardiomyopathy, CKD stage II, nephrolithiasis, migraines, occasional back pain, hypothyroid. Last Myocardial Infarction Date:: 06-30-15 History of Any Multi-Drug Resistant Organisms: None Reported Past Surgical History: AICD, Cholecystectomy, Heart Catheterization, Heart Catheterization With Stent, Hernia Repair, Hysterectomy, Pacemaker Additional Past Surgical History / Comment(s): 2014 stents to lad,diag, 05/22/16 PTCA, bilateral oophorectomy, LT INGUINAL HERNIA REPAIR, CYSTOCOPY, LITHOTRIPSY,COLONOSCOPY, AICD Past Anesthesia/Blood Transfusion Reactions: Postoperative Nausea & Vomiting (PONV) Additional Past Anesthesia/Blood Transfusion Reaction / Comment(s): MILD CLAUSTERPHOBIA. no hx blood transfusion Date of Last Stent Placement:: 2014-08 stents Type of Cardiac Device: Permanent Pacemaker Device Placement Date:: 06/28/15, [facility]-left chest Past Psychological History: Anxiety Smoking Status: Former smoker Past Alcohol Use History: Rare Past Drug Use History: None Reported - Past Family History Mother Family Medical History: Dementia Additional Family Medical History / Comment(s): pacemaker Brother(s) Family Medical History: No Reported History Father Family Medical History: Cancer, Dementia, Myocardial Infarction ([place]) Additional Family Medical History / Comment(s): pacemaker and colon cancer. Sister(s) Family Medical History: Cancer, Hypertension Additional Family Medical History / Comment(s): Breast and colon cancer. General Exam - General Exam Comments Initial Comments: General: Appears in no acute distress. HEAD: Normal with no signs of head trauma. EYES: EOMI ENT: Hearing grossly intact, normal oropharynx. RESPIRATORY: Clear breath sounds bilaterally. No wheezes, rales, or rhonchi. C/V: Regular rate and rhythm. S1 and S2 auscultated. Peripheral pulses 2+ intact throughout. No peripheral edema. ABD: Abd is soft, nontender, nondistended EXT: No obvious deformity. SKIN: No rashes or lesions observed on exposed skin. NEURO: Alert and oriented x 4. Limitations: no limitations Course Vital Signs 11/06/24 11/06/24 11/06/24 07:51 08:38 09:28 Temperature 97.8 F Pulse Rate 96 75 72 Respiratory 18 18 16 Rate Blood Pressure 177/81 168/92 123/63 O2 Sat by Pulse 97 98 97 Oximetry 05/05/25 05/05/25 10:32 10:58 Temperature 97.5 F L Pulse Rate 67 71 Respiratory 16 16 Rate Blood Pressure 119/79 O2 Sat by Pulse 97 97 Oximetry Medical Decision Making - Medical Decision Making Was pt. sent in by a medical professional or institution (, ALL, LEPIDOPTERIST, urgent care, hospital, or care home...) When possible be specific @ -No Did you speak to anyone other than the patient for history (EMS, parent, family, police, friend...)? What history was obtained from this source @ -No Did you review nursing and triage notes (agree or disagree)? Why? @ -I reviewed and agree with nursing and triage notes Were old charts reviewed (outside hosp., previous admission, EMS record, old EKG, old radiological studies, urgent care reports/EKG's, care home records)? Report findings @ -Compared today's EKG with EKG from July which revealed no obvious significant acute change. Differential Diagnosis (chest pain, altered mental status, abdominal pain women, abdominal pain men, vaginal bleeding, weakness, fever, dyspnea, syncope, headache, dizziness, GI bleed, back pain, seizure, CVA, palpatations, mental health, musculoskeletal)? @ -Differential Chest Pain: Stable Angina, Unstable Angina, STEMI, NSTEMI Aortic Dissection, Pneumothorax, Musculoskeletal, Esophageal Spasm GERD, Cholecystitis, Pancreatitis, Zoster, this is not meant to be an all-inclusive list. EKG interpreted by me (3pts min.). @ -As above X-rays interpreted by me (1pt min.). @ -Chest x-ray shows no obvious acute cardiopulmonary process. CT interpreted by me (1pt min.). @ -None done U/S interpreted by me (1pt. min.). @ -None done What testing was considered but not performed or refused? (CT, X-rays, U/S, labs)? Why? @ -None What meds were considered but not given or refused? Why? @ -None Did you discuss the management of the patient with other professionals (professionals i.e. [facility] Smith, LEPIDOPTERIST, lab, RT, psych nurse, geriatric social work professor, breaker mechanic, teacher, service officer, case management assistant)? Give summary @ -Discussed with the admitting team, Dr. Flor of [facility] accepted the admission. Was smoking cessation discussed for >3mins.? @ -No Was critical care preformed (if so, how long)? @ -No Were there social determinants of health that impacted care today? How? (Ho melessness, low income, unemployed, alcoholism, drug addiction, transportation, low edu. Level, literacy, decrease access to med. care, penitentiary, rehab)? @ -No Was there de-escalation of care discussed even if they declined (Discuss DNR or withdrawal of care, Hospice)? DNR status @ -No What co-morbidities impacted this encounter? (DM, HTN, Smoking, COPD, CAD, Cancer, CVA, ARF, Chemo, Hep., AIDS, mental health diagnosis, sleep apnea, morbid obesity)? @ -CAD Was patient admitted / discharged? Hospital course, mention meds given and route, prescriptions, significant lab abnormalities, going to OR and other pertinent info. @ -Patient presents with chest pain that she describes as reminiscent of prior MIs. Has been present for multiple days.. Currently day 3 or 4. Pressure sensation of her chest and back. Patient will be given 324 mg of aspirin as well as nitro. Vitals are within acceptable limits. She was in agreement this plan. EKG shows no signs of acute ischemia. Laboratory studies are remarkable for an indeterminate troponin. Remainder the labs unremarkable. Chest x-ray shows no obvious acute cardiopulmonary process. On reevaluation, patient's pain is improved following 2 nitroglycerin tablets. It is now a 0 out of 10. Nitropaste will be applied. She will be admitted to cardiac observation for cardiology evaluation. She was in agreement this plan. I spoke with the admitting provider, Dr. Flor who accepted the admission. Undiagnosed new problem with uncertain prognosis? @ -No Drug Therapy requiring intensive monitoring for toxicity (Heparin, Nitro, Insulin, Cardizem)? @ -No Were any procedures done? @ -No Diagnosis/symptom? @ -Chest pain Acute, or Chronic, or Acute on Chronic? @ -Acute Uncomplicated (without systemic symptoms) or Complicated (systemic symptoms)? @ -Complicated Side effects of treatment? @ -No Exacerbation, Progression, or Severe Exacerbation? @ -No Poses a threat to life or bodily function? How? (Chest pain, [place], CA, pneumonia, PE, COPD, DKA, ARF, appy, cholecystitis, CVA, Diverticulitis, Homicidal, Suicidal, threat to staff... and all critical care pts) @ -Potentially, yes - Lab Data Result diagrams: 11/06/24 08:21 11/06/24 08:21 Lab Results 11/06/24 11/06/24 11/06/24 Range/Units 08:21 08:21 08:21 WBC 5.19 (4.50-10.00) 10*3/uL RBC 4.37 (4.10-5.20) 10*6/uL Hgb 13.1 (12.0-15.0) g/dL Hct 38.6 (37.2-46.3) % MCV 88.3 (80.0-97.0) fL MCH 30.0 (27.0-32.0) pg MCHC 33.9 (32.0-37.0) g/dL Plt Count 208 (140-440) 10*3/uL MPV 12.8 H (9.5-12.2) fL Immature Gran % (Auto) 0.2 % Neutrophils % 61.3 % Lymphocytes % 27.6 % Monocytes % 8.1 % Eosinophils % 1.5 % Basophils % 1.3 % Immature Gran # 0.01 (0.00-0.04) 10*3/uL Neutrophils # 3.18 (1.80-7.70) 10*3/uL Lymphocytes # 1.43 (0.90-5.00) 10*3/uL Monocytes # 0.42 (0.20-1.00) 10*3/uL Eosinophils # 0.08 (0.04-0.35) 10*3/uL Basophils # 0.07 (0.00-0.10) 10*3/uL PT 9.7 L (10.0-12.5) sec INR 0.9 (<1.2) APTT 23.2 (22.0-30.0) sec Sodium 137 (137-145) mmol/L Potassium 4.2 (3.5-5.1) mmol/L Chloride 106 (98-107) mmol/L Carbon Dioxide 22 (22-30) mmol/L Anion Gap 9 mmol/L BUN 20 H (7-17) mg/dL Creatinine 0.66 (0.52-1.04) mg/dL Est GFR (CKD-EPI)AfAm >90 (>60 ml/min/1.73 sqM) Est GFR (CKD-EPI)NonAf >90 (>60 ml/min/1.73 sqM) Glucose 379 H (74-99) mg/dL Calcium 9.0 (8.4-10.2) mg/dL Magnesium 1.7 (1.6-2.3) mg/dL Total Bilirubin 0.7 (0.2-1.3) mg/dL AST 37 H (14-36) U/L ALT 41 H (4-34) U/L Alkaline Phosphatase 91 (38-126) U/L Troponin I (0.000-0.034) ng/mL NT-Pro-B Natriuret Pep 144 pg/mL Total Protein 6.6 (6.3-8.2) g/dL Albumin 3.7 (3.5-5.0) g/dL Lipase 212 (23-300) U/L 11/06/24 Range/Units 08:21 WBC (4.50-10.00) 10*3/uL RBC (4.10-5.20) 10*6/uL Hgb (12.0-15.0) g/dL Hct (37.2-46.3) % MCV (80.0-97.0) fL MCH (27.0-32.0) pg MCHC (32.0-37.0) g/dL Plt Count (140-440) 10*3/uL MPV (9.5-12.2) fL Immature Gran % (Auto) % Neutrophils % % Lymphocytes % % Monocytes % % Eosinophils % % Basophils % % Immature Gran # (0.00-0.04) 10*3/uL Neutrophils # (1.80-7.70) 10*3/uL Lymphocytes # (0.90-5.00) 10*3/uL Monocytes # (0.20-1.00) 10*3/uL Eosinophils # (0.04-0.35) 10*3/uL Basophils # (0.00-0.10) 10*3/uL PT (10.0-12.5) sec INR (<1.2) APTT (22.0-30.0) sec Sodium (137-145) mmol/L Potassium (3.5-5.1) mmol/L Chloride (98-107) mmol/L Carbon Dioxide (22-30) mmol/L Anion Gap mmol/L BUN (7-17) mg/dL Creatinine (0.52-1.04) mg/dL Est GFR (CKD-EPI)AfAm (>60 ml/min/1.73 sqM) Est GFR (CKD-EPI)NonAf (>60 ml/min/1.73 sqM) Glucose (74-99) mg/dL Calcium (8.4-10.2) mg/dL Magnesium (1.6-2.3) mg/dL Total Bilirubin (0.2-1.3) mg/dL AST (14-36) U/L ALT (4-34) U/L Alkaline Phosphatase (38-126) U/L Troponin I 0.016 (0.000-0.034) ng/mL NT-Pro-B Natriuret Pep pg/mL Total Protein (6.3-8.2) g/dL Albumin (3.5-5.0) g/dL Lipase (23-300) U/L - EKG Data -: EKG Interpreted by Me EKG Comments: 12-lead Electrocardiogram Interpretation Note EKG was reviewed and interpreted by myself. 12-lead ECG performed at 0803 is interpreted by me as revealing paced rhythm at a rate of 84 beats per minute. Indeterminate axis. IL interval is 171 ms, QRS durations 199 ms, QTc is 525 ms.. There were no ST or T wave abnormalities to suggest myocardial ischemia or injury. R wave progression across the precordium was satisfactory. By my interpretation this EKG is non-diagnostic for acute ischemia. Disposition Clinical Impression: Chest pain Disposition: ADMITTED IP TO THIS HOSP Condition: Stable Time of Disposition: 10:15
[2024-11-06] MEDS: ASPIRIN 81 MG PO STA (09:27)
[2024-11-06] MEDS ORDERED: NALOXONE 0.4 MG/ML 1 ML VIAL IV PRN (10:14)
[2024-11-06] MEDS ORDERED: ONDANSETRON 4 MG/2 ML VIAL IVP PRN (10:14)
[2024-11-06] MEDS: NITROGLYCERIN OINT 1 INCH/GM PACKET TOPICAL SCH (10:46)
[2024-11-06] MEDS: SODIUM CHLORIDE 0.9% 1,000 ML IV SCH (10:51)
[2024-11-06] MEDS ORDERED: DEXTROSE 50% SYRINGE 50 ML IVP PRN ×2 (11:09)
[2024-11-06 11:43] LABS: Glucose,Whole Blood 331 mg/dL (70-110)
[2024-11-06] MEDS: INSULIN LISPRO (HumaLOG) 100 UNIT/ML 10 mL VL SQ SCH (11:51)
--- NOTE | 2024-11-06 12:27 | P.CRDCN ---
History of Present Illness History of present illness: HISTORY OF PRESENTING ILLNESS This is a pleasant 59-year-old female past medical history significant for coronary artery disease status post PCI LAD, ischemic cardiomyopathy status post ICD, hypertension, diabetes mellitus and dyslipidemia. She follows in the office with Dr. Thompson. We have been asked to see in consultation for chest pain. She indicates for the previous 3 days she has been having discomfort across her back and chest. The pain is worse with inspiration and movement of her arms and torso. She denies any specific shortness of breath or cough however she was concerned that she may have pneumonia since this is how she felt previously. Chest x-ray is negative for any acute cardiopulmonary process. Laboratory data reviewed, CBC unremarkable, sodium 137, potassium 4.2, creatinine 0.66, cardiac enzymes negative x 1, NT proBNP 844. Most recent stress test performed here at the hospital in July 2024 shows ejection fraction 68% with diminished uptake in the apex on both stress and rest images suspicious for old infarct with no convincing reversibility noted. She has not followed up in the office since that hospitalization. EKG is v-paced. REVIEW OF SYSTEMS At the time of my exam: CONSTITUTIONAL: Denies fever or chills. CARDIOVASCULAR: Denies chest pain, shortness of breath, orthopnea, PND or palpitations. RESPIRATORY: Denies cough. GASTROINTESTINAL: Denies abdominal pain, diarrhea, constipation, nausea or vomiting. MUSCULOSKELETAL: Denies myalgias. NEUROLOGIC: Denies numbness, tingling, headache or weakness. ENDOCRINE: Denies fatigue, weight change, polydipsia or polyurina. GENITOURINARY: Denies burning, hematuria or urgency with micturation. HEMATOLOGIC: Denies history of anemia or bleeding. PHYSICAL EXAMINATION Blood pressure 119/79 heart rate 71 afebrile and maintaining oxygen saturation on room air. CONSTITUTIONAL: No apparent distress. HEENT: Head is normocephalic. Pupils are equal, round. Sclerae anicteric. Mucous membranes of the mouth are moist. No JVD. No carotid bruit. CHEST EXAMINATION: Lungs are clear to auscultation. No chest wall tenderness is noted on palpation or with deep breathing. HEART EXAMINATION: Regular rate and rhythm. S1, S2 heard. No murmurs, gallops or rub. ABDOMEN: Soft, nontender. EXTREMITIES: 2+ peripheral pulses, no lower extremity edema and no calf tenderness. NEUROLOGIC EXAMINATION: Patient is awake, alert and oriented x3. ASSESSMENT Pleuritic chest pain Coronary artery disease status post PCI LAD Ischemic cardiomyopathy status post ICD with recovery and LV function Hypertension Dyslipidemia PLAN Check a D-dimer. If abnormal consider CTA. Check second troponin. If negative she can be discharged to follow up with Dr. Mooney. Thank you kindly for this consultation. Nurse Practitioner note has been reviewed, I agree with a documented findings and plan of care. Patient was seen and examined. Past Medical History Past Medical History: Coronary Artery Disease (CAD), Chest Pain / Angina, Heart Failure, GERD/Reflux, Hyperlipidemia, Hypertension, Myocardial Infarction ([place]), Renal Disease, Thyroid Disorder Additional Past Medical History / Comment(s): See Dr Owen's H&P,Ischemic cardiomyopathy, CKD stage II, nephrolithiasis, migraines, occasional back pain, hypothyroid. Last Myocardial Infarction Date:: 06-30-15 History of Any Multi-Drug Resistant Organisms: None Reported Past Surgical History: AICD, Cholecystectomy, Heart Catheterization, Heart Catheterization With Stent, Hernia Repair, Hysterectomy, Pacemaker Additional Past Surgical History / Comment(s): 2015 stents to lad,diag, 05/22/16 PTCA, bilateral oophorectomy, LT INGUINAL HERNIA REPAIR, CYSTOCOPY, LITHOTRIPSY,COLONOSCOPY, AICD Past Anesthesia/Blood Transfusion Reactions: Postoperative Nausea & Vomiting (PONV) Additional Past Anesthesia/Blood Transfusion Reaction / Comment(s): MILD CLAUSTERPHOBIA. no hx blood transfusion Date of Last Stent Placement:: 2014-08 stents Type of Cardiac Device: Permanent Pacemaker Device Placement Date:: 06/28/15, [facility]-left chest Past Psychological History: Anxiety Additional Psychological History / Comment(s): She is independent. Smoking Status: Former smoker Past Alcohol Use History: Rare Additional Past Alcohol Use History / Comment(s): Pt started smoking in 1976 and quit in 1991. She was about a 1/2 ppd smoker. She used to drink alcohol on occasion, but has not had any alcohol in a long time. Past Drug Use History: None Reported - Past Family History Mother Family Medical History: Dementia Additional Family Medical History / Comment(s): pacemaker Brother(s) Family Medical History: No Reported History Father Family Medical History: Cancer, Dementia, Myocardial Infarction ([place]) Additional Family Medical History / Comment(s): pacemaker and colon cancer. Sister(s) Family Medical History: Cancer, Hypertension Additional Family Medical History / Comment(s): Breast and colon cancer. Medications and Allergies Home Medications Medication Instructions Recorded Confirmed Type No Known Home Medications 11/06/24 11/06/24 History Allergies Allergy/AdvReac Type Severity Reaction Status Date / Time hydrocodone bitartrate AdvReac Nausea & Verified 11/06/24 10:28 [From Vicodin] Vomiting propoxyphene napsylate AdvReac Vomiting Verified 11/06/24 10:28 [From Darvocet-N] Physical Exam Vitals: Vital Signs Temp Pulse Resp BP Pulse Ox 11/06/24 10:58 97.5 F L 71 16 119/79 97 11/06/24 10:32 67 16 97 11/06/24 09:28 72 16 123/63 97 11/06/24 08:38 75 18 168/92 98 11/06/24 07:51 97.8 F 96 18 177/81 97 Intake and Output 11/05/24 11/06/24 11/06/24 22:59 06:59 14:59 Other: Weight 95.254 kg Results 11/06/24 08:21 11/06/24 08:21 Cardiac Enzymes 11/06/24 11/06/24 Range/Units 08:21 08:21 AST 37 H (14-36) U/L Troponin I 0.016 (0.000-0.034) ng/mL Coagulation 11/06/24 Range/Units 08:21 PT 9.7 L (10.0-12.5) sec APTT 23.2 (22.0-30.0) sec CBC 11/06/24 Range/Units 08:21 WBC 5.19 (4.50-10.00) 10*3/uL RBC 4.37 (4.10-5.20) 10*6/uL Hgb 13.1 (12.0-15.0) g/dL Hct 38.6 (37.2-46.3) % Plt Count 208 (140-440) 10*3/uL Comprehensive Metabolic Panel 11/06/24 Range/Units 08:21 Sodium 137 (137-145) mmol/L Potassium 4.2 (3.5-5.1) mmol/L Chloride 106 (98-107) mmol/L Carbon Dioxide 22 (22-30) mmol/L BUN 20 H (7-17) mg/dL Creatinine 0.66 (0.52-1.04) mg/dL Glucose 379 H (74-99) mg/dL Calcium 9.0 (8.4-10.2) mg/dL AST 37 H (14-36) U/L ALT 41 H (4-34) U/L Alkaline Phosphatase 91 (38-126) U/L Total Protein 6.6 (6.3-8.2) g/dL Albumin 3.7 (3.5-5.0) g/dL Current Medications Generic Name Dose Route Start Last Admin Trade Name Freq PRN Reason Stop Dose Admin Acetaminophen 650 mg 11/06/24 10:14 Acetaminophen Tab 325 Mg Tab PO Q6HR PRN Mild Pain or Fever > 100.5 Aspirin 81 mg 11/07/24 09:00 Aspirin 81 Mg PO DAILY [facility] Dextrose/Water 25 ml 11/06/24 11:09 Dextrose 50% Syringe 50 Ml IVP PER PROTOCOL PRN Hypoglycemia Protocol Dextrose/Water 50 ml 11/06/24 11:09 Dextrose 50% Syringe 50 Ml IVP PER PROTOCOL PRN Hypoglycemia Protocol Heparin Sodium (Porcine) 5,000 unit 11/06/24 16:00 Heparin Sodium,Porcine 5,000 Unit/Ml 1 Ml Vial SQ Q8HR [facility] Sodium Chloride 1,000 mls @ 75 mls/hr 11/06/24 10:15 11/06/24 10:51 Saline 0.9% IV 75 mls/hr .[id number] [facility] Administration Insulin Human Lispro 0 unit 11/06/24 12:30 Insulin Lispro (Humalog) 100 Unit/Ml 10 Ml Vl SQ ACHS [facility] Protocol Naloxone HCl 0.2 mg 11/06/24 10:14 Naloxone 0.4 Mg/Ml 1 Ml Vial IV Q2M PRN Opioid Reversal Nitroglycerin 0.5 inch 11/06/24 09:45 11/06/24 10:46 Nitroglycerin Oint 1 Inch/Gm Packet TOPICAL Not Given Q8HR [facility] Ondansetron HCl 4 mg 11/06/24 10:14 Ondansetron 4 Mg/2 Ml Vial IVP Q8HR PRN Nausea And Vomiting Intake and Output 11/05/24 11/06/24 11/06/24 22:59 06:59 14:59 Other: Weight 95.254 kg Patient Weight 11/07/24 06:59 Weight 95.254 kg 11/06/24 08:21 11/06/24 08:21
[2024-11-06] MEDS: HEPARIN SODIUM,PORCINE 5,000 UNIT/ML 1 ML VIAL SQ SCH (15:45)
[2024-11-06 16:55] LABS: Glucose,Whole Blood 300 mg/dL (70-110)
--- NOTE | 2024-11-06 19:10 | P.HPIM ---
History of Present Illness H&P Date: 11/06/24 Chief Complaint: Chest pressure Patient is a 59-year-old female with a past medical history of coronary artery disease with stent placement in 2014 to LAD, ischemic cardiomyopathy status post ICD with improvement in ejection fraction, hypertension, diabetes type 2 and hyperlipidemia. Patient presents to ER with complaints of chest pain/pressure on and off for the past 4 days. She also felt pressure sensation in the back as well which worsens with movement of her upper extremities and torso. Patient states that she was in the rain working for about 4 days prior to this. She thought she may have pneumonia. 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 Denied any fever or chills. No nausea or vomiting. Denied any radiation of the pain. No headache or dizziness or lightheadedness. No leg swelling. Denied any palpitations or leg swelling. Chest x-ray on admission showed borderline heart size. No acute process seen. EKG showed electronic ventricular paced rhythm. Laboratory data showed WBC 5.1 hemoglobin 13.1 platelets 208 sodium 137 potassium 4.2 chloride 106 bicarb is 22 BUN 20 and creatinine 0.66 and blood sugar 379 AST 37 ALT 41 alk phos 91 troponin x 2-20 proBNP 144. Lipase 212. Past Medical History Past Medical History: Coronary Artery Disease (CAD), Chest Pain / Angina, Heart Failure, GERD/Reflux, Hyperlipidemia, Hypertension, Myocardial Infarction (ID), Renal Disease, Thyroid Disorder Additional Past Medical History / Comment(s): See Dr Owen's H&P,Ischemic cardiomyopathy, CKD stage II, nephrolithiasis, migraines, occasional back pain, hypothyroid. Last Myocardial Infarction Date:: 06-30-15 History of Any Multi-Drug Resistant Organisms: None Reported Past Surgical History: AICD, Cholecystectomy, Heart Catheterization, Heart Catheterization With Stent, Hernia Repair, Hysterectomy, Pacemaker Additional Past Surgical History / Comment(s): 2015 stents to lad,diag, 05/22/16 PTCA, bilateral oophorectomy, LT INGUINAL HERNIA REPAIR, CYSTOCOPY, LITHOTRIPSY,COLONOSCOPY, AICD Past Anesthesia/Blood Transfusion Reactions: Postoperative Nausea & Vomiting (PONV) Additional Past Anesthesia/Blood Transfusion Reaction / Comment(s): MILD CLAUSTERPHOBIA. no hx blood transfusion Date of Last Stent Placement:: 2014- stents Type of Cardiac Device: Permanent Pacemaker Device Placement Date:: 06/28/15, [facility]-left chest Past Psychological History: Anxiety Smoking Status: Former smoker Past Alcohol Use History: Rare Past Drug Use History: None Reported - Past Family History Mother Family Medical History: Dementia Additional Family Medical History / Comment(s): pacemaker Brother(s) Family Medical History: No Reported History Father Family Medical History: Cancer, Dementia, Myocardial Infarction (ID) Additional Family Medical History / Comment(s): pacemaker and colon cancer. Sister(s) Family Medical History: Cancer, Hypertension Additional Family Medical History / Comment(s): Breast and colon cancer. Medications and Allergies Home Medications Medication Instructions Recorded Confirmed Type No Known Home Medications 11/06/24 11/06/24 History Allergies Allergy/AdvReac Type Severity Reaction Status Date / Time hydrocodone bitartrate AdvReac Nausea & Verified 11/06/24 10:28 [From Vicodin] Vomiting propoxyphene napsylate AdvReac Vomiting Verified 11/06/24 10:28 [From Darvocet-N] Physical Exam Vitals: Vital Signs Temp Pulse Resp BP Pulse Ox 11/06/24 10:58 97.5 F L 71 16 119/79 97 11/06/24 10:32 67 16 97 11/06/24 09:28 72 16 123/63 97 11/06/24 08:38 75 18 168/92 98 11/06/24 07:51 97.8 F 96 18 177/81 97 Intake and Output 11/05/24 11/06/24 11/06/24 22:59 06:59 14:59 Other: Weight 95.254 kg Results CBC & Chem 7: 11/06/24 08:21 11/06/24 08:21 Labs: Abnormal Lab Results - Last 24 Hours (Table) 11/06/24 11/06/24 11/06/24 Range/Units 08:21 08:21 08:21 MPV 12.8 H (9.5-12.2) fL PT 9.7 L (10.0-12.5) sec BUN 20 H (7-17) mg/dL Glucose 379 H (74-99) mg/dL AST 37 H (14-36) U/L ALT 41 H (4-34) U/L Thrombosis Risk Factor Assmnt - DVT/VTE Prophylaxis DVT/VTE Prophylaxis: Pharmacologic Prophylaxis ordered Assessment and Plan Assessment: Atypical chest pain possible musculoskeletal versus pleuritic. Rule out ACS Coronary artery disease history of stent placement to LAD in 2015 Ischemic cardiomyopathy status post ICD with improved ejection fraction History of permanent pacemaker placement Hypertension Hyperlipidemia Hyperglycemia with uncontrolled diabetes type 2 Hypothyroidism History of ID CKD stage II Nephrolithiasis Migraine headaches Prior history of smoking Obesity with BMI 38.4 Plan: Patient will be continued on telemonitoring. Serial EKG and troponin x 3. D- dimer was ordered. continue ASA Continue with aspirin and lipid panel was ordered continue symptomatic management and home medications. Insulin regimen for better blood sugar control. Cardiology is on board. Continue to follow closely. Time with Patient: Greater than 30
[2024-11-06 20:37] LABS: Glucose,Whole Blood 350 mg/dL (70-110)
[2024-11-06] MEDS ORDERED: INSULIN GLARGINE (LANTUS) 100 UNIT/ML SYR SQ SCH (22:15)
[2024-11-06] MEDS: INSULIN GLARGINE (LANTUS) 100 UNIT/ML SYR SQ ONE (22:24)
[2024-11-06] MEDS: metFORMIN 500 MG TAB PO SCH (22:25)
[2024-11-06] MEDS: METOPROLOL SUCCINATE (ER) 50 MG TAB.ER.24H PO SCH (22:25)
[2024-11-06] MEDS: ATORVASTATIN 80 MG TAB PO SCH (22:25)
[2024-11-06] MEDS: SACUBITRIL/VALSARTAN 24 MG-26 MG TABLET PO SCH (22:25)
[2024-11-06] MEDS: SIMETHICONE 80 MG CHEWABLE PO PRN (22:26)
[2024-11-06] MEDS: DAPAGLIFLOZIN PROPANEDIOL 10 MG TABLET PO SCH (22:26)
[2024-11-07] MEDS: INSULIN GLARGINE (LANTUS) 100 UNIT/ML SYR SQ SCH (00:16)
[2024-11-07] MEDS: ACETAMINOPHEN TAB 325 MG TAB PO PRN (04:35)
[2024-11-07 06:28] LABS: Glucose,Whole Blood 249 mg/dL (70-110)
[2024-11-07 06:49] LABS: Basophils % (A) 1.9 %; Eosinophils % (A) 1.9 %; HCT 41.1 % (37.2-46.3); HGB 13.4 g/dL (12.0-15.0); Lymphocytes # (A) 2.14 10*3/uL (0.90-5.00); Lymphocytes % (A) 39.8 %; MCH 29.5 pg (27.0-32.0); MCHC 32.6 g/dL (32.0-37.0); MCV 90.3 fL (80.0-97.0); Mean Platelet Volume 12.2 fL (9.5-12.2); Monocytes # (A) 0.46 10*3/uL (0.20-1.00); Monocytes % (A) 8.6 %; Neutrophils # (A) 2.57 10*3/uL (1.80-7.70); Neutrophils % (A) 47.6 %; Platelet Count 217 10*3/uL (140-440); RBC 4.55 10*6/uL (4.10-5.20); RDW 13.5 % (11.5-14.5); WBC 5.38 10*3/uL (4.50-10.00)
[2024-11-07 07:03] LABS: African American GFR (CKD) >90 (>60 ml/min/1.73 sqM); Anion Gap 7 mmol/L; Blood Urea Nitrogen 18 mg/dL (7-17); Calcium 9.1 mg/dL (8.4-10.2); Carbon Dioxide 24 mmol/L (22-30); Chloride 107 mmol/L (98-107); Glucose 243 mg/dL (74-99); Non-African American GFR(CKD) >90 (>60 ml/min/1.73 sqM); Potassium 4.1 mmol/L (3.5-5.1); Sodium 138 mmol/L (137-145)
[2024-11-07 08:02] VITALS: BP 123/80; PULSE 67; TEMP 98
[2024-11-07 08:29] VITALS: RESP 16
[2024-11-07] MEDS: ASPIRIN 81 MG PO SCH (09:46)
[2024-11-07] MEDS: PANTOPRAZOLE 40 MG TABLET PO SCH (09:47)
[2024-11-07] MEDS: SPIRONOLACTONE 25 MG TAB PO SCH (09:47)
--- NOTE | 2024-11-07 10:22 | P.PN ---
Subjective HISTORY OF PRESENT ILLNESS: This is a pleasant 59-year-old female past medical history significant for coronary artery disease status post PCI LAD, ischemic cardiomyopathy status post ICD, hypertension, diabetes mellitus and dyslipidemia. She follows in the office with Dr. Thompson. We have been asked to see in consultation for chest pain. She indicates for the previous 3 days she has been having discomfort across her back and chest. The pain is worse with inspiration and movement of her arms and torso. She denies any specific shortness of breath or cough however she was concerned that she may have pneumonia since this is how she felt previously. Chest x-ray is negative for any acute cardiopulmonary process. Laboratory data reviewed, CBC unremarkable, sodium 137, potassium 4.2, creatinine 0.66, cardiac enzymes negative x 1, NT proBNP 844. Most recent stress test performed here at the hospital in July 2024 shows ejection fraction 68% with diminished uptake in the apex on both stress and rest images suspicious for old infarct with no convincing reversibility noted. She has not followed up in the office since that hospitalization. EKG is v-paced. 11/07/2024 Patient examined this morning at the bedside. Patient currently denies chest pain or pressure. Denies any shortness of breath. Vital signs are stable. PHYSICAL EXAM: VITAL SIGNS: Reviewed. GENERAL: Well-developed in no acute distress. NECK: Supple. No JVD or thyromegaly LUNGS: Respirations even and unlabored. Lungs essentially clear to auscultation bilaterally. HEART: Regular rate and rhythm. S1 and S2 heard. EXTREMITIES: Normal range of motion. No clubbing or cyanosis. Peripheral pulses intact. No lower extremity edema ASSESSMENT: Pleuritic chest pain Coronary artery disease status post PCI LAD Ischemic cardiomyopathy status post ICD with recovery of LV function Hypertension Dyslipidemia PLAN: Continue current cardiac medications No further inpatient recommendations from a cardiac standpoint Patient is stable for discharge home today from a cardiac standpoint Nurse practitioner note has been reviewed by physician. Signing provider agrees with the documented findings, assessment, and plan of care documented by [employer] as a scribe. Objective - Vital Signs Vital signs: Vital Signs Temp 98.0 F 11/07/24 08:00 Pulse 67 11/07/24 08:00 Resp 16 11/07/24 08:26 BP 123/80 11/07/24 08:00 Pulse Ox 98 11/07/24 08:00 FiO2 Intake & Output 11/06/24 11/07/24 11/07/24 18:59 06:59 18:59 Intake Total 300 50 Balance 300 50 Weight 95.254 kg Intake: Oral 300 50 Other: Voiding Method Toilet Toilet Toilet # Voids 2 - Labs CBC & Chem 7: 11/07/24 06:22 11/07/24 06:22 Labs: Abnormal Lab Results - Last 24 Hours (Table) 11/06/24 11/06/24 11/06/24 Range/Units 11:42 16:55 20:36 BUN (7-17) mg/dL Glucose (74-99) mg/dL POC Glucose (mg/dL) 331 H 300 H 350 H (70-110) mg/dL 11/07/24 11/07/24 Range/Units 06:22 06:27 BUN 18 H (7-17) mg/dL Glucose 243 H (74-99) mg/dL POC Glucose (mg/dL) 249 H (70-110) mg/dL
[2024-11-07 15:22] LABS: Chol/HDL Ratio 3.84 Ratio; LDL Cholesterol,Calculated 126.1 mg/dL (0.0-131.0)
[2024-11-07] MEDS ORDERED: INSULIN GLARGINE (LANTUS) 100 UNIT/ML SYR SQ SCH (21:00)
== END 2024-11-07 11:51 | disposition home or self-care (01) ==
LOC: EC 07:48 → 1SOBS 10:14
PROVIDERS: ADMIT Internal Medicine; ATTEND Internal Medicine
DX: R07.81 Pleurodynia (principal); R07.89 Other chest pain; E11.65 Type 2 diabetes mellitus with hyperglycemia; I25.5 Ischemic cardiomyopathy; I13.0 Hypertensive heart and chronic kidney disease with heart failure and stage 1 through stage 4 chronic kidney disease, or unspecified chronic kidney disease; I50.9 Heart failure, unspecified; N18.2 Chronic kidney disease, stage 2 (mild); I25.10 Atherosclerotic heart disease of native coronary artery without angina pectoris; E78.5 Hyperlipidemia, unspecified; E03.9 Hypothyroidism, unspecified; G43.909 Migraine, unspecified, not intractable, without status migrainosus; N20.0 Calculus of kidney; E66.9 Obesity, unspecified; Z68.38 Body mass index [BMI] 38.0-38.9, adult; I25.2 Old myocardial infarction; Z88.5 Allergy status to narcotic agent; Z87.891 Personal history of nicotine dependence; Z95.5 Presence of coronary angioplasty implant and graft; Z95.810 Presence of automatic (implantable) cardiac defibrillator
CPT/HCPCS: 96372 ×2; 99285; 36415; 93005; 85379; 83880; 80061; 80053; 80048; 83690; 83735; 84484; 85025 ×2; 85610; 85730; 83036; 71046; G0378 ×2; J1644 ×2